=== PATIENT | male | born 1940 | race Caucasian/White ===

== ENCOUNTER 2017-10-21 11:13 | Emergency (ER) | payer MEDICARE, OTHER, SELFPAY ==
[2017-10-21 11:15] VITALS: BP 146/74; PULSE 77; RESP 17; TEMP 36.8; O2SAT 98; BMI 22.4
--- NOTE | 2017-10-21 11:37 | ED.VISSUMM ---
- ER Visit Summary Date of Service: 10/21/17 Chief Complaint: Back pain, right shoulder pain History of Present Illness: The patient is a 77 M presents with right shoulder pain ?3 weeks and back pain ?1 week. Patient is in the process of moving. He has been doing a lot of projects at his old house and packing and lifting. He has pain to his right shoulder and left lower back that radiates down his left leg. He has had no bowel or bladder incontinence. No numbness. He is able to ambulate. Physical Examination: Vitals are stable. Patient is afebrile. Alert no acute distress. HEENT exam is unremarkable. Neck is supple. Lungs are clear and equal bilaterally. Heart is regular rate and rhythm. Abdomen is soft nontender nondistended. Back: Left lumbar paraspinal muscle tenderness, straight leg raise positive at 30?. Extremities anterior shoulder tenderness with painful active full range of motion Skin is warm and dry. No focal neurologic deficit. Normal strength and sensation Remainder of exam is unremarkable. Emergency Department Course and Treatment: Patient is given morphine, Zofran IV. X-ray of the lumbar spine shows degenerative changes. X-ray of the right shoulder and left hip show no acute process. Patient has improvement of his range of motion with pain medication. He is given a short course of [place]. He is advised to follow up with his primary care physician. Advised return to ED if worsening complaints. Disposition: Discharged home Impression: Right shoulder strain, lumbar strain This note was generated with [employer] dictation software. It may contain incorrect words, spelling, and punctuation that were not noted in review of the chart prior to signing ED Disposition - Plan for ED Patient: Chief Complaint: Back Referrals: Terrance Villafuerte III, MD [Primary Care Provider] -
[2017-10-21] MEDS: Ondansetron 4 MG/2 ML Vial IV (12:02)
[2017-10-21] MEDS: Morphine 4 MG/ML Syringe IV (12:02)
--- NOTE | 2017-10-21 13:09 | ED.DEP ---
ED Disposition - Plan for ED Patient: Chief Complaint: Back Instructions: ED Sprain Strain Lumbar Prescriptions: Hydrocodone Bitart/Apap 5-325 [[place] 5MG-325MG] 1 tablet PO Q6H PRN PRN 3 Days #10 tablet PRN Reason: Pain Referrals: Terrance Villafuerte III, MD [Primary Care Provider] -
[2017-10-21 13:21] VITALS: BP 124/71; PULSE 69; RESP 15; O2SAT 96
== END 2017-10-21 13:23 | disposition home or self-care (01) ==
LOC: ED 12:39
PROVIDERS: Emergency Provider Emergency Medicine; Family Provider Family Medicine; PCP Family Medicine
DX: S46.911A Strain of unspecified muscle, fascia and tendon at shoulder and upper arm level, right arm, initial encounter (principal); S39.012A Strain of muscle, fascia and tendon of lower back, initial encounter; X50.9XXA Other and unspecified overexertion or strenuous movements or postures, initial encounter; Y93.E6 Activity, residential relocation; Y92.9 Unspecified place or not applicable; Y99.9 Unspecified external cause status; M25.552 Pain in left hip; G89.29 Other chronic pain; I25.10 Atherosclerotic heart disease of native coronary artery without angina pectoris; K21.9 Gastro-esophageal reflux disease without esophagitis; Z79.02 Long term (current) use of antithrombotics/antiplatelets; Z79.82 Long term (current) use of aspirin; Z79.899 Other long term (current) drug therapy
CPT/HCPCS: 72100; 73030; 73502; 99283; A4216; J2405

== ENCOUNTER 2017-11-16 12:00 | Outpatient (RCR) | payer MEDICARE, OTHER, SELFPAY ==
--- NOTE | 2017-10-30 11:32 | HP.PTEVAL_ITS ---
Patient's Visit Information SHAWNA DELEON is a 77 year old M referred to Physical Therapy by Terrance Villafuerte with a diagnosis of LUMBAR STRAIN. Date of Evaluation: 10/30/17 Physical Therapist: Carolin Arboleda Visit Plan Frequency: 2-3x /Week Duration: 4-6 Weeks Plan: POSTURE CORRECTION/STRENGTHENING, INSTRUCTION IN APPROPRIATE BODY MECHANICS AND ACTIVITY MODIFICATIONS. DLS STARTING WITH A NEUTRAL SPINE PROGRESSING ROM TOLERATED. LUMBAR AND RIGHT SHOULDER US. QUINCY UE AND LE ROM , STRETCHING AND STRENGTHENING. HEP INSTRUCTION. - Subjective Subjective: Work/Leisure: RETIRED. 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 Disability: NO. Present symptoms: QUINCY LOW BACK PAIN. QUINCY LE WEAKNESS. QUINCY BACK AND HIP TIGHTNESS. PATIENT DENIES QUINCY LE NUMBNESS OR TINGLING. HE REPORTS HE DOES NOT GET PAIN BELOW HIS KNEES OR INTO HIS FEET. RIGHT SHOULDER PAIN. Present since: LOW BACK PAIN STARTED ABOUT 3 WEEKS AGO. LAST WEEK IT WAS SO BAD HE COULDN'T LIFT HIS LEFT LEG UP. Pain Scale: WORST: 8/10, LEAST 0 /10. Currently: 0/10. Commenced as a result of: MOVED TO A NEW HOUSE - FIXING IT UP. Symptoms at onset: LOW BACK. Worse: WHEN TRIES TO GET UP FROM BED LOW BACK PAIN AND STIFFNESS. RIGHT SHOULDER PAIN AT NIGHT AND WITH REACHING. CAN'T BOWL OR GOLF. Better: HOT SHOWER IN THE MORNING. Disturbed sleep: YES. Previous history/Previous treatment: UNREMARKABLE. Coughing/ sneezing/straining: NEGATIVE. Gait: SLOW STEPS UNTIL MY BACK GETS LOOSE. PATIENTS REPORTS HE WALKS LIKE AN OLD MAN IN THE MORNING. LEGS ARE WEAK AFTER HE GETS FROM SITTING EVEN IN THE AFTERNOON AND ESPECIALLY AFTER SITTING IN THE RECLINER. Difficulty initiating urinatin: NO. Accidents: NO. Unexplained weight loss: NO. Imagin10/21/17 DEGENERATIVE CHANGES OF THE SPINE SEEN ON X-RAY. NORMAL X-RAY OF PELVIS AND HIPS. NORMAL X-RAY OF RIGHT SHOULDER. PMH: HTN, HEART DZ, GERD, HIGH CHOLESTEROL. Recent major surgery: HEART STENT APPROX 2013. OTHER: PATIENT REPORTS HE THOUGHT HE WAS HERE FOR HIS RIGHT SHOULDER. HE REPORTS HE IS GETTING UP TO 12/10 PAIN IN THE SHOULDER AND HE CAN'T MOVE IT AT NIGHT. HE REPORTS HE IS GETTING STABBING PAINS IN HIS SHOULDER. HASN'T BEEN ABLE TO GOLF OR BOWL FOR ABOUT 3 WEEKS NOW. 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 THEY STARTED MOVING IN JULY BUT THE LAST MONTH OR TWO THEY HAVE BEEN WORKING HARD. PATIENT REPORTS HIS CHEIF COMPLAINT NOW IS HIS RIGHT SHOULDER BUT HIS PAIN ACTUALLY STARTED IN THE LEFT SHOULDER. HIS LEFT SHOULDER STILL ACHES SOMETIMES TOO. PATIENT REPORTS HIS SHOULDER IS DRIVING HIM CRAZY. - Objective Sitting/Standing Posture: POOR. FORWARD HEAD, INCREASED KYPHOSIS, ROUNDED SHOULDERS AND VERY SLOUCH IN SITTING. Lordosis: REDUCED. Lateral shift: NO. Relevant shift: N/A. Active Correction of posture: NE. Other Observations: INDEP GAIT INTO PT WITHOUT ANY ASSISTIVE DEVICES. INCREASED TRUNK FLEXION, DECREASED CADANCE AND DECREASED QUINCY STRIDE LENGTH. Motor deficit: QUINCY LE'S GROSSLY 5/5 WITH MMT'ING EXCEPT HIPS GRADED 4/5. LEFT SHOULDER 4/5. RIGHT SHOULDER 2+/5 INTO FLEX, ABD AND ER. 3-/5 IR. RIGHT CURING OVEN TENDER STRENGTH 70 LBS, LEFT 75 LBS. PATIENT IS RIGHT HAND DOMINANT. Sensory deficit: QUINCY UE AND LE LIGHT TOUCH SENSATION IS INTACT AND SYMMETRICAL. ROM deficit: TIGHT QUINCY HS'S AND GASTROC-SOLEUS COMPLEX'S. TIGHT HIP FLEXORS. SHOULDERS: APPROX 25% DECREASED LEFT SHOULDER AROM. RIGHT SHOULDER ACTIVE FORWARD FLEX 90 DEGREES, ABD 115 DEG. Reflexes: 2/3 QUINCY UE'S AND LE'S. Dural Signs: NEGATIVE QUINCY UE AND LE DURAL SIGNS. Lumbar mvmt loss: flex - NIL. ext - MOD. R SG - MOD. L SG - MOD. Core strength: FAIR. Palpation: NO ACUTE TENDERNESS IN LUMBAR SPINE OR HIPS BUT THERE IS MILD L45S1 TENDERNESS. CERVICAL MVMT LOSS: MAJOR MVMT LOSS INTO RETRACTION AND EXT. MIN TO MOD QUINCY SB AND ROT LOSS. FOR PROTRACTION AND FLEX. PATIENT DENIES PAIN WITH CERVICAL ROM TESTING. - Goals Goal 1:: DECREASE C/O LOW BACK AND LE SX'S. Goal Time Frame: 4-6 Weeks Goal 2:: DECREASE C/O RIGHT SHOULDER PAIN Goal Time Frame: 4-6 Weeks Goal 3:: IMPROVE REACHING, PERSONAL CARE, LIFTING, WALKING, SLEEP, SOCIAL LIFE, AND HOMEMAKING/MOVING FUNCTION Goal Time Frame: 4-6 Weeks Goal 4:: INSTRUCT IN PROPHYLAXIS Goal Time Frame: 4-6 Weeks - Rehabilitation Potential Rehabilitation Potential: Fair - Anticipated Interventions Patient/Client Instruction: Educate patient on: Condition, Plan of Care, Risk Factors, Benefits of Fitness Program For the Purpose of:: To improve self management Therapeutic Exercise to Include: Strength training, Body mechanics, Postural training, Flexibilty training, Passive ROM, Active ROM, Dynamic Lumbar Stabilization, Scapular Strength/Stabilization For the Purpose of:: To decrease pain, To increase ROM, To improve muscle performance and motor function, To improve ability to perform ADL's, To increase tolerance to activity/condition/position, To improve ability of physical actions for home/community/work/leisure, To improve gait and locomotor functions Cryotherapy (ice pack, ice massage): Yes Thermo therapy (hot pack): Yes Ultrasound (thermal/non thermal): Yes - RIGHT SHOULDER AND LUMBAR REGIONS. For the Purpose of:: To decrease pain, To decrease swelling/inflammation, To increase ROM, To improve nutrient delivery to tissue Thank you for the opportunity to evaluate your patient. For Medicare and Medicare HMO plans, please review the plan of care and approve it. It will need to be FAXED BACK to us at [phone] for Medicare purposes. Please let me know if there are questions or concerns regarding this plan of care. Physician Signature: Date:
--- NOTE | 2018-03-25 13:20 | HP.PT.NRP ---
HP - Discharge Summary (1) - Patient Information SHAWNA DELEON was seen in my office for initial evaluation on 10/30/17. The following Plan of Care was established for this patient: Initial Frequency: 2-3x /Week Initial Duration: 4-6 Weeks - Anticipated Interventions Patient/Client Instruction: Educate patient on: Condition, Plan of Care, Risk Factors, Benefits of Fitness Program For the Purpose of:: To improve self management Therapeutic Exercise to Include: Strength training, Body mechanics, Postural training, Flexibilty training, Passive ROM, Active ROM, Dynamic Lumbar Stabilization, Scapular Strength/Stabilization For the Purpose of:: To decrease pain, To increase ROM, To improve muscle performance and motor function, To improve ability to perform ADL's, To increase tolerance to activity/condition/position, To improve ability of physical actions for home/community/work/leisure, To improve gait and locomotor functions Cryotherapy (ice pack, ice massage): Yes Thermo therapy (hot pack): Yes Ultrasound (thermal/non thermal): Yes - RIGHT SHOULDER AND LUMBAR REGIONS. For the Purpose of:: To decrease pain, To decrease swelling/inflammation, To increase ROM, To improve nutrient delivery to tissue This patient was last seen in our office 11/16/17. Pertinent comments regarding their Physical therapy will appear below: This patient has not returned to Physical Therapy and is appropriate to return to MD for further follow-up as needed. At this point I will be discontinuing this patient from physical therapy. I would be happy to see this patient again in the future if found appropriate by the physician. Thank you! Carolin Ceron, PT, Cert MDT
== END 2017-11-16 19:00 | disposition home or self-care (01) ==
LOC: PT 12:00
PROVIDERS: Family Provider Family Medicine; PCP Family Medicine; Visit Provider Family Medicine
DX: S39.012D Strain of muscle, fascia and tendon of lower back, subsequent encounter (principal)
CPT/HCPCS: 97035; 97110; 97163; 97530

== ENCOUNTER → 2017-11-18 13:13 | Outpatient (CLI) | payer MEDICARE, OTHER, SELFPAY ==
[2017-11-18 15:23] LABS: Erythrocyte Sedimentation Rate 25 mm/hr (0-20)
[2017-11-18 15:44] LABS: AST(SGOT) 14 U/L (15-37); Alanine Aminotransfer ALT/SGPT 17 U/L (16-61); Albumin, Serum 3.4 g/dL (3.2-5.0); Alkaline Phosphatase 76 U/L (45-117); Bilirubin, Direct 0.08 mg/dL (0.00-0.30); CPK Total, Creatine Kinase 54 U/L (39-308); Cholesterol 163 mg/dL (200); Globulin 4.1 g/dL (2.2-4.2); High Density Lipoprotein 56 mg/dL; Protein, Total 7.5 g/dL (6.4-8.2); Triglycerides 114 mg/dL; Very Low Density Lipoprotein 23 mg/dL (5-40)
== END ==
PROVIDERS: Family Provider Family Medicine; PCP Family Medicine; Visit Provider Internal Medicine Cardiovascular Disease
DX: M79.1 Myalgia (principal); M25.519 Pain in unspecified shoulder; I25.10 Atherosclerotic heart disease of native coronary artery without angina pectoris; I10 Essential (primary) hypertension; E78.5 Hyperlipidemia, unspecified; Z95.5 Presence of coronary angioplasty implant and graft
CPT/HCPCS: 80061; 80076; 82550; 85652; 86140

== ENCOUNTER → 2017-12-16 13:24 | Outpatient (CLI) | payer MEDICARE, OTHER, SELFPAY ==
--- NOTE | 2017-12-16 13:26 | STEWCON_ITS ---
Reason For Study: CHEST PAIN Stress Results Protocol: Patrick Protocol Maximum Predicted HR: 142 bpm Target HR: 121 bpm% Max imum Predicted HR: 109 % DurationHeart Rate Stage (mm:ss) (bpm) BP BASELINE 90 148/78 STAGE 1 3:00 13 4 170/82 STAGE 2 2:00 15 5 / RECOVERY 92 150/88 Stress Duration: 5:00 mm:ss Maximum Stress HR: 155 bpm Baseline Echocardiogram Findings The estimated ejection fraction is 65 %. Stress Echo Wall motion Data Resting WMIntermediate WMStress WM Resting Wall Motion Wall Motion Stress No regional wall motion No regional wall motion abnormalities noted. abnormalities noted. EKG Data The baseline ECG displays normal sinus rhythm. The patient exercised according to the regular Patrick protocol for a total duration of 4:59. The maximum heart rate attained was 155 beats per minute. The patient exercised into stage 2 of the Patrick protocol. This was 109% of maximum predicted heart rate. During stress, there were no ST or T wave changes noted to suggest ischemia. No clinical angina was noted. Interpretation Summary The estimated ejection fraction is 65 %. Normal, adequate, treadmill echocardiogram. Negative for ischemia by EKG and echocardiographic criteria. Rare PACs noted. Appropriate blood pressure response to exercise. Average exercise capacity for age. Final LVEF is 75%. Test terminated due to target heart rate and dyspnea. Ordering Physician: Clayton Feng Referring Physician: Clayton Feng Performed By: Augusta Garcia RDCS
== END ==
PROVIDERS: Family Provider Family Medicine; PCP Family Medicine; Referring Provider Internal Medicine Cardiovascular Disease; Visit Provider Internal Medicine Cardiovascular Disease
DX: I25.10 Atherosclerotic heart disease of native coronary artery without angina pectoris (principal); R07.9 Chest pain, unspecified; Z95.5 Presence of coronary angioplasty implant and graft
CPT/HCPCS: 93017; 93350

== ENCOUNTER 2018-04-28 01:11 | Inpatient (IN) | payer MEDICARE, OTHER, SELFPAY ==
[2018-04-28] VITALS (20 sets, daily range): BP systolic 107–175; BP diastolic 61–114; PULSE 51–159; RESP 16–22; TEMP 36.4–36.9; O2SAT 94–98; BMI 22.8; BMI 22.9; BMI 23.0
--- NOTE | 2018-04-28 01:20 | RAD_ITS ---
STUDY: X-RAY CHEST REASON FOR EXAM: Male, 78 years old. Chest pain. TECHNIQUE: Single AP portable view of the chest. COMPARISON: 06/02/2015. FINDINGS: There is chronic interstitial prominence in the lung bases. There are no demonstrated acute pulmonary infiltrates. There is no demonstrated pleural abnormality. Normal size heart. Normal mediastinum and dilan. Normal visualized pulmonary arteries. Normal visualized aortic arch and descending thoracic aorta. Normal visualized thoracic spine. Normal visualized ribs, clavicles, and shoulders. There is no demonstrated abnormality of the visualized soft tissue structures of the upper abdomen. RAD/Chest 1 View (Portable) IMPRESSION: Chronic interstitial changes in the lower lung briggs. No evidence for acute cardiopulmonary pathology. Electronically Signed: Marshall Dhillon MD at 2:03 EST , Service support ,
--- NOTE | 2018-04-28 01:20 | EKG12_ITS ---
Test Reason : REPEAT Blood Pressure : / mmHG Vent. Rate : 076 BPM Atrial Rate : 075 BPM P-R Int : 000 ms QRS Dur : 080 ms QT Int : 390 ms P-R-T Axes : 000 019 062 degrees QTc Int : 438 ms Atrial fibrillation Abnormal ECG Confirmed by TY DELCID, KIM ([id number]), food editor RODRÍGUEZ ARMSTRONG ([id number]) on 04/29/2018 1:27:12 PM Referred By: Kevin Lopez Confirmed By:KIM CRAWFORD MD
--- NOTE | 2018-04-28 01:23 | ED.DCSUM_ITS ---
- ER Visit Summary Date of Service: 04/28/18 Chief Complaint: Chest pain History of Present Illness: The patient is a 78 M presenting with chest pain. He states this started 45 minutes prior to arrival. He was given aspirin and nitro at home. The pain improved after nitro. He complains of palpitations and shortness of breath. He has a history of coronary disease, hypertension, hyperlipidemia, GERD. He has history of previous stents. He is on Plavix. He is not a smoker. Physical Examination: Vitals are stable. Heart rate 145. Patient is afebrile. Alert no acute distress. HEENT exam is unremarkable. Neck is supple. Lungs are clear and equal bilaterally. Heart is irregularly irregular Abdomen is soft nontender nondistended. Extremities are unremarkable. Skin is warm and dry. No focal neurologic deficit. Remainder of exam is unremarkable. Emergency Department Course and Treatment: EKG is A. fib with RVR rate of 156. Patient was given Cardizem IV. He had aspirin 325 mg just prior to arrival. CBC, chemistries unremarkable other than glucose 162, BUN 35, creatinine 1.55. Troponin is negative. Repeat EKG after Cardizem shows A. fib with a rate of 76. Patient is chest pain-free on reevaluation. Will discuss with the hospitalist for observation. Disposition: Observation Impression: Chest pain, new onset A. fib This note was generated with [employer] dictation software. It may contain incorrect words, spelling, and punctuation that were not noted in review of the chart prior to signing ED Disposition - Plan for ED Patient: Referrals: Terrance Villafuerte III, MD [Primary Care Provider] -
[2018-04-28 01:31] LABS: Absolute Lymphocyte Count 2.74 X10^3/ul (0.83-4.51); Absolute Neutrophil Count 5.6 X10^3/uL (2.0-7.7); Basophil# 0.02 X10^3/uL; Basophil% 0.2 % (0-1); Eosinophil# 0.22 X10^3/uL; Eosinophils% 2.3 % (0-5); Hematocrit 44.7 % (40-54); Hemoglobin 14.3 g/dl (13.0-16.5); Lymphocyte # 2.74 X10^3/ul (4.0); Lymphocyte % 28.8 % (19-41); Mean Corpuscular Volume 96.8 fL (80-94); Mean Platelet Vol. 11.4 fl (6.2-12.0); Monocyte# 0.82 X10^3/uL; Monocyte% 8.6 % (0-10); Neutrophil # 5.64 X10^3/uL (2.7-7.7); Neutrophil % 59.4 % (47-70); Platelet Count 207 K/mm3 (150-450); RBC Distribution Width CV 13.3 % (11.6-14.6); RBC Distribution Width SD 46.3 fl (35.1-43.9); Red Blood Count 4.62 M/mm3 (4.6-6.2); White Blood Count 9.5 K/mm3 (4.4-11.0)
[2018-04-28] MEDS: dilTIAZem 25 MG/5 ML Vial 20 MG IV BOLUS (01:33)
--- NOTE | 2018-04-28 01:41 | EKG12_ITS ---
Test Reason : CP Blood Pressure : / mmHG Vent. Rate : 156 BPM Atrial Rate : 159 BPM P-R Int : 000 ms QRS Dur : 072 ms QT Int : 292 ms P-R-T Axes : 000 020 105 degrees QTc Int : 470 ms Atrial fibrillation with rapid ventricular response Nonspecific ST abnormality Abnormal ECG Confirmed by TY DELCID, KIM ([id number]), editor map RODRÍGUEZ ARMSTRONG ([id number]) on 04/29/2018 1:27:33 PM Referred By: Kevin Lopez Confirmed By:KIM CRAWFORD MD
[2018-04-28 01:44] LABS: POSITIVE COUNT NO; POSITIVE DIFFERENTIAL NO; POSITIVE MORPHOLOGY NO
[2018-04-28 01:47] LABS: Anion Gap 9 (5-15); BUN 35 mg/dL (7-18); BUN/Creat Ratio 22.6 RATIO (10-20); Calcium,Total 8.9 mg/dL (8.5-10.1); Chloride 108 mmol/L (98-107); Creatinine, Serum 1.55 mg/dL (0.70-1.30); EST Glomerular Filtration Rate 46 mL/min (>60); Est Glom Filt Rate - Afr Amer 56 mL/min (>60); Estimated Creatinine Clearance 40.66 ml/min; Glucose 162 mg/dL (74-106); Potassium 3.7 mmol/L (3.5-5.1); Sodium Level 143 mmol/L (136-145)
--- NOTE | 2018-04-28 03:13 | PCM.HP.STD ---
Problem List (1) Atrial fibrillation with RVR Status: Acute History of Present Illness Date of Admission: 04/28/18 Chief Complaint: chest tightness The patient is a 78 year old M with a significant history of CAD status post stent; CKD stage III; hypertension; polymyalgia rheumatica; and periodontal disease who presented to the emergency department because of chest tightness that started about 25 minutes prior to presentation. His chest at this time when patient was watching TV. He checked his peripheral pulse and realized that it was in the 100s. He then alerted his who checked his pulse and blood pressure with a machine. His pulse was in the 150s. And his blood pressure was 220/110. Associated with symptoms is headache. His gave him some aspirin and nitroglycerin. His is a nurse and he instructed patient to do some vagal maneuvers. The emergency department patient was found to be in A. fib with RVR with heart rates in the 150s. His heart rate was controlled with 50 mg of Cardizem bolus. Past Medical History Past Medical History (Chronic Problems): Chronic Problems (Last Reviewed 04/28/18 @ 03:25 by Kevin Lopez MD) Polymyalgia rheumatica (Chronic) Diagnosed Nov 2017 History of coronary artery stent placement (Chronic ~12/08/13) [id number] RCA and Mid RCA 12/08/2013 @ [facility] Atherosclerosis of coronary artery of [place] heart without angina pectoris (Chronic) [id number] RCA and Mid RCA 12/08/2013 @ [facility] Hypertension (Chronic) Hyperlipidemia (Chronic) Medical History: Medical History (Last Reviewed 04/28/18 @ 03:25 by Kevin Lopez MD) Polymyalgia rheumatica (Chronic) M35.3 Diagnosed Nov 2017 Atherosclerosis of coronary artery of [place] heart without angina pectoris (Chronic) I25.10 [id number] RCA and Mid RCA 12/08/2013 @ [facility] Hypertension (Chronic) I10 Hyperlipidemia (Chronic) E78.5 GERD (gastroesophageal reflux disease) K21.9 Allergies Penicillins Allergy (Verified 04/28/18 01:22) Hives Home Medications: Ambulatory Orders Medication Instructions Recorded Aspirin [Aspirin, Baby] 81 mg PO DAILY 12/08/13 Doxycycline Hyclate 20 mg PO BID 06/02/15 Lisinopril [Zestril] 5 mg PO DAILY 06/02/15 pantoprazole 20 mg tablet,delayed 20 mg PO DAILY 03/14/17 release simvastatin 40 mg tablet 40 mg PO QHS #90 tab 07/02/17 metoprolol tartrate 25 mg tablet 12.5 mg PO BID #90 tab 07/13/17 prednisone 5 mg tablet 5 mg PO DAILY 12/07/17 Clopidogrel Bisulfate [Plavix] 75 mg PO QODAY 04/28/18 Nitroglycerin [Nitrostat] 0.4 mg SL TID PRN PRN 04/28/18 Surgical History: Surgical History (Last Reviewed 12/07/17 @ 14:04 by Agueda Huizar) History of coronary artery stent placement (Chronic) Onset Date: ~12/08/13 Z95.5 [id number] RCA and Mid RCA 12/08/2013 @ [facility] History of left heart catheterization Onset Date: ~12/08/13 Z98.890 Surgical History: no surgical history Psychiatric History: No pertinent psych hx Lives: Spouse/ Significant Other Smoking Status: Former smoker - *Family History Maternal Family History: Family History (Last Updated 04/28/18 @ 03:25 by Kevin Lopez MD) Father CVA (cerebral vascular accident) Mother Kidney disease History Items: - - Kidney failure Paternal Family History: Family History (Last Updated 04/28/18 @ 03:25 by Kevin Lopez MD) Father CVA (cerebral vascular accident) Mother Kidney disease History Items: Stroke Sibling Family History: Family History (Last Updated 04/28/18 @ 03:25 by Kevin Lopez MD) Father CVA (cerebral vascular accident) Mother Kidney disease History Items: No pertinent history Review of Systems Constitutional: Denies: Chills, Fever, Weight Change HEENT: Denies: Head Aches, Sinus Congestion, Sinus Drainage Cardiovascular: Reports: Chest Tightness. Denies: Chest Pain, Palpitations Respiratory: Denies: Cough, Shortness of breath at rest, Sputum production Gastrointestinal: Denies: Abdominal Pain, Nausea, Vomiting Genitourinary: Denies: Dysuria Musculoskeletal: Denies: Joint Pain, Joint Tenderness Skin: Denies: Rash, Wounds Neurological: Denies: Numbness, Tingling, Focal weakness Psychiatric: Denies: Anxiety, Depression, Homicidal Ideations, Suicidal Ideations Hematologic/ Lymphatic: Denies: Easy Bruising, Easy Bleeding VTE Information - Inpt Only VTE Present on Admission: No VTE Mechan Device Prophylaxis: None VTE Pharm Prophylaxis ordered?: No Reason prophylaxis not ordered:: Treatment Not Indicated - Lovenox for A. fib Patient Problems: Active and Suspected Problems (Last Reviewed 04/28/18 @ 03:25 by Kevin Lopez MD) Atrial fibrillation with RVR (Acute) - Physical Exam General: Alert, Oriented x3, Cooperative HEENT: Atraumatic, PERRLA, EOMI, Normocephalic, - Oral: - - Poor dentition Neck: Supple, No JVD, Negative Carotid Bruits Lungs: Clear to auscultation, Normal air movement Cardiovascular: No murmurs, Irregular Rate Abdomen: Bowel Sounds Present, Soft, Non Tender Extremities: No edema, Capillary Refill Less than 3 Seconds Skin: No rashes, No breakdown Musculoskeletal: No Tenderness to Palpation of Joints or Extremities Neurological: Cranial nerves II-XII grossly intact, Neuro grossly intact Psych/Mental Status: Normal Affect, Appropriate Vital Signs Temp Pulse Resp BP Pulse Ox 98.3 F 66 18 107/64 97 04/28/18 01:12 04/28/18 02:29 04/28/18 02:29 04/28/18 02:29 04/28/18 02:29 Oxygen Delivery Method Room Air Weight: 74.389 kg Body Mass Index (BMI) 22.8 Laboratory Tests Past 24 Hrs 04/28/18 04/28/18 01:15 01:15 WBC 9.5 RBC 4.62 Hgb 14.3 Hct 44.7 MCV 96.8 H MCH 31.0 MCHC 32.0 RDW 13.3 RDW Differential 46.3 H Plt Count 207 MPV 11.4 Immature Gran % (Auto) 0.700 Neut % (Auto) 59.4 Lymph % (Auto) 28.8 [place] % (Auto) 8.6 Eos % (Auto) 2.3 Baso % (Auto) 0.2 Absolute Neuts (auto) 5.6 Absolute Lymphs (auto) 2.74 Total Counted Not Reportable Sodium 143 Potassium 3.7 Chloride 108 H Carbon Dioxide 26.0 Anion Gap 9 BUN 35 H Creatinine 1.55 H Estim Creat Clear Calc 40.66 Est GFR (MDRD) Af Amer 56 L Est GFR (MDRD) Non-Af 46 L BUN/Creatinine Ratio 22.6 H Glucose 162 H Calcium 8.9 Troponin I < 0.015 Assessment/Plan All Active Problems (Last Reviewed 04/28/18 @ 03:25 by Kevin Lopez MD) Atrial fibrillation with RVR (Acute) The patient is a 78 year old M with a significant history of CAD status post stent and on dual antiplatelet therapy; hypertension; polymyalgia rheumatica; and periodontal disease who presented to the emergency department because of chest tightness and rapid pulse at home and found to be in A. fib with RVR. A. fib with RVR Admitted to PCU on telemetry Serial cardiac enzymes Obtain echo Patient has a high [id number] score (age 78; hypertension; CAD) = 5 points Lovenox 1 mg per kilogram subcutaneous x 1 At the time of his evaluation his heart rate was in the 60s. Check magnesium Chest x-ray independently reviewed did not show any acute cardiopulmonary process. Patient sees Dr. Feng, swing tender and is on dual antiplatelet therapy. Consider discussing case with swing tender. Hypertension On admission his blood pressure was not within goal. With Cardizem his blood pressure appropriately decreased. Continue home lisinopril and metoprolol. Trend blood pressures and heart rate and adjust blood pressure medication as necessary. Polymyalgia Rheumatica Low-dose prednisone continued Periodontal disease: Patient takes Doxycycline at home. Patient and did not want Doxycycline to be continued while inpatient. CAD status post stent Aspirin and clopidogrel continued Lisinopril and metoprolol continued. Trend cardiac enzymes. Simvastatin continued CKD stage III Creatinine is within baseline Stable GERD Protonix continued DVT prophylaxis Not indicated in the setting of starting patient on Lovenox for A. fib Code Visit OBSV E&M: 95314 Initial observation care L3
--- NOTE | 2018-04-28 03:49 | ECHOCS_ITS ---
Reason For Study: Afib/Flutter Procedure This was a 2D Doppler, Color Flow transthoracic echocardiogram. The study was technically difficult. Contrast injection was performed. Exam performed portable in patient room. Left Ventricle Normal LV size. Left ventricular systolic function is normal. The estimated ejection fraction is 65 %. Diastolic function is indeterminate. No regional wall motion abnormalities noted. Right Ventricle Normal RV size. Normal systolic function. Atria The left atrium is mildly enlarged. Normal right atrium. No doppler evidence for ASD. Mitral Valve There is mild mitral annular calcification. Extension of the mitral annular calcification on to the posterior mitral valve leaflet. Trivial mitral valve insufficiency. Tricuspid Valve Normal tricuspid valve. Trivial tricuspid valve insufficiency. Right ventricular systolic pressure estimated to be 27 mmHg. Aortic Valve Trisinus/trileaflet aortic valve. Normal aortic valve. Pulmonic Valve The pulmonic valve is not well visualized. Great Vessels Normal sized aortic root. Pericardium/Pleural No pericardial effusion. Medication Diluted definity 3ml given slow IV push to enhance endocardial definition. MMode/2D Measurements & Calculations LVIDd: 4.7 cm IVSd: 1.2 cm Ao root diam: 3.8 cm LVIDs: 3.5 cm LVPWd: 0.89 cm FS: 23.8 % LAV(MOD-bp): 55.3 ml LA A4 area: 22.5 cm2 RA A4 area: 14.4 cm2 LAV(MOD-bp) Indexed: 28.2 ml/m2 LAV(MOD-sp2): 39.0 ml LAV(MOD-sp4): 68.2 ml Time Measurements MV dec time: 0.22 sec Doppler Measurements & Calculations MV E max gigi: 91.8 cm/sec MV V2 max: 113.0 cm/sec MV P1/2t max gigi: 94.2 cm/sec MV A max gigi: 113.4 cm/sec MV max P.1 mmHg MV P1/2t: 86.6 msec MV E/A: 0.81 MV V2 mean: 53.3 cm/sec MV dec slope: 318.6 cm/sec2 MV mean P.5 mmHg MV V2 VTI: 34.1 cm MVA(P1/2t): 2.5 cm2 Ao V2 max: 117.4 cm/sec AI max gigi: 409.0 cm/sec LV V1 max: 99.8 cm/sec Ao max P.6 mmHg AI max P.9 mmHg LV V1 max P.0 mmHg AI dec slope: 158.4 cm/sec2 AI P1/2t: 755.9 msec PA V2 max: 93.6 cm/sec TR max gigi: 244.0 cm/sec TR max P.8 mmHg Interpretation Summary The study was technically difficult. Contrast injection was performed. Left ventricular systolic function is normal. The estimated ejection fraction is 65 %. The left atrium is mildly enlarged. There is mild mitral annular calcification. Extension of the mitral annular calcification on to the posterior mitral valve leaflet. Trivial mitral valve insufficiency. Trivial tricuspid valve insufficiency. Right ventricular systolic pressure estimated to be 27 mmHg. Diastolic function is indeterminate. Ordering Physician: Kevin Lopez Referring Physician: Kevin Lopez Performed By: Arpan Nazario RCS
[2018-04-28] MEDS: Enoxaparin 80 MG/0.8 ML Syringe SC (05:02)
[2018-04-28 05:29] LABS: Magnesium 2.4 mg/dL (1.6-2.6); Thyroid Stim Hormone (TSH) 1.42 uIU/mL (0.358-3.74)
[2018-04-28] MEDS: predniSONE 5 MG Tablet PO (08:22)
[2018-04-28] MEDS: Pantoprazole Sodium 20 MG Tablet PO (09:34)
[2018-04-28] MEDS: Metoprolol Tartrate 25 MG Tablet 12.5 MG PO (09:34)
[2018-04-28] MEDS: Lisinopril 5 MG Tablet PO (09:35)
--- NOTE | 2018-04-28 13:22 | PCM.PROGNOTE ---
<Natalia Aguillon - Last Filed: 04/28/18 13:27> Patient Problems: Active and Suspected Problems (Last Reviewed 04/28/18 @ 03:25 by Kevin Lopez MD) Atrial fibrillation with RVR (Acute) Subjective: Patient seen and examined. Feels improved. Denies shortness of breath, palpitations, chest pain. - Physical Exam General: Alert, Oriented x3, Cooperative, No apparent distress HEENT: Atraumatic, PERRLA, EOMI, Normocephalic Neck: Supple, No JVD, Negative Carotid Bruits Lungs: Clear to auscultation, Normal air movement Cardiovascular: Regular rate, Regular Rhythm, Normal S1, Normal S2, No murmurs Abdomen: Bowel Sounds Present, Soft, Non Tender, Non-Distended Extremities: No clubbing, No cyanosis, No edema, Capillary Refill Less than 3 Seconds Skin: No rashes, No breakdown Musculoskeletal: No Tenderness to Palpation of Joints or Extremities Neurological: Cranial nerves II-XII grossly intact, Neuro grossly intact Psych/Mental Status: Normal Affect, Appropriate Vital Signs Temp Pulse Resp BP Pulse Ox 97.6 F L 64 18 124/61 H 96 04/28/18 09:32 04/28/18 10:56 04/28/18 09:32 04/28/18 09:32 04/28/18 09:32 Oxygen Delivery Method Room Air Weight: 169 lb 5.04 oz Body Mass Index (BMI) 22.9 Intake and Output for Last 24 Hours 04/26/18 04/27/18 04/28/18 23:59 23:59 23:59 Intake Total 815 / 815 Balance 815 / 815 Laboratory Tests Past 24 Hrs 04/28/18 04/28/18 04/28/18 01:15 01:15 04:40 WBC 9.5 RBC 4.62 Hgb 14.3 Hct 44.7 MCV 96.8 H MCH 31.0 MCHC 32.0 RDW 13.3 RDW Differential 46.3 H Plt Count 207 MPV 11.4 Immature Gran % (Auto) 0.700 Neut % (Auto) 59.4 Lymph % (Auto) 28.8 [place] % (Auto) 8.6 Eos % (Auto) 2.3 Baso % (Auto) 0.2 Absolute Neuts (auto) 5.6 Absolute Lymphs (auto) 2.74 Total Counted Not Reportable Sodium 143 Potassium 3.7 Chloride 108 H Carbon Dioxide 26.0 Anion Gap 9 BUN 35 H Creatinine 1.55 H Estim Creat Clear Calc 40.66 Est GFR (MDRD) Af Amer 56 L Est GFR (MDRD) Non-Af 46 L BUN/Creatinine Ratio 22.6 H Glucose 162 H Calcium 8.9 Magnesium 2.4 Troponin I < 0.015 TSH 1.42 04/28/18 04/28/18 04:40 07:05 WBC RBC Hgb Hct MCV MCH MCHC RDW RDW Differential Plt Count MPV Immature Gran % (Auto) Neut % (Auto) Lymph % (Auto) [place] % (Auto) Eos % (Auto) Baso % (Auto) Absolute Neuts (auto) Absolute Lymphs (auto) Total Counted Sodium Potassium Chloride Carbon Dioxide Anion Gap BUN Creatinine Estim Creat Clear Calc Est GFR (MDRD) Af Amer Est GFR (MDRD) Non-Af BUN/Creatinine Ratio Glucose Calcium Magnesium Troponin I < 0.015 < 0.015 TSH Medical Necessity - Tobacco Use Smoking Status: Former smoker Assessment/Plan All Active Problems (Last Reviewed 04/28/18 @ 03:25 by Kevin Lopez MD) Atrial fibrillation with RVR (Acute) 1. New onset atrial fibrillation with RVR-now sinus arrhythmia. TSH, mag within normal limits. Troponin negative. Echocardiogram pending. Patient follows with Dr. Feng. Consult cardiology. Increase metoprolol to 25 mg p.o. twice daily. Therapeutic Lovenox. 2. CAD status post stents-prior history of stents in [address] [facility]. Currently follows with Dr. Feng. Patient had a normal stress echo in December 2017. Continue aspirin, Plavix, statin, beta-elvin. 3. Hypertension-stable, continue home lisinopril regimen. Metoprolol regimen increased as noted above. 4. Hyperlipidemia-continue statin. 5. Polymyalgia rheumatica-continue prednisone regimen. 6. Peritoneal disease-on doxycycline regimen. 7. Chronic kidney disease stage III-at baseline. 8. GERD-continue PPI. DVT prophylaxis-Lovenox This patient was seen by GARRY Duarte under the supervision of Dr. Lee. <Jemal Lee - Last Filed: 04/28/18 13:38> - Physical Exam Vital Signs Temp Pulse Resp BP Pulse Ox 97.6 F L 64 18 124/61 H 96 04/28/18 09:32 04/28/18 10:56 04/28/18 09:32 04/28/18 09:32 04/28/18 09:32 Oxygen Delivery Method Room Air Weight: 169 lb 5.04 oz Body Mass Index (BMI) 22.9 Intake and Output for Last 24 Hours 04/26/18 04/27/18 04/28/18 23:59 23:59 23:59 Intake Total 815 / 815 Balance 815 / 815 Laboratory Tests Past 24 Hrs 04/28/18 04/28/18 04/28/18 01:15 01:15 04:40 WBC 9.5 RBC 4.62 Hgb 14.3 Hct 44.7 MCV 96.8 H MCH 31.0 MCHC 32.0 RDW 13.3 RDW Differential 46.3 H Plt Count 207 MPV 11.4 Immature Gran % (Auto) 0.700 Neut % (Auto) 59.4 Lymph % (Auto) 28.8 [place] % (Auto) 8.6 Eos % (Auto) 2.3 Baso % (Auto) 0.2 Absolute Neuts (auto) 5.6 Absolute Lymphs (auto) 2.74 Total Counted Not Reportable Sodium 143 Potassium 3.7 Chloride 108 H Carbon Dioxide 26.0 Anion Gap 9 BUN 35 H Creatinine 1.55 H Estim Creat Clear Calc 40.66 Est GFR (MDRD) Af Amer 56 L Est GFR (MDRD) Non-Af 46 L BUN/Creatinine Ratio 22.6 H Glucose 162 H Calcium 8.9 Magnesium 2.4 Troponin I < 0.015 TSH 1.42 04/28/18 04/28/18 04:40 07:05 WBC RBC Hgb Hct MCV MCH MCHC RDW RDW Differential Plt Count MPV Immature Gran % (Auto) Neut % (Auto) Lymph % (Auto) [place] % (Auto) Eos % (Auto) Baso % (Auto) Absolute Neuts (auto) Absolute Lymphs (auto) Total Counted Sodium Potassium Chloride Carbon Dioxide Anion Gap BUN Creatinine Estim Creat Clear Calc Est GFR (MDRD) Af Amer Est GFR (MDRD) Non-Af BUN/Creatinine Ratio Glucose Calcium Magnesium Troponin I < 0.015 < 0.015 TSH Assessment/Plan Hospitalist note: I am seeing this patient in conjunction with Natalia Aguillon. I independently seen and examined the patient. Progress note above, laboratory data and imaging studies reviewed and I agree with above treatment plan. Patient presented to the emergency room because of chest pain/tightness, found to have new onset A. fib with RVR. He did have a history of CAD status post stents. Today, he is feeling better, no more symptoms. Denies chest pain or shortness of breath. Denied palpitation, dizziness or lightheadedness. He converted back to sinus rhythm, vital signs are stable, heart rate has been 70s. - Physical Exam General: Alert, Oriented x3, Cooperative, No apparent distress. HEENT: Atraumatic, PERRLA, EOMI. Neck: Supple, No JVD, Negative Carotid Bruits, Trachea Midline, Thyroid Normal. Lungs: Clear to auscultation, Normal air movement, No rhonchi, No wheeze, No rales. Cardiovascular: Regular rate, Regular Rhythm, Normal S1, Normal S2, PMI Normal. Abdomen: Bowel Sounds Present, Soft, Non Tender, Non-Distended, No Hepato-splenomegaly. Extremities: No clubbing, No cyanosis, No edema Skin: No rashes, No breakdown Neurological: Neuro grossly intact Vital Signs are stable. Assessment and plan: #1 new onset A. fib with RVR: Converted back to sinus rhythm. He is on metoprolol for rate control. 2D echocardiogram ordered. Plan to start him on Lovenox dose twice daily, cardiology consult. #2 other chronic medical problems: Stable, continue current medications as above. This note was generated with [email or web address] dictation software. It may contain incorrect words, spelling, and punctuation that were not noted in checking the note before signing.
--- NOTE | 2018-04-28 13:37 | PCM.CONS.C ---
Reason for Consult Date of Consultation: 04/28/18 Reason for Consultation: Chest tightness History of Present Illness: The patient is a 78 year old M with a history of coronary artery disease status post angioplasty and drug-eluting stent to the right coronary artery. That was in 2013. He had apparently been doing well until a few months ago when he started complaining of some chest discomfort it was felt that this was somewhat atypical he underwent a stress echocardiographic evaluation where he exercised almost 5 minutes without any obvious evidence of ischemia. Yesterday he experienced a recrudescence of this chest discomfort with minimal activity he also felt that his heart rate was irregular and it was confirmed by his who was a nurse. He presented to the emergency room and was noted to be in atrial fibrillation with a rapid ventricular response rate. The rate was approximately 156 bpm. This was the first time he had experienced this. He was admitted to the telemetry care unit. He described this as a heaviness and burning sensation. He has had a few episodes of the above previously. Cardiology was called for further evaluation and management. [] Past Medical History Allergies/Adverse Reactions: Allergies Penicillins Allergy (Verified 04/28/18 01:22) Hives Home Medications: Ambulatory Orders Medication Instructions Recorded Aspirin [Aspirin, Baby] 81 mg PO DAILY 12/08/13 Doxycycline Hyclate 20 mg PO BID 06/02/15 Lisinopril [Zestril] 5 mg PO DAILY 06/02/15 pantoprazole 20 mg tablet,delayed 20 mg PO DAILY 03/14/17 release simvastatin 40 mg tablet 40 mg PO QHS #90 tab 07/02/17 metoprolol tartrate 25 mg tablet 12.5 mg PO BID #90 tab 07/13/17 prednisone 5 mg tablet 5 mg PO DAILY 12/07/17 Clopidogrel Bisulfate [Plavix] 75 mg PO QODAY 04/28/18 Nitroglycerin [Nitrostat] 0.4 mg SL TID PRN PRN 04/28/18 Past Medical History (Chronic Problems): Chronic Problems (Last Reviewed 04/28/18 @ 03:25 by Kevin Lopez MD) Polymyalgia rheumatica (Chronic) Diagnosed Nov 2017 History of coronary artery stent placement (Chronic ~12/08/13) [id number] RCA and Mid RCA 12/08/2013 @ [facility] Atherosclerosis of coronary artery of [place] heart without angina pectoris (Chronic) [id number] RCA and Mid RCA 12/08/2013 @ [facility] Hypertension (Chronic) Hyperlipidemia (Chronic) Surgical History: no surgical history Psychiatric History: No pertinent psych hx - *Family History Maternal Family History: Family History (Last Updated 04/28/18 @ 03:25 by Kevin Lopez MD) Father CVA (cerebral vascular accident) Mother Kidney disease History Items: - - Kidney failure Paternal Family History: Family History (Last Updated 04/28/18 @ 03:25 by Kevin Lopez MD) Father CVA (cerebral vascular accident) Mother Kidney disease History Items: Stroke Sibling Family History: Family History (Last Updated 04/28/18 @ 03:25 by Kevin Lopez MD) Father CVA (cerebral vascular accident) Mother Kidney disease History Items: No pertinent history Lives: Spouse/ Significant Other Smoking Status: Former smoker Alcohol: None Drugs: None Review of Systems - Review of Systems General: Denies: Fever, Night Sweats, Fatigue HEENT: Denies: Vision Change Cardiovascular: Reports: Chest Discomfort, Chest Discomfort at Rest, Palpitations. Denies: Shortness of Breath, Orthopnea, PND, Peripheral Edema, Lightheadedness, Dizziness, Near Syncope, Syncope Respiratory: Denies: Cough, Sputum Production, Hemoptysis Gastrointestinal: Denies: Hematemesis, Hematochezia, Melena Genitourinary: Denies: Dysuria, Hematuria Muscoloskeletal: Denies: Myalgias Skin: Denies: Rash Neurological: Denies: Dizziness Psychiatric: Reports: Anxiety Endocrine: Denies: Unexplained Weight Loss Hematologic/ Lymphatic: Denies: Anemia Subjectve: Pleasant gentleman in no apparent distress Objective: Vital Signs Temp Pulse Resp BP Pulse Ox 97.6 F L 64 18 124/61 H 96 04/28/18 09:32 04/28/18 10:56 04/28/18 09:32 04/28/18 09:32 04/28/18 09:32 Oxygen Delivery Method Room Air Weight: 169 lb 5.04 oz Body Mass Index (BMI) 22.9 Intake and Output for Last 24 Hours 04/26/18 04/27/18 04/28/18 23:59 23:59 23:59 Intake Total 815 / 815 Balance 815 / 815 General: Awake, Alert, Oriented x 3 HEENT: PERRL, EOMI, Sclera Non Icteric Neck: Supple, Good ROM, No Lymph Node Enlargement Lungs: Clear to auscultation Cardiovascular: Regular Rhythm, Premature Ectopic Beats, Normal S1, Normal S2, No Murmurs, No Rubs, No Gallops Vascular: No Carotid Bruits, Normal Femoral Pulses, Normal Radial Pulses, Normal Dorsalis Pedal Pulse, Normal Posterior Tibial Pulses Abdomen: Bowel Sounds Present, Soft, Non Tender, No HSM, No Organomegaly Extremities: No Cyanosis, No Clubbing, No edema Musculoskeletal: No Erythema Lymphatic: No Lymph Node Enlargement Neurological: No Focal Motor or Sensory Deficit 04/28/18 01:15: WBC 9.5, RBC 4.62, Hgb 14.3, Hct 44.7, MCV 96.8 H, MCH 31.0, MCHC 32.0, RDW 13.3, RDW Differential 46.3 H, Plt Count 207, MPV 11.4, Immature Gran % (Auto) 0.700, Neut % (Auto) 59.4, Lymph % (Auto) 28.8, [place] % (Auto) 8.6, Eos % (Auto) 2.3, Baso % (Auto) 0.2, Absolute Neuts (auto) 5.6, Total Counted Not Reportable 04/28/18 01:15: Sodium 143, Potassium 3.7, Chloride 108 H, Carbon Dioxide 26.0, Anion Gap 9, BUN 35 H, Creatinine 1.55 H, Est GFR (MDRD) Af Amer 56 L, Est GFR (MDRD) Non-Af 46 L, BUN/Creatinine Ratio 22.6 H, Glucose 162 H, Calcium 8.9, Troponin I < 0.015 04/28/18 04:40: Magnesium 2.4 04/28/18 04:40: Troponin I < 0.015 04/28/18 07:05: Troponin I < 0.015 Rhythm: Current telemetry monitoring demonstrates sinus rhythm with premature atrial complexes EKG: Initial EKG on presentation to the emergency room demonstrated atrial fibrillation with a rate of 156 bpm. Follow-up EKG demonstrates atrial fibrillation with a rate of 76 bpm. No acute changes noted ECHO: Preserved left ventricular systolic function estimated EF 65% Assessment/Plan 1. Chest pain The patient presents with chest discomfort which has some features which are concerning for angina. He was probably in atrial fibrillation at that time. With his previous history of coronary disease and stenting of his right coronary artery I would recommend that we pursue an invasive approach with a cardiac catheterization. He recently underwent stress testing which had not demonstrated any evidence of ischemia. Depending on the findings further recommendations will be made. The risk benefits and alternatives have been explained to him and his they understand and agreed to proceed. 2. Atrial fibrillation The patient presents with new onset recent onset atrial fibrillation. He has spontaneously converted to sinus rhythm. I do not think that he is a candidate for anticoagulation at this particular time. We will review his coronary anatomy and make a decision after that. Agree with increasing the dose of his beta-elvin. 3. Hyperlipidemia Will continue with aggressive risk factor modification. Thank you for allowing me to participate in the care of your patient. Please don't hesitate to call if any issues arise
--- NOTE | 2018-04-28 13:41 | CON.PCM_ITS ---
Reason for Consult Date of Consultation: 04/28/18 Reason for Consultation: Chest tightness History of Present Illness: The patient is a 78 year old M with a history of coronary artery disease status post angioplasty and drug-eluting stent to the right coronary artery. That was in 2013. He had apparently been doing well until a few months ago when he started complaining of some chest discomfort it was felt that this was somewhat atypical he underwent a stress echocardiographic evaluation where he exercised almost 5 minutes without any obvious evidence of ischemia. Yesterday he experienced a recrudescence of this chest discomfort with minimal activity he also felt that his heart rate was irregular and it was confirmed by his who was a nurse. He presented to the emergency room and was noted to be in atrial fibrillation with a rapid ventricular response rate. The rate was approximately 156 bpm. This was the first time he had experienced this. He was admitted to the telemetry care unit. He described this as a heaviness and burning sensation. He has had a few episodes of the above previously. Cardiology was called for further evaluation and management. [] Past Medical History Allergies/Adverse Reactions: Allergies Penicillins Allergy (Verified 04/28/18 01:22) Hives Home Medications: Ambulatory Orders Medication Instructions Recorded Aspirin [Aspirin, Baby] 81 mg PO DAILY 12/08/13 Doxycycline Hyclate 20 mg PO BID 06/02/15 Lisinopril [Zestril] 5 mg PO DAILY 06/02/15 pantoprazole 20 mg tablet,delayed 20 mg PO DAILY 03/14/17 release simvastatin 40 mg tablet 40 mg PO QHS #90 tab 07/02/17 metoprolol tartrate 25 mg tablet 12.5 mg PO BID #90 tab 07/13/17 prednisone 5 mg tablet 5 mg PO DAILY 12/07/17 Clopidogrel Bisulfate [Plavix] 75 mg PO QODAY 04/28/18 Nitroglycerin [Nitrostat] 0.4 mg SL TID PRN PRN 04/28/18 Past Medical History (Chronic Problems): Chronic Problems (Last Reviewed 04/28/18 @ 03:25 by Kevin Lopez MD) Polymyalgia rheumatica (Chronic) Diagnosed Nov 2017 History of coronary artery stent placement (Chronic ~12/08/13) [id number] RCA and Mid RCA 12/08/2013 @ [facility] Atherosclerosis of coronary artery of [place] heart without angina pectoris (Chronic) [id number] RCA and Mid RCA 12/08/2013 @ [facility] Hypertension (Chronic) Hyperlipidemia (Chronic) Surgical History: no surgical history Psychiatric History: No pertinent psych hx - *Family History Maternal Family History: Family History (Last Updated 04/28/18 @ 03:25 by Kevin Lopez MD) Father CVA (cerebral vascular accident) Mother Kidney disease History Items: - - Kidney failure Paternal Family History: Family History (Last Updated 04/28/18 @ 03:25 by Kevin Lopez MD) Father CVA (cerebral vascular accident) Mother Kidney disease History Items: Stroke Sibling Family History: Family History (Last Updated 04/28/18 @ 03:25 by Kevin Lopez MD) Father CVA (cerebral vascular accident) Mother Kidney disease History Items: No pertinent history Lives: Spouse/ Significant Other Smoking Status: Former smoker Alcohol: None Drugs: None Review of Systems - Review of Systems General: Denies: Fever, Night Sweats, Fatigue HEENT: Denies: Vision Change Cardiovascular: Reports: Chest Discomfort, Chest Discomfort at Rest, Palpitations. Denies: Shortness of Breath, Orthopnea, PND, Peripheral Edema, Lightheadedness, Dizziness, Near Syncope, Syncope Respiratory: Denies: Cough, Sputum Production, Hemoptysis Gastrointestinal: Denies: Hematemesis, Hematochezia, Melena Genitourinary: Denies: Dysuria, Hematuria Muscoloskeletal: Denies: Myalgias Skin: Denies: Rash Neurological: Denies: Dizziness Psychiatric: Reports: Anxiety Endocrine: Denies: Unexplained Weight Loss Hematologic/ Lymphatic: Denies: Anemia Subjectve: Pleasant gentleman in no apparent distress Objective: Vital Signs Temp Pulse Resp BP Pulse Ox 97.6 F L 64 18 124/61 H 96 04/28/18 09:32 04/28/18 10:56 04/28/18 09:32 04/28/18 09:32 04/28/18 09:32 Oxygen Delivery Method Room Air Weight: 169 lb 5.04 oz Body Mass Index (BMI) 22.9 Intake and Output for Last 24 Hours 04/26/18 04/27/18 04/28/18 23:59 23:59 23:59 Intake Total 815 / 815 Balance 815 / 815 General: Awake, Alert, Oriented x 3 HEENT: PERRL, EOMI, Sclera Non Icteric Neck: Supple, Good ROM, No Lymph Node Enlargement Lungs: Clear to auscultation Cardiovascular: Regular Rhythm, Premature Ectopic Beats, Normal S1, Normal S2, No Murmurs, No Rubs, No Gallops Vascular: No Carotid Bruits, Normal Femoral Pulses, Normal Radial Pulses, Normal Dorsalis Pedal Pulse, Normal Posterior Tibial Pulses Abdomen: Bowel Sounds Present, Soft, Non Tender, No HSM, No Organomegaly Extremities: No Cyanosis, No Clubbing, No edema Musculoskeletal: No Erythema Lymphatic: No Lymph Node Enlargement Neurological: No Focal Motor or Sensory Deficit 04/28/18 01:15: WBC 9.5, RBC 4.62, Hgb 14.3, Hct 44.7, MCV 96.8 H, MCH 31.0, MCHC 32.0, RDW 13.3, RDW Differential 46.3 H, Plt Count 207, MPV 11.4, Immature Gran % (Auto) 0.700, Neut % (Auto) 59.4, Lymph % (Auto) 28.8, [place] % (Auto) 8.6, Eos % (Auto) 2.3, Baso % (Auto) 0.2, Absolute Neuts (auto) 5.6, Total Counted Not Reportable 04/28/18 01:15: Sodium 143, Potassium 3.7, Chloride 108 H, Carbon Dioxide 26.0, Anion Gap 9, BUN 35 H, Creatinine 1.55 H, Est GFR (MDRD) Af Amer 56 L, Est GFR (MDRD) Non-Af 46 L, BUN/Creatinine Ratio 22.6 H, Glucose 162 H, Calcium 8.9, Troponin I < 0.015 04/28/18 04:40: Magnesium 2.4 04/28/18 04:40: Troponin I < 0.015 04/28/18 07:05: Troponin I < 0.015 Rhythm: Current telemetry monitoring demonstrates sinus rhythm with premature atrial complexes EKG: Initial EKG on presentation to the emergency room demonstrated atrial fibrillation with a rate of 156 bpm. Follow-up EKG demonstrates atrial fibrillation with a rate of 76 bpm. No acute changes noted ECHO: Preserved left ventricular systolic function estimated EF 65% Assessment/Plan 1. Chest pain * The patient presents with chest discomfort which has some features which are concerning for angina. He was probably in atrial fibrillation at that time. With his previous history of coronary disease and stenting of his right coronary artery I would recommend that we pursue an invasive approach with a cardiac catheterization. He recently underwent stress testing which had not demonstrated any evidence of ischemia. Depending on the findings further recommendations will be made. The risk benefits and alternatives have been explained to him and his they understand and agreed to proceed. * 2. Atrial fibrillation * The patient presents with new onset recent onset atrial fibrillation. He has spontaneously converted to sinus rhythm. I do not think that he is a candidate for anticoagulation at this particular time. We will review his coronary anatomy and make a decision after that. * Agree with increasing the dose of his beta-elvin. * 3. Hyperlipidemia * Will continue with aggressive risk factor modification. * * Thank you for allowing me to participate in the care of your patient. Please don't hesitate to call if any issues arise * *
--- NOTE | 2018-04-28 15:30 | CHAPLAIN ---
Type of Pastoral Visit _x__ Initial Visit ___ Follow-up Visit ___ On-call Visit ___ General Patient Visit ___ Spiritual Assessment ___ Family Conference ___ Bereavement ___ Rapid Response ___ Code Blue ___ Other (describe below) Pastoral Care Referral From _x__ Patient ___ Family ___ Nurse ___ Physician ___ Regional Sales Representative ___ Creative/Art Director ___ Other (describe below) Sacrament/Intervention _x__ Active listening ___ Anointing ___ Moravian ___ Bereavement ___ Communion _x__ Suki exploration ___ _x__ Life review _x__ Prayer ___ Reconciliation ___ Sacrament of Sick _x__ Supportive presence ___ Wedding ___ Other (describe below) Pastoral Comments some anxiety expressed about heart cath but mostly about facing his own mortality
[2018-04-28] MEDS: Atorvastatin Calcium 20 MG Tablet PO (21:43)
[2018-04-28] MEDS: Metoprolol Tartrate 25 MG Tablet PO (21:43)
[2018-04-29] VITALS (22 sets, daily range): BP systolic 123–159; BP diastolic 51–105; PULSE 45–101; RESP 14–18; TEMP 36.6–36.9; O2SAT 93–100
[2018-04-29] MEDS: Aspirin 81 MG TAB.CHEW PO (05:39)
[2018-04-29] MEDS: Metoprolol Tartrate 25 MG Tablet PO (05:40)
[2018-04-29] MEDS: Clopidogrel Bisulfate 75 MG Tablet PO (05:40)
[2018-04-29] MEDS: Lisinopril 5 MG Tablet PO (05:40)
[2018-04-29 05:42] LABS: Absolute Lymphocyte Count 2.03 X10^3/ul (0.83-4.51); Absolute Neutrophil Count 4.7 X10^3/uL (2.0-7.7); Basophil# 0.02 X10^3/uL; Basophil% 0.3 % (0-1); Eosinophil# 0.26 X10^3/uL; Eosinophils% 3.4 % (0-5); Hematocrit 38.1 % (40-54); Hemoglobin 12.3 g/dl (13.0-16.5); Lymphocyte # 2.03 X10^3/ul (4.0); Lymphocyte % 26.2 % (19-41); Mean Corp Hgb Conc 32.3 g/gl (32-36); Mean Corpuscular Hgb 31.1 pg (27.0-32.0); Mean Corpuscular Volume 96.2 fL (80-94); Mean Platelet Vol. 11.4 fl (6.2-12.0); Monocyte# 0.75 X10^3/uL; Monocyte% 9.7 % (0-10); Neutrophil # 4.67 X10^3/uL (2.7-7.7); Platelet Count 158 K/mm3 (150-450); RBC Distribution Width CV 12.9 % (11.6-14.6); RBC Distribution Width SD 43.7 fl (35.1-43.9); Red Blood Count 3.96 M/mm3 (4.6-6.2); White Blood Count 7.8 K/mm3 (4.4-11.0)
[2018-04-29 05:50] LABS: POSITIVE COUNT NO; POSITIVE DIFFERENTIAL NO; POSITIVE MORPHOLOGY NO; Partial Thromboplast Time 28.7 Seconds (24.1-36.2)
--- NOTE | 2018-04-29 05:55 | EKG12_ITS ---
Test Reason : AM EKG Blood Pressure : / mmHG Vent. Rate : 069 BPM Atrial Rate : 069 BPM P-R Int : 152 ms QRS Dur : 084 ms QT Int : 412 ms P-R-T Axes : 044 013 046 degrees QTc Int : 441 ms Sinus rhythm with marked sinus arrhythmia Otherwise normal ECG When compared with ECG of 28-APR-2018 01:42, MANUAL COMPARISON REQUIRED, DATA IS UNCONFIRMED Confirmed by DASHA DELCID, RIZWAN ([id number]), editor farm journal KEVEN ALVARADO ([id number]) on 05/03/2018 5:25:33 PM Referred By: Kevin Lopez Confirmed By:RIZWAN LOU MD
[2018-04-29 06:08] LABS: Anion Gap 8 (5-15); BUN 29 mg/dL (7-18); BUN/Creat Ratio 23.6 RATIO (10-20); Calcium,Total 8.2 mg/dL (8.5-10.1); Chloride 113 mmol/L (98-107); Creatinine, Serum 1.23 mg/dL (0.70-1.30); EST Glomerular Filtration Rate 60 mL/min (>60); Est Glom Filt Rate - Afr Amer 73 mL/min (>60); Glucose 93 mg/dL (74-106); Potassium 4.2 mmol/L (3.5-5.1); Sodium Level 145 mmol/L (136-145)
--- NOTE | 2018-04-29 06:41 | NURSING ---
report given to crime laboratory analyst RN
--- NOTE | 2018-04-29 07:43 | PN.CARD_ITS ---
Subjectve: Patient seen and evaluated. Appears to be doing well. Objective: Vital Signs Temp Pulse Resp BP Pulse Ox 98.3 F 78 18 151/67 H 95 04/29/18 05:33 04/29/18 05:40 04/29/18 05:33 04/29/18 05:33 04/29/18 05:33 Oxygen Delivery Method Room Air Weight: 169 lb 5.04 oz Body Mass Index (BMI) 22.9 Intake and Output for Last 24 Hours 04/27/18 04/28/18 04/29/18 23:59 23:59 23:59 Intake Total 1410 / 1410 Balance 1410 / 1410 General: Awake, Alert, Oriented x 3 HEENT: PERRL, EOMI, Sclera Non Icteric Neck: Supple, Good ROM, No Lymph Node Enlargement Lungs: Clear to auscultation Cardiovascular: Regular Rhythm, Normal S1, Normal S2, No Murmurs, No Rubs, No Gallops Vascular: No Carotid Bruits, Normal Femoral Pulses, Normal Radial Pulses, Normal Dorsalis Pedal Pulse, Normal Posterior Tibial Pulses Abdomen: Bowel Sounds Present, Soft, Non Tender, No HSM, No Organomegaly Extremities: No Cyanosis, No Clubbing, No edema Neurological: No Focal Motor or Sensory Deficit Psych/Mental Status: Appropriate 04/28/18 07:05: Troponin I < 0.015 04/29/18 05:00: WBC 7.8, RBC 3.96 L, Hgb 12.3 L, Hct 38.1 L, MCV 96.2 H, MCH 31.1, MCHC 32.3, RDW 12.9, RDW Differential 43.7, Plt Count 158, MPV 11.4, Immature Gran % (Auto) 0.400, Neut % (Auto) 60.0, Lymph % (Auto) 26.2, [place] % (Auto) 9.7, Eos % (Auto) 3.4, Baso % (Auto) 0.3, Absolute Neuts (auto) 4.7, Total Counted Not Reportable 04/29/18 05:00: PT 13.0, INR 1.0, APTT 28.7 04/29/18 05:00: Sodium 145, Potassium 4.2, Chloride 113 H, Carbon Dioxide 24.0, Anion Gap 8, BUN 29 H, Creatinine 1.23, Est GFR (MDRD) Af Amer 73, Est GFR (MDRD) Non-Af 60, BUN/Creatinine Ratio 23.6 H, Glucose 93, Calcium 8.2 L Rhythm: EKG: ECHO: Stress Test: Cardiac Cath: PCI: CT Surgery: Holter monitor: EPS: PPM: CXR: Chest CT Scan: Medical Necessity - Tobacco Use Smoking Status: Former smoker Assessment/Plan 1. Chest pain * The patient presents with chest discomfort which has some features which are concerning for angina. He was probably in atrial fibrillation at that time. With his previous history of coronary disease and stenting of his right coronary artery I would recommend that we pursue an invasive approach with a cardiac catheterization. * Monitoring his cardiac catheterization this morning demonstrated the following: Normal left main coronary artery. Left anterior descending artery with ostial 50-60% stenosis. Left circumflex artery nondominant with ostial 60% stenosis. Dominant right coronary artery previously stented with patent stent. Borderline left ventricular systolic function with mild anterior hypokinesis. Based on the above angiographic findings the patient will be continued with aggressive medical therapy. I suspect that his blood pressure was responsible for his atrial fibrillation and his chest pain symptoms. Would add lisinopril 10 mg a day to his current regimen. Continue beta-elvin Follow-up with Dr. Feng as an outpatient. 2. Atrial fibrillation * The patient presents with new onset recent onset atrial fibrillation. He has spontaneously converted to sinus rhythm. I do not think that he is a candidate for anticoagulation at this particular time. We will review his coronary anatomy and make a decision after that. * Agree with increasing the dose of his beta-elvin. * 3. Hyperlipidemia * Will continue with aggressive risk factor modification. * * Thank you for allowing me to participate in the care of your patient. Please don't hesitate to call if any issues arise * *
--- NOTE | 2018-04-29 07:49 | CL.D_ITS ---
Patient Name: SHAWNA DELEON Study Date: 04/29/2018 Performing: Jeffrey Doherty MD Ht: 72.04 inches 183 cm : 1940 Wt: 169.76 lbs 77 kg Age: 78 Gender: male BSA: 1.99 PROCEDURE(S) PERFORMED [id number]/LV CLINICAL PROFILE AND INDICATIONS Indications: Cardiac Arrythmia Heart Failure: None Stress/Imaging Stress/Image Study Performed: No CAD Presentations: Symptom unlikely to be ischemic. CONCLUSIONS Mild in-stent right coronary artery stenosis, mild ostial left anterior descending artery and ostial left circumflex artery stenosis. Hypertension noted. RECOMMENDATIONS Medical therapy DESCRIPTION OF PROCEDURE The patient arrived to the procedure lab. The risks and benefits of the procedure as well as a full d escription of our services here and current unavailability of surgical backup were fully explained to the patient and/or their significant other prior to the catheterization. The Timeout was completed, verifying the correct patient and procedure. The patient's procedural site was prepped and draped in the usual fashion. Local anesthetic was given subcutaneously to right radial region with Lidocaine 2% . Using a modified Seldinger technique, arterial access was obtained via the right radial artery, a 6 Fr sheath was inserted. Left Coronary Artery selective angiography was performed in multiple views u sing a 5 Fr. 4.0 Selfridge catheter. Right Coronary Artery selective angiography was then performed in mu ltiple views using a 5 Fr. 4.0 Selfridge catheter. Left Ventriculography was performed in BLAKE projection using a 5 Fr. Pigtail catheter. LV to AO pullback pressures were then recorded.The arterial sheath was pulled and a TR Band was applied for hemostasis CORONARY ANGIOGRAPHY DOMINANCE: Right Dominant LEFT HEART ASSESSMENT Left Ventricular Ejection Fraction: by LV Gram 45 % Anterior Hypokinesis - Mild Depressed Left Ventricular systolic function LEFT MAIN: Mild calcification, Angiographically normal LEFT ANTERIOR DECENDING ARTERY: OSTIAL LAD: 50 % Stenosis CIRCUMFLEX ARTERY: OSTIAL CIRC: 50 % Stenosis RIGHT CORONARY ARTERY: Mild luminal irregularities MID RCA: Mild luminal irregularities, Previously placed stent is patent COMPLICATIONS No Complications PROCEDURE MEDICATIONS Versed 1 mg IV Fentanyl 50 mcg IV Versed 1 mg IV Fentanyl 25 mcg IV Oxygen: 2 L/min via nasal cannula Heparin diluted in 23cc Heparinized saline. Patient given 10cc IA of this solution. 04/29/2018 07:19: 18 Verapamil 2.5mg, Ntg 100mcgs, 2000 units of Heparin diluted in 23cc Heparinized saline. Patient give n 10cc IA of this solution. 04/29/2018 07:19:18 SUMMARY OF HEMODYNAMIC DATA Time AIR REST ECG 06:58:42 AO 128/59 (89) SA 07:21:50 LV 163/4, 21 07:32:25 LV 173/5, 23 07:32:31 LV 157/5, 16 07:33:53 LV 164/4, 21 07:33:59 LVp 172/4, 16 07:34:02 AOp 164/69 (109) 07:34:07 Signed By Jeffrey Doherty MD On 04/29/2018 07:47:26 Jeffrey Doherty MD
[2018-04-29] MEDS: predniSONE 5 MG Tablet PO (09:41)
[2018-04-29] MEDS: Pantoprazole Sodium 20 MG Tablet PO (09:41)
[2018-04-29] MEDS: Lisinopril 10 MG Tablet PO (09:43)
[2018-04-29] MEDS: 0.9% Normal Saline 1,000 ML 75 ML IV (09:45)
--- NOTE | 2018-04-29 10:16 | EKG12_ITS ---
Test Reason : PALPS Blood Pressure : / mmHG Vent. Rate : 062 BPM Atrial Rate : 062 BPM P-R Int : 170 ms QRS Dur : 090 ms QT Int : 428 ms P-R-T Axes : 067 019 047 degrees QTc Int : 434 ms Sinus rhythm with Premature atrial complexes in a pattern of bigeminy Otherwise normal ECG When compared with ECG of 29-APR-2018 05:37, MANUAL COMPARISON REQUIRED, DATA IS UNCONFIRMED Confirmed by DASHA DELCID, RIZWAN ([id number]), editor publications KEVEN ALVARADO ([id number]) on 05/03/2018 5:25:11 PM Referred By: Kevin Lopez Confirmed By:RIZWAN LOU MD
[2018-04-29 10:49] LABS: Color, Urine Yellow (Yellow); Glucose, Dipstick Normal (Normal); Ketone-Dipstick Negative (Negative); Leukocyte Esterase-Dipstick Negative /ul (Negative); Nitrite-Dipstick Negative (Negative); Occult Blood-Urine Negative /ul (Negative); Protein-Dipstick 15 mg/dl (Negative); Specific Gravity, Urine 1.015 (1.002-1.030); Urine Bilirubin Dipstick Negative (Negative); Urine Clarity Clear (Clear); Urine Urobilinogen Normal (Normal)
--- NOTE | 2018-04-29 11:30 | PN_ITS ---
<Ronaldo Simental - Last Filed: 04/29/18 11:25> Patient Problems: Active and Suspected Problems (Last Reviewed 04/28/18 @ 03:25 by Kevin Lopez MD) Atrial fibrillation with RVR (Acute) Subjective: Pt resting comfortably in bed NAD. Tolerated cath well this AM. No CP today. No palp/LH. Pt has not been out of bed yet this AM. - Physical Exam General: Alert, Oriented x3, Cooperative HEENT: Atraumatic, PERRLA, EOMI, Normocephalic Neck: Supple, No JVD, Negative Carotid Bruits Lungs: Clear to auscultation, Normal air movement Cardiovascular: Regular rate, No murmurs Abdomen: Bowel Sounds Present, Soft, Non Tender Extremities: No edema, Capillary Refill Less than 3 Seconds Skin: No rashes, No breakdown Musculoskeletal: No Tenderness to Palpation of Joints or Extremities Neurological: Cranial nerves II-XII grossly intact Psych/Mental Status: Normal Affect, Appropriate, Alert and oriented to time, place, person, mood and affect Vital Signs Temp Pulse Resp BP Pulse Ox 98.3 F 92 15 137/61 H 99 04/29/18 05:33 04/29/18 11:22 04/29/18 11:22 04/29/18 11:22 04/29/18 11:22 Oxygen Flow Rate (L/min) 2 Oxygen Delivery Method Room Air Weight: 169 lb 5.04 oz Body Mass Index (BMI) 22.9 Intake and Output for Last 24 Hours 04/27/18 04/28/18 04/29/18 23:59 23:59 23:59 Intake Total 1410 / 1410 Balance 1410 / 1410 Laboratory Tests Past 24 Hrs 04/28/18 04/29/18 04/29/18 20:55 05:00 05:00 WBC 7.8 RBC 3.96 L Hgb 12.3 L Hct 38.1 L MCV 96.2 H MCH 31.1 MCHC 32.3 RDW 12.9 RDW Differential 43.7 Plt Count 158 MPV 11.4 Immature Gran % (Auto) 0.400 Neut % (Auto) 60.0 Lymph % (Auto) 26.2 [place] % (Auto) 9.7 Eos % (Auto) 3.4 Baso % (Auto) 0.3 Absolute Neuts (auto) 4.7 Absolute Lymphs (auto) 2.03 Total Counted Not Reportable PT 13.0 INR 1.0 APTT 28.7 Sodium Potassium Chloride Carbon Dioxide Anion Gap BUN Creatinine Estim Creat Clear Calc Est GFR (MDRD) Af Amer Est GFR (MDRD) Non-Af BUN/Creatinine Ratio Glucose Calcium Urine Color Yellow Urine Clarity Clear Urine pH 6.0 Ur Specific [place] 1.015 Urine Protein 15 H Urine Glucose (UA) Normal Urine Ketones Negative Urine Occult Blood Negative Urine Nitrite Negative Urine Bilirubin Negative Urine Urobilinogen Normal Ur Leukocyte Esterase Negative 04/29/18 05:00 WBC RBC Hgb Hct MCV MCH MCHC RDW RDW Differential Plt Count MPV Immature Gran % (Auto) Neut % (Auto) Lymph % (Auto) [place] % (Auto) Eos % (Auto) Baso % (Auto) Absolute Neuts (auto) Absolute Lymphs (auto) Total Counted PT INR APTT Sodium 145 Potassium 4.2 Chloride 113 H Carbon Dioxide 24.0 Anion Gap 8 BUN 29 H Creatinine 1.23 Estim Creat Clear Calc 52.90 Est GFR (MDRD) Af Amer 73 Est GFR (MDRD) Non-Af 60 BUN/Creatinine Ratio 23.6 H Glucose 93 Calcium 8.2 L Urine Color Urine Clarity Urine pH Ur Specific [place] Urine Protein Urine Glucose (UA) Urine Ketones Urine Occult Blood Urine Nitrite Urine Bilirubin Urine Urobilinogen Ur Leukocyte Esterase Medical Necessity - Tobacco Use Smoking Status: Former smoker Assessment/Plan All Active Problems (Last Reviewed 04/28/18 @ 03:25 by Kevin Lopez MD) Atrial fibrillation with RVR (Acute) 1. Afib RVR - new onset. Spontaneously converted. Metoprolol inc. at admission. Agustin 20-30s this AM. decrease back down. No OAC per Cardiology 2. CAD - cath this AM. 50-60% stenosis - medical therapy. Echo done. Prior stents 2013. Follows Feng as O/p. Asa/plavix/bb/last. 3. HTN - possibly contributing to #1. Poorly controlled. Inc. Lisinopril. 4. HLD - statin 5. PMR - low dose prednisone. 6. Peritoneal dz - doxy 7. CKD III - stable 8. GERD - ppi. DVT ppx - lovenox DC planning: monitor pulse / BP overnight. This patient was seen by Ronaldo Hola PA-C under the supervision of Doctor Rosa. <Jemal Lee E - Last Filed: 04/29/18 12:32> - Physical Exam Vital Signs Temp Pulse Resp BP Pulse Ox 98 F 60 15 146/62 H 99 04/29/18 12:00 04/29/18 12:00 04/29/18 12:00 04/29/18 12:00 04/29/18 12:00 Oxygen Flow Rate (L/min) 2 Oxygen Delivery Method Room Air Weight: 169 lb 5.04 oz Body Mass Index (BMI) 22.9 Intake and Output for Last 24 Hours 04/27/18 04/28/18 04/29/18 23:59 23:59 23:59 Intake Total 1410 / 1410 1120 / 1120 Output Total 600 / 600 Balance 1410 / 1410 520 / 520 Laboratory Tests Past 24 Hrs 04/28/18 04/29/18 04/29/18 20:55 05:00 05:00 WBC 7.8 RBC 3.96 L Hgb 12.3 L Hct 38.1 L MCV 96.2 H MCH 31.1 MCHC 32.3 RDW 12.9 RDW Differential 43.7 Plt Count 158 MPV 11.4 Immature Gran % (Auto) 0.400 Neut % (Auto) 60.0 Lymph % (Auto) 26.2 [place] % (Auto) 9.7 Eos % (Auto) 3.4 Baso % (Auto) 0.3 Absolute Neuts (auto) 4.7 Absolute Lymphs (auto) 2.03 Total Counted Not Reportable PT 13.0 INR 1.0 APTT 28.7 Sodium Potassium Chloride Carbon Dioxide Anion Gap BUN Creatinine Estim Creat Clear Calc Est GFR (MDRD) Af Amer Est GFR (MDRD) Non-Af BUN/Creatinine Ratio Glucose Calcium Urine Color Yellow Urine Clarity Clear Urine pH 6.0 Ur Specific [place] 1.015 Urine Protein 15 H Urine Glucose (UA) Normal Urine Ketones Negative Urine Occult Blood Negative Urine Nitrite Negative Urine Bilirubin Negative Urine Urobilinogen Normal Ur Leukocyte Esterase Negative 04/29/18 05:00 WBC RBC Hgb Hct MCV MCH MCHC RDW RDW Differential Plt Count MPV Immature Gran % (Auto) Neut % (Auto) Lymph % (Auto) [place] % (Auto) Eos % (Auto) Baso % (Auto) Absolute Neuts (auto) Absolute Lymphs (auto) Total Counted PT INR APTT Sodium 145 Potassium 4.2 Chloride 113 H Carbon Dioxide 24.0 Anion Gap 8 BUN 29 H Creatinine 1.23 Estim Creat Clear Calc 52.90 Est GFR (MDRD) Af Amer 73 Est GFR (MDRD) Non-Af 60 BUN/Creatinine Ratio 23.6 H Glucose 93 Calcium 8.2 L Urine Color Urine Clarity Urine pH Ur Specific [place] Urine Protein Urine Glucose (UA) Urine Ketones Urine Occult Blood Urine Nitrite Urine Bilirubin Urine Urobilinogen Ur Leukocyte Esterase Assessment/Plan Hospitalist note: I am seeing this patient in conjunction with Ronaldo Simental. I independently seen and examined the patient. Progress note above and laboratory data reviewed and I agree with the above treatment plan. Patient seen and examined today. He remained in sinus rhythm. Reportedly, heart rate went down to 20s-30s earlier this morning. Blood pressure slightly elevated.. He is asymptomatic, denies any more chest pain or shortness of breath. Denied dizziness or lightheadedness, denies palpitation. Patient underwent cardiac catheterization today findings noted, no acute findings, plan for medical treatment. - Physical Exam General: Alert, Oriented x3, Cooperative, No apparent distress. HEENT: Atraumatic, PERRLA, EOMI. Neck: Supple, No JVD, Negative Carotid Bruits, Trachea Midline, Thyroid Normal. Lungs: Clear to auscultation, Normal air movement, No rhonchi, No wheeze, No rales. Cardiovascular: Regular rate, Regular Rhythm, Normal S1, Normal S2, PMI Normal. Abdomen: Bowel Sounds Present, Soft, Non Tender, Non-Distended, No Hepato- splenomegaly. Extremities: No clubbing, No cyanosis, No edema Skin: No rashes, No breakdown Neurological: Neuro grossly intact. Assessment and plan: #1 new onset A. fib with RVR: Remained in sinus rhythm and reportedly, patient was bradycardic in the 20s earlier this morning. At this time, heart rate has been 70s, blood pressure slightly elevated. 2D echocardiogram revealed normal LV size and function, ejection fraction 65%, RVSP of 27. Serum potassium, ma gnesium and TSH was normal. Troponin was negative. Yesterday, dose of metoprolol increased to 25 twice daily. Cardiac catheterization findings reviewed as above, decision made for medical treatment. Cardiology on the case, recommended that there is no indication for anticoagulation at this time. Plan to monitor overnight, possible DC home tomorrow. #2 hypertension: Uncontrolled, lisinopril increased to 10 mg p.o. daily. Will monitor. #3 other chronic medical problems: Stable, continue current medications as above. This note was generated with [employer] software. It may contain incorrect words, spelling, and punctuation that were not noted in checking the note before signing. Code Visit Inpatient E&M: 19500 Subs Hosp L2
[2018-04-29] MEDS: Metoprolol Tartrate 25 MG Tablet 12.5 MG PO (22:16)
[2018-04-29] MEDS: Atorvastatin Calcium 20 MG Tablet PO (22:17)
[2018-04-30] VITALS (7 sets, daily range): BP systolic 150–163; BP diastolic 65–80; PULSE 55–85; RESP 14–16; TEMP 36.6–36.9; O2SAT 95–96
[2018-04-30] MEDS: Enoxaparin 40 MG/0.4 ML Syringe SC (05:46)
[2018-04-30] MEDS: predniSONE 5 MG Tablet PO (08:25)
[2018-04-30] MEDS: Aspirin 81 MG TAB.CHEW PO (08:25)
[2018-04-30] MEDS: Lisinopril 20 MG Tablet PO (10:03)
[2018-04-30] MEDS: amLODIPine 5 MG Tablet PO (10:03)
[2018-04-30] MEDS: Clopidogrel Bisulfate 75 MG Tablet PO (10:03)
[2018-04-30] MEDS: Pantoprazole Sodium 20 MG Tablet PO (10:03)
[2018-04-30] MEDS: Metoprolol Tartrate 25 MG Tablet 12.5 MG PO (10:04)
--- NOTE | 2018-04-30 10:45 | DCINST_ITS ---
- Discharge Diagnoses Current Active Problems: Current Active and Chronic Problems (Last Reviewed 04/28/18 @ 03:25 by Kevin Lopez MD) Atrial fibrillation with RVR (Acute) You will use the following diet at home:: Cardiac Your food should be the consistency of: Regular Your liquids should be the consistency of: Regular/Thin Discharge Activity: Return to Normal Activity Allergies/Adverse Reactions: Allergies Penicillins Allergy (Verified 04/28/18 01:22) Hives Medications to take at Discharge Aspirin [Aspirin, Baby] 81 mg PO DAILY 12/08/13 pantoprazole 20 mg tablet,delayed release 20 mg PO DAILY 03/14/17 simvastatin 40 mg tablet 40 mg PO QHS #90 tab 07/02/17 metoprolol tartrate 25 mg tablet 12.5 mg PO BID #90 tab 07/13/17 prednisone 5 mg tablet 5 mg PO DAILY 12/07/17 Nitroglycerin [Nitrostat] 0.4 mg SL TID PRN PRN 04/28/18 Amlodipine [Norvasc] 5 mg PO DAILY #30 tablet 04/30/18 Clopidogrel Bisulfate [Plavix] 75 mg PO DAILY #30 tablet 04/30/18 Lisinopril [Zestril] 10 mg PO DAILY #30 tablet 04/30/18 The following prescriptions were given: Amlodipine [Norvasc] 5 mg PO DAILY #30 tablet Clopidogrel Bisulfate [Plavix] 75 mg PO DAILY #30 tablet Lisinopril [Zestril] 10 mg PO DAILY #30 tablet Primary Care Physician: Terrance Villafuerte III, MD [Primary Care Provider] - Please follow up with your Primary Care Physician in: 1-2 weeks Test Results: Test results from this visit will be discussed in further detail at your follow- up appointment, if applicable. Please Follow Up With: Jeffrey Doherty MD When: As directed Proposed Discharge Date: 04/30/18
--- NOTE | 2018-04-30 11:02 | CASEMGMT ---
RAJINDER MCLEAN assessment: Face to Face with patient for initial transition planning/care coordination assessment. RAJINDER MCLEAN introduced self and role at [facility], pt voices understanding and consents to assessment at this time. Pt is lying in bed in no distress at this time. Pt is A/Ox4 at this time and answers all questions appropriately at this time. Care providers, pharmacy, and demographics verified at this time. PCP: Christo CORONA Specialists: jer Feng Pharmacy: [facility] Insurance: [facility] A/B, [employer] Prescription Benefit: [facility] Living Will/HPOA: Pt states does not have LW/HPOA and declines info at this time. LNOK: Vi Angeli, Living Arrangements: Pt states lives with in 1 story home and states no concerns at home at this time. Pt states he is independent with ADL's at this time. Transportation: Pt states drives self and states no transportation concerns at this time. DME/HHC: Pt states no current DME or need for any at this time. Pt states no hx of HHC or SNF in the past. Pt states no concerns with going home at time of discharge. Pt is retired. Pt states does not smoke but does drink ETOH occasionally. Pt states no further concerns/needs at this time. Pt states is ready for discharge at this time. Call to Karely CALVILLO to notify at this time. Advised pt to ask for CM if any further questions/concerns/needs arise, voices understanding. Plan: [place] RAJINDER MCLEAN
--- NOTE | 2018-04-30 15:24 | PCM.DC.SUM ---
<Ronaldo Simental - Last Filed: 04/30/18 15:24> Discharge Date and Diagnosis Date of Admission: 04/28/18 Date of Discharge: 04/30/18 - Primary Discharge Diagnosis Afib RVR, new onset CAD HTN HLD PMR CKDIII GERD - Secondary Discharge Diagnosis Chronic Problems (Last Reviewed 04/28/18 @ 03:25 by Kevin Lopez MD) Polymyalgia rheumatica (Chronic) Diagnosed Nov 2017 History of coronary artery stent placement (Chronic ~12/08/13) [id number] RCA and Mid RCA 12/08/2013 @ [facility] Atherosclerosis of coronary artery of nondalton heart without angina pectoris (Chronic) [id number] RCA and Mid RCA 12/08/2013 @ [facility] Hypertension (Chronic) Hyperlipidemia (Chronic) Hospital Course and Treatment Imaging Results: RAD/Chest 1 View (Portable) IMPRESSION: Chronic interstitial changes in the lower lung briggs. No evidence for acute cardiopulmonary pathology. Interpretation Summary The study was technically difficult. Contrast injection was performed. Left ventricular systolic function is normal. The estimated ejection fraction is 65 %. The left atrium is mildly enlarged. There is mild mitral annular calcification. Extension of the mitral annular calcification on to the posterior mitral valve leaflet. Trivial mitral valve insufficiency. Trivial tricuspid valve insufficiency. Right ventricular systolic pressure estimated to be 27 mmHg. Diastolic function is indeterminate. Heart Cath: CONCLUSIONS Mild in-stent right coronary artery stenosis, mild ostial left anterior descending artery and ostial left circumflex artery stenosis. Hypertension noted. RECOMMENDATIONS Medical therapy Consults: Bessy - cardiology Operations: None Procedures: 2-D Echocardiogram, Cardiac catheterization Summary of Care Provided: Hospital Course: The patient is a 78 year old M with past medical history of CAD with prior stent, hypertension, hyperlipidemia, GERD, polymyalgia rheumatica, who presented to the emergency room with complaints of chest tightness occurring about 25 minutes prior to presenting while he was at rest. He checked his blood pressure and his pulse was noted to be in the 150s. He came to the emergency room and was found to be in A. fib with RVR. He did not have a history of A. fib. He was given Cardizem bolus which did decrease his rate. He spontaneously converted to sinus rhythm. Cardiology was consulted. He underwent an echocardiogram which showed preserved EF 65% no regional wall abnormalities. He was taken for heart catheterization and he was found to have coronary disease including LAD with ostial 50-60% stenosis left circumflex artery with ostial 60% stenosis. Full report on patient chart. Is recommended that he have improved blood pressure and medical therapy for underlying disease, no stents indicated at this time. His metoprolol was increased however he had some bradycaria with the higher dose so it was decreased to his prior dose. Lisinopril was increased and Norvasc was started for better BP control. He was advised to take plavix daily instead of every other day. Dr. Doherty did not feel that he was a candidate for anticoagulation at this time. He was discharged home in stable condition and will need to follow up with his PCP in 1-2 weeks and as directed with his concession supervisor Dr. Feng. This patient was seen by Ronaldo Simental PA-C under the supervision of Doctor Lee. [] - Physical Exam General: Alert, Oriented x3, Cooperative HEENT: Atraumatic, PERRLA, EOMI, Normocephalic Neck: Supple, No JVD, Negative Carotid Bruits Lungs: Clear to auscultation, Normal air movement Cardiovascular: Regular rate, No murmurs Abdomen: Bowel Sounds Present, Soft, Non Tender Extremities: No edema, Capillary Refill Less than 3 Seconds Skin: No rashes, No breakdown Musculoskeletal: No Tenderness to Palpation of Joints or Extremities Neurological: Cranial nerves II-XII grossly intact Psych/Mental Status: Normal Affect, Appropriate Vital Signs Temp Pulse Resp BP Pulse Ox 97.8 F 55 L 14 163/74 H 96 04/30/18 11:19 04/30/18 11:19 04/30/18 11:19 04/30/18 11:19 04/30/18 11:19 Oxygen Flow Rate (L/min) 2 Oxygen Delivery Method Room Air Weight: 169 lb 5.04 oz Body Mass Index (BMI) 22.9 Intake and Output for Last 24 Hours 04/28/18 04/29/18 04/30/18 23:59 23:59 23:59 Intake Total 1410 / 1410 1979 / 1979 120 / 120 Output Total 600 / 600 Balance 1410 / 1410 1380 / 1380 120 / 120 Discharge Diet: Low fat/ Low Cholesterol, 2000 mg Sodium Diet Discharge Activity: Return to Normal Activity Home Medications: Medications to take at Discharge Aspirin [Aspirin, Baby] 81 mg PO DAILY 12/08/13 pantoprazole 20 mg tablet,delayed release 20 mg PO DAILY 03/14/17 simvastatin 40 mg tablet 40 mg PO QHS #90 tab 07/02/17 metoprolol tartrate 25 mg tablet 12.5 mg PO BID #90 tab 07/13/17 prednisone 5 mg tablet 5 mg PO DAILY 12/07/17 Nitroglycerin [Nitrostat] 0.4 mg SL TID PRN PRN 04/28/18 Amlodipine [Norvasc] 5 mg PO DAILY #30 tablet 04/30/18 Clopidogrel Bisulfate [Plavix] 75 mg PO DAILY #30 tablet 04/30/18 Lisinopril [Zestril] 10 mg PO DAILY #30 tablet 04/30/18 Following Prescrptions Were Given to Patient: Amlodipine [Norvasc] 5 mg PO DAILY #30 tablet Clopidogrel Bisulfate [Plavix] 75 mg PO DAILY #30 tablet Lisinopril [Zestril] 10 mg PO DAILY #30 tablet Primary Care Physician: Terrance Villafuerte III, MD [Primary Care Provider] - Please follow up with your Primary Care Physician in: 1-2 weeks Please Follow Up With: Jeffrey Doherty MD When: As directed Please Follow Up With: Terrance Villafuerte III, MD Disposition: Home Minutes spent on discharge:: 35 Patient Condition:: Stable Medical Necessity - Tobacco Use Smoking Status: Former smoker Meaningful Use Info Meaningful Use Diagnoses (Choose all that apply): None applicable <Jemal Lee E - Last Filed: 05/01/18 13:02> Discharge Date and Diagnosis - Secondary Discharge Diagnosis Chronic Problems (Last Reviewed 04/28/18 @ 03:25 by Keivn Lopez MD) Polymyalgia rheumatica (Chronic) Diagnosed Nov 2017 History of coronary artery stent placement (Chronic ~12/08/13) [id number] RCA and Mid RCA 12/08/2013 @ [facility] Atherosclerosis of coronary artery of nondalton heart without angina pectoris (Chronic) [id number] RCA and Mid RCA 12/08/2013 @ [facility] Hypertension (Chronic) Hyperlipidemia (Chronic) Hospital Course and Treatment Summary of Care Provided: Hospitalist note: Discharge summary above reviewed and I agree with above discharge plan. Patient was admitted for chest tightness and mild shortness of breath, found to have new onset A. fib with RVR. He never had a history of atrial fibrillation in the past. He had a history of CAD status post stents. In the emergency department, he was given IV Cardizem bolus and his heart rate slowed down. Later, patient converted back to sinus rhythm and his symptoms improved. His troponin was negative x3. Serum electrolyte including serum sodium and potassium, as well as magnesium were normal. TSH was normal. 2D echocardiogram revealed ejection fraction 65%, RVSP of 27. Cardiology consulted and recommended that patient does not need anticoagulant at this time. He underwent cardiac catheterization that revealed in-stent RCA stenosis, mild ostial LAD and ostial left circumflex stenosis, decision was made for medical treatment and no interventions performed. Patient started on increased dose of metoprolol 25 mg p.o. twice daily and he was only on 12.5 mg p.o. twice daily. His heart rate came down to 20s and he was bradycardic while asleep. Metoprolol decreased back to 12.5 mill grams p.o. twice daily. His blood pressure was elevated, started on Norvasc and dose of lisinopril increased to 10 mg p.o. daily. Patient discharged home in a stable medical condition, discharged on metoprolol 12.5 mg p.o. twice daily, Norvasc 5 mill grams p.o. daily, lisinopril 10 mg p.o. daily, continued on his other home medications without any changes, recommended follow-up with PCP in 1-2 weeks and follow-up with cardiology according to Dr. Doherty. - Physical Exam General: Alert, Oriented x3, Cooperative, No apparent distress. HEENT: Atraumatic, PERRLA, EOMI. Neck: Supple, No JVD, Negative Carotid Bruits, Trachea Midline, Thyroid Normal. Lungs: Clear to auscultation, Normal air movement, No rhonchi, No wheeze, No rales. Cardiovascular: Regular rate, Regular Rhythm, Normal S1, Normal S2, PMI Normal. Abdomen: Bowel Sounds Present, Soft, Non Tender, Non-Distended, No Hepato-splenomegaly. Extremities: No clubbing, No cyanosis, No edema Skin: No rashes, No breakdown Neurological: Neuro grossly intact Vital Signs are stable. This note was generated with [employer] software. It may contain incorrect words, spelling, and punctuation that were not noted in checking the note before signing. - Physical Exam Vital Signs Temp Pulse Resp BP Pulse Ox 97.8 F 55 L 14 163/74 H 96 04/30/18 11:19 04/30/18 11:19 04/30/18 11:19 04/30/18 11:19 04/30/18 11:19 Oxygen Flow Rate (L/min) 2 Oxygen Delivery Method Room Air Weight: 169 lb 5.04 oz Body Mass Index (BMI) 22.9 Intake and Output for Last 24 Hours 04/29/18 04/30/18 05/01/18 23:59 23:59 23:59 Intake Total 1979 / 1979 120 / 120 Output Total 600 / 600 Balance 1380 / 1380 120 / 120 Disposition: Home Minutes spent on discharge:: 32 Patient Condition:: Stable Meaningful Use Info Meaningful Use Diagnoses (Choose all that apply): None applicable Code Visit Inpatient E&M: 25343 Disch Hosp
--- NOTE | 2018-04-30 15:34 | DS.PCM_ITS ---
<Ronaldo Simental - Last Filed: 04/30/18 15:24> Discharge Date and Diagnosis Date of Admission: 04/28/18 Date of Discharge: 04/30/18 - Primary Discharge Diagnosis Afib RVR, new onset CAD HTN HLD PMR CKDIII GERD - Secondary Discharge Diagnosis Chronic Problems (Last Reviewed 04/28/18 @ 03:25 by Kevin Lopez MD) Polymyalgia rheumatica (Chronic) Diagnosed Nov 2017 History of coronary artery stent placement (Chronic ~12/08/13) [id number] RCA and Mid RCA 12/08/2013 @ [facility] Atherosclerosis of coronary artery of [place] heart without angina pectoris (Chronic) [id number] RCA and Mid RCA 12/08/2013 @ [facility] Hypertension (Chronic) Hyperlipidemia (Chronic) Hospital Course and Treatment Imaging Results: RAD/Chest 1 View (Portable) IMPRESSION: Chronic interstitial changes in the lower lung briggs. No evidence for acute cardiopulmonary pathology. Interpretation Summary The study was technically difficult. Contrast injection was performed. Left ventricular systolic function is normal. The estimated ejection fraction is 65 %. The left atrium is mildly enlarged. There is mild mitral annular calcification. Extension of the mitral annular calcification on to the posterior mitral valve leaflet. Trivial mitral valve insufficiency. Trivial tricuspid valve insufficiency. Right ventricular systolic pressure estimated to be 27 mmHg. Diastolic function is indeterminate. Heart Cath: CONCLUSIONS Mild in-stent right coronary artery stenosis, mild ostial left anterior descending artery and ostial left circumflex artery stenosis. Hypertension noted. RECOMMENDATIONS Medical therapy Consults: Bessy - cardiology Operations: None Procedures: 2-D Echocardiogram, Cardiac catheterization Summary of Care Provided: Hospital Course: The patient is a 78 year old M with past medical history of CAD with prior stent, hypertension, hyperlipidemia, GERD, polymyalgia rheumatica, who presented to the emergency room with complaints of chest tightness occurring about 25 minutes prior to presenting while he was at rest. He checked his blood pressure and his pulse was noted to be in the 150s. He came to the emergency room and was found to be in A. fib with RVR. He did not have a history of A. fib. He was given Cardizem bolus which did decrease his rate. He spontaneously converted to sinus rhythm. Cardiology was consulted. He underwent an echocardiogram which showed preserved EF 65% no regional wall abnormalities. He was taken for heart catheterization and he was found to have coronary disease including LAD with ostial 50-60% stenosis left circumflex artery with ostial 60% stenosis. Full report on patient chart. Is recommended that he have improved blood pressure and medical therapy for underlying disease, no stents indicated at this time. His metoprolol was increased however he had some bradycaria with the higher dose so it was decreased to his prior dose. Lisinopril was increased and Norvasc was started for better BP control. He was advised to take plavix daily instead of every other day. Dr. Doherty did not feel that he was a candidate for anticoagulation at this time. He was discharged home in stable condition and will need to follow up with his PCP in 1-2 weeks and as directed with his patent clerk Dr. Feng. This patient was seen by Ronaldo Simental PA-C under the supervision of Doctor Lee. [] - Physical Exam General: Alert, Oriented x3, Cooperative HEENT: Atraumatic, PERRLA, EOMI, Normocephalic Neck: Supple, No JVD, Negative Carotid Bruits Lungs: Clear to auscultation, Normal air movement Cardiovascular: Regular rate, No murmurs Abdomen: Bowel Sounds Present, Soft, Non Tender Extremities: No edema, Capillary Refill Less than 3 Seconds Skin: No rashes, No breakdown Musculoskeletal: No Tenderness to Palpation of Joints or Extremities Neurological: Cranial nerves II-XII grossly intact Psych/Mental Status: Normal Affect, Appropriate Vital Signs Temp Pulse Resp BP Pulse Ox 97.8 F 55 L 14 163/74 H 96 04/30/18 11:19 04/30/18 11:19 04/30/18 11:19 04/30/18 11:19 04/30/18 11:19 Oxygen Flow Rate (L/min) 2 Oxygen Delivery Method Room Air Weight: 169 lb 5.04 oz Body Mass Index (BMI) 22.9 Intake and Output for Last 24 Hours 04/28/18 04/29/18 04/30/18 23:59 23:59 23:59 Intake Total 1410 / 1410 1979 / 1979 120 / 120 Output Total 600 / 600 Balance 1410 / 1410 1380 / 1380 120 / 120 Discharge Diet: Low fat/ Low Cholesterol, 2000 mg Sodium Diet Discharge Activity: Return to Normal Activity Home Medications: Medications to take at Discharge Aspirin [Aspirin, Baby] 81 mg PO DAILY 12/08/13 pantoprazole 20 mg tablet,delayed release 20 mg PO DAILY 03/14/17 simvastatin 40 mg tablet 40 mg PO QHS #90 tab 07/02/17 metoprolol tartrate 25 mg tablet 12.5 mg PO BID #90 tab 07/13/17 prednisone 5 mg tablet 5 mg PO DAILY 12/07/17 Nitroglycerin [Nitrostat] 0.4 mg SL TID PRN PRN 04/28/18 Amlodipine [Norvasc] 5 mg PO DAILY #30 tablet 04/30/18 Clopidogrel Bisulfate [Plavix] 75 mg PO DAILY #30 tablet 04/30/18 Lisinopril [Zestril] 10 mg PO DAILY #30 tablet 04/30/18 Following Prescrptions Were Given to Patient: Amlodipine [Norvasc] 5 mg PO DAILY #30 tablet Clopidogrel Bisulfate [Plavix] 75 mg PO DAILY #30 tablet Lisinopril [Zestril] 10 mg PO DAILY #30 tablet Primary Care Physician: Terrance Villafuerte III, MD [Primary Care Provider] - Please follow up with your Primary Care Physician in: 1-2 weeks Please Follow Up With: Jeffrey Doherty MD When: As directed Please Follow Up With: Terrance Villafuerte III, MD Disposition: Home Minutes spent on discharge:: 35 Patient Condition:: Stable Medical Necessity - Tobacco Use Smoking Status: Former smoker Meaningful Use Info Meaningful Use Diagnoses (Choose all that apply): None applicable <Jemal Lee E - Last Filed: 05/01/18 13:02> Discharge Date and Diagnosis - Secondary Discharge Diagnosis Chronic Problems (Last Reviewed 04/28/18 @ 03:25 by Kevin Lopez MD) Polymyalgia rheumatica (Chronic) Diagnosed Nov 2017 History of coronary artery stent placement (Chronic ~12/08/13) [id number] RCA and Mid RCA 12/08/2013 @ [facility] Atherosclerosis of coronary artery of [place] heart without angina pectoris (Chronic) [id number] RCA and Mid RCA 12/08/2013 @ [facility] Hypertension (Chronic) Hyperlipidemia (Chronic) Hospital Course and Treatment Summary of Care Provided: Hospitalist note: Discharge summary above reviewed and I agree with above discharge plan. Patient was admitted for chest tightness and mild shortness of breath, found to have new onset A. fib with RVR. He never had a history of atrial fibrillation in the past. He had a history of CAD status post stents. In the emergency department, he was given IV Cardizem bolus and his heart rate slowed down. Later, patient converted back to sinus rhythm and his symptoms improved. His troponin was negative x3. Serum electrolyte including serum sodium and potassium, as well as magnesium were normal. TSH was normal. 2D echocardiogram revealed ejection fraction 65%, RVSP of 27. Cardiology consulted and recommended that patient does not need anticoagulant at this time. He underwent cardiac catheterization that revealed in-stent RCA stenosis, mild ostial LAD and ostial left circumflex stenosis, decision was made for medical treatment and no interventions performed. Patient started on increased dose of metoprolol 25 mg p.o. twice daily and he was only on 12.5 mg p.o. twice daily. His heart rate came down to 20s and he was bradycardic while asleep. Metoprolol decreased back to 12.5 mill grams p.o. twice daily. His blood pressure was elevated, started on Norvasc and dose of lisinopril increased to 10 mg p.o. daily. Patient discharged home in a stable medical condition, discharged on metoprolol 12.5 mg p.o. twice daily, Norvasc 5 mill grams p.o. daily, lisinopril 10 mg p.o. daily, continued on his other home medications without any changes, recommended follow-up with PCP in 1- 2 weeks and follow-up with cardiology according to Dr. Doherty. - Physical Exam General: Alert, Oriented x3, Cooperative, No apparent distress. HEENT: Atraumatic, PERRLA, EOMI. Neck: Supple, No JVD, Negative Carotid Bruits, Trachea Midline, Thyroid Normal. Lungs: Clear to auscultation, Normal air movement, No rhonchi, No wheeze, No rales. Cardiovascular: Regular rate, Regular Rhythm, Normal S1, Normal S2, PMI Normal. Abdomen: Bowel Sounds Present, Soft, Non Tender, Non-Distended, No Hepato- splenomegaly. Extremities: No clubbing, No cyanosis, No edema Skin: No rashes, No breakdown Neurological: Neuro grossly intact Vital Signs are stable. This note was generated with [employer] software. It may contain incorrect words, spelling, and punctuation that were not noted in checking the note before signing. - Physical Exam Vital Signs Temp Pulse Resp BP Pulse Ox 97.8 F 55 L 14 163/74 H 96 04/30/18 11:19 04/30/18 11:19 04/30/18 11:19 04/30/18 11:19 04/30/18 11:19 Oxygen Flow Rate (L/min) 2 Oxygen Delivery Method Room Air Weight: 169 lb 5.04 oz Body Mass Index (BMI) 22.9 Intake and Output for Last 24 Hours 04/29/18 04/30/18 05/01/18 23:59 23:59 23:59 Intake Total 1979 / 1979 120 / 120 Output Total 600 / 600 Balance 1380 / 1380 120 / 120 Disposition: Home Minutes spent on discharge:: 32 Patient Condition:: Stable Meaningful Use Info Meaningful Use Diagnoses (Choose all that apply): None applicable Code Visit Inpatient E&M: 79217 Disch Hosp
== END 2018-04-30 11:55 | disposition home or self-care (01) | DRG 287 ==
LOC: ED 03:16 → PCU 03:30
PROVIDERS: Admitting Provider Hospitalist; Emergency Provider Emergency Medicine; Family Provider Family Medicine; PCP Family Medicine; Referring Provider Hospitalist; Visit Provider Hospitalist
DX: I48.91 Unspecified atrial fibrillation (principal); E78.5 Hyperlipidemia, unspecified; I25.10 Atherosclerotic heart disease of native coronary artery without angina pectoris; I12.9 Hypertensive chronic kidney disease with stage 1 through stage 4 chronic kidney disease, or unspecified chronic kidney disease; N18.3 Chronic kidney disease, stage 3 (moderate); M35.3 Polymyalgia rheumatica; K05.6 Periodontal disease, unspecified; K21.9 Gastro-esophageal reflux disease without esophagitis; Z87.891 Personal history of nicotine dependence; Z79.02 Long term (current) use of antithrombotics/antiplatelets; Z79.899 Other long term (current) drug therapy; Z95.5 Presence of coronary angioplasty implant and graft
CPT/HCPCS: 36415; 71045; 80048; 81002; 83735; 84443; 84484; 85025; 85610; 85730; 93005; 93306; 93458; 97802; 99152; 99153; 99285; J7030; Q9957; A4216; C1769; C1894; C8929; Q9967

== ENCOUNTER → 2018-07-05 12:03 | Outpatient (CLI) | payer MEDICARE, OTHER, SELFPAY ==
[2018-05-26 12:56] VITALS: BMI 23.1
[2018-07-05 13:25] LABS: AST(SGOT) 21 U/L (15-37); Alanine Aminotransfer ALT/SGPT 27 U/L (16-61); Albumin, Serum 3.8 g/dL (3.2-5.0); Alkaline Phosphatase 69 U/L (45-117); Bilirubin, Direct 0.11 mg/dL (0.00-0.30); Cholesterol 223 mg/dL (200); Globulin 3.6 g/dL (2.2-4.2); High Density Lipoprotein 58 mg/dL; Protein, Total 7.4 g/dL (6.4-8.2); Triglycerides 221 mg/dL; Very Low Density Lipoprotein 44 mg/dL (5-40)
== END ==
PROVIDERS: Family Provider Family Medicine; PCP Family Medicine; Referring Provider Nurse Practitioner Family; Visit Provider Nurse Practitioner Family
DX: I25.10 Atherosclerotic heart disease of native coronary artery without angina pectoris (principal); E78.5 Hyperlipidemia, unspecified
CPT/HCPCS: 36415; 80061; 80076

== ENCOUNTER → 2018-10-04 11:06 | Outpatient (CLI) | payer MEDICARE, OTHER, SELFPAY ==
[2018-05-26 12:56] VITALS: BMI 23.1
[2018-10-04 12:02] LABS: AST(SGOT) 19 U/L (15-37); Alanine Aminotransfer ALT/SGPT 20 U/L (16-61); Albumin, Serum 3.8 g/dL (3.2-5.0); Alkaline Phosphatase 72 U/L (45-117); Bilirubin, Direct 0.15 mg/dL (0.00-0.30); Cholesterol 203 mg/dL (200); Globulin 3.4 g/dL (2.2-4.2); High Density Lipoprotein 61 mg/dL; Protein, Total 7.2 g/dL (6.4-8.2); Triglycerides 177 mg/dL; Very Low Density Lipoprotein 35 mg/dL (5-40)
== END ==
PROVIDERS: Family Provider Family Medicine; PCP Family Medicine; Referring Provider Nurse Practitioner Family; Visit Provider Nurse Practitioner Family
DX: E78.5 Hyperlipidemia, unspecified (principal)
CPT/HCPCS: 36415; 80061; 80076

== ENCOUNTER 2021-06-11 11:24 | Outpatient (CLI) | payer MEDICARE, OTHER, SELFPAY ==
[2021-06-11 12:09] LABS: Absolute Neutrophil Count 5.4 X10^3/uL (2.0-7.7); Basophil# 0.05 X10^3/uL; Basophil% 0.5 % (0-1); Eosinophils% 5.2 % (0-5); Hematocrit 37.6 % (40-54); Hemoglobin 12.6 g/dL (13.0-16.5); Mean Corp Hgb Conc 33.5 g/dL (32-36); Mean Corpuscular Hgb 31.2 pg (27.0-32.0); Mean Corpuscular Volume 93.1 fL (80-94); Mean Platelet Vol. 11.1 fl (6.2-12.0); Monocyte# 0.88 X10^3/uL; Monocyte% 9.1 % (0-10); NRBC Flagged by Analyzer 0 % (0-5); Neutrophil % 56.2 % (47-70); Platelet Count 232 K/mm3 (150-450); RBC Distribution Width CV 13.4 % (11.6-14.6); RBC Distribution Width SD 45.6 fl (35.1-43.9); Red Blood Count 4.04 M/mm3 (4.6-6.2); White Blood Count 9.6 K/mm3 (4.4-11.0)
[2021-06-11 13:15] LABS: AST(SGOT) 16 U/L (15-37); Alanine Aminotransfer ALT/SGPT 19 U/L (16-61); Albumin, Serum 3.5 g/dL (3.2-5.0); Alkaline Phosphatase 85 U/L (45-117); Anion Gap 5 (5-15); BUN 25 mg/dL (7-18); BUN/Creat Ratio 17.5 RATIO (10-20); Bilirubin, Direct 0.11 mg/dL (0.00-0.30); Calcium,Total 8.8 mg/dL (8.5-10.1); Chloride 113 mmol/L (98-107); Cholesterol 182 mg/dL (200); Creatinine, Serum 1.43 mg/dL (0.70-1.30); EST Glomerular Filtration Rate 50 mL/min (>60); Est Glom Filt Rate - Afr Amer 61 mL/min (>60); Globulin 3.2 g/dL (2.2-4.2); Glucose 96 mg/dL (74-106); High Density Lipoprotein 56 mg/dL; Potassium 4.3 mmol/L (3.5-5.1); Protein, Total 6.7 g/dL (6.4-8.2); Sodium Level 142 mmol/L (136-145); Triglycerides 117 mg/dL; Very Low Density Lipoprotein 23 mg/dL (5-40)
== END 2021-06-11 23:59 | disposition home or self-care (01) ==
LOC: LAB 11:26
PROVIDERS: PCP Family Medicine; Visit Provider Internal Medicine Cardiovascular Disease
DX: E78.00 Pure hypercholesterolemia, unspecified (principal); E78.5 Hyperlipidemia, unspecified; I10 Essential (primary) hypertension; Z95.5 Presence of coronary angioplasty implant and graft
CPT/HCPCS: 36415; 80048; 80061; 80076; 85025

== ENCOUNTER → 2021-12-25 | Outpatient (CLI) | payer MEDICARE, OTHER, SELFPAY ==
[2021-12-25 14:07] LABS: AST(SGOT) 14 U/L (15-37); Alanine Aminotransfer ALT/SGPT 19 U/L (16-61); Albumin, Serum 3.4 g/dL (3.2-5.0); Alkaline Phosphatase 83 U/L (45-117); Bilirubin, Direct 0.11 mg/dL (0.00-0.30); Cholesterol 183 mg/dL (200); Globulin 3.3 g/dL (2.2-4.2); High Density Lipoprotein 60 mg/dL; Protein, Total 6.7 g/dL (6.4-8.2); Triglycerides 204 mg/dL; Very Low Density Lipoprotein 41 mg/dL (5-40)
== END | disposition home or self-care (01) ==
LOC: LAB 13:10
PROVIDERS: PCP Family Medicine; Visit Provider Nurse Practitioner Family
DX: E78.00 Pure hypercholesterolemia, unspecified (principal)
CPT/HCPCS: 36415; 80061; 80076

== ENCOUNTER → 2022-06-19 | Outpatient (CLI) | payer MEDICARE, OTHER, SELFPAY ==
[2022-06-19 10:37] LABS: Absolute Lymphocyte Count 3.07 X10^3/uL (0.83-4.51); Absolute Neutrophil Count 5.4 X10^3/uL (2.0-7.7); Basophil# 0.07 X10^3/uL; Basophil% 0.7 % (0-1); Eosinophil# 0.48 X10^3/uL; Eosinophils% 4.8 % (0-5); Hematocrit 39.7 % (40-54); Hemoglobin 12.7 g/dL (13.0-16.5); Lymphocyte # 3.07 X10^3/ul (0.83-4.51); Lymphocyte % 30.5 % (19-41); Mean Corpuscular Hgb 30.5 pg (27.0-32.0); Mean Corpuscular Volume 95.2 fL (80-94); Mean Platelet Vol. 10.7 fl (6.2-12.0); Monocyte# 0.92 X10^3/uL; Monocyte% 9.2 % (0-10); NRBC Flagged by Analyzer 0 % (0-5); Neutrophil # 5.43 X10^3/uL (2.7-7.7); Platelet Count 241 K/mm3 (150-450); RBC Distribution Width CV 13.4 % (11.6-14.6); RBC Distribution Width SD 46.9 fl (35.1-43.9); Red Blood Count 4.17 M/mm3 (4.6-6.2); White Blood Count 10.1 K/mm3 (4.4-11.0)
[2022-06-19 11:07] LABS: AST(SGOT) 18 U/L (15-37); Alanine Aminotransfer ALT/SGPT 19 U/L (16-61); Albumin, Serum 3.7 g/dL (3.2-5.0); Alkaline Phosphatase 76 U/L (45-117); Anion Gap 4 (5-15); BUN 35 mg/dL (7-18); BUN/Creat Ratio 20.3 RATIO (10-20); Bilirubin, Direct 0.15 mg/dL (0.00-0.30); Calcium,Total 9.1 mg/dL (8.5-10.1); Chloride 112 mmol/L (98-107); Cholesterol 187 mg/dL (200); Creatinine, Serum 1.72 mg/dL (0.70-1.30); EST Glomerular Filtration Rate 41 mL/min (>60); Est Glom Filt Rate - Afr Amer 49 mL/min (>60); Globulin 3.2 g/dL (2.2-4.2); Glucose 112 mg/dL (74-106); High Density Lipoprotein 65 mg/dL; Potassium 4.5 mmol/L (3.5-5.1); Protein, Total 6.9 g/dL (6.4-8.2); Sodium Level 141 mmol/L (136-145); Triglycerides 142 mg/dL; Very Low Density Lipoprotein 28 mg/dL (5-40)
== END | disposition home or self-care (01) ==
LOC: LAB 10:18
PROVIDERS: PCP Family Medicine; Referring Provider Nurse Practitioner Family; Visit Provider Nurse Practitioner Family
DX: R23.3 Spontaneous ecchymoses (principal); E78.00 Pure hypercholesterolemia, unspecified; I10 Essential (primary) hypertension; Z95.5 Presence of coronary angioplasty implant and graft
CPT/HCPCS: 36415; 80048; 80061; 80076; 85025

== ENCOUNTER → 2022-07-21 | Outpatient (CLI) | payer MEDICARE, OTHER, SELFPAY ==
[2022-07-21 11:53] LABS: Anion Gap 6 (5-15); BUN 28 mg/dL (7-18); BUN/Creat Ratio 17.6 RATIO (10-20); Calcium,Total 9.1 mg/dL (8.5-10.1); Chloride 111 mmol/L (98-107); Creatinine, Serum 1.59 mg/dL (0.70-1.30); EST Glomerular Filtration Rate 44 mL/min (>60); Est Glom Filt Rate - Afr Amer 54 mL/min (>60); Glucose 103 mg/dL (74-106); Potassium 4.6 mmol/L (3.5-5.1); Sodium Level 145 mmol/L (136-145)
== END | disposition home or self-care (01) ==
LOC: LAB 10:47
PROVIDERS: PCP Family Medicine; Referring Provider Nurse Practitioner Family; Visit Provider Nurse Practitioner Family
DX: R79.89 Other specified abnormal findings of blood chemistry (principal)
CPT/HCPCS: 36415; 80048

== ENCOUNTER 2022-09-20 14:32 | Inpatient (IN) | payer MEDICARE, OTHER, SELFPAY ==
[2022-09-20] VITALS (9 sets, daily range): BP systolic 76–112; BP diastolic 46–91; PULSE 64–94; RESP 18–22; TEMP 36.5–37.3; O2SAT 93–98; BMI 24.4; BMI 22.0
--- NOTE | 2022-09-20 14:45 | CT_ITS ---
STUDY: CT CERVICAL SPINE WITHOUT CONTRAST REASON FOR EXAM: Male, 82 years old. neck pain RADIATION DOSAGE (If Supplied By Facility): CTDIvol = ( 24.14 ) mGy, DLP = ( 1028.12 ) mGycm TECHNIQUE: High resolution transaxial imaging was performed without contrast material. Sagittal and coronal images were reconstructed. Individualized dose optimization techniques were used for this CT. COMPARISON: None FINDINGS: Normal craniovertebral junction. Normal anterior atlantoaxial articulation. Normal odontoid process. Normal cervical lordosis. Normal vertebral bodies and posterior osseous elements. C2-3: Normal endplates. Normal disc height and morphology. Normal central canal and intervertebral neuroforamina. C3-4: Normal endplates. Normal disc height and morphology. Normal central canal and intervertebral neuroforamina. C4-5: Normal endplates. Normal disc height and morphology. Normal central canal and intervertebral neuroforamina. C5-6: Normal endplates. Decreased disc height and morphology. Normal central canal and intervertebral neuroforamina. C6-7: Normal endplates. Decreased disc height and morphology. Normal central canal and narrowed intervertebral neuroforamina. C7-T1: Normal endplates. Normal disc height and morphology. Normal central canal and intervertebral neuroforamina. Normal visualized soft tissue structures. Calcified plaque in the carotids bilaterally. CT/Spine Cervical without Contras IMPRESSION: No fracture Electronically Signed: Nico Levine MD at 17:04 EDT Reading Location ID and State: [id number] , Service support ,
--- NOTE | 2022-09-20 14:45 | CT_ITS ---
INDICATION: head injury EXAMINATION: CT BRAIN - CT Head or Brain W/O Contrast Injection TECHNIQUE: Multiple axial images were obtained of the head without intravenous contrast. A radiation dose optimization technique was used for this scan. IV Contrast dosage and agent: None. RADIATION DOSAGE (If Supplied By Facility): CTDIvol = ( 44.99 ) mGy, DLP = ( 812.98 ) mGycm COMPARISON: No relevant prior comparison study available FINDINGS: BRAIN PARENCHYMA: No intra- or extra-axial hemorrhage. There are patchy areas of low-attenuation within the white matter of the cerebral hemispheres, a nonspecific finding most commonly reflecting small vessel ischemia. No evidence of acute infarct. No intracranial mass or mass effect. There is preservation of the cool/white matter interface. Posterior fossa structures are unremarkable. CSF SPACES: Appropriate for age. No hydrocephalus. Basal cisterns are patent. CALVARIUM, SKULL BASE, PARANASAL SINUSES AND MASTOID AIR CELLS: Clear. No discrete lytic or blastic abnormalities. ORBITS: Both globes, extraocular muscles, optic nerves and retrobulbar fat appear unremarkable. ASPECTS Score for Acute Strokes: 10 CT/Brain/Head without Contrast IMPRESSION: Small vessel ischemia. Electronically Signed: Brandy Ceja MD at 16:17 EDT ,
--- NOTE | 2022-09-20 14:45 | CT_ITS ---
INDICATION: rib pain EXAMINATION: CT CHEST WITHOUT CONTRAST - CT Chest W/O Contrast Injection TECHNIQUE: Helically acquired images were obtained of the chest. A radiation dose optimization technique was used for this scan. IV Contrast dosage and agent: None. COMPARISON: April 28, 2018 chest x-ray FINDINGS: LUNGS, PLEURA AND LARGE AIRWAYS: Bibasilar pleural-parenchymal interstitial infiltrates. No pleural effusion or thickening. No pneumothorax. THYROID: No thyroid lesions. HEART AND PERICARDIUM: Calcific coronary artery disease. Trace pericardial effusion. Calcific aortic and mitral valve disease. CORONARY ARTERIES: Coronary artery calcification present. VESSELS: Thoracic aorta is not dilated. MEDIASTINUM AND ANA LILIA: No mediastinal or hilar adenopathy. Esophagus is unremarkable. Small hiatal hernia. UPPER ABDOMEN: No acute pathology. BONES: Moderate kyphosis. CT/Chest without Contrast IMPRESSION: Bibasal pleural-parenchymal interstitial infiltrates. Electronically Signed: Nico Levine MD at 16:56 EDT ,
--- NOTE | 2022-09-20 14:47 | ED.VIS.FALL ---
HPI <ALEX Mohr - Last Filed: 09/20/22 17:59> HPI - Fall History of Present Illness Chief Complaint: Fall Narrative Narrative: 82-year-old male stood up from his recliner and felt dizzy and fell. He thinks he fell on his left side. He was down for about 30 minutes to his came home and found him laying on the ground on his left side. Patient denies head injury or LOC. He has a history of remote paroxysmal A-fib but is not on blood thinners. He was brought in by EMS and is hypotensive. He states he is on Norvasc and took it this morning. He denies chest pain or shortness of breath. His main complaint is left rib cage and right hip pain. [facility] <ALEX Mohr - Last Filed: 09/20/22 17:59> [facility] Medical History Atherosclerosis of coronary artery of [place] heart without angina pectoris Atrial fibrillation with RVR (04/2018) Essential (primary) hypertension GERD (gastroesophageal reflux disease) Hyperlipidemia Polymyalgia rheumatica Home Medications aspirin 81 mg chewable tablet 81 mg PO DAILY heart health 12/08/13 [History Last Taken 04/28/18 01:00] pantoprazole 20 mg tablet,delayed release 20 mg PO DAILY GERD 03/14/17 [History Last Taken 04/27/18 09:00] nitroglycerin 0.4 mg sublingual tablet 0.4 mg sublingual TID PRN PRN Angina 04/28/18 [History Last Taken 04/28/18 01:00] doxycycline hyclate 20 mg tablet 20 mg PO BID 12/17/18 [History Last Taken Unknown] prednisone 5 mg tablet 5 mg PO DAILY steroid 03/16/20 [History Last Taken Unknown] amlodipine 10 mg tablet 10 mg PO DAILY #90 tabs 06/04/22 [Rx Last Taken Unknown] atorvastatin 40 mg tablet 40 mg PO QHS #90 tabs 06/04/22 [Rx Last Taken Unknown] metoprolol succinate 25 mg tablet,extended release 24 hr 25 mg PO DAILY #90 tabs 06/04/22 [Rx Last Taken Unknown] Allergy/AdvReac Type Severity Reaction Status Date / Time Penicillins Allergy Hives Verified 06/24/22 11:08 Family History Father CVA (cerebral vascular accident) Mother Kidney disease Surgical History History of coronary artery stent placement (12/08/13) History of left heart catheterization (04/29/18) Hx of cataract removal with insertion of prosthetic lens (~02/2022) Social History Smoking Status: Former smoker ROS <ALEX Mohr - Last Filed: 09/20/22 17:59> ROS ED ROS Narrative Constitutional: Negative for fever, chills, malaise. CVS: Negative for palpitations, chest pain, syncope. Respiratory: Negative for shortness of breath, cough, orthopnea. GI: Negative for abdominal pain, nausea, vomiting, melena, hematochezia. Neuro: Negative for headache, motor/sensory dysfunction. Musc: Positive for right hip pain, trauma. EXAM <ALEX Mohr - Last Filed: 09/20/22 17:59> Physical Exam Narrative Exam Narrative: CONST: Patient lying in bed in no acute distress EYES: Normal inspection. ENT: Head normocephalic atraumatic. NECK: Normal inspection. No midline spinal tenderness, no step off or crepitus. RESP: No respiratory distress, CTAB. Diffuse tenderness left rib cage, no deformity or crepitus. CVS: Regular rate and rhythm, no murmur, no gallop. ABD: Soft and nontender, no guarding or rebound, nondistended. Back: Normal inspection, no midline spinal tenderness or step-offs. SKIN: Color normal, no rash, warm, dry, intact. EXTREMITIES: Full ROM of upper extremities without tenderness, old ecchymosis scattered across both hands, acute abrasion right lateral hand. 2+ radial pulses. Right hip deformity and tenderness, pelvis stable. Distal sensation intact, 2+ DP pulses. NEURO: Oriented x4. PSYCH: Normal affect. Const Vital Signs: 09/20/22 14:32 09/20/22 14:35 09/20/22 14:37 Temperature 97.7 F L Temperature Source Temporal Pulse Rate 81 Respiratory Rate 18 Respiratory Effort Normal Respiratory Depth Normal Respiratory Pattern Normal Blood Pressure 80/48 L Blood Pressure Mean 58 Pulse Ox 97 Oxygen Delivery Method Room Air 09/20/22 16:03 09/20/22 16:56 09/20/22 17:12 Temperature Temperature Source Pulse Rate 78 70 64 Respiratory Rate 18 18 Respiratory Effort Respiratory Depth Respiratory Pattern Blood Pressure 104/49 L 107/91 H 76/46 L Blood Pressure Mean 67 96 56 Pulse Ox 96 98 97 Oxygen Delivery Method Room Air Room Air Room Air 09/20/22 17:20 09/20/22 17:51 Temperature 97.8 F Temperature Source Temporal Pulse Rate 81 Respiratory Rate 22 H Respiratory Effort Respiratory Depth Respiratory Pattern Blood Pressure 90/73 96/48 L Blood Pressure Mean 78 64 Pulse Ox 97 Oxygen Delivery Method Room Air <Dr. Raheel Romo MD - Last Filed: 09/20/22 19:11> Physical Exam Const Vital Signs: 09/20/22 14:32 09/20/22 14:35 09/20/22 14:37 Temperature 97.7 F L Temperature Source Temporal Pulse Rate 81 Respiratory Rate 18 Respiratory Effort Normal Respiratory Depth Normal Respiratory Pattern Normal Blood Pressure 80/48 L Blood Pressure Mean 58 Pulse Ox 97 Oxygen Delivery Method Room Air 09/20/22 16:03 09/20/22 16:56 09/20/22 17:12 Temperature Temperature Source Pulse Rate 78 70 64 Respiratory Rate 18 18 Respiratory Effort Respiratory Depth Respiratory Pattern Blood Pressure 104/49 L 107/91 H 76/46 L Blood Pressure Mean 67 96 56 Pulse Ox 96 98 97 Oxygen Delivery Method Room Air Room Air Room Air 09/20/22 17:20 09/20/22 17:51 Temperature 97.8 F Temperature Source Temporal Pulse Rate 81 Respiratory Rate 22 H Respiratory Effort Respiratory Depth Respiratory Pattern Blood Pressure 90/73 96/48 L Blood Pressure Mean 78 64 Pulse Ox 97 Oxygen Delivery Method Room Air MDM <ALEX Mohr - Last Filed: 09/20/22 17:59> [facility] Narrative Medical decision making narrative: History gathered from: Patient and Patient felt dizzy after standing up and fell. Denies head injury or loss of consciousness. He is awake and alert with GCS of 15. He is hypotensive 80/48 with otherwise normal vital signs. No signs of head injury. No spinal tenderness. There is diffuse left rib cage tenderness with no deformity. Heart is irregularly irregular rate controlled A-fib. Lungs clear. Abdomen soft and nontender. Pelvis stable. There is right hip deformity and tenderness with limited range of motion. Distal pulses intact. CT brain, C-spine, and chest are negative for acute traumatic findings. X-ray shows right intertrochanteric fracture. His pain was treated with fentanyl due to hypotension. After IV fluids his systolic pressure improved to 90s to 100s. He states he does not drink much fluid. He does have a small bump in his creatinine at 1.87. Case was discussed with the hospitalist for admission. We will also inform Dr. Castano of the hip fracture. Consults: hospitalist, orthopedics Differential concerning his dizziness includes A-fib, orthostatic hypotension, dehydration, KEYLA, among others 17: 05 patient's dropped his blood pressure a little bit here. Initially did respond and his blood pressure was about 110 or so. He was awake alert appropriate when I saw him. He denies any recent bleeding. He does state that he does not drink much fluid. He has a mild elevation of his creatinine. Studies are showing no cause of blood loss or because of low blood pressure. His CT looks more like chronic fibrotic changes. He is not having symptoms of pneumonia with cough or hypoxia or fevers. He will be given more fluids here. He will be rechecked. Lab Data Attestation: I reviewed the patient's lab results. Labs: Laboratory Results - last 24 hr 09/20/22 14:50 WBC 9.8 RBC 3.89 L Hgb 12.1 L Hct 37.3 L MCV 95.9 H MCH 31.1 MCHC 32.4 RDW Std Deviation 46.5 H RDW Coeff of Anselmo 13.2 Plt Count 226 MPV 10.7 Immature Gran % (Auto) 1.100 H Neut % (Auto) 82.8 H Lymph % (Auto) 10.2 L [place] % (Auto) 4.1 Eos % (Auto) 1.4 Baso % (Auto) 0.4 Absolute Neuts (auto) 8.1 H Absolute Lymphs (auto) 1.00 Nucleated RBC % 0 Sodium 141 Potassium 4.5 Chloride 109 H Carbon Dioxide 23.0 Anion Gap 9 BUN 27 H Creatinine 1.87 H Estim Creat Clear Calc 32.85 Est GFR (MDRD) Af Amer 45 L Est GFR (MDRD) Non-Af 37 L BUN/Creatinine Ratio 14.4 Glucose 131 H Calcium 9.0 Radiography Diagnostic Testing: Clinical Impression(s) from Imaging Studies Brain CT 09/20/22 14:45 IMPRESSION: Small vessel ischemia. Electronically Signed: Brandy Ceja MD at 16:17 EDT , Cervical Spine CT 09/20/22 14:45 IMPRESSION: No fracture Electronically Signed: Nico Levine MD at 17:04 EDT , Chest CT 09/20/22 14:45 IMPRESSION: Bibasal pleural-parenchymal interstitial infiltrates. Electronically Signed: Nico Levine MD at 16:56 EDT , Hip/Pelvis X-Ray 09/20/22 15:45 IMPRESSION: Right intertrochanteric fracture. Electronically Signed: Brandy Ceja MD at 16:12 EDT , ED interpretation of right hip shows acute intertrochanteric fracture. <Dr. Raheel Romo MD - Last Filed: 09/20/22 19:11> [facility] MDM Narrative Medical decision making narrative: History gathered from: Patient and Patient felt dizzy after standing up and fell. Denies head injury or loss of consciousness. Abdominal exam he presents with left rib cage pain and right hip deformity. He has a he has no signs of head injury and no spinal tenderness. There is diffuse left rib cage tenderness with normal heart and lung sounds. Abdomen soft and nontender. Pelvis stable. There is right hip deformity and tenderness with distal pulses intact. 17: 05 patient's dropped his blood pressure a little bit here. Initially did respond and his blood pressure was about 110 or so. He was awake alert appropriate when I saw him. He denies any recent bleeding. He does state that he does not drink much fluid. He has a mild elevation of his creatinine. Studies are showing no cause of blood loss or because of low blood pressure. His CT looks more like chronic fibrotic changes. He is not having symptoms of pneumonia with cough or hypoxia or fevers. He will be given more fluids here. He will be rechecked. Lab Data Labs: Laboratory Results - last 24 hr 09/20/22 14:50 WBC 9.8 RBC 3.89 L Hgb 12.1 L Hct 37.3 L MCV 95.9 H MCH 31.1 MCHC 32.4 RDW Std Deviation 46.5 H RDW Coeff of Anselmo 13.2 Plt Count 226 MPV 10.7 Immature Gran % (Auto) 1.100 H Neut % (Auto) 82.8 H Lymph % (Auto) 10.2 L [place] % (Auto) 4.1 Eos % (Auto) 1.4 Baso % (Auto) 0.4 Absolute Neuts (auto) 8.1 H Absolute Lymphs (auto) 1.00 Nucleated RBC % 0 Sodium 141 Potassium 4.5 Chloride 109 H Carbon Dioxide 23.0 Anion Gap 9 BUN 27 H Creatinine 1.87 H Estim Creat Clear Calc 32.85 Est GFR (MDRD) Af Amer 45 L Est GFR (MDRD) Non-Af 37 L BUN/Creatinine Ratio 14.4 Glucose 131 H Calcium 9.0 Radiography Diagnostic Testing: Clinical Impression(s) from Imaging Studies Brain CT 09/20/22 14:45 IMPRESSION: Small vessel ischemia. Electronically Signed: Brandy Ceja MD at 16:17 EDT , Cervical Spine CT 09/20/22 14:45 IMPRESSION: No fracture Electronically Signed: Nico Levine MD at 17:04 EDT , Chest CT 09/20/22 14:45 IMPRESSION: Bibasal pleural-parenchymal interstitial infiltrates. Electronically Signed: Nico Levine MD at 16:56 EDT , Hip/Pelvis X-Ray 09/20/22 15:45 IMPRESSION: Right intertrochanteric fracture. Electronically Signed: Brandy Ceja MD at 16:12 EDT , EKG Initial EKG: Comments: I independent interpretation of the patient's EKG done for a fall/syncope shows atrial fibrillation which he states he has had. Rate is controlled at 72. No ventricular ectopy. No acute ST elevation or depression. QRS duration and QTc are normal. Treatment and Re-Evaluation Narrative: I have personally performed a face to face assessment of the patient and have reviewed the BRIANNE Note. I performed a substantive portion of the visit including all aspects of the following. My gaytan findings include: History: Patient presents with fall and right hip pain. He states he was watching the news. He stood up from the couch and immediately got lightheaded and dizzy when he stood up. He ended up falling to the ground. No irregular heartbeats or chest pain. He does not think he hit his head. He states he was awake when he hit the ground and he stayed awake but he had to wait for his because he could not get up. He has primarily left hip pain. He has a little soreness in the left chest but denies being short of breath. He has a history of atrial fibrillation but has been off any blood thinners other than aspirin since approximately June 2020. No recent black or bloody stools. Other than his right hip pain he feels okay right now and he is acting normally per family Exam: Patient awake alert no acute distress but intermittently gets sharp right hip pain/spasm. No head trauma. Is a little soreness in the left side of his chest but I am not seeing ecchymosis or abrasions at this time. He does have some ecchymosis on his hands and elbows but he states these are older. He is on prednisone for PMR and has easy bruising. He does have shortened and rotated right lower extremity and pain in that right hip. Medical Decision Making: Patient will have CTs of head neck and chest. We will x-ray the hip. Blood work will be done. His initial blood pressure was low. He states he does not drink water and he just took his Norvasc earlier this morning. He is given fluids and his blood pressure is up and he is doing well now. Discharge Plan Dx/Rx/DC Orders Clinical Impression: Acute hypotension, Atrial fibrillation, Contusion of rib on left side, Closed fracture of right hip Disposition Disposition: Acute Care Hospital [facility] Discharge Date/Time: 09/20/22 18:59
[2022-09-20 15:03] LABS: Absolute Neutrophil Count 8.1 X10^3/uL (2.0-7.7); Basophil# 0.04 X10^3/uL; Basophil% 0.4 % (0-1); Eosinophil# 0.14 X10^3/uL; Eosinophils% 1.4 % (0-5); Hematocrit 37.3 % (40-54); Hemoglobin 12.1 g/dL (13.0-16.5); Lymphocyte % 10.2 % (19-41); Mean Corp Hgb Conc 32.4 g/dL (32-36); Mean Corpuscular Hgb 31.1 pg (27.0-32.0); Mean Corpuscular Volume 95.9 fL (80-94); Mean Platelet Vol. 10.7 fl (6.2-12.0); Monocyte% 4.1 % (0-10); NRBC Flagged by Analyzer 0 % (0-5); Neutrophil # 8.08 X10^3/uL (2.7-7.7); Neutrophil % 82.8 % (47-70); Platelet Count 226 K/mm3 (150-450); RBC Distribution Width CV 13.2 % (11.6-14.6); RBC Distribution Width SD 46.5 fl (35.1-43.9); Red Blood Count 3.89 M/mm3 (4.6-6.2); White Blood Count 9.8 K/mm3 (4.4-11.0)
[2022-09-20] MEDS: 0.9% Normal Saline 1,000 ML 999 ML IV ×2 (15:03→17:51)
[2022-09-20] MEDS: fentaNYL 100 MCG/2 ML Ampul 50 MCG IV (15:03)
[2022-09-20 15:17] LABS: Anion Gap 9 (5-15); BUN 27 mg/dL (7-18); BUN/Creat Ratio 14.4 RATIO (10-20); Chloride 109 mmol/L (98-107); Creatinine, Serum 1.87 mg/dL (0.70-1.30); EST Glomerular Filtration Rate 37 mL/min (>60); Est Glom Filt Rate - Afr Amer 45 mL/min (>60); Estimated Creatinine Clearance 32.85 ml/min; Glucose 131 mg/dL (74-106); Potassium 4.5 mmol/L (3.5-5.1); Sodium Level 141 mmol/L (136-145)
--- NOTE | 2022-09-20 15:45 | RAD_ITS ---
INDICATION: pain EXAMINATION/TECHNIQUE: X-RAY - XR Hip Unilateral with Pelvis when performed; 2-3 Views COMPARISON: No relevant prior comparison study available October 21, 2017 FINDINGS: PELVIC BONES: No destructive or sclerotic lesions. Overlying bowel shadows may however obscure bony fine detail. Sacroiliac joints are unremarkable. No widening of the pubic symphysis. HIPS: There is a right intertrochanteric fracture with superior migration of the distal right femur. SOFT TISSUES: No soft tissue swelling or gas. RAD/HIP, UNI W/ Pelvis 2-3 Views IMPRESSION: Right intertrochanteric fracture. Electronically Signed: Brandy Ceja MD at 16:12 EDT ,
[2022-09-20] MEDS: fentaNYL 100 MCG/2 ML Ampul 25 MCG IV (17:08)
--- NOTE | 2022-09-20 17:13 | ED.RN ---
Notified Dr. Romo of hypotension prior to giving 2nd dose of fentanyl. Dr. Romo ok'd to still give 2nd dose of fentanyl and to give a 2nd liter of normal saline.
--- NOTE | 2022-09-20 17:48 | PCM.HP.STD ---
HPI - General General Date of Admission: 09/20/22 Date of Service: 09/20/22 Chief Complaint: Fall and right hip fracture HPI Narrative SHAWNA DELEON, is a 82 M was brought to ED after he felt dizzy and fell down. Patient stated he stood up felt dizzy and fell down on left side. He stated he blacked out for few seconds but remember the events. Complain of pain over right groin and hip region. Also complaining of left anterior lateral rib cage. To ED physician, he denied head injury or LOC but he said he fell and hit his head. There is no bruise on the head or neck region and CT head and C-spine did not show acute abnormality or fracture. Hip pelvis x-ray shows right hip intertrochanteric fracture. Patient is in severe pain. Patient stated he had one-time remotely transient A-fib in 2019 and converted to sinus rhythm and is on baby aspirin but not on anticoagulant. He follows Dr. Doherty and Estrada looney for history of paroxysmal A-fib hypertension, cardiac stent RCA in 2013. Last cardiac cath in [facility] shows patent stent with ostial LAD 50%, ostial circumflex 50%. He is most recent echo in 2019 shows EF 65%. His blood pressure was low 80/48, heart rate 81 with no hypoxia or tachypnea. The most recent blood pressure is 96/48. Patient getting IV fluid normal saline bolus. [facility] Medical History Atherosclerosis of coronary artery of [place] heart without angina pectoris Atrial fibrillation with RVR (04/2018) Essential (primary) hypertension GERD (gastroesophageal reflux disease) Hyperlipidemia Polymyalgia rheumatica Home Medications aspirin 81 mg chewable tablet 81 mg PO DAILY heart health 12/08/13 [History Last Taken 04/28/18 01:00] pantoprazole 20 mg tablet,delayed release 20 mg PO DAILY GERD 03/14/17 [History Last Taken 04/27/18 09:00] nitroglycerin 0.4 mg sublingual tablet 0.4 mg sublingual TID PRN PRN Angina 04/28/18 [History Last Taken 04/28/18 01:00] doxycycline hyclate 20 mg tablet 20 mg PO BID 12/17/18 [History Last Taken Unknown] prednisone 5 mg tablet 5 mg PO DAILY steroid 03/16/20 [History Last Taken Unknown] amlodipine 10 mg tablet 10 mg PO DAILY #90 tabs 06/04/22 [Rx Last Taken Unknown] atorvastatin 40 mg tablet 40 mg PO QHS #90 tabs 06/04/22 [Rx Last Taken Unknown] metoprolol succinate 25 mg tablet,extended release 24 hr 25 mg PO DAILY #90 tabs 06/04/22 [Rx Last Taken Unknown] Allergy/AdvReac Type Severity Reaction Status Date / Time Penicillins Allergy Hives Verified 06/24/22 11:08 Family History Father CVA (cerebral vascular accident) Mother Kidney disease Surgical History History of coronary artery stent placement (12/08/13) History of left heart catheterization (04/29/18) Hx of cataract removal with insertion of prosthetic lens (~02/2022) Social History Smoking Status: Former smoker ROS ROS Narrative Constitutional: Reports fatigue and weakness. No fever. Fall as mentioned in HPI. No recent acute infection. HEENT: Reports systems reviewed and no addt'l complaints, except as documented Respiratory/Chest: No acute shortness of breath or respiratory distress or wheezing. CVS: Denies angina quality of chest pain. Left-sided anterolateral chest wall pain. No acute shortness of breath. Unclear whether syncope or not but he states he blacked out but remembers everything. Gastrointestinal: Denies coffee ground emesis, hematemesis or vomiting Genitourinary: Denies burning urination or new urinary tract symptoms Musculoskeletal: Right hip pain. Fall as mentioned HPI Neurologic: Denies seizure-like symptoms. No acute or strokelike symptoms. skin: No ulcer. No rash Endocrinology: Reports systems reviewed and no addt'l complaints, except as documented Hematologic/Lymphatic: Reports systems reviewed and no addt'l complaints, except as documented Rest 14 ROS are negative except as mentioned in HPI Vital Signs Vital Signs Vital Signs: 09/20/22 14:32 09/20/22 14:35 09/20/22 14:37 Temperature 97.7 F L Temperature Source Temporal Pulse Rate 81 Respiratory Rate 18 Respiratory Effort Normal Respiratory Depth Normal Respiratory Pattern Normal Blood Pressure 80/48 L Blood Pressure Mean 58 Pulse Ox 97 Oxygen Delivery Method Room Air 09/20/22 16:03 09/20/22 16:56 09/20/22 17:12 Temperature Temperature Source Pulse Rate 78 70 64 Respiratory Rate 18 18 Respiratory Effort Respiratory Depth Respiratory Pattern Blood Pressure 104/49 L 107/91 H 76/46 L Blood Pressure Mean 67 96 56 Pulse Ox 96 98 97 Oxygen Delivery Method Room Air Room Air Room Air 09/20/22 17:20 Temperature Temperature Source Pulse Rate Respiratory Rate Respiratory Effort Respiratory Depth Respiratory Pattern Blood Pressure 90/73 Blood Pressure Mean 78 Pulse Ox Oxygen Delivery Method Weight Weight: 180 lb 5.41 oz Body Mass Index (BMI) 24.4 Physical Exam Narrative General: Alert, Oriented x3, Cooperative. Patient in moderate to severe distress due to pain mainly in right hip with a spasm and left chest wall. HEENT: Atraumatic, PERRLA, EOMI, Normocephalic Oral: Oral mucosa dry. No Gingival or Mucosal Lesions/ Ulcerations Neck: Supple, No JVD, Negative Carotid Bruits Lungs: Air entry diminished in bilateral lung bases. No crepitation/rhonchi Cardiovascular: Irregular rate and rhythm, A-fib heart rate controlled. Normal S1, Normal S2, No murmurs Abdomen: Bowel Sounds Present, Soft, Non Tender, Non-Distended : Did not voided urine after fall. No renal angle tenderness. No suprapubic tenderness. Extremities: No edema, Capillary Refill Less than 3 Seconds Skin: No rashes, No breakdown Musculoskeletal: Tenderness and swelling over right hip region and greater trochanter. ROM not attempted. Tenderness also on left lower anterolateral chest wall. Neurological: Cranial nerves II-XII grossly intact, DTR 2+/4 and Symmetrical, Neuro grossly intact Psych/Mental Status: Flat affect in pain. Results Lab / Micro Data 09/20/22 14:50 09/20/22 14:50 Labs: Laboratory Results - last 24 hr 09/20/22 14:50: WBC 9.8, RBC 3.89 L, Hgb 12.1 L, Hct 37.3 L, MCV 95.9 H, MCH 31.1, MCHC 32.4, RDW Std Deviation 46.5 H, RDW Coeff of Anselmo 13.2, Plt Count 226, MPV 10.7, Immature Gran % (Auto) 1.100 H, Neut % (Auto) 82.8 H, Lymph % (Auto) 10.2 L, [place] % (Auto) 4.1, Eos % (Auto) 1.4, Baso % (Auto) 0.4, Absolute Neuts (auto) 8.1 H, Absolute Lymphs (auto) 1.00, Nucleated RBC % 0, Sodium 141, Potassium 4.5, Chloride 109 H, Carbon Dioxide 23.0, Anion Gap 9, BUN 27 H, Creatinine 1.87 H, Estim Creat Clear Calc 32.85, Est GFR (MDRD) Af Amer 45 L, Est GFR (MDRD) Non-Af 37 L, BUN/Creatinine Ratio 14.4, Glucose 131 H, Calcium 9.[address] 09/20/22 14:45 IMPRESSION: Small vessel ischemia. Electronically Signed: Brandy Ceja MD at 16:17 EDT , Cervical Spine CT 09/20/22 14:45 IMPRESSION: No fracture Electronically Signed: Nico Levine MD at 17:04 EDT , Chest CT 09/20/22 14:45 IMPRESSION: Bibasal pleural-parenchymal interstitial infiltrates. Electronically Signed: Nico Levine MD at 16:56 EDT Reading Location ID and State: [facility] / [place] , Service support , Hip/Pelvis X-Ray 09/20/22 15:45 IMPRESSION: Right intertrochanteric fracture. Electronically Signed: Brandy Ceja MD at 16:12 EDT , Assessment & Plan Assessment/Plan (1) Closed fracture of right hip: QUALIFIERS: Encounter type: initial encounter Qualified Code(s): S72.001A - Fracture of unspecified part of neck of right femur, initial encounter for closed fracture (2) Contusion of rib on left side: QUALIFIERS: Encounter type: initial encounter Qualified Code(s): S20.212A - Contusion of left front wall of thorax, initial encounter (3) Atrial fibrillation: QUALIFIERS: Atrial fibrillation type: paroxysmal Qualified Code(s): I48.0 - Paroxysmal atrial fibrillation (4) Acute hypotension: PLAN: Plan This is a 82-year-old gentleman being admitted for right hip pain, left chest wall pain after fall resulting into right hip intertrochanteric fracture 1. Mechanical fall with right intertrochanteric fracture with superior migration of distal right femur and left chest wall pain: X-ray of hip shows right intertrochanteric fracture with superior migration of the distal right femur. Pain control. Muscle relaxant. Orthopedic Dr. Castano is consulted. PT OT evaluation. Discussed with the orthopedic surgeon Dr. Handley. He has moderate perioperative risk for right intertrochanteric hip fracture. Patient has acceptable risk with a valve average of cardiac complication and VTE otherwise acceptable risk for pneumonia surgical site infection UTI. I anticipate that his blood pressure will improve and can be taken for surgery tomorrow AM. 2. Acute hypotension, exact reason unclear primary resulting into fall: Patient was dizzy and lightheaded on standing up, blacked out and then fall. Patient denies history of diarrhea or acute volume loss. Probably antihypertensive medication but he is on for many years amlodipine 10 mg daily and metoprolol succinate 25 mg daily. Hold antihypertensive medications. Volume resuscitation with Ringer lactate 1 L stat and then continue 100 ml per hour. Monitor orthostatics vitals supine and sitting tomorrow a.m. 3. Atherosclerotic heart disease status post cardiac stent in 2013 paroxysmal A-fib: Patient had one-time A-fib. Twelve-lead EKG shows A-fib 72 bpm. Not on anticoag. Baby aspirin continued. QTc [address] Doherty and Estrada looney for history of paroxysmal A-fib hypertension, cardiac stent RCA in 2013. Last cardiac cath in in April 2018 patent stent with ostial LAD 50%, ostial circumflex 50%. He is most recent echo in 2019 shows EF 65%. 4. PMR on prednisone 5 mg daily continued. 5. VTE prophylaxis: Hold pharmacological prophylaxis patient probably will be going for surgery tomorrow AM. Living will/advanced directive/end of life care: Patient does have living will or advanced directive. After discussion of benefits/risks procedures involved with full code, DNR CC arrest and DNR CC, the patient opted for full code. Patient does want artificial life support including intubation, tube feed, ventilator and/chest compression, central venous catheter, vasopressor and DC shock if needed Total time spent in [id number] encounter in discussion of advanced directive 17 minutes. Laboratory Results 09/20/22 14:50: WBC 9.8, RBC 3.89 L, Hgb 12.1 L, Hct 37.3 L, MCV 95.9 H, MCH 31.1, MCHC 32.4, RDW Std Deviation 46.5 H, RDW Coeff of Anselmo 13.2, Plt Count 226, MPV 10.7, Immature Gran % (Auto) 1.100 H, Neut % (Auto) 82.8 H, Lymph % (Auto) 10.2 L, [place] % (Auto) 4.1, Eos % (Auto) 1.4, Baso % (Auto) 0.4, Absolute Neuts (auto) 8.1 H, Absolute Lymphs (auto) 1.00, Nucleated RBC % 0, Sodium 141, Potassium 4.5, Chloride 109 H, Carbon Dioxide 23.0, Anion Gap 9, BUN 27 H, Creatinine 1.87 H, Estim Creat Clear Calc 32.85, Est GFR (MDRD) Af Amer 45 L, Est GFR (MDRD) Non-Af 37 L, BUN/Creatinine Ratio 14.4, Glucose 131 H, Calcium 9.0 Clinical Impression(s) from Imaging Studies Brain CT 09/20/22 14:45 IMPRESSION: Small vessel ischemia. Electronically Signed: Brandy Ceja MD at 16:17 EDT , Cervical Spine CT 09/20/22 14:45 IMPRESSION: No fracture Electronically Signed: Nico Levine MD at 17:04 EDT , Chest CT 09/20/22 14:45 IMPRESSION: Bibasal pleural-parenchymal interstitial infiltrates. Electronically Signed: Nico Levine MD at 16:56 EDT , Hip/Pelvis X-Ray 09/20/22 15:45 IMPRESSION: Right intertrochanteric fracture. Electronically Signed: Brandy Ceja MD at 16:12 EDT , Charges/Coding Visit Charges Inpatient E&M: 02465 Init Hosp L3 Procedures Hospitalists Procedures: 88049 Advncd Care Plan 30 Min
--- NOTE | 2022-09-20 18:51 | ED.RN ---
DR. BEARD MADE AWARE OF PATIENTS REQUEST FOR PAIN MEDICATION. DR. BEARD STATES HE NEEDS TO BE PLACED IN TRACTION AND HE WILL NOT BE GIVING MORE PAIN MEDICATION. PT AWARE.
[2022-09-20] MEDS: Morphine 4 MG/ML Syringe IV ×2 (19:11→21:40)
[2022-09-20] MEDS: Lactated Ringers 1,000 ML 999 ML IV (20:06)
[2022-09-20] MEDS: 0.9% Saline Lock 10 ML Syringe IV (21:40)
--- NOTE | 2022-09-20 22:00 | RAD_ITS ---
STUDY: X-RAY - RIGHT FEMUR REASON FOR STUDY: Male, 82 years old. Trauma -- Film after 7 pounds of Gaspar''s traction TECHNIQUE: 2 view(s) of the femur. COMPARISON: None. FINDINGS: Intertrochanteric fracture. Remainder of femur normal. Normal visualized soft tissue structure. RAD/Femur Min 2 Views IMPRESSION: Right hip fracture otherwise intact femur Electronically Signed: Nico Levine MD at 22:58 EDT ,
[2022-09-20] MEDS: Lactated Ringers 1,000 ML 100 ML IV (22:11)
[2022-09-21] VITALS (18 sets, daily range): BP systolic 104–129; BP diastolic 48–70; PULSE 73–87; RESP 12–18; TEMP 36.3–37.7; O2SAT 85–189; BMI 22.0
[2022-09-21] MEDS: Morphine 4 MG/ML Syringe IV ×2 (00:37→04:07)
[2022-09-21] MEDS: 0.9% Saline Lock 10 ML Syringe IV (04:08)
[2022-09-21 07:54] LABS: Anion Gap 5 (5-15); BUN 29 mg/dL (7-18); BUN/Creat Ratio 17.7 RATIO (10-20); Calcium,Total 8.4 mg/dL (8.5-10.1); Chloride 114 mmol/L (98-107); Creatinine, Serum 1.64 mg/dL (0.70-1.30); EST Glomerular Filtration Rate 43 mL/min (>60); Est Glom Filt Rate - Afr Amer 52 mL/min (>60); Estimated Creatinine Clearance 34.61 ml/min; Glucose 101 mg/dL (74-106); Potassium 5.1 mmol/L (3.5-5.1); Sodium Level 140 mmol/L (136-145)
[2022-09-21] MEDS: oxyCODONE 5 MG Tablet PO (08:04)
[2022-09-21] MEDS: Metoprolol(XL)Succ 25 MG Tablet PO (08:07)
--- NOTE | 2022-09-21 08:13 | CON.PCM_ITS ---
Assessment & Plan Assessment/Plan (1) Intertrochanteric fracture of right femur: QUALIFIERS: Encounter type: initial encounter Fracture type: closed Fracture alignment: displaced Qualified Code(s): S72.141A - Displaced intertrochanteric fracture of right femur, initial encounter for closed fracture PLAN: Plan Patient has a low intra-articular right hip fracture, discussed with patient and his surgical intervention which would include cephalomedullary fixation. Discussed risk benefits alternatives surgery including risk of bleeding infection nerve artery tissue damage need for further surgery continued pain postoperative course. Antibiotics on-call the OR patient is medically cleared. HPI Consult Data Date of Consult: 09/21/22 HPI Narrative HPI Narrative: SHAWNA DELEON, is a 82 pleasant male seen with his was getting up from his recliner yesterday had lightheadedness and fell against a fireplace injuring his right hip. Denies any previous problems with the hip or leg on the side. [facility] Medical History (Updated 09/21/22 @ 08:[address] Kevin Castano, ) Atherosclerosis of coronary artery of [place] heart without angina pectoris Atrial fibrillation with RVR (04/2018) Essential (primary) hypertension GERD (gastroesophageal reflux disease) Hyperlipidemia Kidney disease Polymyalgia rheumatica Home Medications aspirin 81 mg chewable tablet 81 mg PO DAILY heart health 12/08/13 [History Last Taken 04/28/18 01:00] pantoprazole 20 mg tablet,delayed release 20 mg PO DAILY GERD 03/14/17 [History Last Taken 09/20/22] nitroglycerin 0.4 mg sublingual tablet 0.4 mg sublingual TID PRN PRN Angina 04/28/18 [History Last Taken 04/28/18 01:00] doxycycline hyclate 20 mg tablet 20 mg PO BID teeth 12/17/18 [History Last Taken 09/20/22] prednisone 5 mg tablet 5 mg PO DAILY steroid 03/16/20 [History Last Taken 09/20/22] amlodipine 10 mg tablet 10 mg PO DAILY #90 tabs 06/04/22 [Rx Last Taken 09/06 07/29] atorvastatin 40 mg tablet 40 mg PO QHS #90 tabs 06/04/22 [Rx Last Taken 09/19/22] metoprolol succinate 25 mg tablet,extended release 24 hr 25 mg PO DAILY #90 tabs 06/04/22 [Rx Last Taken Unknown] prednisolone acetate 1 % eye drops,suspension drp ophthalmic (eye) Q8H eyes 09/20/22 [History Last Taken 09/20/22] Allergy/AdvReac Type Severity Reaction Status Date / Time Penicillins Allergy Hives Verified 06/24/22 11:08 Family History Father CVA (cerebral vascular accident) Mother Kidney disease Surgical History History of coronary artery stent placement (12/08/13) History of left heart catheterization (04/29/18) Hx of cataract removal with insertion of prosthetic lens (~02/2022) Social History Smoking Status: Former smoker Physical Exam Extremity Extremity Narrative: In Gaspar's traction tender to palpation about hip compartments soft neurovascular intact no open wounds Lab / Micro Data 09/20/22 14:50 09/21/22 07:01 Labs: Laboratory Results - last 24 hr 09/20/22 14:50: WBC 9.8, RBC 3.89 L, Hgb 12.1 L, Hct 37.3 L, MCV 95.9 H, MCH 31.1, MCHC 32.4, RDW Std Deviation 46.5 H, RDW Coeff of Anselmo 13.2, Plt Count 226, MPV 10.7, Immature Gran % (Auto) 1.100 H, Neut % (Auto) 82.8 H, Lymph % (Auto) 10.2 L, [place] % (Auto) 4.1, Eos % (Auto) 1.4, Baso % (Auto) 0.4, Absolute Neuts (auto) 8.1 H, Absolute Lymphs (auto) 1.00, Nucleated RBC % 0, Sodium 141, Potassium 4.5, Chloride 109 H, Carbon Dioxide 23.0, Anion Gap 9, BUN 27 H, Creatinine 1.87 H, Estim Creat Clear Calc 32.85, Est GFR (MDRD) Af Amer 45 L, Est GFR (MDRD) Non-Af 37 L, BUN/Creatinine Ratio 14.4, Glucose 131 H, Calcium 9.0 09/20/22 18:25: Blood Type A POSITIVE, Antibody Screen NEGATIVE 09/21/22 07:01: WBC Cancelled, Corrected WBC Cancelled, RBC Cancelled, Hgb Cancelled, Hct Cancelled, MCV Cancelled, MCH Cancelled, MCHC Cancelled, RDW Std Deviation Cancelled, RDW Coeff of Anselmo Cancelled, Plt Count Cancelled, MPV Cancelled, Immature Gran % (Auto) Cancelled, Neut % (Auto) Cancelled, Lymph % (Auto) Cancelled, [place] % (Auto) Cancelled, Eos % (Auto) Cancelled, Baso % (Auto) Cancelled, Absolute Neuts (auto) Cancelled, Absolute Lymphs (auto) Cancelled, Total Counted Cancelled, Neutrophils % (Manual) Cancelled, Band Neutrophils % C ancelled, Lymphocytes % (Manual) Cancelled, Monocytes % (Manual) Cancelled, Eosinophils % (Manual) Cancelled, Basophils % (Manual) Cancelled, Metamyelocytes % Cancelled, Myelocytes % Cancelled, Promyelocytes % Cancelled, Blast Cells % Cancelled, Plasma Cell % (Manual) Cancelled, Other Cells % Cancelled, Nucleated RBC % Cancelled, Nucleated RBCs/100 WBC Cancelled, Differential Comment Cancelled, Diff Path Review Cancelled, Hypersegmented Neuts Cancelled, Atypical Lymphocytes Cancelled, Reactive Lymphocytes Cancelled, Smudge Cells Cancelled, Toxic Granulation Cancelled, Toxic Vacuolation Cancelled, Dohle Bodies Cancelled, Sherry Rods Cancelled, Platelet Estimate Cancelled, Plt Morphology Comment Cancelled, RBC Morphology Cancelled 09/21/22 07:01: RBC Morphology Cancelled, Polychromasia Cancelled, Hypochromasia Cancelled, Poikilocytosis Cancelled, Basophilic Stippling Cancelled, Anisocytosis Cancelled, Microcytosis Cancelled, Macrocytosis Cancelled, Spherocytes Cancelled, Sickle Cells Cancelled, Target Cells Cancelled, Tear Drop Cells Cancelled, Ovalocytes Cancelled, Stomatocytes Cancelled, Finn-Casselberry Bodies Cancelled, [place] Cells Cancelled, Bite Cells Cancelled, Crenated Cell Cancelled, Acanthocytes (Spur) Cancelled, Rouleaux Cancelled, Schistocytes Cancelled, Sodium 140, Potassium 5.1, Chloride 114 H, Carbon Dioxide 21.0, Anion Gap 5, BUN 29 H, Creatinine 1.64 H, Estim Creat Clear Calc 34.61, Est GFR (MDRD) Af Amer 52 L, Est GFR (MDRD) Non-Af 43 L, BUN/Creatinine Ratio 17.7, Glucose 101, Calcium 8.4 L Radiology Impression Brain CT 09/20/22 14:45 IMPRESSION: Small vessel ischemia. Electronically Signed: Brandy Ceja MD at 16:17 EDT , Cervical Spine CT 09/20/22 14:45 IMPRESSION: No fracture Electronically Signed: Nico Levine MD at 17:04 EDT , Chest CT 09/20/22 14:45 IMPRESSION: Bibasal pleural-parenchymal interstitial infiltrates. Electronically Signed: Nico Levine MD at 16:56 EDT , Hip/Pelvis X-Ray 09/20/22 15:45 IMPRESSION: Right intertrochanteric fracture. Electronically Signed: Brandy Ceja MD at 16:12 EDT , Femur X-Ray 09/20/22 22:00 IMPRESSION: Right hip fracture otherwise intact femur Electronically Signed: Nico Levine MD at 22:58 EDT ,
[2022-09-21] MEDS: Pantoprazole Sodium 40 MG Tablet PO (08:15)
[2022-09-21] MEDS: Lactated Ringers 1,000 ML 75 ML IV ×2 (09:08→12:44)
[2022-09-21 09:30] LABS: Absolute Neutrophil Count 6.6 X10^3/uL (2.0-7.7); Basophil# 0.03 X10^3/uL; Basophil% 0.3 % (0-1); Eosinophils% 1.1 % (0-5); Hematocrit 28.9 % (40-54); Hemoglobin 9.7 g/dL (13.0-16.5); Lymphocyte % 16.1 % (19-41); Mean Corp Hgb Conc 33.6 g/dL (32-36); Mean Corpuscular Hgb 32.4 pg (27.0-32.0); Mean Corpuscular Volume 96.7 fL (80-94); Monocyte# 1.09 X10^3/uL; Monocyte% 11.7 % (0-10); NRBC Flagged by Analyzer 0 % (0-5); Neutrophil # 6.55 X10^3/uL (2.7-7.7); Neutrophil % 70.5 % (47-70); Platelet Count 167 K/mm3 (150-450); RBC Distribution Width CV 13.3 % (11.6-14.6); RBC Distribution Width SD 47.7 fl (35.1-43.9); Red Blood Count 2.99 M/mm3 (4.6-6.2); White Blood Count 9.3 K/mm3 (4.4-11.0)
[2022-09-21 09:49] LABS: Thyroid Stim Hormone (TSH) 2.53 uIU/mL (0.358-3.74)
[2022-09-21] MEDS: Hydrocortisone Sod Succinate 100 MG/2 ML Vial 50 MG IV (10:03)
--- NOTE | 2022-09-21 10:50 | RAD_ITS ---
EXAM: XR RIGHT HIP WITH PELVIS WHEN PERFORMED, 1 VIEW CLINICAL INDICATION: FX TECHNIQUE: Frontal view of the right hip with pelvis when performed. COMPARISON: No relevant prior studies available. FINDINGS: BONES/JOINTS: Single AP view of the right hip obtained in the OR demonstrates satisfactory surgical fixation of the femoral neck fracture. SOFT TISSUES: Unremarkable. RAD/Hip 1 view with Pelvis IMPRESSION: Satisfactory postop changes. Electronically Signed: Dejan Fernandez MD at 18:19 EDT ,
[2022-09-21] MEDS: Clindamycin 900 MG/50 ML BAG 75 MG IV (10:53)
[2022-09-21] MEDS: Lidocaine 1% /Epi 1:100 (20ml) 20 ML Vial (12:08)
--- NOTE | 2022-09-21 12:18 | PCM.OP.BLANK ---
Operative Report Date of Procedure: 09/21/22 Preoperative diagnosis: Right hip intertrochanteric femur fracture with subtrochanteric extension Postoperative diagnosis: Same Procedure: Cephalo-medullary fixation right hip Implants: Synthes long nail 12 x 400, 100 mm helical blade, 50 mm screw Anesthesia: General EBL: 50 Complications: None Condition: Stable to PACU Indication for procedure: 82-year-old male who had a ground-level fall after getting up from a chair and became dizzy injuring his right hip. fracture demonstrated intertrochanteric femur fracture with subtrochanteric extension, risk benefits and alternatives were reviewed including risk of bleeding infection nerve, artery, bone, tissue damage, blood clot, RSD need for further surgery and continued pain. Procedure: Patient met in the preoperative holding area once again the operative extremity was identified by both patient and physician and was marked. Patient was met by anesthesia and IV was started she was brought back to the to the operating room anesthesia was started. She was then positioned on the fracture table all bony prominences were well-padded. She was then positioned with adduction internal rotation and traction and fluoroscopy was brought in to ensure that an adequate reduction could be performed. Patient was then prepped and draped in usual sterile fashion and timeout was called to ensure the proper patient procedure and extremity were being contemplated. Fluoroscopy was used to oziel the tip of the greater trochanter and a 3 fingerbreadth incision was made 2 finger breaths proximal to the tip of the greater trochanter. Was carried carried down through the skin and subcutaneous tissue as well as the gluteal fascia. A guide pin was then inserted through the tip of the greater trochanter directed towards the level of lesser trochanter this was checked in both AP and lateral projections. An opening reamer was performed. A guide pin was bent and placed down the femoral canal to the level of the superior patella then measured this and placed the corresponding length nail after flexible reamers were used to achieve cortical chatter and achieving 1.5 mm greater than the nail was chosen . following this was the insertion of the nail the appropriate height jig was used and a triple trocar sleeve was advanced to the skin and a stab incision was made at the trocar was inserted to the level of the bone and a guidepin was placed into the femoral neck and head checked on both AP and lateral projections. This was then measured and appropriately sized helical blade was inserted the nail was locked proximally to allow dynamic compression, the fracture was compressed and a locking screw was placed distally using perfect alturas technique. This was then drilled and measured under fluoroscopy and the appropriate size screw was inserted. Final AP and lateral projections were saved to the PACS system of the entire construct. the wounds were thoroughly irrigated the fascia was closed with #1 [id number] Vicryls followed by 2-0 Vicryl in the subcutaneous tissues followed by yoanna in the skin. 0.5% Marcaine with epinephrine was injected into the subcutaneous tissues dressing was applied form of Xeroform 4 x 4 ABD and Ioban tape. Patient tolerated procedure well there is no intraoperative complications she was brought back to the PACU in stable condition.
--- NOTE | 2022-09-21 12:36 | RAD_ITS ---
INDICATION: R shoulder pain s/p fall EXAMINATION/TECHNIQUE: X-RAY - RIGHT XR Shoulder Min 2 Views COMPARISON: 10/21/2017. FINDINGS: SOFT TISSUES: Unremarkable. BONES/JOINTS: No fracture or dislocation. Mild degenerative changes. No erosive changes. RAD/Shoulder min 2 Views IMPRESSION: No fracture or dislocation. Electronically Signed: Elliott Dominique DO at 0:30 EDT ,
--- NOTE | 2022-09-21 12:52 | PN.HOSP_ITS ---
Reason for Visit Reason for Visit: Diagnoses Paroxysmal atrial fibrillation (09/20/22) Hypotension, unspecified (09/20/22) Contusion of left front wall of thorax, initial encounter (09/20/22) Fracture of unspecified part of neck of right femur, initial encounter for closed fracture (09/20/22) Displaced intertrochanteric fracture of right femur, initial encounter for closed fracture (09/20/22) Subjective Subjective Follow-up for right intertrochanteric fracture after fall. Left sided rib pain. Objective Data Objective Data Vital Signs: Vital Signs Temp Pulse Resp BP Pulse Ox O2 Del Method O2 Flow Rate 98.1 F 79 18 117/54 L 97 Nasal Cannula 2 09/21/22 12:28 09/21/22 12:30 09/21/22 12:30 09/21/22 12:30 09/21/22 12:30 09/21/22 12:30 09/21/22 12:30 Oxygen Flow Rate (L/min) 2 Oxygen Delivery Method Nasal Cannula Weight: 158 lb 1.143 oz Body Mass Index (BMI) 22.0 Intake & Output: Intake and Output for Last 24 Hours 09/19/22 09/20/22 09/21/22 23:59 23:59 23:59 Intake Total 2299.7 / 2299.7 2049 / 2049 Output Total 350 / 350 Balance 2299.7 / 2299.7 1700 / 1700 Lab / Micro Data 09/21/22 09:00 09/21/22 07:01 Labs: Laboratory Results - last 24 hr 09/20/22 14:50: WBC 9.8, RBC 3.89 L, Hgb 12.1 L, Hct 37.3 L, MCV 95.9 H, MCH 31.1, MCHC 32.4, RDW Std Deviation 46.5 H, RDW Coeff of Anselmo 13.2, Plt Count 226, MPV 10.7, Immature Gran % (Auto) 1.100 H, Neut % (Auto) 82.8 H, Lymph % (Auto) 10.2 L, Gem % (Auto) 4.1, Eos % (Auto) 1.4, Baso % (Auto) 0.4, Absolute Neuts (auto) 8.1 H, Absolute Lymphs (auto) 1.00, Nucleated RBC % 0, Sodium 141, Potassium 4.5, Chloride 109 H, Carbon Dioxide 23.0, Anion Gap 9, BUN 27 H, Creatinine 1.87 H, Estim Creat Clear Calc 32.85, Est GFR (MDRD) Af Amer 45 L, Est GFR (MDRD) Non-Af 37 L, BUN/Creatinine Ratio 14.4, Glucose 131 H, Calcium 9.0 09/20/22 18:25: Blood Type A POSITIVE, Antibody Screen NEGATIVE 09/21/2022: Sodium 140, Potassium 5.1, Chloride 114 H, Carbon Dioxide 21.0, Anion Gap 5, BUN 29 H, Creatinine 1.64 H, Estim Creat Clear Calc 34.61, Est GFR (MDRD) Af Amer 52 L, Est GFR (MDRD) Non-Af 43 L, BUN/Creatinine Ratio 17.7, Glucose 101, Calcium 8.4 L 09/21/22 09:00: WBC 9.3, RBC 2.99 L, Hgb 9.7 L, Hct 28.9 L, MCV 96.7 H, MCH 32.4 H, MCHC 33.6, RDW Std Deviation 47.7 H, RDW Coeff of Anselmo 13.3, Plt Count 167, MPV 11.0, Immature Gran % (Auto) 0.300, Neut % (Auto) 70.5 H, Lymph % (Auto) 16.1 L, Gem % (Auto) 11.7 H, Eos % (Auto) 1.1, Baso % (Auto) 0.3, Absolute Neuts (auto) 6.6, Absolute Lymphs (auto) 1.50, Nucleated RBC % 0, TSH 2.53 Radiography Diagnostic Testing: Radiology Impression Brain CT 09/20/22 14:45 IMPRESSION: Small vessel ischemia. Electronically Signed: Brandy Ceja MD at 16:17 EDT , Cervical Spine CT 09/20/22 14:45 IMPRESSION: No fracture Electronically Signed: Nico Levine MD at 17:04 EDT , Chest CT 09/20/22 14:45 IMPRESSION: Bibasal pleural-parenchymal interstitial infiltrates. Electronically Signed: Nico Levine MD at 16:56 EDT , Hip/Pelvis X-Ray 09/20/22 15:45 IMPRESSION: Right intertrochanteric fracture. Electronically Signed: Brandy Ceja MD at 16:12 EDT , Femur X-Ray 09/20/22 22:00 IMPRESSION: Right hip fracture otherwise intact femur Electronically Signed: Nico Levine MD at 22:58 EDT , Physical Exam Narrative Seen and examined. Patient left rib pain is better. Did not pass out. Mild left anterolateral rib pain otherwise no anginal quality chest pain. General: Alert, Oriented x3, Cooperative. HEENT: Atraumatic, PERRLA, EOMI, Normocephalic Oral: Oral mucosa moist. No Gingival or Mucosal Lesions/ Ulcerations Neck: Supple, No JVD, Negative Carotid Bruits Lungs: Air entry diminished in bilateral lung bases. No crepitation/rhonchi Cardiovascular: Sinus rhythm on night monitor. heart rate controlled. Normal S1, Normal S2, No murmurs Abdomen: Bowel Sounds Present, Soft, Non Tender, Non-Distended : Did not voided urine after fall. No renal angle tenderness. No suprapubic tenderness. Extremities: No edema, Capillary Refill Less than 3 Seconds Skin: No rashes, No breakdown Musculoskeletal: Tenderness and swelling over right hip region and greater trochanter. ROM not attempted. Mild tenderness also on left lower anterolateral chest wall. Neurological: Cranial nerves II-XII grossly intact, DTR 2+/4 and Symmetrical, Neuro grossly intact Psych/Mental Status: Flat affect in pain. Assessment & Plan Assessment/Plan (1) Closed fracture of right hip: QUALIFIERS: Encounter type: initial encounter Qualified Code(s): S72.001A - Fracture of unspecified part of neck of right femur, initial encounter for closed fracture (2) Contusion of rib on left side: QUALIFIERS: Encounter type: initial encounter Qualified Code(s): S20.212A - Contusion of left front wall of thorax, initial encounter (3) Atrial fibrillation: QUALIFIERS: Atrial fibrillation type: paroxysmal Qualified Code(s): I48.0 - Paroxysmal atrial fibrillation (4) Acute hypotension: PLAN: Plan This is a 82-year-old gentleman being admitted for right hip pain, left chest wall pain after fall resulting into right hip intertrochanteric fracture 1. Mechanical fall with right intertrochanteric fracture with superior migration of distal right femur and left chest wall pain: X-ray of hip shows right intertrochanteric fracture with superior migration of the distal right femur. Pain control. Muscle relaxant. Orthopedic Dr. Castano is consulted. PT OT evaluation. Discussed with the orthopedic surgeon Dr. Handley. He has moderate perioperative risk for right intertrochanteric hip fracture. Patient has acceptable risk with a valve average of cardiac complication and VTE otherwise acceptable risk for pneumonia surgical site infection UTI. 09/21: Discussed with orthopedic surgeon. Patient going for surgery. Acceptable moderate perioperative risk. 2. Acute hypotension, exact reason unclear primary resulting into fall: Patient was dizzy and lightheaded on standing up, blacked out and then fall. Patient denies history of diarrhea or acute volume loss. Probably antihypertensive medication but he is on for many years amlodipine 10 mg daily and metoprolol succinate 25 mg daily. Hold antihypertensive medications. Volume resuscitation with Ringer lactate 1 L stat and then continue 100 ml per hour. Monitor orthostatics vitals supine and sitting tomorrow a.m. 09/21 overnight his blood pressure improved but at 4 AM it was 104/55. Orthostatic was done sitting and laying down did not show significant change but mostly in the high 114-to low 120s. Prednisone is on hold. TSH and cortisol drawn before giving hydrocortisone. Supplemental low hydrocortisone 50 mg IV given. 3. Atherosclerotic heart disease status post cardiac stent in 2013 paroxysmal A-fib: Patient had one-time A-fib. Twelve-lead EKG shows A-fib 72 bpm. Not on anticoag. Baby aspirin continued. QTc [address] Doherty and Estrada looney for history of paroxysmal A-fib hypertension, cardiac stent RCA in 2013. Last cardiac cath in in April 2018 patent stent with ostial LAD 50%, ostial circumflex 50%. He is most recent echo in 2019 shows EF 65%. 09/21: Overnight patient converted to sinus rhythm. Continue baby aspirin. 4. PMR on prednisone 5 mg daily on hold. Can continue from tomorrow AM. 5. VTE prophylaxis: Hold pharmacological prophylaxis patient probably will be going for surgery tomorrow AM. Living will/advanced directive/end of life care: Patient does have living will or advanced directive. After discussion of benefits/risks procedures involved with full code, DNR CC arrest and DNR CC, the patient opted for full code. Patient does want artificial life support including intubation, tube feed, ventilator and/chest compression, central venous catheter, vasopressor and DC shock if needed Total time of the visit including total time spent in counseling or coordination of care, (more than 50% of the total time, spent in obtaining medical information from nurses and other ancillary care providers,explaining to the patient about labs, imaging, diagnosis and management of active complex medical conditions), discussion with orthopedic surgeon and geospatial technologist, review of labs and imaging, clinical update given to patient's near the bedside is 50 minutes. Clinical Impression(s) from Imaging Studies Brain CT 09/20/22 14:45 IMPRESSION: Small vessel ischemia. Electronically Signed: Brandy Ceja MD at 16:17 EDT , Cervical Spine CT 09/20/22 14:45 IMPRESSION: No fracture Electronically Signed: Nico Levine MD at 17:04 EDT , Chest CT 09/20/22 14:45 IMPRESSION: Bibasal pleural-parenchymal interstitial infiltrates. Electronically Signed: Nico Levine MD at 16:56 EDT , Hip/Pelvis X-Ray 09/20/22 15:45 IMPRESSION: Right intertrochanteric fracture. Electronically Signed: Brandy Ceja MD at 16:12 EDT , Charges/Coding Visit Charges Inpatient E&M: 36858 Subs Hosp L3
[2022-09-21] MEDS: Lactated Ringers 1,000 ML 125 ML IV ×2 (13:57→19:47)
[2022-09-21] MEDS: Calcium Carbonate 500 MG Tablet PO (17:38)
[2022-09-21] MEDS: Clindamycin 600 MG/50 ML BAG 100 MG IV (18:10)
[2022-09-21] MEDS: Atorvastatin Calcium 40 MG Tablet PO (19:47)
[2022-09-21] MEDS: prednisoLONE eye drops (5 mL) 1 DROP OPTH.BTL 1 DRP LEFT EYE (19:50)
[2022-09-22] VITALS (9 sets, daily range): BP systolic 119–127; BP diastolic 57–65; PULSE 80–99; RESP 16–18; TEMP 36.4–37.1; O2SAT 88–100; BMI 22.5
[2022-09-22] MEDS: Clindamycin 600 MG/50 ML BAG 100 MG IV ×2 (02:47→10:50)
[2022-09-22] MEDS: Lactated Ringers 1,000 ML 125 ML IV (02:47)
--- NOTE | 2022-09-22 05:55 | ECHOD_ITS ---
Reason For Study: HYPOTENSION Procedure This was a 2D Doppler, Color Flow transthoracic echocardiogram. Exam performed portable in patient room. Left Ventricle Normal size and thickness. The left ventricular ejection fraction is 70 %. Normal diastology for age. Right Ventricle Normal right ventricle. Atria The left atrium is mildly enlarged. Normal right atrium. Mitral Valve Mild mitral annular calcification. Trivial mitral valve insufficiency. Tricuspid Valve Trivial tricuspid valve insufficiency. Normal pulmonary artery pressure. Aortic Valve Aortic sclerosis, no stenosis. Pulmonic Valve The pulmonic valve is not well visualized. Great Vessels Normal sized aortic root. Pericardium/Pleural No pericardial effusion. MMode/2D Measurements & Calculations LVIDd: 4.6 cm IVSd: 0.76 cm LVOT diam: 2.0 cm LVIDs: 3.1 cm LVPWd: 0.76 cm LVOT area: 3.0 cm2 RVDd: 3.6 cm FS: 33.5 % Ao root diam: 3.3 cm LAV(MOD-bp): 39.2 ml LVAd ap4: 23.2 cm2 LAV(MOD-bp) Indexed: 20.6 ml/m2 LVLd ap4: 7.6 cm LAV(MOD-sp2): 43.1 ml EDV(MOD-sp4): 58.1 ml LAV(MOD-sp4): 37.5 ml EDV(sp4-el): 60.3 ml LVAs ap4: 12.6 cm2 LVLs ap4: 6.3 cm ESV(MOD-sp4): 21.2 ml ESV(sp4-el): 21.4 ml EF(MOD-sp4): 63.5 % EF(sp4-el): 64.4 % SV(MOD-sp4): 36.9 ml SV(sp4-el): 38.9 ml LA A4 area: 17.1 cm2 LA dimension(2D): 3.4 cm RA A4 area: 14.9 cm2 Time Measurements MV dec time: 0.32 sec Doppler Measurements & Calculations MV E max sina: 87.1 cm/sec Lat Peak E' Sina: 9.0 cm/sec Med Peak E' Sina: 8.3 cm/sec MV A max sina: 125.5 cm/sec E/E' lat: 9.6 E/E' med: 10.5 MV E/A: 0.69 Ao V2 max: 187.3 cm/sec LV V1 max: 125.3 cm/sec PA V2 max: 112.9 cm/sec Ao max P.0 mmHg LV V1 max P.3 mmHg TAL(V,D): 2.0 cm2 TR max sina: 248.6 cm/sec TR max P.7 mmHg ECHO/Echo Complete Interpretation Summary The left ventricular ejection fraction is 70 %. The left atrium is mildly enlarged. Mild mitral annular calcification. Hepatic cyst noted as an incidental finding. Consider ultrasound liver for furt her evaluation. Ordering Physician: Harlan Newsome Referring Physician: NISA DIAZ Performed By: Nuha Smith RDCS
[2022-09-22] MEDS: prednisoLONE eye drops (5 mL) 1 DROP OPTH.BTL 1 DRP LEFT EYE ×3 (06:16→21:27)
[2022-09-22 06:26] LABS: Absolute Lymphocyte Count 0.55 X10^3/uL (0.83-4.51); Absolute Neutrophil Count 10.7 X10^3/uL (2.0-7.7); Hematocrit 24.6 % (40-54); Hemoglobin 8.4 g/dL (13.0-16.5); Lymphocyte # 0.55 X10^3/ul (0.83-4.51); Lymphocyte % 4.5 % (19-41); Mean Corp Hgb Conc 34.1 g/dL (32-36); Mean Corpuscular Hgb 32.6 pg (27.0-32.0); Mean Corpuscular Volume 95.3 fL (80-94); Mean Platelet Vol. 11.1 fl (6.2-12.0); Monocyte# 0.93 X10^3/uL; Monocyte% 7.6 % (0-10); NRBC Flagged by Analyzer 0 % (0-5); Neutrophil # 10.65 X10^3/uL (2.7-7.7); Neutrophil % 87.3 % (47-70); POSITIVE DIFFERENTIAL YES; Platelet Count 141 K/mm3 (150-450); RBC Distribution Width CV 13.1 % (11.6-14.6); RBC Distribution Width SD 45.2 fl (35.1-43.9); Red Blood Count 2.58 M/mm3 (4.6-6.2); White Blood Count 12.2 K/mm3 (4.4-11.0)
[2022-09-22] MEDS: oxyCODONE 5 MG Tablet PO ×2 (06:42→18:06)
[2022-09-22 06:54] LABS: Differential Indicated SCAN CRITERIA MET
[2022-09-22 07:10] LABS: Anion Gap 5 (5-15); BUN 29 mg/dL (7-18); BUN/Creat Ratio 19.6 RATIO (10-20); Calcium,Total 8.1 mg/dL (8.5-10.1); Chloride 110 mmol/L (98-107); Creatinine, Serum 1.48 mg/dL (0.70-1.30); EST Glomerular Filtration Rate 48 mL/min (>60); Est Glom Filt Rate - Afr Amer 58 mL/min (>60); Estimated Creatinine Clearance 39.16 ml/min; Glucose 160 mg/dL (74-106); Potassium 4.7 mmol/L (3.5-5.1); Sodium Level 138 mmol/L (136-145)
[2022-09-22 07:15] LABS: Differential Comment SCANNED
--- NOTE | 2022-09-22 08:09 | PCM.PN.HOSP ---
Reason for Visit Reason for Visit: Diagnoses Paroxysmal atrial fibrillation (09/21/22) Hypotension, unspecified (09/21/22) Contusion of left front wall of thorax, initial encounter (09/21/22) Fracture of unspecified part of neck of right femur, initial encounter for closed fracture (09/21/22) Displaced intertrochanteric fracture of right femur, initial encounter for closed fracture (09/21/22) Subjective Subjective Feeling somewhat better today, had been up to chair and feels like pain is improving Objective Data Objective Data Vital Signs: Vital Signs Temp Pulse Resp BP Pulse Ox O2 Del Method O2 Flow Rate 98.2 F 92 16 122/63 H 100 Nasal Cannula 2 09/22/22 05:30 09/22/22 05:30 09/22/22 05:30 09/22/22 05:30 09/22/22 05:30 09/22/22 05:30 09/22/22 05:30 Oxygen Flow Rate (L/min) 2 Oxygen Delivery Method Nasal Cannula Weight: 73.2 kg Body Mass Index (BMI) 22.5 Intake & Output: Intake and Output for Last 24 Hours 09/20/22 09/21/22 09/22/22 23:59 23:59 23:59 Intake Total 2299.7 / 2299.7 2976.67 / 2976.67 1033.33 / 1033.33 Output Total 600 / 1000 400 / 400 Balance 2299.7 / 2299.7 2376.67 / 1976.67 633.33 / 633.33 Lab / Micro Data 09/22/22 05:17 09/22/22 05:17 Labs: Laboratory Results - last 24 hr 09/21/22 09:00: WBC 9.3, RBC 2.99 L, Hgb 9.7 L, Hct 28.9 L, MCV 96.7 H, MCH 32.4 H, MCHC 33.6, RDW Std Deviation 47.7 H, RDW Coeff of Anselmo 13.3, Plt Count 167, MPV 11.0, Immature Gran % (Auto) 0.300, Neut % (Auto) 70.5 H, Lymph % (Auto) 16.1 L, [place] % (Auto) 11.7 H, Eos % (Auto) 1.1, Baso % (Auto) 0.3, Absolute Neuts (auto) 6.6, Absolute Lymphs (auto) 1.50, Nucleated RBC % 0, TSH 2.53, Cortisol 26.40 H 09/22/22 05:17: WBC 12.2 H, RBC 2.58 L, Hgb 8.4 L, Hct 24.6 L, MCV 95.3 H, MCH 32.6 H, MCHC 34.1, RDW Std Deviation 45.2 H, RDW Coeff of Anselmo 13.1, Plt Count 141 L, MPV 11.1, Immature Gran % (Auto) 0.600, Neut % (Auto) 87.3 H, Lymph % (Auto) 4.5 L, [place] % (Auto) 7.6, Eos % (Auto) 0.0, Baso % (Auto) 0.0, Absolute Neuts (auto) 10.7 H, Absolute Lymphs (auto) 0.55 L, Nucleated RBC % 0, Differential Comment SCANNED, Sodium 138, Potassium 4.7, Chloride 110 H, Carbon Dioxide 23.0, Anion Gap 5, BUN 29 H, Creatinine 1.48 H, Estim Creat Clear Calc 39.16, Est GFR (MDRD) Af Amer 58 L, Est GFR (MDRD) Non-Af 48 L, BUN/Creatinine Ratio 19.6, Glucose 160 H, Calcium 8.1 L Radiography Diagnostic Testing: Radiology Impression Hip/Pelvis X-Ray 09/21/22 10:50 IMPRESSION: Satisfactory postop changes. Electronically Signed: Dejan Fernandez MD at 18:19 EDT , Shoulder X-Ray 09/21/22 12:36 IMPRESSION: No fracture or dislocation. Electronically Signed: Elliott Dominique DO at 0:30 EDT , Physical Exam Narrative General: Alert, oriented, no apparent distress HEENT: Atraumatic, normocephalic Eyes: Anicteric, normal conjunctiva, extraocular movements grossly intact Neck: Supple Respiratory: Clear to auscultation bilaterally, normal respiratory effort Cardiovascular: Regular rate GI: Soft, nontender, nondistended Extremities: No edema Musculoskeletal: Moving all extremities Neuro: No overt focal neurological deficits Skin: Bruising on hands and arms Psych: Cooperative Assessment & Plan Assessment/Plan (1) Closed fracture of right hip: QUALIFIERS: Encounter type: initial encounter Qualified Code(s): S72.001A - Fracture of unspecified part of neck of right femur, initial encounter for closed fracture (2) Contusion of rib on left side: QUALIFIERS: Encounter type: initial encounter Qualified Code(s): S20.212A - Contusion of left front wall of thorax, initial encounter (3) Atrial fibrillation: QUALIFIERS: Atrial fibrillation type: paroxysmal Qualified Code(s): I48.0 - Paroxysmal atrial fibrillation (4) Acute hypotension: PLAN: Plan #Displaced intertrochanteric fracture of right femur after mechanical fall -X-ray of hip on admission with right intertrochanteric fracture with superior migration of distal right femur -Dr. Castano consulted and patient went OR 09/21 for cephalomedullary fixation of right hip -Pain control -On clindamycin every 8x3 bags -PT/OT to eval, home versus SNF pending evaluation #Paroxysmal atrial fibrillation -Seen on EKG on admission -Had one-time episode in 2013 after a stent and has recurrence this admission -CHADS2-VASc score of 3 a, has been started on Eliquis 2.5 mg twice daily -Continue metoprolol -Repeat echo pending -09/22: We will need to follow with cardiology upon discharge #Acute hypotension- resolved -Unclear etiology -Home antihypertensives held and fluids given -Patient with negative orthostats -TSH within normal limits, cortisol drawn and was 26.4 but patient started on hydrocortisone in the meantime as he is chronically on prednisone for PMR so he was given stress dose steroids -Significantly improved with stress dose steroids and fluids -09/22: Suspect component of volume depletion, given he is only on 5 mg chronically this is unlikely to be entire cause, was given stress dose steroids yesterday, resume 5 mg of prednisone and can redose if any further problems with blood pressure but presently stable #CKD stage IIIb -Had slight bump in creatinine on admission but trended back down with fluids, continue #Acute on chronic macrocytic anemia -Patient's hemoglobin 12.1 on admission and 9.7 the following day preoperatively, suspect a large component of this is dilutional given proportional decrease in platelets, white blood cell count is slightly up but suspect this is reactive secondary to surgery -No acute blood loss noted otherwise, will check iron studies, B12, folate in the morning #PMR -On 5 mg prednisone daily, this was held and patient given IV hydrocortisone -09/22: Resume 5 mg of prednisone daily, can repeat stress dose steroids if any further instability #History of coronary artery disease -With history of stent to RCA in 2013 -Follows with Dr. Doherty on outpatient basis -Last cardiac cath in in April 2018 patent stent with ostial LAD 50%, ostial circumflex 50%. He is most recent echo in 2019 shows EF 65% #Mild thrombocytopenia -Platelets 141 -Did have drop in hemoglobin however do not think patient is hemolyzing, will trend and can get further studies if this does not improve, patient not on heparin #CKDIIIb -Appears to be at baseline, avoid nephrotoxic agents #DVT ppx: Danika Bush MD Time spent in the patient's overall evaluation,decision-making process, review of diagnostic data, adjustment of management, discussion with other providers, nursing nursing and ancillary staff involved in patient's care documentation, 51 minutes Charges/Coding Visit Charges Inpatient E&M: 06132 [facility] Hosp L3
[2022-09-22] MEDS: Aspirin 81 MG TAB.CHEW PO (10:48)
[2022-09-22] MEDS: Calcium Carbonate 500 MG Tablet PO ×3 (10:48→18:07)
[2022-09-22] MEDS: predniSONE 5 MG Tablet PO (10:49)
[2022-09-22] MEDS: Metoprolol(XL)Succ 25 MG Tablet PO (10:49)
[2022-09-22] MEDS: Pantoprazole Sodium 40 MG Tablet PO (10:49)
--- NOTE | 2022-09-22 11:15 | CASEMGMT ---
RN CARIDAD Face to Face with patient for initial transition planning/care coordination assessment. RN CM introduced self and role at [facility]. Patient lying in bed, alert and oriented, at bedside. Patient willing to participate in assessment and is able to answer all questions appropriately. Care providers, pharmacy, and demographics verified. Patient wishes to discharge home, will monitor progress with therapy, possible SNF vs HHC. Patient states he has no further needs or concerns at this time. CM to follow for discharge planning needs that may arise. 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 Patient was independent at home. Transportation: self, DME/HHC: Patient has shower chair, cane, walker, gait belt. Patient may benefit from BSC at discharge. No previous HHC or SNF. Will monitor progress with therapy. Disposition Plan: TBD, anticipate HHC vs SNF pending progress with therapy. Uzma BOWLES, RN, CM
[2022-09-22] MEDS: APIXABAN 2.5 MG TABLET (WCH) PO ×2 (12:32→21:27)
--- NOTE | 2022-09-22 12:46 | PN.ORTHO_ITS ---
Subjective Subjective Seen and examined doing well pain controlled did not do a any ambulation yet. Required to assist to chair, no other complaints or concerns Objective Data Objective Data Vital Signs: Vital Signs Temp Pulse Resp BP Pulse Ox O2 Del Method O2 Flow Rate 97.6 F L 99 16 126/61 H 95 Nasal Cannula 2 09/22/22 10:44 09/22/22 10:49 09/22/22 10:44 09/22/22 10:49 09/22/22 10:54 09/22/22 10:54 09/22/22 10:54 Oxygen Flow Rate (L/min) 2 Oxygen Delivery Method Nasal Cannula Weight: 161 lb 6.054 oz Body Mass Index (BMI) 22.5 Intake & Output: Intake and Output for Last 24 Hours 09/20/22 09/21/22 09/22/22 23:59 23:59 23:59 Intake Total 2299.7 / 2299.7 2976.67 / 2976.67 1083.33 / 1083.33 Output Total 600 / 1000 400 / 400 Balance 2299.7 / 2299.7 2376.67 / 1976.67 683.33 / 683.33 Lab / Micro Data 09/22/22 05:17 09/22/22 05:17 Labs: Laboratory Results - last 24 hr 09/21/22 09:00: Cortisol 26.40 H 09/22/22 05:17: WBC 12.2 H, RBC 2.58 L, Hgb 8.4 L, Hct 24.6 L, MCV 95.3 H, MCH 32.6 H, MCHC 34.1, RDW Std Deviation 45.2 H, RDW Coeff of Anselmo 13.1, Plt Count 141 L, MPV 11.1, Immature Gran % (Auto) 0.600, Neut % (Auto) 87.3 H, Lymph % (Auto) 4.5 L, [place] % (Auto) 7.6, Eos % (Auto) 0.0, Baso % (Auto) 0.0, Absolute Neuts (auto) 10.7 H, Absolute Lymphs (auto) 0.55 L, Nucleated RBC % 0, Differential Comment SCANNED, Sodium 138, Potassium 4.7, Chloride 110 H, Carbon Dioxide 23.0, Anion Gap 5, BUN 29 H, Creatinine 1.48 H, Estim Creat Clear Calc 39.16, Est GFR (MDRD) Af Amer 58 L, Est GFR (MDRD) Non-Af 48 L, BUN/Creatinine Ratio 19.6, Glucose 160 H, Calcium 8.1 L Radiography Diagnostic Testing: Radiology Impression Hip/Pelvis X-Ray 09/21/22 10:50 IMPRESSION: Satisfactory postop changes. Electronically Signed: Dejan Fernandez MD at 18:19 EDT , Shoulder X-Ray 09/21/22 12:36 IMPRESSION: No fracture or dislocation. Electronically Signed: Elliott Dominique DO at 0:30 EDT , Echocardiogram 09/22/22 05:55 Interpretation Summary The left ventricular ejection fraction is 70 %. The left atrium is mildly enlarged. Mild mitral annular calcification. Hepatic cyst noted as an incidental finding. Consider ultrasound liver for further evaluation. Ordering Physician: Harlan Newsome Referring Physician: NISA DIAZ Performed By: Nuha Smith RDCS Physical Exam Const alert, oriented x3 and no apparent distress Extremity Extremity Narrative: Right hip dressing clean dry and intact Compartment soft neurovascular intact right lower extremity Assessment & Plan Assessment/Plan (1) Intertrochanteric fracture of right femur: QUALIFIERS: Encounter type: initial encounter Fracture type: closed Fracture alignment: displaced Qualified Code(s): S72.141A - Displaced intertrochanteric fracture of right femur, initial encounter for closed fracture PLAN: Plan Postop day #1 right trochanteric femoral nail long PT OT weightbearing as tolerated DVT prophylaxis SCDs NIEVES olivera Eliquis 2.5 mg twice daily for 3 weeks from orthopedic standpoint although may need longer duration of anticoagulation and will defer that to cardiology consulting team for atrial fibrillation Patient would likely benefit from rehab or TCU prior to returning home. Dressing should be removed and changed 72 hours postoperatively and cleaned with antibacterial soap and warm water daily at that point with new dressing applied daily may shower 72 hours postop but no tub bath or complete submersion for 3 weeks. Follow-up in the office 2 weeks
--- NOTE | 2022-09-22 13:28 | US_ITS ---
EXAM: Ultrasound abdomen, RUQ. HISTORY: Possible hepatic cyst COMPARISON: None. LIMITATIONS: None. LIVER: Normal. PORTAL VEINS: Normal. GALLBLADDER Size: Normal. Stones/sludge: Sludge is identified. No shadowing stones. Wall thickness: Normal measuring 2 to 3 mm. Pericholecystic fluid: None. Sonographic Cardona sign: Negative. EXTRAHEPATIC BILE DUCTS: The partially visualized common duct is normal in caliber for age measuring 6 mm. PANCREAS: Not well visualized. RIGHT KIDNEY: Cortical echogenicity is increased. No shadowing stones. No definite hydronephrosis. Several cysts. Larger cysts measure 2 cm. OTHER: None. CONCLUSION: No hepatic cyst identified. Several cysts in the right kidney. Larger cysts measure 2 cm. Increased cortical echogenicity of the right kidney suggestive of medical renal disease. Gallbladder sludge. No shadowing gallstones. Electronically Signed: Pratik Yarbrough MD at 7:10 EDT , US/Liver IMPRESSION: undefined
[2022-09-22] MEDS: Atorvastatin Calcium 40 MG Tablet PO (21:27)
[2022-09-23] VITALS (15 sets, daily range): BP systolic 109–147; BP diastolic 47–72; PULSE 81–101; RESP 14–18; TEMP 35.9–37.6; O2SAT 84–100; BMI 23.2
[2022-09-23] MEDS: prednisoLONE eye drops (5 mL) 1 DROP OPTH.BTL 1 DRP LEFT EYE ×3 (05:05→21:36)
[2022-09-23 05:40] LABS: Absolute Lymphocyte Count 1.21 X10^3/uL (0.83-4.51); Absolute Neutrophil Count 7.3 X10^3/uL (2.0-7.7); Basophil# 0.01 X10^3/uL; Basophil% 0.1 % (0-1); Eosinophil# 0.06 X10^3/uL; Eosinophils% 0.6 % (0-5); Hematocrit 20.7 % (40-54); Hemoglobin 6.6 g/dL (13.0-16.5); Lymphocyte # 1.21 X10^3/ul (0.83-4.51); Lymphocyte % 12.8 % (19-41); Mean Corp Hgb Conc 31.9 g/dL (32-36); Mean Corpuscular Hgb 31.1 pg (27.0-32.0); Mean Corpuscular Volume 97.6 fL (80-94); Mean Platelet Vol. 11.6 fl (6.2-12.0); Monocyte# 0.83 X10^3/uL; Monocyte% 8.8 % (0-10); NRBC Flagged by Analyzer 0 % (0-5); Neutrophil # 7.31 X10^3/uL (2.7-7.7); Neutrophil % 77.1 % (47-70); Platelet Count 120 K/mm3 (150-450); RBC Distribution Width CV 13.3 % (11.6-14.6); RBC Distribution Width SD 47.9 fl (35.1-43.9); Red Blood Count 2.12 M/mm3 (4.6-6.2); White Blood Count 9.5 K/mm3 (4.4-11.0)
[2022-09-23 06:30] LABS: Anion Gap 3 (5-15); BUN 42 mg/dL (7-18); Calcium,Total 7.9 mg/dL (8.5-10.1); Chloride 112 mmol/L (98-107); Creatinine, Serum 1.83 mg/dL (0.70-1.30); EST Glomerular Filtration Rate 38 mL/min (>60); Est Glom Filt Rate - Afr Amer 46 mL/min (>60); Estimated Creatinine Clearance 32.58 ml/min; Ferritin 136 ng/mL (26-388); Glucose 164 mg/dL (74-106); Iron 23 ug/dL (65-175); Iron Binding Capacity,Total 200 ug/dL (250-450); PERCENT IRON SATURATION 11.5 % (15.0-55.0); Potassium 4.5 mmol/L (3.5-5.1); Sodium Level 140 mmol/L (136-145)
--- NOTE | 2022-09-23 07:43 | PCM.PN.HOSP ---
Reason for Visit Reason for Visit: Diagnoses Paroxysmal atrial fibrillation (09/21/22) Hypotension, unspecified (09/21/22) Contusion of left front wall of thorax, initial encounter (09/21/22) Fracture of unspecified part of neck of right femur, initial encounter for closed fracture (09/21/22) Displaced intertrochanteric fracture of right femur, initial encounter for closed fracture (09/21/22) Subjective Subjective Feeling somewhat down due to his medical problems but reports that he is feeling about the same from a pain perspective and does well if he is premedicated getting up in the chair, has a little bit of bruising above but no significant or extensive bruising anywhere, denies any bowel movement and no bright red or black stools and no abdominal pain and no bleeding elsewhere Objective Data Objective Data Vital Signs: Vital Signs Temp Pulse Resp BP Pulse Ox O2 Del Method O2 Flow Rate 98.7 F 99 18 118/57 L 96 Nasal Cannula 2 09/23/22 05:28 09/23/22 05:28 09/23/22 05:28 09/23/22 05:28 09/23/22 05:28 09/23/22 05:28 09/23/22 05:28 Oxygen Flow Rate (L/min) 2 Oxygen Delivery Method Nasal Cannula Weight: 75.6 kg Body Mass Index (BMI) 23.2 Intake & Output: Intake and Output for Last 24 Hours 09/21/22 09/22/22 09/23/22 23:59 23:59 23:59 Intake Total 2976.67 / 2976.67 1707.33 / 1707.33 Output Total 600 / 1000 1300 / 1300 250 / 250 Balance 2376.67 / 1976.67 407.33 / 407.33 -250 / -250 Lab / Micro Data 09/23/22 04:39 09/23/22 04:39 Labs: Laboratory Results - last 24 hr 09/21/22 09:00: Cortisol 26.40 H 09/23/22 04:39: WBC 9.5, RBC 2.12 L, Hgb 6.6 L, Hct 20.7 L, MCV 97.6 H, MCH 31.1, MCHC 31.9 L D, RDW Std Deviation 47.9 H, RDW Coeff of Anselmo 13.3, Plt Count 120 L, MPV 11.6, Immature Gran % (Auto) 0.600, Neut % (Auto) 77.1 H, Lymph % (Auto) 12.8 L, [place] % (Auto) 8.8, Eos % (Auto) 0.6, Baso % (Auto) 0.1, Absolute Neuts (auto) 7.3, Absolute Lymphs (auto) 1.21, Nucleated RBC % 0, Sodium 140, Potassium 4.5, Chloride 112 H, Carbon Dioxide 25.0, Anion Gap 3 L, BUN 42 H, Creatinine 1.83 H, Estim Creat Clear Calc 32.58, Est GFR (MDRD) Af Amer 46 L, Est GFR (MDRD) Non-Af 38 L, BUN/Creatinine Ratio 23.0 H, Glucose 164 H, Calcium 7.9 L, Iron 23 L, TIBC 200 L, Iron Saturation 11.5 L, Ferritin 136, Folate 6.60 Radiography Diagnostic Testing: Radiology Impression Echocardiogram 09/22/22 05:55 Interpretation Summary The left ventricular ejection fraction is 70 %. The left atrium is mildly enlarged. Mild mitral annular calcification. Hepatic cyst noted as an incidental finding. Consider ultrasound liver for further evaluation. Ordering Physician: Harlan Newsome Referring Physician: NISA DIAZ Performed By: Nuha Smith RDCS Liver Ultrasound 09/22/22 13:28 IMPRESSION: undefined Physical Exam Narrative General: Alert, oriented, no apparent distress HEENT: Atraumatic, normocephalic Eyes: Anicteric, normal conjunctiva, extraocular movements grossly intact Neck: Supple Respiratory: Clear to auscultation bilaterally, normal respiratory effort Cardiovascular: Regular rate GI: Soft, nontender, nondistended Extremities: No edema Musculoskeletal: Moving all extremities Neuro: No overt focal neurological deficits Skin: Bruising on hands and arms, has some bruising at superior part of an incision by hip but minimal and no bruising underneath or otherwise Psych: Cooperative Assessment & Plan Assessment/Plan (1) Closed fracture of right hip: QUALIFIERS: Encounter type: initial encounter Qualified Code(s): S72.001A - Fracture of unspecified part of neck of right femur, initial encounter for closed fracture (2) Contusion of rib on left side: QUALIFIERS: Encounter type: initial encounter Qualified Code(s): S20.212A - Contusion of left front wall of thorax, initial encounter (3) Atrial fibrillation: QUALIFIERS: Atrial fibrillation type: paroxysmal Qualified Code(s): I48.0 - Paroxysmal atrial fibrillation (4) Acute hypotension: PLAN: Plan #Acute on chronic macrocytic anemia -Patient's hemoglobin 12.1 on admission and 9.7 the following day preoperatively, suspect a large component of this is dilutional given proportional decrease in platelets, white blood cell count is slightly up but suspect this is reactive secondary to surgery -No acute blood loss noted otherwise, will check iron studies, B12, folate in the morning -09/23: Hemoglobin this a.m. 6.6, patient is 2 days postop and while this is likely contributing it is unclear if this would be enough to cause this drop and while this is partially delusional also do not feel this fully explains this, also platelets are 120 today, with increasing BUN will check FOBT patient has not noted any black stools or gross blood, does have bruising but again do not feel this could account for drop. Patient received 2 units packed red blood cells, hemolysis labs and DIC labs ordered and ddimer was increased but likely reactive and pt was on full dose AC but otherwise fibrinogen and coags wnl as was bili so do not think pt has DIC or hemolysis. B12 low so added b12.. Holding Eliquis and using SCDs. Also noted to have low iron and iron sat with suboptimal ferritin, started on oral iron, can consider IV iron #Displaced intertrochanteric fracture of right femur after mechanical fall -X-ray of hip on admission with right intertrochanteric fracture with superior migration of distal right femur -Dr. Castano consulted and patient went OR 09/21 for cephalomedullary fixation of right hip -Pain control -On clindamycin every 8x3 bags -PT/OT to eval, home versus SNF pending evaluation -09/23: Physical therapy recommended SNF/TCU/rehab. Continue to work with physical therapy, pt may go home d/t no med rehab beds, discussed with #Paroxysmal atrial fibrillation -Seen on EKG on admission -Had one-time episode in 2013 after a stent and has recurrence this admission -CHADS2-VASc score of 3 a, has been started on Eliquis 2.5 mg twice daily -Continue metoprolol -Repeat echo pending -09/22: We will need to follow with cardiology upon discharge -09/23: Holding Eliquis given drop in hemoglobin, will need this resumed when possible #Acute hypotension- resolved -Unclear etiology -Home antihypertensives held and fluids given -Patient with negative orthostats -TSH within normal limits, cortisol drawn and was 26.4 but patient started on hydrocortisone in the meantime as he is chronically on prednisone for PMR so he was given stress dose steroids -Significantly improved with stress dose steroids and fluids -09/22: Suspect component of volume depletion, given he is only on 5 mg chronically this is unlikely to be entire cause, was given stress dose steroids yesterday, resume 5 mg of prednisone and can redose if any further problems with blood pressure but presently stable -09/23: Back to 5 mg of prednisone, blood pressure stable even with drop in hemoglobin #CKD stage IIIb -Had slight bump in creatinine on admission but trended back down with fluids, continue -09/23: On presentation his creatinine was 1.87 and down trended over 2 days to 1.48 and is 1.83 today, BUN is elevated so we will give IVF #PMR -On 5 mg prednisone daily, this was held and patient given IV hydrocortisone -09/22: Resume 5 mg of prednisone daily, can repeat stress dose steroids if any further instability #History of coronary artery disease -With history of stent to RCA in 2013 -Follows with Dr. Doherty on outpatient basis -Last cardiac cath in in April 2018 patent stent with ostial LAD 50%, ostial circumflex 50%. He is most recent echo in 2019 shows EF 65% #Mild thrombocytopenia -Platelets 141 -Did have drop in hemoglobin however do not think patient is hemolyzing, will trend and can get further studies if this does not improve, patient not on heparin #CKDIIIb -Appears to be at baseline, avoid nephrotoxic agents #DVT ppx: Danika kolb, SCDs Ghazala Bush MD Time spent in the patient's overall evaluation,decision-making process, review of diagnostic data, adjustment of management, discussion with other providers, nursing nursing and ancillary staff involved in patient's care documentation, 51 minutes Charges/Coding Visit Charges Inpatient E&M: 24365 Subs Hosp L3
[2022-09-23 08:13] LABS: AST(SGOT) 30 U/L (15-37); Alanine Aminotransfer ALT/SGPT 16 U/L (16-61); Albumin, Serum 2.2 g/dL (3.2-5.0); Alkaline Phosphatase 49 U/L (45-117); Bilirubin, Direct 0.11 mg/dL (0.00-0.30); Globulin 2.6 g/dL (2.2-4.2); LDH 186 U/L (87-241); Protein, Total 4.8 g/dL (6.4-8.2)
[2022-09-23 08:22] LABS: International Normalized Ratio 1.1; Partial Thromboplast Time 28.3 Seconds (24.1-36.2); Prothrombin Time (Protime)PT. 14.3 SECONDS (11.7-14.9)
[2022-09-23 08:23] LABS: Fibrinogen 402 mg/dl (203-444)
[2022-09-23] MEDS: Acetaminophen 325 MG Tablet 650 MG PO ×2 (08:27→16:40)
[2022-09-23] MEDS: oxyCODONE 5 MG Tablet PO ×2 (08:27→16:40)
[2022-09-23 08:40] LABS: Vitamin B12 119 pg/mL (211-911)
[2022-09-23] MEDS: Lactated Ringers 1,000 ML 100 ML IV (08:42)
[2022-09-23] MEDS: predniSONE 5 MG Tablet PO (08:43)
[2022-09-23] MEDS: Pantoprazole Sodium 40 MG Tablet PO (08:43)
[2022-09-23] MEDS: Aspirin 81 MG TAB.CHEW PO (08:43)
[2022-09-23] MEDS: Calcium Carbonate 500 MG Tablet PO ×3 (08:43→16:41)
[2022-09-23] MEDS: Metoprolol(XL)Succ 25 MG Tablet PO (08:44)
[2022-09-23] MEDS: Iron Polysaccharide Complex 150 MG CAPSULE PO (08:45)
[2022-09-23 09:38] LABS: D-Dimer Quantitative (DVT/PE) 2.04 FEU/ug/m (0.27-0.49)
--- NOTE | 2022-09-23 11:20 | CASEMGMT ---
Patient and his have been expressing concerns with how they are going to manage at home. However, the only 2 facilities either would be okay with is [facility] TCU or [facility] Acute Rehab Unit. SW spoke with [facility] and TCU will not have a bed until Thursday. Patient will likely be ready before Thursday. Jasmin JARERTT
--- NOTE | 2022-09-23 11:31 | CASEMGMT ---
RN CM updated by FATOUMATA that patient is interested in HHC. RN CM in to discuss needs at discharge. Possible HHC vs TCU pending bed availability and course of treatment. A list of HHC providers including quality and resource use data and consistent with the patient?s preferred geographical region, medical needs, and insurance network were provided from the [employer] Guide. Patient to review list with and provided choices if HHC is preferred at discharge. CM will continue to follow this patient and plan for a safe discharge.
[2022-09-23] MEDS: Cyanocobalamin 500 MCG Tablet 1000 MCG PO (13:23)
--- NOTE | 2022-09-23 13:25 | CASEMGMT ---
FATOUMATA received a message from [facility] in TCU and there has been a change in bed availability. TCU will have a bed available for patient as early as today. FATOUMATA spoke with patient and his . FATOUMATA let them know this information and they were absolutely ecstatic that it worked out for patient to go to TCU. Plan: [facility] T[facility] Jasmin JARRETT
[2022-09-23 14:25] LABS: Hematocrit 26.8 % (40-54); Hemoglobin 8.5 g/dL (13.0-16.5); Mean Corp Hgb Conc 31.7 g/dL (32-36); Mean Corpuscular Volume 94.7 fL (80-94); Mean Platelet Vol. 10.8 fl (6.2-12.0); Platelet Count 140 K/mm3 (150-450); RBC Distribution Width CV 14.6 % (11.6-14.6); RBC Distribution Width SD 50.7 fl (35.1-43.9); Red Blood Count 2.83 M/mm3 (4.6-6.2); White Blood Count 10.5 K/mm3 (4.4-11.0)
--- NOTE | 2022-09-23 14:45 | PCM.PN.ORT ---
Subjective Subjective Seen and examined doing okay pain controlled denies nausea vomiting shortness of breath or chest pain Objective Data Objective Data Vital Signs: Vital Signs Temp Pulse Resp BP Pulse Ox O2 Del Method O2 Flow Rate 96.7 F L 96 14 127/63 H 95 Room Air 2 09/23/22 13:13 09/23/22 13:13 09/23/22 13:13 09/23/22 13:13 09/23/22 13:13 09/23/22 13:13 09/23/22 11:13 Oxygen Flow Rate (L/min) 2 Oxygen Delivery Method Room Air Weight: 166 lb 10.711 oz Body Mass Index (BMI) 23.2 Intake & Output: Intake and Output for Last 24 Hours 09/21/22 09/22/22 09/23/22 23:59 23:59 23:59 Intake Total 2976.67 / 2976.67 1707.33 / 1707.33 541.67 / 541.67 Output Total 600 / 1000 1300 / 1300 500 / 500 Balance 2376.67 / 1976.67 407.33 / 407.33 41.67 / 41.67 Lab / Micro Data 09/23/22 14:15 09/23/22 04:39 Labs: Laboratory Results - last 24 hr 09/20/22 18:25: Crossmatch See Detail 09/23/22 04:39: WBC 9.5, RBC 2.12 L, Hgb 6.6 L, Hct 20.7 L, MCV 97.6 H, MCH 31.1, MCHC 31.9 L D, RDW Std Deviation 47.9 H, RDW Coeff of Anselmo 13.3, Plt Count 120 L, MPV 11.6, Immature Gran % (Auto) 0.600, Neut % (Auto) 77.1 H, Lymph % (Auto) 12.8 L, [place] % (Auto) 8.8, Eos % (Auto) 0.6, Baso % (Auto) 0.1, Absolute Neuts (auto) 7.3, Absolute Lymphs (auto) 1.21, Nucleated RBC % 0, Sodium 140, Potassium 4.5, Chloride 112 H, Carbon Dioxide 25.0, Anion Gap 3 L, BUN 42 H, Creatinine 1.83 H, Estim Creat Clear Calc 32.58, Est GFR (MDRD) Af Amer 46 L, Est GFR (MDRD) Non-Af 38 L, BUN/Creatinine Ratio 23.0 H, Glucose 164 H, Calcium 7.9 L, Iron 23 L, TIBC 200 L, Iron Saturation 11.5 L, Ferritin 136, Total Bilirubin 0.30, Direct Bilirubin 0.11, AST 30, ALT 16, Alkaline Phosphatase 49, Lactate Dehydrogenase 186, Total Protein 4.8 L, Albumin 2.2 L, Globulin 2.6, Vitamin B12 119 L, Folate 6.60 09/23/22 07:50: PT 14.3, INR 1.1, APTT 28.3, Fibrinogen 402, D-Dimer Quant (PE/DVT) 2.04 H* 09/23/22 14:15: WBC 10.5, RBC 2.83 L, Hgb 8.5 L, Hct 26.8 L, MCV 94.7 H, MCH 30.0, MCHC 31.7 L, RDW Std Deviation 50.7 H, RDW Coeff of Anselmo 14.6, Plt Count 140 L, MPV 10.8 Radiography Diagnostic Testing: Radiology Impression Liver Ultrasound 09/22/22 13:28 IMPRESSION: undefined Physical Exam Const alert, oriented x3 and no apparent distress Extremity Extremity Narrative: Right hip dressing clean dry and intact Compartment soft neurovascular intact right lower extremity Assessment & Plan Assessment/Plan (1) Intertrochanteric fracture of right femur: QUALIFIERS: Encounter type: initial encounter Fracture type: closed Fracture alignment: displaced Qualified Code(s): S72.141A - Displaced intertrochanteric fracture of right femur, initial encounter for closed fracture PLAN: Plan Postop day #2 right trochanteric femoral nail long Status post packed red blood cell transfusion. PT OT weightbearing as tolerated DVT prophylaxis SCDs NIEVES tawandamaria Eliquis 2.5 mg twice daily for 3 weeks from orthopedic standpoint although may need longer duration of anticoagulation and will defer that to cardiology consulting team for atrial fibrillation Patient would likely benefit from rehab or TCU prior to returning home. Dressing should be removed and changed 72 hours postoperatively and cleaned with antibacterial soap and warm water daily at that point with new dressing applied daily may shower 72 hours postop but no tub bath or complete submersion for 3 weeks. Follow-up in the office 2 weeks
[2022-09-23 18:24] LABS: Hemoglobin 8.5 g/dL (13.0-16.5); Mean Corpuscular Hgb 31.4 pg (27.0-32.0); Mean Corpuscular Volume 92.3 fL (80-94); Mean Platelet Vol. 11.6 fl (6.2-12.0); Platelet Count 133 K/mm3 (150-450); RBC Distribution Width SD 50.4 fl (35.1-43.9); Red Blood Count 2.71 M/mm3 (4.6-6.2); White Blood Count 10.5 K/mm3 (4.4-11.0)
[2022-09-23 18:44] LABS: POSITIVE COUNT NO; POSITIVE DIFFERENTIAL NO; POSITIVE MORPHOLOGY NO; Scan Indicated on CBC? Y/N NO
[2022-09-23] MEDS: Atorvastatin Calcium 40 MG Tablet PO (21:37)
[2022-09-23] MEDS: Ensure Plus High Protein 120 ML LIQUID PO (21:38)
[2022-09-24] VITALS: BP 123/60; PULSE 85; RESP 16; TEMP 37.6; O2SAT 91
[2022-09-24 03:30] VITALS: BP 133/69; PULSE 96; RESP 16; TEMP 37.2; O2SAT 98
[2022-09-24 03:31] VITALS: BP 133/69; PULSE 91; RESP 16; TEMP 37.2; O2SAT 98
[2022-09-24 05:07] LABS: Haptoglobin 66 mg/dL (38-329)
[2022-09-24 05:17] LABS: Absolute Lymphocyte Count 1.68 X10^3/uL (0.83-4.51); Absolute Neutrophil Count 6.5 X10^3/uL (2.0-7.7); Basophil# 0.02 X10^3/uL; Basophil% 0.2 % (0-1); Eosinophil# 0.31 X10^3/uL; Eosinophils% 3.3 % (0-5); Hematocrit 26.1 % (40-54); Hemoglobin 8.8 g/dL (13.0-16.5); Lymphocyte # 1.68 X10^3/ul (0.83-4.51); Lymphocyte % 17.9 % (19-41); Mean Corp Hgb Conc 33.7 g/dL (32-36); Mean Corpuscular Hgb 31.2 pg (27.0-32.0); Mean Corpuscular Volume 92.6 fL (80-94); Mean Platelet Vol. 11.1 fl (6.2-12.0); Monocyte# 0.83 X10^3/uL; Monocyte% 8.8 % (0-10); NRBC Flagged by Analyzer 0 % (0-5); Neutrophil % 69.2 % (47-70); Platelet Count 142 K/mm3 (150-450); RBC Distribution Width CV 14.8 % (11.6-14.6); Red Blood Count 2.82 M/mm3 (4.6-6.2); White Blood Count 9.4 K/mm3 (4.4-11.0)
[2022-09-24] MEDS: prednisoLONE eye drops (5 mL) 1 DROP OPTH.BTL 1 DRP LEFT EYE (05:20)
[2022-09-24 05:55] LABS: ALB/GLOB Ratio 0.9 RATIO (0.9-2.4); AST(SGOT) 28 U/L (15-37); Alanine Aminotransfer ALT/SGPT 21 U/L (16-61); Albumin, Serum 2.6 g/dL (3.2-5.0); Alkaline Phosphatase 56 U/L (45-117); Anion Gap 3 (5-15); BUN 38 mg/dL (7-18); BUN/Creat Ratio 26.2 RATIO (10-20); Calcium,Total 8.3 mg/dL (8.5-10.1); Chloride 113 mmol/L (98-107); Creatinine, Serum 1.45 mg/dL (0.70-1.30); EST Glomerular Filtration Rate 49 mL/min (>60); Est Glom Filt Rate - Afr Amer 60 mL/min (>60); Estimated Creatinine Clearance 41.11 ml/min; Globulin 2.8 g/dL (2.2-4.2); Glucose 97 mg/dL (74-106); Potassium 4.3 mmol/L (3.5-5.1); Protein, Total 5.4 g/dL (6.4-8.2); Sodium Level 142 mmol/L (136-145)
[2022-09-24 06:00] VITALS: BMI 23.4
[2022-09-24 07:00] VITALS: O2SAT 92
[2022-09-24 09:02] VITALS: BP 142/91; PULSE 90; RESP 16; TEMP 36.4; O2SAT 96
[2022-09-24] MEDS: oxyCODONE 5 MG Tablet PO (09:04)
[2022-09-24] MEDS: Acetaminophen 325 MG Tablet 650 MG PO (09:04)
[2022-09-24] MEDS: Iron Polysaccharide Complex 150 MG CAPSULE PO (09:06)
[2022-09-24] MEDS: Calcium Carbonate 500 MG Tablet PO (09:06)
[2022-09-24] MEDS: predniSONE 5 MG Tablet PO (09:06)
[2022-09-24] MEDS: Aspirin 81 MG TAB.CHEW PO (09:06)
[2022-09-24 09:07] VITALS: BP 142/91; PULSE 90
[2022-09-24] MEDS: Metoprolol(XL)Succ 25 MG Tablet PO (09:07)
[2022-09-24] MEDS: Cyanocobalamin 500 MCG Tablet 1000 MCG PO (09:07)
[2022-09-24] MEDS: Pantoprazole Sodium 40 MG Tablet PO (09:08)
[2022-09-24] MEDS: APIXABAN 2.5 MG TABLET (WCH) PO (09:10)
[2022-09-24] MEDS: Ensure Plus High Protein 120 ML LIQUID PO (09:10)
--- NOTE | 2022-09-24 10:08 | PCM.TXEXTCAR ---
Diet Diet Order/Speech Therapy: 09/22/22 21:10 Diet: Cardiac - Heart Healthy Is pt able to select menu?: Yes Routine Orders/Code Status Suppository Type: Dulcolax 10mg Suppository Frequency: Daily PRN Wound(s) right wrist: Wound Type: Abrasion LEFT HIP: Wound Type: Surgical Incision Therapies Weight Bearing: Weight bearing as tolerated Physical Therapy: Eval and Treat Occupational Therapy: Eval and Treat Problem/Diagnosis (1) Intertrochanteric fracture of right femur: Status: Acute Code(s): S72.141A - Displaced intertrochanteric fracture of right femur, initial encounter for closed fracture Plan #Acute on chronic macrocytic anemia- hemodilution and surgery #Displaced intertrochanteric fracture of right femur after mechanical fall #Paroxysmal atrial fibrillation #Acute hypotension- resolved #CKD stage IIIb #PMR #History of coronary artery disease #Mild thrombocytopenia #CKDIIIb Patient is an 82-year-old male with history of A-fib, chronic macrocytic anemia, coronary artery disease, PMR, CKD who presented to [facility] 09/20/2022 after a fall with right hip fracture. He presented because he felt dizzy and fell down and had pain. He was found to have a right intertrochanteric fracture with superior migration of distal right femur. He was seen by orthopedic surgery and went to the OR 09/21 for cephalomedullary fixation of right hip with Dr. Castano. His hospitalization was complicated by recurrence of A-fib, he had a one-time episode in 2013 after stent and then had recurrence on this admission, with a [id number] score of 3 he was started on Eliquis 2.5 mg twice daily. He also had hypotension which resolved with fluids and holding his home antihypertensives. Orthostats were negative. He was given a pulse of hydrocortisone as well as it was unclear if maybe due to the 5 mg of prednisone he is on chronically at this contributed, blood pressure improved with those interventions and he was placed back on the 5 mg of prednisone without difficulty. Additionally his hemoglobin was 12.1 on admission and patient and report he was very dehydrated as after some fluids he was already down to 9.7 with no overt blood loss in the postsurgical continue to downtrend and was 6.6 on 09/23. He had not had bowel movement and no abdominal pain or nausea and no blood from rectum, his hemolysis labs are negative, was slightly low with iron and B12 was low. He was given 1 unit of blood and hemoglobin appropriately nic to 8.5 and maintained to 8.8 the following day I do not suspect any further ongoing blood loss. Will potentially benefit from outpatient follow-up and evaluation for his anemia but does not need hyperacute inpatient evaluation given stability and other causes for decrease in hemoglobin. On day of discharge patient got up to chair and was feeling fairly well, had no other complaints. Discharge instructions as follows: -Please follow-up with Dr. Castano in 2 weeks upon discharge. Please call their office to schedule hospital follow-up appointment upon discharge. -Dressing should be removed and changed 72 hours postoperatively and cleaned with antibacterial soap and warm water daily at that point with new dressing applied daily may shower 72 hours postop but no tub bath or complete submersion for 3 weeks. -You will need to follow-up with cardiology upon discharge, please call the office of Dr. Doherty upon discharge to schedule your hospital follow-up appointment (ph [phone]) -You will be discharged on Eliquis to take twice daily, due to your age and kidney function urine 2.5 mg twice daily -Additionally you are noted to be B12 deficient, it is recommended that you take B12 supplementation on discharge -You are also iron deficient, please take an iron supplementation daily, further underlying cause/work-up can be pursued on outpatient basis if deemed appropriate -Please call your primary care provider's office upon discharge to schedule a hospital follow up within 1 week. -For any concerning signs or symptoms please call 911 or proceed to the nearest emergency department Allergies/Procedures Done in Hospital Allergies Penicillins Allergy (Verified 06/24/22 11:08) Hives Procedures: - (OR 09/21 for cephalomedullary fixation of right hip) Type of Care/Length of Stay Estimated LOS: Convalescent Care Less Than 30 days Type of Care Needed: Skilled Rehab Potential: Good Prognosis: Good Additional Orders/Day of Discharge Day of Discharge: 09/24/22 Discharge Plan Admission Admit Date/Time: 09/21/22 11:43 Primary Reason for Your Visit: Fall and R hip fracture Attending Provider: Ghazala Bush Primary Care Provider: Omar Holt Consulting Providers: Kevin Castano; Harlan Newsome Instructions Patient Instructions: ED Fall Prevention Additional Instructions / Restrictions: DISCHARGE INSTRUCTIONS PLEASE READ *Please take this with you to your next doctors appointment* -Please follow-up with Dr. Castano in 2 weeks upon discharge. Please call their office to schedule hospital follow-up appointment upon discharge. -Dressing should be removed and changed 72 hours postoperatively and cleaned with antibacterial soap and warm water daily at that point with new dressing applied daily may shower 72 hours postop but no tub bath or complete submersion for 3 weeks. -You will need to follow-up with cardiology upon discharge, please call the office of Dr. Doherty upon discharge to schedule your hospital follow-up appointment ) -You will be discharged on Eliquis to take twice daily, due to your age and kidney function urine 2.5 mg twice daily -Additionally you are noted to be B12 deficient, it is recommended that you take B12 supplementation on discharge -You are also iron deficient, please take an iron supplementation daily, further underlying cause/work-up can be pursued on outpatient basis if deemed appropriate -Also benefit from taking MiraLAX twice daily or alternative agent to help begin to move your bowels -Please call your primary care provider's office upon discharge to schedule a hospital follow up within 1 week. -For any concerning signs or symptoms please call 911 or proceed to the nearest emergency department Discharge Orders/Prescriptions Prescriptions: New cyanocobalamin (vitamin B-12) 500 mcg Tablet 1,000 mcg PO BREAKFAST Qty: 0 0RF Eliquis 5 mg Tablet 2.5 mg PO BID 30 Days Qty: 30 0RF polysaccharide iron complex [Ferrex 150] 150 mg iron Capsule 150 mg PO BREAKFAST Qty: 0 0RF oxycodone 5 mg Tablet 5 mg PO Q4H PRN PRN (Reason: Pain Score 6-10) 3 Days Qty: 10 0RF Continued pantoprazole 20 mg tablet,delayed release (DR/EC) 20 mg PO DAILY prednisone 5 mg tablet 5 mg PO DAILY Patient Comments: 5 mg PO as directed for polymyalgia rheumatica; Rx Instructions: 5 mg PO as directed for polymyalgia rheumatica; aspirin 81 MG tablet,chewable 81 mg PO DAILY Patient Comments: BLOOD THINNER nitroglycerin 0.4 MG tablet, sublingual 0.4 mg sublingual TID PRN PRN (Reason: Angina) prednisolone acetate 1 % drops,suspension 1 drp ophthalmic (eye) Q8H Patient Comments: INSTILL 1 DROP INTO LEFT EYE 3 TIMES DAILY amlodipine 10 mg tablet 10 mg PO DAILY Qty: 90 3RF atorvastatin 40 mg tablet 40 mg PO QHS Qty: 90 3RF metoprolol succinate 25 mg tablet extended release 24 hr 25 mg PO DAILY Qty: 90 3RF Discontinued doxycycline hyclate 20 mg tablet 20 mg PO BID Referrals / Follow Up: Omar Holt MD [Primary Care Provider] - Jeffrey Doherty MD [Med Staff - Active Staff] - Within 1 Month Kevin Castano DO [Med Staff - Active Staff] - ( -Please follow-up with Dr. Castano upon discharge. Please call their office to schedule hospital follow-up appointment upon discharge.) Disposition Disposition (needs filled in before D/C Order can be placed): Retirement Facility (1) Intertrochanteric fracture of right femur Qualifiers: Encounter type: initial encounter Fracture type: closed Fracture alignment: displaced Qualified Code(s): S72.141A - Displaced intertrochanteric fracture of right femur, initial encounter for closed fracture
--- NOTE | 2022-09-24 10:32 | PCM.DC.SUM ---
Providers Date of Admission: 09/21/22 Date of Discharge: 09/24/22 Primary Care Physician: Dr. Omar Holt MD Consultations 09/20/22 17:50 Consult: Orthopedics Routine Consulting Provider: Kevin Castano Reason for Consult: Right hip IT fracture EMERGENT Consult: No MD Notified: Yes Date Notified: 09/20/22 Time Notified: 17:53 Method of Notification: ED Physician Initiated Reason For Visit: INTERTROCHANTERIC FRACTURE OF RIGHT FEMUR Diagnosis Discharge Diagnosis (1) Intertrochanteric fracture of right femur: Status: Acute Code(s): S72.141A - Displaced intertrochanteric fracture of right femur, initial encounter for closed fracture Qualifiers: Encounter type: initial encounter Fracture type: closed Fracture alignment: displaced Qualified Code(s): S72.141A - Displaced intertrochanteric fracture of right femur, initial encounter for closed fracture Plan #Acute on chronic macrocytic anemia- hemodilution and surgery #Displaced intertrochanteric fracture of right femur after mechanical fall #Paroxysmal atrial fibrillation #Acute hypotension- resolved #CKD stage IIIb #PMR #History of coronary artery disease #Mild thrombocytopenia #CKDIIIb Medications at Discharge Home Medications aspirin 81 mg chewable tablet 81 mg PO DAILY heart health 12/08/13 pantoprazole 20 mg tablet,delayed release 20 mg PO DAILY GERD 03/14/17 nitroglycerin 0.4 mg sublingual tablet 0.4 mg sublingual TID PRN PRN Angina 04/28/18 prednisone 5 mg tablet 5 mg PO DAILY steroid 03/16/20 amlodipine 10 mg tablet 10 mg PO DAILY #90 tabs 06/04/22 atorvastatin 40 mg tablet 40 mg PO QHS #90 tabs 06/04/22 metoprolol succinate 25 mg tablet,extended release 24 hr 25 mg PO DAILY #90 tabs 06/04/22 prednisolone acetate 1 % eye drops,suspension 1 drp ophthalmic (eye) Q8H eyes 09/20/22 apixaban 5 mg tablet (Eliquis) 2.5 mg (1/2 x 5 mg) PO BID 30 days #30 tabs 09/24/22 cyanocobalamin (vitamin B-12) 500 mcg tablet 1,000 mcg (2 x 500 mcg) PO BREAKFAST #0 tabs 09/24/22 oxycodone 5 mg tablet 5 mg PO Q4H PRN PRN Pain Score 6-10 3 days #10 tabs 09/24/22 polysaccharide iron complex 150 mg iron capsule (Ferrex) 150 mg PO BREAKFAST #0 caps 09/24/22 Hospital Course Procedures - (Dr. Castano consulted and patient went OR 09/21 for cephalomedullary fixation of right hip) Summary of Care Provided Minutes Spent on Discharge: 35 Hospital Course: Patient is an 82-year-old male with history of A-fib, chronic macrocytic anemia, coronary artery disease, PMR, CKD who presented to [facility] 09/20/2022 after a fall with right hip fracture. He presented because he felt dizzy and fell down and had pain. He was found to have a right intertrochanteric fracture with superior migration of distal right femur. He was seen by orthopedic surgery and went to the OR 09/21 for cephalomedullary fixation of right hip with Dr. Castano. His hospitalization was complicated by recurrence of A-fib, he had a one-time episode in 2013 after stent and then had recurrence on this admission, with a [id number] score of 3 he was started on Eliquis 2.5 mg twice daily. He also had hypotension which resolved with fluids and holding his home antihypertensives. Orthostats were negative. He was given a pulse of hydrocortisone as well as it was unclear if maybe due to the 5 mg of prednisone he is on chronically at this contributed, blood pressure improved with those interventions and he was placed back on the 5 mg of prednisone without difficulty. Additionally his hemoglobin was 12.1 on admission and patient and report he was very dehydrated as after some fluids he was already down to 9.7 with no overt blood loss in the postsurgical continue to downtrend and was 6.6 on 09/23. He had not had bowel movement and no abdominal pain or nausea and no blood from rectum, his hemolysis labs are negative, was slightly low with iron and B12 was low. He was given 1 unit of blood and hemoglobin appropriately nic to 8.5 and maintained to 8.8 the following day I do not suspect any further ongoing blood loss. Will potentially benefit from outpatient follow-up and evaluation for his anemia but does not need hyperacute inpatient evaluation given stability and other causes for decrease in hemoglobin. On day of discharge patient got up to chair and was feeling fairly well, had no other complaints. Discharge instructions as follows: -Please follow-up with Dr. Castano in 2 weeks upon discharge. Please call their office to schedule hospital follow-up appointment upon discharge. -Dressing should be removed and changed 72 hours postoperatively and cleaned with antibacterial soap and warm water daily at that point with new dressing applied daily may shower 72 hours postop but no tub bath or complete submersion for 3 weeks. -You will need to follow-up with cardiology upon discharge, please call the office of Dr. Doherty upon discharge to schedule your hospital follow-up appointment (ph [phone]) -You will be discharged on Eliquis to take twice daily, due to your age and kidney function urine 2.5 mg twice daily -Additionally you are noted to be B12 deficient, it is recommended that you take B12 supplementation on discharge -You are also iron deficient, please take an iron supplementation daily, further underlying cause/work-up can be pursued on outpatient basis if deemed appropriate -Please call your primary care provider's office upon discharge to schedule a hospital follow up within 1 week. -For any concerning signs or symptoms please call 911 or proceed to the nearest emergency department Physical Exam Narrative General: Alert, oriented, no apparent distress HEENT: Atraumatic, normocephalic Eyes: Anicteric, normal conjunctiva, extraocular movements grossly intact Neck: Supple Respiratory: Clear to auscultation bilaterally, normal respiratory effort Cardiovascular: Regular rate GI: Soft, nontender, nondistended Extremities: No edema Musculoskeletal: Moving all extremities Neuro: No overt focal neurological deficits Skin: Bruising on hands and arms, has some bruising at superior part of an incision by hip but minimal and no bruising underneath or otherwise Psych: Cooperative Weight / BMI Weight Weight: 76.2 kg Body Mass Index (BMI) 23.4 ABG / Lab / Microbiology Data 09/24/22 04:28 09/24/22 04:28 Laboratory: Laboratory Results - last 24 hr 09/20/22 18:25: Crossmatch See Detail 09/23/22 04:39: Haptoglobin 66 09/23/22 14:15: WBC 10.5, RBC 2.83 L, Hgb 8.5 L, Hct 26.8 L, MCV 94.7 H, MCH 30.0, MCHC 31.7 L, RDW Std Deviation 50.7 H, RDW Coeff of Anselmo 14.6, Plt Count 140 L, MPV 10.8 09/23/22 17:40: WBC 10.5, RBC 2.71 L, Hgb 8.5 L, Hct 25.0 L, MCV 92.3, MCH 31.4, MCHC 34.0 D, RDW Std Deviation 50.4 H, RDW Coeff of Anselmo 15.0 H, Plt Count 133 L, MPV 11.6 09/24/22 04:28: WBC 9.4, RBC 2.82 L, Hgb 8.8 L, Hct 26.1 L, MCV 92.6, MCH 31.2, MCHC 33.7, RDW Std Deviation 50.0 H, RDW Coeff of Anselmo 14.8 H, Plt Count 142 L, MPV 11.1, Immature Gran % (Auto) 0.600, Neut % (Auto) 69.2, Lymph % (Auto) 17.9 L, [place] % (Auto) 8.8, Eos % (Auto) 3.3, Baso % (Auto) 0.2, Absolute Neuts (auto) 6.5, Absolute Lymphs (auto) 1.68, Nucleated RBC % 0, Sodium 142, Potassium 4.3, Chloride 113 H, Carbon Dioxide 26.0, Anion Gap 3 L, BUN 38 H, Creatinine 1.45 H, Estim Creat Clear Calc 41.11, Est GFR (MDRD) Af Amer 60, Est GFR (MDRD) Non-Af 49 L, BUN/Creatinine Ratio 26.2 H, Glucose 97, Calcium 8.3 L, Total Bilirubin 0.70, AST 28, ALT 21, Alkaline Phosphatase 56, Total Protein 5.4 L, Albumin 2.6 L, Globulin 2.8, Albumin/Globulin Ratio 0.9 Meaningful Use Info Meaningful Use Diagnoses (Choose all that apply): None applicable Discharge Plan Admission Admit Date/Time: 09/21/22 11:43 Primary Reason for Your Visit: Fall and R hip fracture Attending Provider: Ghazala Bush Primary Care Provider: mOar Holt Consulting Providers: Kevin Castano; Harlan Newsome Instructions Patient Instructions: ED Fall Prevention Additional Instructions / Restrictions: DISCHARGE INSTRUCTIONS PLEASE READ *Please take this with you to your next doctors appointment* -Please follow-up with Dr. Castano in 2 weeks upon discharge. Please call their office to schedule hospital follow-up appointment upon discharge. -Dressing should be removed and changed 72 hours postoperatively and cleaned with antibacterial soap and warm water daily at that point with new dressing applied daily may shower 72 hours postop but no tub bath or complete submersion for 3 weeks. -You will need to follow-up with cardiology upon discharge, please call the office of Dr. Doherty upon discharge to schedule your hospital follow-up appointment (ph [phone]) -You will be discharged on Eliquis to take twice daily, due to your age and kidney function urine 2.5 mg twice daily -Additionally you are noted to be B12 deficient, it is recommended that you take B12 supplementation on discharge -You are also iron deficient, please take an iron supplementation daily, further underlying cause/work-up can be pursued on outpatient basis if deemed appropriate -Also benefit from taking MiraLAX twice daily or alternative agent to help begin to move your bowels -Please call your primary care provider's office upon discharge to schedule a hospital follow up within 1 week. -For any concerning signs or symptoms please call 911 or proceed to the nearest emergency department Discharge Orders/Prescriptions Prescriptions: New cyanocobalamin (vitamin B-12) 500 mcg Tablet 1,000 mcg PO BREAKFAST Qty: 0 0RF Eliquis 5 mg Tablet 2.5 mg PO BID 30 Days Qty: 30 0RF polysaccharide iron complex [Ferrex 150] 150 mg iron Capsule 150 mg PO BREAKFAST Qty: 0 0RF oxycodone 5 mg Tablet 5 mg PO Q4H PRN PRN (Reason: Pain Score 6-10) 3 Days Qty: 10 0RF Continued pantoprazole 20 mg tablet,delayed release (DR/EC) 20 mg PO DAILY prednisone 5 mg tablet 5 mg PO DAILY Patient Comments: 5 mg PO as directed for polymyalgia rheumatica; Rx Instructions: 5 mg PO as directed for polymyalgia rheumatica; aspirin 81 MG tablet,chewable 81 mg PO DAILY Patient Comments: BLOOD THINNER nitroglycerin 0.4 MG tablet, sublingual 0.4 mg sublingual TID PRN PRN (Reason: Angina) prednisolone acetate 1 % drops,suspension 1 drp ophthalmic (eye) Q8H Patient Comments: INSTILL 1 DROP INTO LEFT EYE 3 TIMES DAILY amlodipine 10 mg tablet 10 mg PO DAILY Qty: 90 3RF atorvastatin 40 mg tablet 40 mg PO QHS Qty: 90 3RF metoprolol succinate 25 mg tablet extended release 24 hr 25 mg PO DAILY Qty: 90 3RF Discontinued doxycycline hyclate 20 mg tablet 20 mg PO BID Referrals / Follow Up: Omar Holt MD [Primary Care Provider] - Jeffrey Doherty MD [Med Staff - Active Staff] - Within 1 Month Kevin Castano DO [Med Staff - Active Staff] - ( -Please follow-up with Dr. Castano upon discharge. Please call their office to schedule hospital follow-up appointment upon discharge.) Disposition Disposition (needs filled in before D/C Order can be placed): [facility] Charges/Coding Visit Charges Inpatient E&M: 56132 Disch Hosp >30min
--- NOTE | 2022-09-24 10:38 | CASEMGMT ---
Patient is ready for discharge to [facility]. SW notified [place] in TCU. SW copied med list and placed in patient's SNF packet. Plan: d/c to [facility] under skilled level of care. Jasmin JARRETT
--- NOTE | 2022-09-24 10:59 | PHA.DC.MR.R ---
Pharmacy [facility] Reconciliation Pharmacy Service has performed discharge medication reconciliation for this patient. The patient's discharge medication list was reviewed for discrepancies and discrepancies were resolved. Medications at Discharge Home Medications aspirin 81 mg chewable tablet 81 mg PO DAILY heart health 12/08/13 pantoprazole 20 mg tablet,delayed release 20 mg PO DAILY GERD 03/14/17 nitroglycerin 0.4 mg sublingual tablet 0.4 mg sublingual TID PRN PRN Angina 04/28/18 prednisone 5 mg tablet 5 mg PO DAILY steroid 03/16/20 amlodipine 10 mg tablet 10 mg PO DAILY #90 tabs 06/04/22 atorvastatin 40 mg tablet 40 mg PO QHS #90 tabs 06/04/22 metoprolol succinate 25 mg tablet,extended release 24 hr 25 mg PO DAILY #90 tabs 06/04/22 prednisolone acetate 1 % eye drops,suspension 1 drp ophthalmic (eye) Q8H eyes 09/20/22 apixaban 5 mg tablet (Eliquis) 2.5 mg (1/2 x 5 mg) PO BID 30 days #30 tabs 09/24/22 cyanocobalamin (vitamin B-12) 500 mcg tablet 1,000 mcg (2 x 500 mcg) PO BREAKFAST #0 tabs 09/24/22 oxycodone 5 mg tablet 5 mg PO Q4H PRN PRN Pain Score 6-10 3 days #10 tabs 09/24/22 polysaccharide iron complex 150 mg iron capsule (Ferrex) 150 mg PO BREAKFAST #0 caps 09/24/22
[2022-09-24] MEDS: Polyethylene Glycol 3350 17 GM PACKET PO (11:02)
== END 2022-09-24 11:10 | DRG 482 ==
LOC: ED 18:15 → PCU 09-21 07:12
PROVIDERS: Orthopaedic Surgery; Physician Assistant; Admitting Provider Internal Medicine; Emergency Provider Emergency Medicine; PCP Family Medicine; Visit Provider Internal Medicine
PROC: 0QS636Z Reposition Right Upper Femur with Intramedullary Internal Fixation Device, Percutaneous Approach (ICD-10-PCS; principal; 2022-09-21 10:45)
DX: S72.141A Displaced intertrochanteric fracture of right femur, initial encounter for closed fracture (principal); D69.6 Thrombocytopenia, unspecified; E78.5 Hyperlipidemia, unspecified; D53.9 Nutritional anemia, unspecified; E86.9 Volume depletion, unspecified; S20.212A Contusion of left front wall of thorax, initial encounter; I95.9 Hypotension, unspecified; I48.0 Paroxysmal atrial fibrillation; N18.32 Chronic kidney disease, stage 3b; M35.3 Polymyalgia rheumatica; I12.9 Hypertensive chronic kidney disease with stage 1 through stage 4 chronic kidney disease, or unspecified chronic kidney disease; I25.10 Atherosclerotic heart disease of native coronary artery without angina pectoris; W01.198A Fall on same level from slipping, tripping and stumbling with subsequent striking against other object, initial encounter; Z79.82 Long term (current) use of aspirin; Z79.52 Long term (current) use of systemic steroids; Z87.891 Personal history of nicotine dependence; Z95.5 Presence of coronary angioplasty implant and graft
CPT/HCPCS: 36415; 70450; 71250; 72125; 73030; 73501; 73502; 73552; 76000; 76705; 80048; 80053; 80076; 82533; 82607; 82728; 82746; 83010; 83540; 83550; 83615; 84443; 85025; 85027; 85379; 85384; 85610; 85730; 86850; 86900; 86901; 86920; 93005; 93306; 94668; 97162; 97166; 99285; C1713; J7030; J7040; J7120; P9016; A4216; J0612; J2405

== ENCOUNTER 2022-09-24 11:29 | Inpatient (IN) | payer MEDICARE, OTHER, SELFPAY ==
[2022-09-24 11:39] VITALS: BP 104/51; PULSE 83; RESP 16; TEMP 36.2; O2SAT 96; BMI 22.8
[2022-09-24] MEDS: prednisoLONE eye drops (5 mL) 1 DROP OPTH.BTL 1 DRP LEFT EYE ×2 (14:49→22:53)
[2022-09-24 14:56] VITALS: PULSE 83; RESP 16; O2SAT 94
--- NOTE | 2022-09-24 16:12 | CASEMGMT ---
Social Work Met with patient to complete initial assessment. Introduced self and role. Verified contacts. Discussed code status and MOLST form. Pt confirmed full code. MOLST placed in Dr folder. Pt agreed for to bring in copies of advanced directives. Educated to Medicare benefit. Encouraged to contact secondary insurance to ensure copay coverage. Pt's goal is to return home with . is only support. SW will continue to follow for DC planning. Sisi Tijerina [employer]
[2022-09-24] MEDS: APIXABAN 2.5 MG TABLET (WCH) PO (18:07)
[2022-09-24] MEDS: oxyCODONE 5 MG Tablet PO (20:07)
[2022-09-24] MEDS: Atorvastatin Calcium 40 MG Tablet PO (20:12)
[2022-09-24] MEDS: prednisoLONE eye drops (5 mL) 1 DROP OPTH.BTL 1 DRP OPHTHALMIC (20:13)
--- NOTE | 2022-09-24 21:19 | HP.PCM_ITS ---
HPI - General General Date of Admission: 09/24/22 Date of Service: 09/24/22 Chief Complaint: Here for rehabilitation. HPI Narrative 09/20/2022 SHAWNA DELEON, is a 82 Male who presents to [facility] Department with fall. Stood from recliner, dizzy, fell on left side. Down for 30 minutes, found him down on left side. No head injury, no loss of consciousness. Hypotensive per EMS, left ribcage pain, right hip pain. CT brain okay, CT cervical spine okay, CT chest okay. X-ray shows right hip fracture. Fentanyl given for pain, blood pressure low, IV fluids given. 09/20/2022 Admit to Hospital. Prepare for surgery for right hip fracture. LR IV for low blood pressure. 09/21/2022 Dr. Castano performed cephalo-medullary fixation right hip. 09/21/2022 Left sided rib pain. Hold prednisone, check cortisol, TSH, Hydrocortisone 50mg IV given for low blood pressure. 09/22/2022 Echo LVEF 70%. 09/22/2022 Feeling better, up in chair, pain improved. PT/OT for SNF. Eliquis 2.5mg bid started for atrial fibrillation. Stress dose steroids PRN. 09/23/2022 Hemoglobin 6.6, Transfuse 1 unit PRBC. Hold Eliquis secondary to anemia. Start iron for anemia. PT/OT recommended SNF. 09/24/2022 Admit to TCU with debility, here for rehabilitation, strengthening, prior to discharge home with . [facility] Medical History (Updated 09/24/22 @ 21:[address] Marques Grajeda MD) Atherosclerosis of coronary artery of [place] heart without angina pectoris Atrial fibrillation with RVR (04/2018) Essential (primary) hypertension GERD (gastroesophageal reflux disease) Hyperlipidemia Kidney disease Polymyalgia rheumatica Home Medications aspirin 81 mg chewable tablet 81 mg PO DAILY heart health 12/08/13 [History Last Taken 09/24/22 09:00] pantoprazole 20 mg tablet,delayed release 20 mg PO DAILY GERD 03/14/17 [History Last Taken 09/20/22] nitroglycerin 0.4 mg sublingual tablet 0.4 mg sublingual TID PRN PRN Angina 04/28/18 [History Last Taken 04/28/18 01:00] prednisone 5 mg tablet 5 mg PO DAILY steroid 03/16/20 [History Last Taken 09/20/22] amlodipine 10 mg tablet 10 mg PO DAILY BP #90 tabs 06/04/22 [Rx Last Taken 0 09/20/22] atorvastatin 40 mg tablet 40 mg PO QHS Cholesterol #90 tabs 06/04/22 [Rx Last Taken 09/23/22 21:30] metoprolol succinate 25 mg tablet,extended release 24 hr 25 mg PO DAILY BP #90 tabs 06/04/22 [Rx Last Taken 09/24/22 09:00] prednisolone acetate 1 % eye drops,suspension 1 drp ophthalmic (eye) Q8H eyes 09/20/22 [History Last Taken 09/24/22 05:20] apixaban 5 mg tablet (Eliquis) 2.5 mg (1/2 x 5 mg) PO BID Blood Thin 30 days #30 tabs 09/24/22 [Rx Last Taken 09/24/22 09:00] cyanocobalamin (vitamin B-12) 500 mcg tablet 1,000 mcg (2 x 500 mcg) PO BREAKFAST Suppleme #0 tabs 09/24/22 [Rx Last Taken 09/24/22 09:00] oxycodone 5 mg tablet 5 mg PO Q4H PRN PRN Pain Score 6-10 3 days #10 tabs 09/24/22 [Rx Last Taken 09/24/22 09:00] polysaccharide iron complex 150 mg iron capsule (Ferrex) 150 mg PO BREAKFAST Supplement #0 caps 09/24/22 [Rx Last Taken 09/24/22 09:00] Allergy/AdvReac Type Severity Reaction Status Date / Time Penicillins Allergy Hives Verified 06/24/22 11:08 Family History Father CVA (cerebral vascular accident) Mother Kidney disease Surgical History History of coronary artery stent placement (12/08/13) History of left heart catheterization (04/29/18) Hx of cataract removal with insertion of prosthetic lens (~02/2022) Social History (Updated 09/24/22 @ 21:[address] Marques Grajeda MD) household members: spouse Smoking Status: Former smoker alcohol intake: never substance use type: does not use ROS Constitutional Constitutional: Denies chills, fever(s) or weight gain ENT HEENT: Denies headache(s), nasal congestion or nasal discharge Cardiovascular Cardiovascular: Denies chest pain or palpitations Respiratory/Chest Respiratory/Chest: Denies cough, excessive phlegm production or shortness of breath with exertion Gastrointestinal Gastrointestinal: Denies abdominal pain, nausea or vomiting Genitourinary Genitourinary: Denies dysuria Musculoskeletal Musculoskeletal: Denies joint pain or joint swelling Integumentary Integumentary: Denies rash or wounds Neurologic Neurologic: Denies focal weakness, numbness or tingling Psychiatric Psychiatric: Denies anxiety, auditory hallucinations, depression, homicidal ideation or suicidal ideation Vital Signs Vital Signs Vital Signs: 09/24/22 11:39 09/24/22 14:56 Temperature 97.2 F L Temperature Source Temporal Pulse Rate 83 83 Pulse Rhythm Irregular Pulse Strength Normal (2+) Respiratory Rate 16 16 Respiratory Effort Normal Non-Labored Respiratory Depth Normal Respiratory Pattern Normal Blood Pressure 104/51 L Blood Pressure Mean 68 Blood Pressure Source Monitor Blood Pressure Position Semi-Fowlers Blood Pressure Location Left Arm Pulse Ox 96 94 Oxygen Delivery Method Room Air Room Air Weight Weight: 74.117 kg Body Mass Index (BMI) 22.8 Physical Exam Const alert General Appearance: cooperative HEENT normocephalic Eyes PERRL and EOMs intact bilaterally Neck supple, no JVD and no carotid bruits Resp normal respiratory effort, normal air movement and clear to auscultation bilaterally Cardio regular rate and regular rhythm GI normal to inspection, nondistended, normoactive bowel sounds, non-tender and non-distended Extremity normal capillary refill General Extremity: Negative for edema Skin no rashes or lesions noted General Skin Exam: no breakdown Psych affect normal Appearance: appropriate Assessment & Plan Assessment/Plan (1) Debility: (2) Closed fracture of right hip: QUALIFIERS: Encounter type: initial encounter Qualified Code(s): S72.001A - Fracture of unspecified part of neck of right femur, initial encounter for closed fracture (3) Postoperative anemia: (4) Paroxysmal atrial fibrillation: (5) Essential (primary) hypertension: (6) Atherosclerosis of coronary artery of [place] heart without angina pectoris: QUALIFIERS: Coronary Disease-Associated Artery/Lesion type: [place] artery Qualified Code(s): I25.10 - Atherosclerotic heart disease of [place] coronary artery without angina pectoris (7) Hyperlipidemia: QUALIFIERS: Hyperlipidemia type: pure hypercholesterolemia Qualified Code(s): E78.00 - Pure hypercholesterolemia, unspecified; E78.0 - Pure hypercholesterolemia PLAN: Plan 82 year old male with below past medical history hospitalized for right hip fracture, underwent right hip cephalo-medullary nail 09/21/[address] Castano, complicated by atrial fibrillation, hypotension secondary to adrenal insufficiency, postoperative anemia requiring 1 unit PRBC transfusion, admitted to TCU with debility, here for rehabilitation, strengthening, prior to discharge home with . * Debility - PT/OT. * Pain - Tylenol 1000mg q6h prn pain (1-5), Oxycodone 5mg q4h prn pain (6-10). * Bowel - senna/colace 1 tablet bid, Magnesium Citrate 300ml po x 1 prn. * Adult immunization - Administer pneumonia vaccine, covid19 vaccine, flu vaccine as appropriate. * DVT prophylaxis - on Eliquis. * Hypertension - Metoprolol succinate 25mg daily, Amlodipine 10mg daily. * Atrial Fibrillation - Metoprolol succinate 25mg daily, Eliquis 2.5mg bid. * Hyperlipidemia - Atorvastatin 40mg qhs. * Vitamin B12 deficiency - B12 1000mcg daily. * Iron deficiency anemia - Ferrex 150mg daily, Vitamin C 500mg daily. * Coronary artery disease - Metoprolol succinate 25mg daily, Eliquis 2.5mg bid, NTG 0.4mg q5m prn. * Ophth - Prednisolone 1gtt OS q8. * PMR - Prednisone 5mg daily.
[2022-09-24 22:00] VITALS: RESP 16
[2022-09-24] MEDS: Acetaminophen 500 MG Tablet 1000 MG PO (22:39)
[2022-09-24] MEDS: Senna/Docusate Sodium 1 Tablet PO (22:48)
[2022-09-25 05:00] VITALS: BP 125/53; PULSE 77; RESP 16; TEMP 36.4; O2SAT 97
[2022-09-25] MEDS: Pantoprazole Sodium 20 MG Tablet PO (05:28)
[2022-09-25] MEDS: amLODIPine 10 MG Tablet PO (05:28)
[2022-09-25] MEDS: APIXABAN 2.5 MG TABLET (WCH) PO ×2 (05:28→17:41)
[2022-09-25] MEDS: prednisoLONE eye drops (5 mL) 1 DROP OPTH.BTL 1 DRP LEFT EYE ×3 (05:28→21:53)
[2022-09-25] MEDS: Acetaminophen 500 MG Tablet 1000 MG PO ×3 (05:34→21:53)
[2022-09-25 05:41] VITALS: BP 149/67; PULSE 89
[2022-09-25] MEDS: Metoprolol(XL)Succ 25 MG Tablet PO (05:41)
[2022-09-25] MEDS: Senna/Docusate Sodium 1 Tablet PO ×2 (05:49→17:41)
[2022-09-25 05:52] LABS: Anion Gap 4 (5-15); BUN 36 mg/dL (7-18); BUN/Creat Ratio 25.5 RATIO (10-20); Calcium,Total 8.2 mg/dL (8.5-10.1); Chloride 110 mmol/L (98-107); Creatinine, Serum 1.41 mg/dL (0.70-1.30); EST Glomerular Filtration Rate 51 mL/min (>60); Est Glom Filt Rate - Afr Amer 62 mL/min (>60); Estimated Creatinine Clearance 41.61 ml/min; Glucose 108 mg/dL (74-106); Potassium 4.2 mmol/L (3.5-5.1); Sodium Level 143 mmol/L (136-145)
[2022-09-25] MEDS: oxyCODONE 5 MG Tablet PO ×2 (08:40→14:46)
[2022-09-25] MEDS: Ascorbic Acid 500 MG Tablet PO (08:40)
[2022-09-25] MEDS: predniSONE 5 MG Tablet PO (08:40)
[2022-09-25] MEDS: Cyanocobalamin 500 MCG Tablet 1000 MCG PO (08:41)
[2022-09-25] MEDS: Iron Polysaccharide Complex 150 MG CAPSULE PO (08:41)
[2022-09-25] MEDS: Magnesium Citrate 300 ML PO (11:18)
--- NOTE | 2022-09-25 11:19 | PCM.PN.DRR ---
TCU RX Drug Regimen Review Subjective/Objective Subjective/Objective: Subjective: 82 YOM presented to [facility] ED on 09/20 with a fall. Admitted on 09/20 for surgery for right hip fracture. Admitted to TCU on 09/24 for rehabilitation and strengthening prior to discharge home with . Objective: Allergies Penicillins Allergy (Verified 06/24/22 11:08) Hives Current Medications Generic Name Dose Route Start Last Admin Trade Name Freq PRN Reason Stop Dose Admin Acetaminophen 1,000 mg 09/25/22 14:00 Acetaminophen 500 Mg Tablet PO Q8 LATRICE Amlodipine Besylate 10 mg 09/25/22 06:00 09/25/22 05:28 Amlodipine 10 Mg Tablet PO 10 mg DAILY LATRICE Administration Apixaban 2.5 mg 09/24/22 18:00 09/25/22 05:28 Apixaban 2.5 Mg Tablet ([facility]) PO 2.5 mg BID LATRICE Administration Ascorbic Acid 500 mg 09/25/22 08:00 09/25/22 08:40 Ascorbic Acid 500 Mg Tablet PO 500 mg BREAKFAST LATRICE Administration Atorvastatin Calcium 40 mg 09/24/22 22:00 09/24/22 20:12 Atorvastatin Calcium 40 Mg Tablet PO 40 mg QHS LATRICE Administration Cyanocobalamin 1,000 mcg 09/25/22 08:00 09/25/22 08:41 Cyanocobalamin 500 Mcg Tablet PO 1,000 mcg BREAKFAST [facility] Administration Magnesium Citrate 300 ml 09/24/22 21:34 09/25/22 11:18 Magnesium Citrate 300 Ml PO 300 ml X1 PRN Administration Constipation Metoprolol Succinate 25 mg 09/25/22 06:00 09/25/22 05:41 Metoprolol(Xl)Succ 25 Mg Tablet PO 25 mg DAILY LATRICE Administration Nitroglycerin 0.4 mg 09/24/22 12:20 Nitroglycerin (Inpatient Use) 0.4 Mg Tab.Subl SL Q5M PRN CARDIAC/CHEST PAIN Oxycodone HCl 5 mg 09/24/22 12:10 09/25/22 08:40 Oxycodone 5 Mg Tablet PO 5 mg Q4H PRN PRN Administration Pain Score 6-10 Pantoprazole Sodium 20 mg 09/25/22 06:00 09/25/22 05:28 Pantoprazole Sodium 20 Mg Tablet PO 20 mg DAILY LATRICE Administration Polysaccharide Iron Complex 150 mg 09/25/22 08:00 09/25/22 08:41 Iron Polysaccharide Complex 150 Mg Capsule PO 150 mg BREAKFAST LATRICE Administration Prednisolone Acetate 1 drp 09/24/22 14:00 09/25/22 05:28 Prednisolone Eye Drops (5 Ml) 1 Drop Opth.Btl LEFT EYE 1 drp Q8 LATRICE Administration Prednisone 5 mg 09/25/22 08:00 09/25/22 08:40 Prednisone 5 Mg Tablet PO 5 mg DAILYCM LATRICE Administration Senna/Docusate Sodium 1 tablet 09/24/22 21:45 09/25/22 05:49 Senna/Docusate Sodium 1 Tablet PO 1 tablet BID LATRICE Administration Tuberculin PPD 0.1 ml 10/02/22 10:00 Tuberculin,Purif.Prot.Deriv. 50 Tu/Ml Vial ID 10/02/22 10:01 X1 ONE Problem List (Updated 09/24/22 @ 21:[address] Marques Grajeda MD) Postoperative anemia (Acute) Debility (Acute) Closed fracture of right hip (Acute) Paroxysmal atrial fibrillation (Acute) Atherosclerosis of coronary artery of [place] heart without angina pectoris (Chronic) Essential (primary) hypertension (Chronic) Hyperlipidemia (Chronic) Vital Signs Temp Pulse Resp BP Pulse Ox O2 Del Method 97.2 F L 89 16 149/67 H 94 Room Air 09/24/22 11:39 09/25/22 05:41 09/24/22 22:00 09/25/22 05:41 09/24/22 14:56 09/25/22 10:00 Oxygen Delivery Method Room Air Weight: 74.117 kg Body Mass Index (BMI) 22.8 Sodium 143 mmol/L (136-145) 09/25/22 05:21 Potassium 4.2 mmol/L (3.5-5.1) 09/25/22 05:21 Chloride 110 mmol/L (98-107) H 09/25/22 05:21 Carbon Dioxide 29.0 mmol/L (21.0-32.0) 09/25/22 05:21 Anion Gap 4 (5-15) L 09/25/22 05:21 BUN 36 mg/dL (7-18) H 09/25/22 05:21 Creatinine 1.41 mg/dL (0.70-1.30) H 09/25/22 05:21 Est GFR (MDRD) Af Amer 62 mL/min (>60) 09/25/22 05:21 Est GFR (MDRD) Non-Af 51 mL/min (>60) L 09/25/22 05:21 BUN/Creatinine Ratio 25.5 RATIO (10-20) H 09/25/22 05:21 Glucose 108 mg/dL (74-106) H 09/25/22 05:21 ? Assessment/Plan: 1. Pain: Tylenol 1000mg PO Q6H PRN pain (1-5), Oxycodone 5mg PO Q4H PRN pain (6-10). Please continue to monitor pain, oversedation, PRN medication use. Pt has had 0 doses of tylenol and 1 dose of oxycodone (hip pain 09/15) to date. 2. Bowel: senna/colace 1 T PO BID, Magnesium Citrate 300ml PO x 1 PRN constipation. Please continue to monitor for increased/decreased diarrhea/constipation. Pt has not had bowel movement since move to TCU. If no bowel movement in 2 days, please consider using PRN medication.? 3. Hypertension/Atrial Fibrillation/CAD - Metoprolol succinate 25mg PO daily, Eliquis 2.5mg PO BID, Amlodipine 10mg PO daily, nitroglycerin 0.4mg SL Q5M PRN chest pain. Please continue to monitor malaise, dizziness, peripheral edema, headache, increased bleeding/bruising, palpitations, chest pain, BP (149/67 on 09/25), HR (89 on 09/25), H & H (Hgb: 8.8, Hct: 26.1 on 09/24), PRN medication use. Pt has had 0 doses of nitroglycerin to date. 4. Hyperlipidemia: Atorvastatin 40mg PO QHS. Please continue to monitor for muscle pain/weakness, lipid panel (TC: 187, LDL: 94, HDL: 65, T on 06/19) 5. Vitamin B12 deficiency: Vitamin B12 1000mcg PO daily. Please continue to monitor Vitamin B12 level (119 on 09/23) 6. Iron deficiency anemia: Ferrex 150mg daily, Vitamin C 500mg daily. Please continue to monitor for nausea/vomiting, increased constipation, dark/tarry stools, iron study (Iron 23, Ferritin 136, TIBC 200 on 09/23) 7. PMR: Prednisone 5mg PO daily. Please continue to monitor BG (Serum 108 on 09/25), BP (149/67 on 09/25), osteoporosis/BMD, vision changes 8. GERD: Pantoprazole 20mg PO daily. Please continue to monitor for s/s of GERD, educate on non-pharmacological interventions to prevent GERD symptoms.? 9. Ophthalmic: Prednisolone 1gtt OS Q8H. Please continue to monitor for eye irritation, redness, vision changes.? Assessment/Plan for indications treated with psychotropic medications: N/A Medical chart and medication regimen reviewed. The following medication irregularities or issues were identified: 1. Prednisolone eye drops: No indication found upon EMR review. Please evaluate if medication is to be continued and please add indication, thank you. 2. Prednisone: Please consider updated bone marrow density due to long-term steroid use if clinically indicated, thanks. Date Date of Note:: 09/25/22
[2022-09-25 11:45] LABS: Absolute Lymphocyte Count 2.14 X10^3/uL (0.83-4.51); Absolute Neutrophil Count 5.7 X10^3/uL (2.0-7.7); Basophil# 0.02 X10^3/uL; Basophil% 0.2 % (0-1); Eosinophil# 0.46 X10^3/uL; Hematocrit 28.2 % (40-54); Lymphocyte # 2.14 X10^3/ul (0.83-4.51); Lymphocyte % 23.4 % (19-41); Mean Corp Hgb Conc 31.9 g/dL (32-36); Mean Corpuscular Hgb 30.2 pg (27.0-32.0); Mean Corpuscular Volume 94.6 fL (80-94); Mean Platelet Vol. 11.6 fl (6.2-12.0); Monocyte# 0.76 X10^3/uL; Monocyte% 8.3 % (0-10); NRBC Flagged by Analyzer 0 % (0-5); Neutrophil # 5.69 X10^3/uL (2.7-7.7); Neutrophil % 62.2 % (47-70); Platelet Count 180 K/mm3 (150-450); RBC Distribution Width CV 14.5 % (11.6-14.6); RBC Distribution Width SD 49.7 fl (35.1-43.9); Red Blood Count 2.98 M/mm3 (4.6-6.2); White Blood Count 9.2 K/mm3 (4.4-11.0)
[2022-09-25 16:00] VITALS: BP 125/53; PULSE 77; RESP 16; TEMP 36.4
[2022-09-25] MEDS: Tuberculin,Purif.prot.deriv. 50 TU/ML Vial 0.1 ML ID (17:41)
[2022-09-25] MEDS: Atorvastatin Calcium 40 MG Tablet PO (21:54)
[2022-09-26 05:55] LABS: Hematocrit 27.4 % (40-54); Hemoglobin 8.7 g/dL (13.0-16.5)
[2022-09-26 06:46] VITALS: BP 127/53; PULSE 82
[2022-09-26] MEDS: amLODIPine 10 MG Tablet PO (06:46)
[2022-09-26] MEDS: oxyCODONE 5 MG Tablet PO ×3 (06:46→20:25)
[2022-09-26] MEDS: Acetaminophen 500 MG Tablet 1000 MG PO ×3 (06:46→20:26)
[2022-09-26] MEDS: APIXABAN 2.5 MG TABLET (WCH) PO ×2 (06:46→17:12)
[2022-09-26] MEDS: Metoprolol(XL)Succ 25 MG Tablet PO (06:46)
[2022-09-26] MEDS: Pantoprazole Sodium 20 MG Tablet PO (06:47)
[2022-09-26] MEDS: prednisoLONE eye drops (5 mL) 1 DROP OPTH.BTL 1 DRP LEFT EYE ×3 (06:47→20:25)
[2022-09-26] MEDS: Senna/Docusate Sodium 1 Tablet PO ×2 (06:47→17:13)
[2022-09-26] MEDS: Iron Polysaccharide Complex 150 MG CAPSULE PO (08:00)
[2022-09-26] MEDS: predniSONE 5 MG Tablet PO (08:00)
[2022-09-26] MEDS: Cyanocobalamin 500 MCG Tablet 1000 MCG PO (08:01)
[2022-09-26] MEDS: Ascorbic Acid 500 MG Tablet PO (08:01)
--- NOTE | 2022-09-26 08:11 | RAD_ITS ---
STUDY: X-RAY CHEST REASON FOR EXAM: Male, 82 years old. pleuretic pain TECHNIQUE: PA and lateral views of the chest. COMPARISON: 04/28/2018 FINDINGS: Increase in reticulonodular interstitial opacities in lung bases consistent with worsening chronic interstitial lung disease, likely idiopathic pulmonary fibrosis. No superimposed alveolar opacity within the lungs to suggest pneumonia or atelectasis. There is no demonstrated pleural abnormality. Normal size heart. Normal mediastinum and dilan. Normal visualized pulmonary arteries. Normal visualized aortic arch and descending thoracic aorta. Normal visualized thoracic spine. Normal visualized ribs, clavicles, and shoulders. There is no demonstrated abnormality of the visualized soft tissue structures of the upper abdomen. RAD/Chest PA and Lateral IMPRESSION: Worsening chronic interstitial lung disease likely idiopathic pulmonary fibrosis but no definite pneumonia or atelectasis. CT may be useful. Electronically Signed: Cecil Deluca MD at 9:05 EDT ,
--- NOTE | 2022-09-26 10:01 | NS ---
MST score = 1 - low risk of malnutrition. Food dislikes: mushrooms. requesting res get chocolate ONS w/ [facility] - will order. Provided written copy of daily specials/first choice menu w/ instructions on how to order.
--- NOTE | 2022-09-26 10:47 | NURSING ---
borough coordinator Note; Activity Asset: Cristobal Lowe is independent in his choice of daily activities. His family will visit daily and bring him the newspaper along with anything he may need or want. family was informed they can take resident off the floor and go outside. He will read, watch tv, work on word puzzles and welcomes visit from the head piece assembler and therapy dog.
[2022-09-26] MEDS: Ensure Plus High Protein 120 ML LIQUID PO ×2 (13:23→17:12)
[2022-09-26 15:25] VITALS: BP 119/56; PULSE 93; RESP 16; TEMP 37; O2SAT 95
--- NOTE | 2022-09-26 15:55 | EKG12_ITS ---
Test Reason : Blood Pressure : / mmHG Vent. Rate : 089 BPM Atrial Rate : 089 BPM P-R Int : 134 ms QRS Dur : 078 ms QT Int : 368 ms P-R-T Axes : 021 000 025 degrees QTc Int : 447 ms Sinus rhythm with occasional Premature ventricular complexes Otherwise normal ECG When compared with ECG of 20-SEP-2022 15:57, MANUAL COMPARISON REQUIRED, DATA IS UNCONFIRMED Confirmed by DASHA DELCID, RIZWAN ([id number]), editor house organ LEIDY MINOR ([id number]) on 09/30/2022 7:11:06 AM Referred By: MADINA Confirmed By:RIZWAN LOU MD
[2022-09-26] MEDS: MethylPREDNISolone DosePak 4 MG BOX PO (20:24)
[2022-09-26] MEDS: Atorvastatin Calcium 40 MG Tablet PO (20:27)
[2022-09-27] MEDS: oxyCODONE 5 MG Tablet PO ×3 (04:40→22:44)
[2022-09-27 04:41] VITALS: BP 145/63; PULSE 90
[2022-09-27] MEDS: Metoprolol(XL)Succ 25 MG Tablet PO (04:41)
[2022-09-27] MEDS: APIXABAN 2.5 MG TABLET (WCH) PO ×2 (04:41→18:06)
[2022-09-27] MEDS: Senna/Docusate Sodium 1 Tablet PO ×2 (04:41→18:06)
[2022-09-27] MEDS: Pantoprazole Sodium 20 MG Tablet PO (04:41)
[2022-09-27] MEDS: prednisoLONE eye drops (5 mL) 1 DROP OPTH.BTL 1 DRP LEFT EYE ×3 (04:42→20:41)
[2022-09-27] MEDS: amLODIPine 10 MG Tablet PO (04:42)
[2022-09-27] MEDS: Acetaminophen 500 MG Tablet 1000 MG PO ×3 (04:43→20:42)
[2022-09-27 07:12] LABS: Hematocrit 26.1 % (40-54); Hemoglobin 8.4 g/dL (13.0-16.5)
[2022-09-27] MEDS: Ascorbic Acid 500 MG Tablet PO (08:57)
[2022-09-27] MEDS: Cyanocobalamin 500 MCG Tablet 1000 MCG PO (08:57)
[2022-09-27] MEDS: Iron Polysaccharide Complex 150 MG CAPSULE PO (08:57)
[2022-09-27] MEDS: MethylPREDNISolone DosePak 4 MG BOX PO ×4 (08:58→20:40)
[2022-09-27] MEDS: Ensure Plus High Protein 120 ML LIQUID PO ×2 (12:54→18:06)
[2022-09-27 14:16] VITALS: BP 109/66; PULSE 81; RESP 16; TEMP 36.4; O2SAT 96
[2022-09-27 20:24] VITALS: PULSE 84; RESP 16; O2SAT 97
[2022-09-27] MEDS: Atorvastatin Calcium 40 MG Tablet PO (20:42)
[2022-09-28 04:52] VITALS: BP 124/56; PULSE 87
[2022-09-28] MEDS: APIXABAN 2.5 MG TABLET (WCH) PO ×2 (04:52→17:56)
[2022-09-28] MEDS: Metoprolol(XL)Succ 25 MG Tablet PO (04:52)
[2022-09-28] MEDS: Senna/Docusate Sodium 1 Tablet PO ×2 (04:53→17:56)
[2022-09-28] MEDS: Acetaminophen 500 MG Tablet 1000 MG PO ×3 (04:53→21:24)
[2022-09-28] MEDS: Pantoprazole Sodium 20 MG Tablet PO (04:53)
[2022-09-28] MEDS: amLODIPine 10 MG Tablet PO (04:53)
[2022-09-28] MEDS: prednisoLONE eye drops (5 mL) 1 DROP OPTH.BTL 1 DRP LEFT EYE ×3 (04:54→21:23)
[2022-09-28 06:10] LABS: Hematocrit 27.3 % (40-54); Hemoglobin 8.7 g/dL (13.0-16.5)
[2022-09-28] MEDS: MethylPREDNISolone DosePak 4 MG BOX PO ×4 (08:56→21:23)
[2022-09-28] MEDS: Iron Polysaccharide Complex 150 MG CAPSULE PO (08:56)
[2022-09-28] MEDS: Ascorbic Acid 500 MG Tablet PO (08:57)
[2022-09-28] MEDS: Cyanocobalamin 500 MCG Tablet 1000 MCG PO (08:58)
[2022-09-28] MEDS: Ensure Plus High Protein 120 ML LIQUID PO ×3 (09:02→17:56)
[2022-09-28] MEDS: oxyCODONE 5 MG Tablet PO ×2 (09:06→21:26)
[2022-09-28 14:44] VITALS: BP 113/47; PULSE 83; RESP 16; TEMP 37.2; O2SAT 96
--- NOTE | 2022-09-28 15:55 | NURSING ---
Order added for Doxipen 10 mg HS to improve sleeping.
[2022-09-28] MEDS: Doxepin Hydrochloride 10 MG Capsule PO (21:24)
[2022-09-28] MEDS: Atorvastatin Calcium 40 MG Tablet PO (21:24)
[2022-09-29 05:49] LABS: Hematocrit 30.7 % (40-54); Hemoglobin 9.6 g/dL (13.0-16.5)
[2022-09-29] MEDS: prednisoLONE eye drops (5 mL) 1 DROP OPTH.BTL 1 DRP LEFT EYE ×3 (06:07→20:59)
[2022-09-29 06:08] VITALS: BP 128/53; PULSE 89
[2022-09-29] MEDS: Senna/Docusate Sodium 1 Tablet PO ×2 (06:08→17:17)
[2022-09-29] MEDS: Metoprolol(XL)Succ 25 MG Tablet PO (06:08)
[2022-09-29] MEDS: amLODIPine 10 MG Tablet PO (06:08)
[2022-09-29] MEDS: Pantoprazole Sodium 20 MG Tablet PO (06:08)
[2022-09-29] MEDS: APIXABAN 2.5 MG TABLET (WCH) PO ×2 (06:08→17:17)
[2022-09-29] MEDS: Acetaminophen 500 MG Tablet 1000 MG PO ×3 (06:08→20:59)
--- NOTE | 2022-09-29 07:02 | NURSING ---
Dressing changed to right hip. Old dressing saturated with serosanguinous drainage. No odor noted. Will continue to monitor.
[2022-09-29] MEDS: MethylPREDNISolone DosePak 4 MG BOX PO ×3 (08:27→21:00)
[2022-09-29] MEDS: Iron Polysaccharide Complex 150 MG CAPSULE PO (08:27)
[2022-09-29] MEDS: Cyanocobalamin 500 MCG Tablet 1000 MCG PO (08:27)
[2022-09-29] MEDS: Ensure Plus High Protein 120 ML LIQUID PO ×3 (08:27→17:17)
[2022-09-29] MEDS: Ascorbic Acid 500 MG Tablet PO (08:27)
[2022-09-29] MEDS: oxyCODONE 5 MG Tablet PO ×2 (08:27→13:16)
[2022-09-29 14:22] VITALS: BP 125/54; PULSE 81; RESP 16; TEMP 36.4; O2SAT 96
--- NOTE | 2022-09-29 14:43 | NURSING ---
dressings changed to RT hip x3 incisions. all incisions were drng mod amt serosang fluid. no s/s of infection. at side.
[2022-09-29] MEDS: Doxepin Hydrochloride 10 MG Capsule PO (21:03)
[2022-09-29] MEDS: Atorvastatin Calcium 40 MG Tablet PO (21:03)
[2022-09-29 21:16] VITALS: PULSE 76; RESP 16; O2SAT 97
[2022-09-30] MEDS: prednisoLONE eye drops (5 mL) 1 DROP OPTH.BTL 1 DRP LEFT EYE ×3 (05:48→21:13)
[2022-09-30 05:49] VITALS: BP 134/60; PULSE 82
[2022-09-30] MEDS: Metoprolol(XL)Succ 25 MG Tablet PO (05:49)
[2022-09-30] MEDS: APIXABAN 2.5 MG TABLET (WCH) PO ×2 (05:49→17:10)
[2022-09-30] MEDS: Pantoprazole Sodium 20 MG Tablet PO (05:49)
[2022-09-30] MEDS: Acetaminophen 500 MG Tablet 1000 MG PO ×3 (05:49→21:18)
[2022-09-30] MEDS: amLODIPine 10 MG Tablet PO (05:49)
[2022-09-30 05:54] LABS: Hematocrit 28.4 % (40-54); Hemoglobin 8.8 g/dL (13.0-16.5)
[2022-09-30] MEDS: Iron Polysaccharide Complex 150 MG CAPSULE PO (07:57)
[2022-09-30] MEDS: Cyanocobalamin 500 MCG Tablet 1000 MCG PO (07:57)
[2022-09-30] MEDS: Ensure Plus High Protein 120 ML LIQUID PO ×3 (07:58→17:10)
[2022-09-30] MEDS: Ascorbic Acid 500 MG Tablet PO (07:58)
[2022-09-30] MEDS: MethylPREDNISolone DosePak 4 MG BOX PO ×2 (07:58→21:11)
--- NOTE | 2022-09-30 10:45 | CASEMGMT ---
Social Work BIMS () and PHQ-9 (01/02) completed for MDS assessment. Pt expressed feeling down and depressed, low motivation to get out of bed in the mornings, feeling tired, and unable to do the hobbies he once enjoyed. Pt reports to having a good appetite, but after further discussion, pt notes for the past several years, he doesn't always have interest in eating, along with the above listed symptoms. Pt became tearful toward the end of the assessment. SW provided emotional support. SW offered counseling and medication intervention. Pt denied counseling as he does not like talking about his feelings. Pt agreed to medication. SW left written communication for Dr. FATOUMATA will continue to monitor. SILVESTRE WhelanW
[2022-09-30 10:56] VITALS: BMI 22.8
[2022-09-30] MEDS: oxyCODONE 5 MG Tablet PO ×2 (12:28→21:10)
[2022-09-30 14:50] VITALS: BP 93/55; PULSE 75; RESP 20; TEMP 36.6; O2SAT 97
[2022-09-30] MEDS: Senna/Docusate Sodium 1 Tablet PO (17:10)
--- NOTE | 2022-09-30 19:42 | PCA ---
per patient helped patient wash for bed. teeth brushed. Pt did not wish to change clothes at this time. denied needing any other help.
[2022-09-30] MEDS: Doxepin Hydrochloride 10 MG Capsule PO (21:10)
[2022-09-30] MEDS: Atorvastatin Calcium 40 MG Tablet PO (21:10)
[2022-09-30] MEDS: Mirtazapine 15 MG Tablet 7.5 MG PO (21:16)
[2022-10-01 05:41] VITALS: PULSE 80
[2022-10-01] MEDS: Metoprolol(XL)Succ 25 MG Tablet PO (05:41)
[2022-10-01] MEDS: APIXABAN 2.5 MG TABLET (WCH) PO ×2 (05:42→17:07)
[2022-10-01] MEDS: Pantoprazole Sodium 20 MG Tablet PO (05:42)
[2022-10-01] MEDS: Acetaminophen 500 MG Tablet 1000 MG PO ×3 (05:42→20:40)
[2022-10-01] MEDS: amLODIPine 10 MG Tablet PO (05:42)
[2022-10-01] MEDS: prednisoLONE eye drops (5 mL) 1 DROP OPTH.BTL 1 DRP LEFT EYE ×3 (05:42→20:39)
[2022-10-01 05:46] LABS: Hematocrit 32.7 % (40-54)
[2022-10-01 05:49] VITALS: BP 141/57; PULSE 80
--- NOTE | 2022-10-01 07:14 | NURSING ---
Bairon wraps reapplied to ble for edema and effective. Edema 2+ pitting to top of feet and ble. This nurse asked patient to get shorts due to pants are tight over the bairon wraps. Dressing changed to hip to proximal and middle incision with moderate amount of serosanguinous drainage. Bruising and edema noted to right hip but no signs of infection.
[2022-10-01] MEDS: Cyanocobalamin 500 MCG Tablet 1000 MCG PO (08:00)
[2022-10-01] MEDS: MethylPREDNISolone DosePak 4 MG BOX PO (08:00)
[2022-10-01] MEDS: Ascorbic Acid 500 MG Tablet PO (08:00)
[2022-10-01] MEDS: Iron Polysaccharide Complex 150 MG CAPSULE PO (08:00)
[2022-10-01] MEDS: Ensure Plus High Protein 120 ML LIQUID PO ×3 (08:05→17:10)
--- NOTE | 2022-10-01 08:39 | NURSING ---
Plumbing Engineer Note; MDS Complete
--- NOTE | 2022-10-01 10:33 | CASEMGMT ---
Social Work IDT met with patient for care plan meeting. Discussed patient's progress in PT/OT/SN. Educated to Medicare benefit. scheduled a car transfer with therapy tomorrow, and will determine DC after that. Pt/ would like pt to return home with [facility]. No DME needs. can transport. SW to follow for DC needs. Sisi Tijerina, CYTOGENETIC TECHNICIAN WEB CONTENT EXECUTIVE
[2022-10-01 14:16] VITALS: BP 134/60; PULSE 75; RESP 16; TEMP 37.3; O2SAT 96
[2022-10-01] MEDS: oxyCODONE 5 MG Tablet PO (16:14)
[2022-10-01] MEDS: Senna/Docusate Sodium 1 Tablet PO (17:07)
[2022-10-01] MEDS: Mirtazapine 15 MG Tablet 7.5 MG PO (20:39)
[2022-10-01] MEDS: Doxepin Hydrochloride 10 MG Capsule PO (20:39)
[2022-10-01] MEDS: Atorvastatin Calcium 40 MG Tablet PO (20:39)
[2022-10-01 20:46] VITALS: PULSE 98; RESP 16; O2SAT 93
[2022-10-02] MEDS: prednisoLONE eye drops (5 mL) 1 DROP OPTH.BTL 1 DRP LEFT EYE ×3 (05:17→21:42)
[2022-10-02 05:18] VITALS: BP 149/72; PULSE 81
[2022-10-02] MEDS: Acetaminophen 500 MG Tablet 1000 MG PO ×3 (05:18→21:41)
[2022-10-02] MEDS: amLODIPine 10 MG Tablet PO (05:18)
[2022-10-02] MEDS: Metoprolol(XL)Succ 25 MG Tablet PO (05:18)
[2022-10-02] MEDS: APIXABAN 2.5 MG TABLET (WCH) PO ×2 (05:19→17:04)
[2022-10-02] MEDS: Senna/Docusate Sodium 1 Tablet PO ×2 (05:19→17:04)
[2022-10-02] MEDS: Pantoprazole Sodium 20 MG Tablet PO (05:19)
[2022-10-02 05:58] LABS: Absolute Lymphocyte Count 2.27 X10^3/uL (0.83-4.51); Absolute Neutrophil Count 6.6 X10^3/uL (2.0-7.7); Basophil# 0.03 X10^3/uL; Basophil% 0.3 % (0-1); Eosinophil# 0.45 X10^3/uL; Eosinophils% 4.2 % (0-5); Hemoglobin 9.3 g/dL (13.0-16.5); Lymphocyte # 2.27 X10^3/ul (0.83-4.51); Mean Corp Hgb Conc 32.1 g/dL (32-36); Mean Corpuscular Hgb 32.1 pg (27.0-32.0); Mean Platelet Vol. 10.2 fl (6.2-12.0); Monocyte# 0.91 X10^3/uL; Monocyte% 8.4 % (0-10); NRBC Flagged by Analyzer 0.2 % (0-5); Neutrophil # 6.63 X10^3/uL (2.7-7.7); Neutrophil % 61.5 % (47-70); Platelet Count 297 K/mm3 (150-450); RBC Distribution Width CV 15.9 % (11.6-14.6); RBC Distribution Width SD 56.9 fl (35.1-43.9); White Blood Count 10.8 K/mm3 (4.4-11.0)
[2022-10-02 06:28] LABS: Anion Gap 2 (5-15); BUN 49 mg/dL (7-18); BUN/Creat Ratio 31.2 RATIO (10-20); Calcium,Total 8.4 mg/dL (8.5-10.1); Chloride 112 mmol/L (98-107); Creatinine, Serum 1.57 mg/dL (0.70-1.30); EST Glomerular Filtration Rate 45 mL/min (>60); Est Glom Filt Rate - Afr Amer 55 mL/min (>60); Estimated Creatinine Clearance 37.44 ml/min; Glucose 88 mg/dL (74-106); Potassium 4.3 mmol/L (3.5-5.1); Sodium Level 140 mmol/L (136-145)
[2022-10-02] MEDS: Iron Polysaccharide Complex 150 MG CAPSULE PO (08:06)
[2022-10-02] MEDS: Cyanocobalamin 500 MCG Tablet 1000 MCG PO (08:06)
[2022-10-02] MEDS: Ascorbic Acid 500 MG Tablet PO (08:06)
[2022-10-02] MEDS: Ensure Plus High Protein 120 ML LIQUID PO ×3 (08:06→17:04)
[2022-10-02] MEDS: oxyCODONE 5 MG Tablet PO ×3 (08:10→21:41)
--- NOTE | 2022-10-02 11:37 | CASEMGMT ---
Social Work Patient completed car transfer with therapy and patient spouse today. Car transfer went well per therapy and patient. Patient and patient spouse requesting for discharge date to be set for 10/03/2022. Team is agreeable to discharge date. Physical and Occupational therapy and nursing recommending for patient to have continued services through home health care. Patient continues to be agreeable to home health care referral and request for referral to be sent to [facility]. This web content & social media manager inquired about any needed DME, patient reports to have walker, bedside commode and rails everywhere. Patient denies any DME needs. Patient spouse reports plan to set up Medical alert for patient and denies any need for resources for medica alert system. Patient spuose plans to transport patient home. Patient to discharge to home on Eliquis, this web content & social media manager provided patient with voucher for Eliquis as patient spouse reports it gets pricey. Patient spouse reports to be able to manage dressing changes to patient hip incision and is open to teaching. Patient and patient spouse deny any concerns on returning to home. Active listening and support provided throughout conversation. [facility] made for [facility]OT/SN with discharge on 10/03/2022. Carolin to review and get back to this web content & social media manager. Proposed discharge date: 10/03/2022 PLAN: Home with spouse and home health care. Social Work to continue to follow as needed. Gema RIVERS, TAMEKA
--- NOTE | 2022-10-02 12:23 | CASEMGMT ---
[facility] able to accept patient. Patient reports to have already spoken with [facility] and aware of home health being set up. Proposed discharge date: 10/03/2022 PLAN: Home with spouse and home health care. Gema RIVERS, TAMEKA
[2022-10-02 16:00] VITALS: BP 129/59; PULSE 82; RESP 16; TEMP 37.2; O2SAT 95
--- NOTE | 2022-10-02 19:18 | DS.PCM_ITS ---
Providers Date of Admission: 09/24/22 Primary Care Physician: Dr. Omar Holt MD Reason For Visit: INTEROCHANTERIC FRACTURE RIGHT FEMUR Diagnosis Discharge Diagnosis (1) Debility: Status: Acute Code(s): R53.81 - Other malaise (2) Closed fracture of right hip: Status: Deleted Code(s): S72.001A - Fracture of unspecified part of neck of right femur, initial encounter for closed fracture Qualifiers: Encounter type: initial encounter Qualified Code(s): S72.001A - Fracture of unspecified part of neck of right femur, initial encounter for closed fracture (3) Postoperative anemia: Status: Acute Code(s): D64.9 - Anemia, unspecified (4) Paroxysmal atrial fibrillation: Status: Acute Code(s): I48.0 - Paroxysmal atrial fibrillation (5) Essential (primary) hypertension: Status: Chronic Code(s): I10 - Essential (primary) hypertension (6) Atherosclerosis of coronary artery of [place] heart without angina pectoris: Status: Chronic Code(s): I25.10 - Atherosclerotic heart disease of [place] coronary artery without angina pectoris Qualifiers: Coronary Disease-Associated Artery/Lesion type: [place] artery Qualified Code(s): I25.10 - Atherosclerotic heart disease of [place] coronary artery without angina pectoris (7) Hyperlipidemia: Status: Chronic Code(s): E78.5 - Hyperlipidemia, unspecified Qualifiers: Hyperlipidemia type: pure hypercholesterolemia Qualified Code(s): E78.00 - Pure hypercholesterolemia, unspecified; E78.0 - Pure hypercholesterolemia Plan 82 year old male with below past medical history hospitalized for right hip fracture, underwent right hip cephalo-medullary nail 09/21/[address] Castano, complicated by atrial fibrillation, hypotension secondary to adrenal insufficiency, postoperative anemia requiring 1 unit PRBC transfusion, admitted to TCU with debility, here for rehabilitation, strengthening, prior to discharge home with . * Debility - PT/OT. * Pain - Tylenol 1000mg q6h prn pain (1-5), Oxycodone 5mg q4h prn pain (6-10). * Bowel - senna/colace 1 tablet bid, Magnesium Citrate 300ml po x 1 prn. * Adult immunization - Administer pneumonia vaccine, covid19 vaccine, flu vaccine as appropriate. * DVT prophylaxis - on Eliquis. * Hypertension - Metoprolol succinate 25mg daily, Amlodipine 10mg daily. * Atrial Fibrillation - Metoprolol succinate 25mg daily, Eliquis 2.5mg bid. * Hyperlipidemia - Atorvastatin 40mg qhs. * Vitamin B12 deficiency - B12 1000mcg daily. * Iron deficiency anemia - Ferrex 150mg daily, Vitamin C 500mg daily. * Coronary artery disease - Metoprolol succinate 25mg daily, Eliquis 2.5mg bid, NTG 0.4mg q5m prn. * Ophth - Prednisolone 1gtt OS q8. * PMR - Prednisone 5mg daily. Medications at Discharge Home Medications pantoprazole 20 mg tablet,delayed release 20 mg PO DAILY GERD 03/14/17 nitroglycerin 0.4 mg sublingual tablet 0.4 mg sublingual TID PRN PRN Angina 04/28/18 prednisone 5 mg tablet 5 mg PO DAILY steroid 03/16/20 amlodipine 10 mg tablet 10 mg PO DAILY BP #90 tabs 06/04/22 atorvastatin 40 mg tablet 40 mg PO QHS Cholesterol #90 tabs 06/04/22 metoprolol succinate 25 mg tablet,extended release 24 hr 25 mg PO DAILY BP #90 tabs 06/04/22 prednisolone acetate 1 % eye drops,suspension 1 drp ophthalmic (eye) Q8H eyes 09/20/22 cyanocobalamin (vitamin B-12) 500 mcg tablet 1,000 mcg (2 x 500 mcg) PO BREAKFAST Suppleme #0 tabs 09/24/22 acetaminophen 500 mg tablet 1,000 mg (2 x 500 mg) PO Q8 #0 tabs 10/02/22 apixaban 5 mg tablet (Eliquis) 2.5 mg (1/2 x 5 mg) PO BID 30 days #30 tabs 10/02/22 ascorbic acid (vitamin C) 500 mg tablet 500 mg PO BREAKFAST #0 tabs 10/02/22 mirtazapine 15 mg tablet 7.5 mg (1/2 x 15 mg) PO QHS 30 days #15 tabs 10/02/22 oxycodone 5 mg tablet 5 mg PO Q4H PRN PRN Pain Score 6-10 7 days #42 tabs 10/02/22 polysaccharide iron complex 150 mg iron capsule (Ferrex) 150 mg PO BREAKFAST 30 days #30 caps 10/02/22 Hospital Course Operations - (Right hip cephalo-medullary nail fixation. ) Procedures None Summary of Care Provided Minutes Spent on Discharge: 35 Hospital Course: 82 year old male with below past medical history hospitalized for right hip fracture, underwent right hip cephalo-medullary nail 09/21/[address] Castano, complicated by atrial fibrillation, hypotension secondary to adrenal insufficiency, postoperative anemia requiring 1 unit PRBC transfusion, admitted to TCU with debility, here for rehabilitation, strengthening, prior to discharge home with . Discharge home with 10/03/2022, [facility] PT/OT. Physical Exam Const alert General Appearance: cooperative HEENT normocephalic Eyes PERRL and EOMs intact bilaterally Neck supple, no JVD and no carotid bruits Resp normal respiratory effort, normal air movement and clear to auscultation bilaterally Cardio regular rate and regular rhythm GI normal to inspection, nondistended, normoactive bowel sounds, non-tender and non-distended Extremity normal capillary refill General Extremity: Negative for edema Skin no rashes or lesions noted General Skin Exam: no breakdown Psych affect normal Appearance: appropriate Weight / BMI Weight Weight: 74.253 kg Body Mass Index (BMI) 22.8 ABG / Lab / Microbiology Data 10/02/22 05:37 10/02/22 05:37 Laboratory: Laboratory Results - last 24 hr 10/02/22 05:37: WBC 10.8, RBC 2.90 L, Hgb 9.3 L, Hct 29.0 L, MCV 100.0 H, MCH 32.1 H, MCHC 32.1, RDW Std Deviation 56.9 H, RDW Coeff of Anselmo 15.9 H, Plt Count 297, MPV 10.2, Immature Gran % (Auto) 4.600 H, Neut % (Auto) 61.5, Lymph % (Auto) 21.0, [place] % (Auto) 8.4, Eos % (Auto) 4.2, Baso % (Auto) 0.3, Absolute Neuts (auto) 6.6, Absolute Lymphs (auto) 2.27, Nucleated RBC % 0.2, Sodium 140, Potassium 4.3, Chloride 112 H, Carbon Dioxide 26.0, Anion Gap 2 L, BUN 49 H, Creatinine 1.57 H, Estim Creat Clear Calc 37.44, Est GFR (MDRD) Af Amer 55 L, Est GFR (MDRD) Non-Af 45 L, BUN/Creatinine Ratio 31.2 H, Glucose 88, Calcium 8.4 L D/C Instructions Discharge Diet: No restrictions Discharge Activity: Return to Normal Activity, May Shower and Use Walker Weight Bearing Status: Weight bearing as tolerated Call your doctor if you observe: Fever of 101 or Higher, Inability to urinate, Inability to have a bowel movement, Shortness of breath, Dizziness, Fainting spells, Swelling in the ankles, Chest pain and Uncontrolled pain Additional Instructions: Discharge home with 10/03/2022, [facility] PT/OT. Please Follow Up With: Kevin Castano DO When: As scheduled. Meaningful Use Info Meaningful Use Diagnoses (Choose all that apply): None applicable Discharge Plan Admission Admit Date/Time: 09/24/22 11:29 Primary Reason for Your Visit: Debility. Attending Provider: Marques Grajeda Chi Primary Care Provider: Omar Holt Instructions Additional Instructions / Restrictions: Discharge home with 10/03/2022, [facility] PT/OT. Discharge Orders/Prescriptions Prescriptions: New polysaccharide iron complex [Ferrex 150] 150 mg iron Capsule 150 mg PO BREAKFAST 30 Days Qty: 30 0RF Eliquis 5 mg Tablet 2.5 mg PO BID 30 Days Qty: 30 0RF acetaminophen 500 mg Tablet 1,000 mg PO Q8 Qty: 0 0RF oxycodone 5 mg Tablet 5 mg PO Q4H PRN PRN (Reason: Pain Score 6-10) 7 Days Qty: 42 0RF ascorbic acid (vitamin C) 500 mg Tablet 500 mg PO BREAKFAST Qty: 0 0RF mirtazapine 15 mg Tablet 7.5 mg PO QHS 30 Days Qty: 15 0RF Continued pantoprazole 20 mg tablet,delayed release (DR/EC) 20 mg PO DAILY prednisone 5 mg tablet 5 mg PO DAILY Patient Comments: 5 mg PO as directed for polymyalgia rheumatica; Rx Instructions: 5 mg PO as directed for polymyalgia rheumatica; nitroglycerin 0.4 MG tablet, sublingual 0.4 mg sublingual TID PRN PRN (Reason: Angina) prednisolone acetate 1 % drops,suspension 1 drp ophthalmic (eye) Q8H Patient Comments: INSTILL 1 DROP INTO LEFT EYE 3 TIMES DAILY cyanocobalamin (vitamin B-12) 500 mcg Tablet 1,000 mcg PO BREAKFAST Qty: 0 0RF amlodipine 10 mg tablet 10 mg PO DAILY Qty: 90 3RF atorvastatin 40 mg tablet 40 mg PO QHS Qty: 90 3RF metoprolol succinate 25 mg tablet extended release 24 hr 25 mg PO DAILY Qty: 90 3RF Discontinued aspirin 81 MG tablet,chewable 81 mg PO DAILY Patient Comments: BLOOD THINNER Eliquis 5 mg Tablet 2.5 mg PO BID 30 Days Qty: 30 0RF polysaccharide iron complex [Ferrex 150] 150 mg iron Capsule 150 mg PO BREAKFAST Qty: 0 0RF oxycodone 5 mg Tablet 5 mg PO Q4H PRN PRN (Reason: Pain Score 6-10) 3 Days Qty: 10 0RF Referrals / Follow Up: Omar Holt MD [Primary Care Provider] - 10/10/22 9:00 am Disposition Disposition (needs filled in before D/C Order can be placed): Home Health Service
[2022-10-02] MEDS: Atorvastatin Calcium 40 MG Tablet PO (21:42)
[2022-10-02] MEDS: Doxepin Hydrochloride 10 MG Capsule PO (21:42)
[2022-10-02] MEDS: Mirtazapine 15 MG Tablet 7.5 MG PO (21:42)
[2022-10-02 22:00] VITALS: PULSE 81; RESP 16; O2SAT 98
[2022-10-03] MEDS: prednisoLONE eye drops (5 mL) 1 DROP OPTH.BTL 1 DRP LEFT EYE (06:10)
[2022-10-03 06:11] VITALS: BP 132/61; PULSE 75
[2022-10-03] MEDS: APIXABAN 2.5 MG TABLET (WCH) PO (06:11)
[2022-10-03] MEDS: amLODIPine 10 MG Tablet PO (06:11)
[2022-10-03] MEDS: Senna/Docusate Sodium 1 Tablet PO (06:11)
[2022-10-03] MEDS: Acetaminophen 500 MG Tablet 1000 MG PO (06:11)
[2022-10-03] MEDS: Pantoprazole Sodium 20 MG Tablet PO (06:11)
[2022-10-03] MEDS: Metoprolol(XL)Succ 25 MG Tablet PO (06:11)
[2022-10-03 06:30] LABS: Hematocrit 28.4 % (40-54)
[2022-10-03] MEDS: Ascorbic Acid 500 MG Tablet PO (08:37)
[2022-10-03] MEDS: Cyanocobalamin 500 MCG Tablet 1000 MCG PO (08:37)
[2022-10-03] MEDS: Iron Polysaccharide Complex 150 MG CAPSULE PO (08:37)
[2022-10-03] MEDS: predniSONE 5 MG Tablet PO (08:37)
[2022-10-03] MEDS: oxyCODONE 5 MG Tablet PO ×2 (08:38→12:44)
[2022-10-03 13:00] VITALS: O2SAT 99
--- NOTE | 2022-10-07 14:02 | MDS.RN ---
Information for the mds was obtained from review of the clinical record, interview of resident, staff, and direct observation of resident's care.
== END 2022-10-03 13:30 | disposition home health service (06) | DRG 560 ==
PROVIDERS: Admitting Provider Family Medicine Geriatric Medicine; PCP Family Medicine; Visit Provider Family Medicine Geriatric Medicine
DX: S72.001D Fracture of unspecified part of neck of right femur, subsequent encounter for closed fracture with routine healing (principal); E27.40 Unspecified adrenocortical insufficiency; I48.0 Paroxysmal atrial fibrillation; M35.3 Polymyalgia rheumatica; I25.10 Atherosclerotic heart disease of native coronary artery without angina pectoris; E53.8 Deficiency of other specified B group vitamins; E78.00 Pure hypercholesterolemia, unspecified; I10 Essential (primary) hypertension; D50.9 Iron deficiency anemia, unspecified; W19.XXXD Unspecified fall, subsequent encounter; F32.A Depression, unspecified; Z87.891 Personal history of nicotine dependence; Z79.82 Long term (current) use of aspirin; Z79.01 Long term (current) use of anticoagulants; Z79.899 Other long term (current) drug therapy
CPT/HCPCS: 36415; 71046; 80048; 85014; 85018; 85025; 93005; 93971; 97110; 97162; 97166; 97530; 97535; 97802

== ENCOUNTER → 2022-09-26 | Outpatient (CLI) | payer MEDICARE, OTHER, SELFPAY ==
--- NOTE | 2022-09-26 10:15 | VDLE_ITS ---
Reason For Study: ELEVATRD D DIMER RIGHT GSV is normal. CFV is compressible, spontaneous, phasic, competent and demonstrates normal augmentation. FV is compressible, spontaneous, phasic, competent and demonstrates normal augmentation. POP V is compressible, spontaneous, phasic, competent and demonstrates normal augmentation. T/P Trunk is compressible. PTV is compressible. RT PerV is compressible. Procedure This is a venous duplex using B-mode, color flow and spectral Doppler. Exam performed portable in patient room. A preliminary report was called and/or faxed to RN in TCU @ 2:10 PM. VL/Venous Duplex US, Unilateral Interpretation Summary There is no evidence of right lower extremity deep vein thrombosis. Right great saphenous vein appears patent and compressible segmentally. Ordering Physician: Marques Grajeda Chi Referring Physician: Devan Holt Performed By: Cristy Benton, JACICS, RVT
== END | disposition home or self-care (01) ==
LOC: CVS 10:14
PROVIDERS: PCP Family Medicine; Referring Provider Family Medicine Geriatric Medicine; Visit Provider Family Medicine Geriatric Medicine
DX: R79.1 Abnormal coagulation profile (principal)
CPT/HCPCS: 93971

== ENCOUNTER → 2022-09-26 | Outpatient (CLI) | payer MEDICARE, OTHER, SELFPAY ==
--- NOTE | 2022-09-26 15:22 | CT_ITS ---
INDICATION: EVALUATE PULMONARY FIBROSIS EXAMINATION: CT CHEST WITHOUT CONTRAST - CT Chest W/O Contrast Injection TECHNIQUE: Helically acquired images were obtained of the chest. A radiation dose optimization technique was used for this scan. IV Contrast dosage and agent: None. RADIATION DOSAGE (If Supplied By Facility): CTDIvol = ( 12.75 ) mGy, DLP = ( 468.20 ) mGycm COMPARISON: September 20, 2022 FINDINGS: LUNGS, PLEURA AND LARGE AIRWAYS: Persistent bilateral interstitial densities/fibrosis more significantly in the lung bases. Bilateral pulmonary calcified granulomas. No pleural effusion or thickening. No pneumothorax. THYROID: No thyroid lesions. HEART AND PERICARDIUM: Heart size is normal. No pericardial effusion. CORONARY ARTERIES: Coronary artery calcification VESSELS: Thoracic aorta is not dilated. MEDIASTINUM AND ANA LILIA: No mediastinal or hilar adenopathy. Esophagus is unremarkable. No hiatal hernia. UPPER ABDOMEN: Small hiatal hernia. BONES: No suspicious lytic or blastic abnormality. CT/Chest without Contrast IMPRESSION: Persistent chronic interstitial thickening/fibrosis similar to previous study Electronically Signed: Surjit Thomas DO at 22:29 EDT ,
== END | disposition home or self-care (01) ==
LOC: CT 15:22
PROVIDERS: PCP Family Medicine; Referring Provider Family Medicine Geriatric Medicine; Visit Provider Family Medicine Geriatric Medicine
DX: J84.10 Pulmonary fibrosis, unspecified (principal); R79.1 Abnormal coagulation profile
CPT/HCPCS: 71250; 93971

== ENCOUNTER → 2022-09-30 | Outpatient (CLI) | payer MEDICARE, OTHER, SELFPAY ==
--- NOTE | 2022-09-30 09:30 | VDLE_ITS ---
Reason For Study: RLE swelling RIGHT GSV is normal. CFV is compressible, spontaneous, phasic, competent and demonstrates normal augmentation. FV is compressible, spontaneous, phasic, competent and demonstrates normal augmentation. POP V is compressible, spontaneous, phasic, competent and demonstrates normal augmentation. T/P Trunk is compressible. PTV is compressible. RT PerV is compressible. Procedure This is a venous duplex using B-mode, color flow and spectral Doppler. Exam performed portable in patient room. The exam was diagnostic. A preliminary report was called and/or faxed to the pt's RN. VL/Venous Duplex US, Unilateral Interpretation Summary There is no evidence of right lower extremity deep vein thrombosis. Right great saphenous vein appears patent and compressible segmentally. Ordering Physician: Marques Grajeda Chi Performed By: Kishore Valladares RVT
== END | disposition home or self-care (01) ==
LOC: CVS 09:23
PROVIDERS: PCP Family Medicine; Referring Provider Family Medicine Geriatric Medicine; Visit Provider Family Medicine Geriatric Medicine
DX: M79.89 Other specified soft tissue disorders (principal)
CPT/HCPCS: 93971

== ENCOUNTER 2023-02-25 13:00 | Outpatient (RCR) | payer MEDICARE, OTHER, SELFPAY ==
--- NOTE | 2022-11-03 16:01 | HP.PTEVAL ---
Patient's Visit Information Visit Information Visit Information: SHAWNA DELEON is a 82 year old M referred to Physical Therapy by Dr. Kevin Castano DO with a diagnosis of CLOSED R HIP FRACTURE. Date of Evaluation: 11/03/22 Physical Therapist: Carolin Ceron, PT, Cert MDT Visit Plan Frequency: 2-3x /Week Duration: 4-6 Weeks Plan: *CHECK AUTH* GAIT TRAIINING WBAT R LE. QUINCY LE ROM, STRETCHING AND STRENGTHENING. HEP INSTRUCTION. 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 Treatment this episode: 09/21/[address] CASTANO. TCU X 9 DAYS. HOME HEALTH PT FOR ABOUT 3 WKS. WILL HAVE 2ND POST OP VISIT WITH DR. VAZQUEZ THIS THURSDAY. Gait: WALKING AROUND HOME 30 OR MORE FEET TO BACK BATHROOM WITH FWW. NOT TAKING WALKS OUTSIDE. Bowel or Bladder Dysfunction: NO Accidents: NO Unexplained weight loss: HAS LOST ABOUT 10 LBS FOR NO APPARENT REASON - STATES DR. DIAZ AT [facility] IS AWARE. OTHER: R ROTATOR CUFF INJURY THAT WAS SEEN BY OT AND PATIENT REPORTS IT HAS IMPROVED BUT IT HURTS WORSE THAN HIS HIP (). HE REPORTS HE HAS BEEN RELEASED TO A HEP FOR HIS SHOULDER AT THIS TIME. PMH/Recent major surgery: ATRIAL FIB. POLYMYALGIA RHEUMATICA. HTN. GERD. R ROTATOR CUFF INJURY WITH RECENT FALL. Objective Objective: THIS PATIENT WAS BROUGHT BACK TO A PT ROOM BY HIS IN A W/C. DURNG TUG TEST HE WAS OBSERVED WALKING WITH EXCESSIVE TRUNK FLEXION AND HIS WALKER WAS TOO LOW. AFTER INCREASING HIS WALKER TWO NOTCHES HIS POSTURE WAS GREATLY IMPROVED AND PATIENT REPORTED LIKING THIS MUCH BETTER. SEE STS TEST BELOW TOO. HE IS ABLE TO INDEP'LY TRANSFER FROM SIT TO STAND BUT QUINCY UE DEPENDENT TO DO SO. Sensory deficit: QUINCY LE LIGHT TOUCH SENSATION IS GROSSLY INTACT AND SYMMETRICAL EXCEPT DECREASED LIGHT TOUCH SENSATION OF RIGHT LATERAL THIGH COMPARED TO LEFT. ROM deficit: QUINCY LE HS AND GASTROC-SOLEUS COMPLEX TIGHTNESS Motor deficit: L LE: HIP 4/5, KNEE 4/5, ANKLE 5/5. R LE: HIP 3+/5, KNEE 3+/5, ANKLE 4/5. Core strength: POOR TUG TEST BELOW TESTED WITH FWW AND STS TEST WITH QUINCY UE ASSIST. PATIENT IS PLEASANT AND COOPERATIVE TO WORK WITH. HIS IS PRESENT THROGHOUT SESSION TODAY AND HELPFUL WITH MEDICAL HISTORY. Balance/Special Test Scores Lower Extremity Functional Score: 33 TUG Test Time Seconds: 27.99 30 Second Chair Rise Test Seconds: 7 Goals Goal 1:: PATIENT WILL AMBULATE 300 FEET WITH STRAIGHT CANE WITH SUPERVISION X 1 TO IMPROVE ACTIVITY TOLERANCE Goal Time Frame: 4-6 Weeks Goal 2:: PATIENT WILL COMPLETE 10 STANDS IN 30 SECS TO DEMONSTRATE IMPROVED FUNCTIONAL STRENGTH Goal Time Frame: 4-6 Weeks Goal 3:: PATIENT WILL COMPLETE TUG IN < 15 SECS TO DEMONSTRATE IMPROVED GAIT STABILITY Goal Time Frame: 4-6 Weeks Goal 4:: PATIENT WILL BE INDEP WITH A HEP FOR CONTINUED IMPROVEMENT ONCE FORMAL PHYSICAL THERAPY CONCLUDES. Goal Time Frame: 4-6 Weeks Anticipated Interventions Patient/Client Instruction: Educate patient on: Condition, Plan of Care and Risk Factors For the Purpose of:: To improve self management Therapeutic Exercise to Include: Strength training, Endurance training, Balance training, Body mechanics, Postural training, Flexibilty training, Gait and locomotor training and Neuromotor development For the Purpose of:: To increase ROM, To improve muscle performance and motor function, To increase tolerance to activity/condition/position, To improve ability of physical actions for home/community/work/leisure and To improve gait and locomotor functions Text: Thank you for the opportunity to evaluate your patient. For Medicare and Medicare HMO plans, please review the plan of care and approve it. It will need to be FAXED BACK to us at [phone] for Medicare purposes. For Medicare only, by signing this I certify the plan of care. Please let me know if there are questions or concerns regarding this plan of care. Physician Signature: Date:
--- NOTE | 2022-11-28 14:29 | HP.PTEVAL_ITS ---
Patient's Visit Information Visit Information Visit Information: SHAWNA DELEON is a 82 year old M referred to Physical Therapy by Dr. Kevin Castano DO with a diagnosis of CLOSED R HIP FRACTURE. Date of Evaluation: 11/03/22 Physical Therapist: Carolin Ceron, PT, Cert MDT Visit Plan Frequency: 2-3x /Week Duration: 4-6 Weeks Plan: *GAIT BELT AND CONTACT GUARD FOR SAFETY WHEN USING CANE - WALK PATIENT IN AND OUT OF DEPARTMENT WHEN USING CANE* CONTINUE PT 2-3 TIMES A WK X 4-6 WKS X 10 VISITS FOR: BALANCE TRAINING. GAIT TRAIINING WBAT R LE WITH CANE. QUINCY LE ROM, STRETCHING AND STRENGTHENING. HEP INSTRUCTION. 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 Treatment this episode: 09/21/[address] CASTANO. TCU X 9 DAYS. HOME HEALTH PT FOR ABOUT 3 WKS. WILL HAVE 2ND POST OP VISIT WITH DR. VAZQUEZ THIS THURSDAY. Gait: WALKING AROUND HOME 30 OR MORE FEET TO BACK BATHROOM WITH FWW. NOT TAKING WALKS OUTSIDE. Bowel or Bladder Dysfunction: NO Accidents: NO Unexplained weight loss: HAS LOST ABOUT 10 LBS FOR NO APPARENT REASON - STATES DR. DIAZ AT [facility] IS AWARE. OTHER: R ROTATOR CUFF INJURY THAT WAS SEEN BY OT AND PATIENT REPORTS IT HAS IMPROVED BUT IT HURTS WORSE THAN HIS HIP (). HE REPORTS HE HAS BEEN RELEASED TO A HEP FOR HIS SHOULDER AT THIS TIME. PMH/Recent major surgery: ATRIAL FIB. POLYMYALGIA RHEUMATICA. HTN. GERD. R ROTATOR CUFF INJURY WITH RECENT FALL. Pain R Hip: Pain Intensity (Out of 10): 4 Comment: groin region intermittent Objective Objective: THIS PATIENT WAS BROUGHT BACK TO A PT ROOM BY HIS IN A W/C. DURNG TUG TEST HE WAS OBSERVED WALKING WITH EXCESSIVE TRUNK FLEXION AND HIS WALKER WAS TOO LOW. AFTER INCREASING HIS WALKER TWO NOTCHES HIS POSTURE WAS GREATLY IMPROVED AND PATIENT REPORTED LIKING THIS MUCH BETTER. SEE STS TEST BELOW TOO. HE IS ABLE TO INDEP'LY TRANSFER FROM SIT TO STAND BUT QUINCY UE DEPENDENT TO DO SO. Sensory deficit: QUINCY LE LIGHT TOUCH SENSATION IS GROSSLY INTACT AND SYMMETRICAL EXCEPT DECREASED LIGHT TOUCH SENSATION OF RIGHT LATERAL THIGH COMPARED TO LEFT. ROM deficit: QUINCY LE HS AND GASTROC-SOLEUS COMPLEX TIGHTNESS Motor deficit: L LE: HIP 4/5, KNEE 4/5, ANKLE 5/5. R LE: HIP 3+/5, KNEE 3+/5, ANKLE 4/5. Core strength: POOR TUG TEST BELOW TESTED WITH FWW AND STS TEST WITH QUINCY UE ASSIST. PATIENT IS PLEASANT AND COOPERATIVE TO WORK WITH. HIS IS PRESENT THROGHOUT SESSION TODAY AND HELPFUL WITH MEDICAL HISTORY. Balance/Special Test Scores Lower Extremity Functional Score: 37 TUG Test Time Seconds: 12.57 30 Second Chair Rise Test Seconds: 10 Goals Goal 1:: PATIENT WILL AMBULATE 300 FEET WITH STRAIGHT CANE WITH SUPERVISION X 1 TO IMPROVE ACTIVITY TOLERANCE NEW GOAL: PATIENT WILL AMBULATE INDEP'LY X [address] CANE TO IMPROVE ACTIVITY TOLERANCE. Goal Time Frame: 4-6 Weeks Goal 2:: PATIENT WILL COMPLETE 10 STANDS IN 30 SECS TO DEMONSTRATE IMPROVED FUNCTIONAL STRENGTH NEW GOAL: PATIENT WILL COMPLETE 10 STANDS IN 30 SECS WITHOUT UE ASSIST TO DEMONSTRATE IMPROVED FUNCTIONAL LE STRENGTH Goal Time Frame: 4-6 Weeks Goal 3:: PATIENT WILL COMPLETE TUG IN < 15 SECS TO DEMONSTRATE IMPROVED GAIT STABILITY NEW GOAL: PATIENT WILL COMPLETE TUG IN < [address] CANE WITH SUPERVISION TO DEMONSTRATE IMPROVED GAIT STABILITY. Goal Time Frame: 4-6 Weeks Goal 4:: PATIENT WILL BE INDEP WITH A HEP FOR CONTINUED IMPROVEMENT ONCE FORMAL PHYSICAL THERAPY CONCLUDES. Goal Time Frame: 4-6 Weeks Anticipated Interventions Patient/Client Instruction: Educate patient on: Condition, Plan of Care and Risk Factors For the Purpose of:: To improve self management Therapeutic Exercise to Include: Strength training, Endurance training, Balance training, Body mechanics, Postural training, Flexibilty training, Gait and locomotor training and Neuromotor development For the Purpose of:: To increase ROM, To improve muscle performance and motor function, To increase tolerance to activity/condition/position, To improve ability of physical actions for home/community/work/leisure and To improve gait and locomotor functions Text: Thank you for the opportunity to evaluate your patient. For Medicare and Medicare HMO plans, please review the plan of care and approve it. It will need to be FAXED BACK to us at [phone] for Medicare purposes. For Medicare only, by signing this I certify the plan of care. Please let me know if there are questions or concerns regarding this plan of care. Physician Signature: Date:
--- NOTE | 2022-11-28 14:30 | HP.PTREVAL_ITS ---
Re-Evaluation Intro: Dr. Kevin Castano, DO, It has been my pleasure to treat SHAWNA DELEON over the last 10 visits for CLOSED R HIP FRACTURE. Please see the progress note below for an update on the physical therapy plan of care! Subjective Subjective: PATIENT REPORTS THAT WHEN HE STARTED PT HE COULDN'T GET HIS LEG ON THE BED OR EVEN LIFT IT BUT NOW HE CAN LIFT IT GOOD. HE STATES HE CAN SLEEP IN HIS OWN BED NOW AND GET TO THE BATHROOM ON HIS OWN NOW. HE IS SHOWERING BY HIMSELF NOW TOO. NO FALLS SINCE STARTING PT AND STATES HE CAN GET IN AND OUT OF THE CAR GOOD. HE STATES HE CAN SEE A LOT OF IMPROVEMENT BUT HAS A WAYS TO GO YET. TRYING TO TRANSITION TO CANE BUT STILL HAS A FEAR OF FALLING AND STILL MAINLY USING THE WALKER. PATIENT REPORTS HIS PROBLEM NOW IS HIS OLD R KNEE INJURY BECAUSE IT IS ON THE SAME SIDE HIS HIP FX AND HIS R HIP IS STILL SORE. STATES HE STILL FEELS PRESSURE IN HIS R HIP TOO WHEN HE WALKS BUT IT ISN'T REAL PAINFUL. USING TYLONOL NEEDED. PATIENT REPORTS HE MUST HAVE FELL ON HIS R SHLD TOO AND THE OCCUPATIONAL THERAPISTS WORKED ON IT AND THEY X-RAY'D IT BUT DIDN'T FIND ANYTHING. HE STATES HIS SHLD DOESN'T HURT ALL THE TIME BUT HE DOES STILL GET SHARP PAIN AND HE WILL GET IT CHECKED OUT AGAIN IF NEEDED. Objective Objective/Function: PATIENT WAS SEEN TODAY FOR RE-ASSESSMENT OF PROGRESS TOWARD THE SET PT GOALS AND THE NEED FOR FURTHER PHYSICAL THERAPY VS READINESS FOR DISCHARGE. PATIENT IS MAKING GOOD PROGRESS WITH PT AND IS A GOOD CANDIDATE TO CONTINUE PT BASED ON PROGRESS MADE AND ROOM FOR FURHTER IMPROVEMENT. UPON EXAM TODAY: THIS PATIENT AMBULATES INDEP'LY INTO PT WITH FWW X APPROX 300 FEET WITHOUT LOB AND FAIR CADANCE. CG REQUIRED FOR SAFETY WITH CANE. ENCOURAGED PATIENT TO CONTINUE USE OF WALKER FOR SAFETY AT THIS TIME UNLESS WITH THERAPIST IN PT OR PRACTICING WITH AT HOME. PATIENT AGREEABLE. Sensory deficit: QUINCY LE LIGHT TOUCH SENSATION IS GROSSLY INTACT AND SYMMETRICAL THROUGHOUT. ROM deficit: QUINCY LE HS AND GASTROC-SOLEUS COMPLEX TIGHTNESS BUT IMPROVING. Motor deficit: L LE: HIP 4+/5, KNEE 5/5, ANKLE 5/5. R LE: HIP 4-/5, KNEE 4/5, ANKLE 5/5. Core strength: FAIR SEE IMPROVED TUG TEST AND STS TEST RESULTS BELOW. Plan Plan Plan: *GAIT BELT AND CONTACT GUARD FOR SAFETY WHEN USING CANE - WALK PATIENT IN AND OUT OF DEPARTMENT WHEN USING CANE* CONTINUE PT 2-3 TIMES A WK X 4-6 WKS X 10 VISITS FOR: BALANCE TRAINING. GAIT TRAIINING WBAT R LE WITH CANE. QUINCY LE ROM, STRETCHING AND STRENGTHENING. HEP INSTRUCTION. Balance/Gait/Functional tests Balance/Special Test Scores Lower Extremity Functional Score: 37 TUG Test Time Seconds: 12.57 Tug Test: <20 sec.=mostly independent 30 Second Chair Rise Test Seconds: 10 Goals Goals Goal 1:: PATIENT WILL AMBULATE 300 FEET WITH STRAIGHT CANE WITH SUPERVISION X 1 TO IMPROVE ACTIVITY TOLERANCE NEW GOAL: PATIENT WILL AMBULATE INDEP'LY X [address] CANE TO IMPROVE ACTIVITY TOLERANCE. Goal Time Frame: 4-6 Weeks Goal 2:: PATIENT WILL COMPLETE 10 STANDS IN 30 SECS TO DEMONSTRATE IMPROVED FUNCTIONAL STRENGTH NEW GOAL: PATIENT WILL COMPLETE 10 STANDS IN 30 SECS WITHOUT UE ASSIST TO DEMONSTRATE IMPROVED FUNCTIONAL LE STRENGTH Goal Time Frame: 4-6 Weeks Goal 3:: PATIENT WILL COMPLETE TUG IN < 15 SECS TO DEMONSTRATE IMPROVED GAIT STABILITY NEW GOAL: PATIENT WILL COMPLETE TUG IN < [address] CANE WITH SUPERVISION TO DEMONSTRATE IMPROVED GAIT STABILITY. Goal Time Frame: 4-6 Weeks Goal 4:: PATIENT WILL BE INDEP WITH A HEP FOR CONTINUED IMPROVEMENT ONCE FORMAL PHYSICAL THERAPY CONCLUDES. Goal Time Frame: 4-6 Weeks Anticipated Interventions Anticipated Interventions Patient/Client Instruction: Educate patient on: Condition, Plan of Care and Risk Factors For the Purpose of:: To improve self management Therapeutic Exercise to Include: Strength training, Endurance training, Balance training, Body mechanics, Postural training, Flexibilty training, Gait and locomotor training and Neuromotor development For the Purpose of:: To increase ROM, To improve muscle performance and motor function, To increase tolerance to activity/condition/position, To improve ability of physical actions for home/community/work/leisure and To improve gait and locomotor functions Re-Evaluation Ending Re-evaluation ending: Please do not hesitate to contact me at [phone] by phone or Fax: if you have questions or concerns regarding this new plan of care! Sincerely, Carolin Ceron, PT, Cert MDT
--- NOTE | 2022-12-26 16:00 | HP.PTREVAL ---
Re-Evaluation Intro: Dr. Kevin Castano, DO, It has been my pleasure to treat SHAWNA DELEON over the last 19 visits for CLOSED R HIP FRACTURE. Please see the progress note below for an update on the physical therapy plan of care! Subjective Subjective: PATIENT REPORTS HE IS CONTINUING TO IMPROVE. DRESSING AND BATHING SELF. USING CANE MORE AND FEELING MORE CONFIDENT WITH CANE. WENT TO WITH CANE THURSDAY. NO MORE FALLS. PATIENT ALSO REPORTS HE IS SLEEPING BETTER. EATING MORE AT THE TABLE NOW INSTEAD OF IN FRONT OF THE TV. PATIENTS REPORTS HE IS GETTING AROUND BETTER IN GENERAL AND DOING STEPS MORE. NO AD, DRIVING AND DOING OWN LAUNDRY (CARRYING BASKETS UP AND DOWN STEPS) PRIOR TO FALL. WOULD LIKE TO CONTINUE PT. STILL CONSIDERING HAVING SHOULDER LOOKED AT. Objective Objective/Function: PATIENT WAS SEEN TODAY FOR RE-ASSESSMENT OF PROGRESS TOWARD THE SET PT GOALS AND THE NEED FOR FURTHER PHYSICAL THERAPY VS READINESS FOR DISCHARGE. UPON EXAM TODAY LE STRENGTH, GAIT/BALANCE AND FUNCTION ARE IMPROVING SLOWLY - SEE LEFS SCORE, TUG AND STS RESULTS BELOW. PATIENT DEMO'D AMBULATION X 400 FEET WITH STRAIGHT CANE WITH CONTACT GUARD TODAY WITH LOB X 1 AT APPROX 350 FEET BUT PATIENT ABLE TO REGAIN BALANCE INDEP'LY. LOB APPEARED TO BE DUE TO FATIGUE. PATIENT IS A GOOD CANDIDATE TO CONTINUE PT BASED ON PROGRESS MADE AND ROOM FOR FURTHER IMPROVEMENT. PATIENT IS AGREEABLE. Plan Plan Plan: *GAIT BELT AND CONTACT GUARD FOR SAFETY WHEN USING CANE - WALK PATIENT IN AND OUT OF DEPARTMENT WHEN USING CANE* CONTINUE PT 2-3 TIMES A WK X 4-6 WKS X 10 VISITS FOR: BALANCE TRAINING. GAIT TRAIINING WBAT R LE WITH CANE. QUINCY LE ROM, STRETCHING AND STRENGTHENING. HEP INSTRUCTION. Balance/Gait/Functional tests Balance/Special Test Scores Lower Extremity Functional Score: 41 TUG Test Time Seconds: 10.2 Tug Test: <10 sec.=free mobile 30 Second Chair Rise Test Seconds: 11 Goals Goals Goal 1:: PATIENT WILL AMBULATE 300 FEET WITH STRAIGHT CANE WITH SUPERVISION X 1 TO IMPROVE ACTIVITY TOLERANCE NEW GOAL: PATIENT WILL AMBULATE INDEP'LY X [address] CANE TO IMPROVE ACTIVITY TOLERANCE. NEW GOAL: PATIENT WILL BE ABLE TO INDEP'LY SAFELY AMBULATE [address] CANE TO IMPROVE ACTIVITY TOLERANCE Goal Time Frame: 4-6 Weeks Goal 2:: PATIENT WILL COMPLETE 10 STANDS IN 30 SECS TO DEMONSTRATE IMPROVED FUNCTIONAL STRENGTH NEW GOAL: PATIENT WILL COMPLETE 10 STANDS IN 30 SECS WITHOUT UE ASSIST WITH ELEVATED SEAT WITH ONE BLUE FOAM TO DEMONSTRATE IMPROVED FUNCTIONAL LE STRENGTH Goal Time Frame: 4-6 Weeks Goal 3:: PATIENT WILL COMPLETE TUG IN < 15 SECS TO DEMONSTRATE IMPROVED GAIT STABILITY NEW GOAL: PATIENT WILL COMPLETE TUG IN < [address] CANE INDEP'LY AND SAFELY TO DEMONSTRATE IMPROVED GAIT STABILITY. Goal Time Frame: 4-6 Weeks Goal 4:: PATIENT WILL BE INDEP WITH A HEP FOR CONTINUED IMPROVEMENT ONCE FORMAL PHYSICAL THERAPY CONCLUDES. Goal Time Frame: 4-6 Weeks Anticipated Interventions Anticipated Interventions Patient/Client Instruction: Educate patient on: Condition, Plan of Care and Risk Factors For the Purpose of:: To improve self management Therapeutic Exercise to Include: Strength training, Endurance training, Balance training, Body mechanics, Postural training, Flexibilty training, Gait and locomotor training and Neuromotor development For the Purpose of:: To increase ROM, To improve muscle performance and motor function, To increase tolerance to activity/condition/position, To improve ability of physical actions for home/community/work/leisure and To improve gait and locomotor functions Re-Evaluation Ending Re-evaluation ending: Please do not hesitate to contact me at [phone] by phone or if you have questions or concerns regarding this new plan of care! Sincerely, Carolin Ceron, PT, Cert MDT
--- NOTE | 2023-01-27 12:35 | HP.PTREVAL ---
Re-Evaluation Intro: Dr. Kevin Castano, DO, It has been my pleasure to treat SHAWNA DELEON over the last 29 visits for CLOSED R HIP FRACTURE. Please see the progress note below for an update on the physical therapy plan of care! Subjective Subjective: I'M HAPPY THAT I'M OFF THE WALKER. PATIENT REPORTS HE IS DOING A LOT BETTER BUT HE WOULD STILL LIKE SOME MORE HELP WITH HIS BALANCE AND STRENGTH. HASN'T FELT HIS RIGHT LEG IS STRONG ENOUGH TO GET FROM THE GAS TO THE BRAKE FAST ENOUGH TO DRIVE SAFELY SO HASN'T YET. HAS BEEN FIXING OWN BREAKFAST. HELPING WASH AND PUT AWAY DISHES. STARTING TO WALK OUTSIDE ON UNEVEN GROUND WITH CANE BUT DID LOSE BALANCE HOWEVER REGAINED INDEP'LY. WALKED TO MAILBOX WITH CANE. Objective Objective/Function: PATIENT WAS SEEN TODAY FOR RE-ASSESSMENT OF PROGRESS TOWARD THE SET PT GOALS AND THE NEED FOR FURTHER PHYSICAL THERAPY VS READINESS FOR DISCHARGE. UPON EXAM TODAY LE STRENGTH, GAIT/BALANCE AND FUNCTION ARE IMPROVING SLOWLY - SEE LEFS SCORE, TUG AND STS RESULTS BELOW. PATIENT DEMO'D AMBULATION X >800 FEET WITH STRAIGHT CANE WITH SUPERVISION TODAY WITHOUT LOB TODAY. PATIENT IS A GOOD CANDIDATE TO CONTINUE PT BASED ON PROGRESS MADE AND ROOM FOR FURTHER IMPROVEMENT. PATIENT IS AGREEABLE. Plan Plan Plan: EMPHASIZE HEP FOR DISCHARGE. *GAIT BELT DURING BALANCE ACTIVITES. CONTINUE PT 2 TIMES A WK X 3-4 WKS FOR BALANCE TRAINING. GAIT TRAIINING WITH AND WITHOUT CANE. QUINCY LE ROM, STRETCHING AND STRENGTHENING. HEP INSTRUCTION. Balance/Gait/Functional tests Balance/Special Test Scores Lower Extremity Functional Score: 47 TUG Test Time Seconds: 8.33 Tug Test: <10 sec.=free mobile 30 Second Chair Rise Test Seconds: 4 6 Minute Walk Test: 772 feet with standard cane CGA (approximately 257 meters) Goals Goals Goal 1:: PATIENT WILL AMBULATE 300 FEET WITH STRAIGHT CANE WITH SUPERVISION X 1 TO IMPROVE ACTIVITY TOLERANCE NEW GOAL: PATIENT WILL AMBULATE INDEP'LY X [address] CANE TO IMPROVE ACTIVITY TOLERANCE. NEW GOAL: PATIENT WILL BE ABLE TO INDEP'LY SAFELY AMBULATE [address] CANE TO IMPROVE ACTIVITY TOLERANCE Goal Time Frame: 4-6 Weeks Goal Progress: GOALS MET Goal 2:: PATIENT WILL COMPLETE 10 STANDS IN 30 SECS TO DEMONSTRATE IMPROVED FUNCTIONAL STRENGTH NEW GOAL: PATIENT WILL COMPLETE 10 STANDS IN 30 SECS WITHOUT UE ASSIST WITH ELEVATED SEAT WITH ONE BLUE FOAM TO DEMONSTRATE IMPROVED FUNCTIONAL LE STRENGTH Goal Time Frame: 4-6 Weeks Goal Progress: GOALS MET Goal 3:: PATIENT WILL COMPLETE TUG IN < 15 SECS TO DEMONSTRATE IMPROVED GAIT STABILITY NEW GOAL: PATIENT WILL COMPLETE TUG IN < [address] CANE INDEP'LY AND SAFELY TO DEMONSTRATE IMPROVED GAIT STABILITY. Goal Time Frame: 4-6 Weeks Goal Progress: GOALS MET Goal 4:: PATIENT WILL BE INDEP WITH A HEP FOR CONTINUED IMPROVEMENT ONCE FORMAL PHYSICAL THERAPY CONCLUDES. Goal Time Frame: 3-4 WKS Goal 5:: PATIENT WILL COMPLETE 6 STANDS IN 30 SECS WITHOUT UE ASSIST TO DEMONSTRATE IMPROVED FUNCTIONAL STRENGTH Goal Time Frame: 3-4 WKS Goal 6:: INDEP SAFE GAIT ON LEVEL SURFACES AND UP AND DOWN STEPS WITH 1 HR/CANE X 1,000 FEET. Goal Time Frame: 3-4 WKS. Anticipated Interventions Anticipated Interventions Patient/Client Instruction: Educate patient on: Condition, Plan of Care and Risk Factors For the Purpose of:: To improve self management Therapeutic Exercise to Include: Strength training, Endurance training, Balance training, Body mechanics, Postural training, Flexibilty training, Gait and locomotor training and Neuromotor development For the Purpose of:: To increase ROM, To improve muscle performance and motor function, To increase tolerance to activity/condition/position, To improve ability of physical actions for home/community/work/leisure and To improve gait and locomotor functions Re-Evaluation Ending Re-evaluation ending: Please do not hesitate to contact me at [phone] by phone or if you have questions or concerns regarding this new plan of care! Sincerely, Carolin Ceron, PT, Cert MDT
--- NOTE | 2023-02-25 13:42 | HP.PTDCSUM ---
Discharge Summary D/C summary: It has been my pleasure to treat SHAWNA DELEON referred by Dr. Kevin Castano DO, with the diagnosis of CLOSED R HIP FRACTURE for a total of 37 visit(s). Discharge Date: 02/25/23 Please see the following information for a summary of their discharge status. Subjective Subjective: PATIENT REPORTS HE JOINED AND HIS IS GOING TO COME WITH HIM TO HELP HIM CONTINUE TO EX ON THE MACHINES. HE ALSO PLANS TO CONTINUE HIS HOME EX'S. HE REPORTS HIS BACK STILL GETS ACHY AND HIS LEGS STILL GET SORE AND TIRED BUT HE IS A LOT BETTER THAN HE WAS. STATES HE IS FEELING MORE STREADY. NO FALLS. WALKS AWAY AND FORGETS HIS CANE AT HOME SOMETIMES NOW. HASN'T GONE TO THE BASEMENT YET BUT DOING STEPS IN/OUT OF HOUSE. USING STATIONARY BIKE ABOUT 15 TO 20 MINUTES EVERYDAY TOO - IT FEELS GOOD TO RIDE THE BICYCLE. PATIENTS REPORTS HE IS DOING HEP WITHOUT MUCH PROPMPTING. PATIENT AND PATIENTS FEEL SAFE WITH PATIENT DOING GYM EX'S WITH HELP OF . Pain R Hip: Pain Intensity (Out of 10): 0 Overall Improvement % Improvement: 90 Objective Objective/Function: PATIENT WAS SEEN TODAY FOR RE-ASSESSMENT OF PROGRESS TOWARD THE SET PT GOALS AND THE NEED FOR FURTHER PHYSICAL THERAPY VS READINESS FOR DISCHARGE. UPON EXAM TODAY: PATIENT DEMO'S ABILITY TO GO UP STEPS RECIP INDEP'LY SAFELY WITH 1 HR AND CANE. ABLE TO COME DOWN STEPS SAFELY, INDEP'LY WITH CANE AND 1 HR WITH STEP TO PATTERN BUT NOT RECIP. INDEP GAIT WITH ST. CANE X >1,000 FEET WITHOUT LOB. UNABLE TO FULLY CORRECT OR MAINTAIN ERECT POSTURE WITH GAIT. 30 STS TEST WITHOUT UE ASSIST X 6 PRESENT THROUGHOUT SESSION TODAY. PATIENT IS INDEP WITH HEP AND ABLE TO DO A GYM EX PROGRAM SAFELY WITH THE HELP OF HIS . Goals Goal 1:: PATIENT WILL AMBULATE 300 FEET WITH STRAIGHT CANE WITH SUPERVISION X 1 TO IMPROVE ACTIVITY TOLERANCE NEW GOAL: PATIENT WILL AMBULATE INDEP'LY X [address] CANE TO IMPROVE ACTIVITY TOLERANCE. NEW GOAL: PATIENT WILL BE ABLE TO INDEP'LY SAFELY AMBULATE [address] CANE TO IMPROVE ACTIVITY TOLERANCE Goal Progress: GOALS MET Goal 2:: PATIENT WILL COMPLETE 10 STANDS IN 30 SECS TO DEMONSTRATE IMPROVED FUNCTIONAL STRENGTH NEW GOAL: PATIENT WILL COMPLETE 10 STANDS IN 30 SECS WITHOUT UE ASSIST WITH ELEVATED SEAT WITH ONE BLUE FOAM TO DEMONSTRATE IMPROVED FUNCTIONAL LE STRENGTH Goal Progress: GOALS MET Goal 3:: PATIENT WILL COMPLETE TUG IN < 15 SECS TO DEMONSTRATE IMPROVED GAIT STABILITY NEW GOAL: PATIENT WILL COMPLETE TUG IN < [address] CANE INDEP'LY AND SAFELY TO DEMONSTRATE IMPROVED GAIT STABILITY. Goal Progress: GOALS MET Goal 4:: PATIENT WILL BE INDEP WITH A HEP FOR CONTINUED IMPROVEMENT ONCE FORMAL PHYSICAL THERAPY CONCLUDES. Goal Progress: Goal Met Goal 5:: PATIENT WILL COMPLETE 6 STANDS IN 30 SECS WITHOUT UE ASSIST TO DEMONSTRATE IMPROVED FUNCTIONAL STRENGTH Goal Progress: Goal Met Goal 6:: INDEP SAFE GAIT ON LEVEL SURFACES AND UP AND DOWN STEPS WITH 1 HR/CANE X 1,000 FEET. Goal Progress: Goal Met Plan Plan: D/C. PATIENT AND AGREEABLE. D/C Information d/c sentence: If there are questions or concerns regarding this patient's physical therapy, please feel free to call me at [phone]. Thank you for the referral of this patient. Sincerely, Carolin Ceron, PT, Cert MDT Balance/Gait/Functional tests Balance/Special Test Scores Lower Extremity Functional Score: 45 TUG Test Time Seconds: 8.33 Tug Test: <10 sec.=free mobile 30 Second Chair Rise Test Seconds: 4 6 Minute Walk Test: 772 feet with standard cane CGA (approximately 257 meters) Improvement % Improvement: 90
== END 2023-02-25 19:00 | disposition home or self-care (01) ==
LOC: PT 13:00
PROVIDERS: PCP Family Medicine; Referring Provider Orthopaedic Surgery; Visit Provider Orthopaedic Surgery
DX: S72.001D Fracture of unspecified part of neck of right femur, subsequent encounter for closed fracture with routine healing (principal)
CPT/HCPCS: 97110; 97162; 97164

== ENCOUNTER 2023-06-01 13:01 | Emergency (ER) | payer MEDICARE, OTHER, SELFPAY ==
[2023-06-01 13:02] VITALS: BP 117/60; PULSE 85; RESP 18; TEMP 36.8; O2SAT 97
--- NOTE | 2023-06-01 14:13 | EDS_ITS ---
HPI History of Present Illness Chief Complaint: Abd Pain Informant: patient Onset/Context/Timing Onset: Today Narrative Narrative: Patient presents with left lower quad abdominal pain that started this morning. Pain woke him from sleep. He had some chills and mild nausea. He did have a normal bowel movement followed by some diarrhea. He denies known history of diverticulitis. He states he has not had a colonoscopy in quite some time, his last 2 checks have been through Cologuard stool sample only. [facility] Medical History Atherosclerosis of coronary artery of [place] heart without angina pectoris Atrial fibrillation with RVR (04/2018) Contusion of rib on left side Essential (primary) hypertension GERD (gastroesophageal reflux disease) Hyperlipidemia Intertrochanteric fracture of right femur Kidney disease Polymyalgia rheumatica Home Medications pantoprazole 20 mg tablet,delayed release 20 mg PO DAILY GERD 03/14/17 [History Last Taken 09/20/22] nitroglycerin 0.4 mg sublingual tablet 0.4 mg sublingual TID PRN PRN Angina 04/28/18 [History Last Taken 04/28/18 01:00] prednisone 5 mg tablet 5 mg PO DAILY steroid 03/16/20 [History Last Taken 09/20/22] atorvastatin 40 mg tablet 40 mg PO QHS Cholesterol #90 tabs 06/04/22 [Rx Last Taken 09/23/22 21:30] metoprolol succinate 25 mg tablet,extended release 24 hr 25 mg PO DAILY BP #90 tabs 06/04/22 [Rx Last Taken 09/24/22 09:00] prednisolone acetate 1 % eye drops,suspension 1 drp ophthalmic (eye) Q8H eyes 09/20/22 [History Last Taken 09/24/22 05:20] cyanocobalamin (vitamin B-12) 500 mcg tablet 1,000 mcg (2 x 500 mcg) PO BREAKFAST Suppleme #0 tabs 09/24/22 [Rx Last Taken 09/24/22 09:00] acetaminophen 500 mg tablet 1,000 mg (2 x 500 mg) PO Q8 #0 tabs 10/02/22 [Rx Last Taken Unknown] ascorbic acid (vitamin C) 500 mg tablet 500 mg PO BREAKFAST #0 tabs 10/02/22 [Rx Last Taken Unknown] mirtazapine 15 mg tablet 7.5 mg (1/2 x 15 mg) PO QHS 30 days #15 tabs 10/02/22 [Rx Last Taken Unknown] polysaccharide iron complex 150 mg iron capsule (Ferrex) 150 mg PO BREAKFAST 30 days #30 caps 10/02/22 [Rx Last Taken Unknown] amlodipine 5 mg tablet 5 mg PO DAILY BP #90 tabs 10/23/22 [Rx Last Taken Unknown] apixaban 5 mg tablet 2.5 mg (1/2 x 5 mg) PO BID 30 days #30 tabs 10/23/22 [Rx Last Taken Unknown] hydrocodone-acetaminophen 5-325mg 5mg-325mg 1 tab PO Q6H PRN PRN Pain 3 days #12 TABLETS 06/01/23 [Rx Last Taken Unknown] ibuprofen 400 mg tablet 400 mg PO Q12H PRN pain #14 tabs 06/01/23 [Rx Last Taken Unknown] ondansetron 4 mg disintegrating tablet 4 mg PO Q8H PRN PRN Nausea #10 tabs 06/01/23 [Rx Last Taken Unknown] Allergy/AdvReac Type Severity Reaction Status Date / Time Penicillins Allergy Hives Verified 06/01/23 13:02 Family History Father CVA (cerebral vascular accident) Mother Kidney disease Surgical History History of coronary artery stent placement (12/08/13) History of left heart catheterization (04/29/18) Hx of cataract removal with insertion of prosthetic lens (~02/2022) Social History household members: spouse Smoking Status: Former smoker alcohol intake: never substance use type: does not use ROS ROS ED Constitutional Constitutional ED: Reports chills; Denies fever(s) Eyes Eyes: Denies change in vision or discharge from eye(s) ENT ENT ED: Denies discharge from eye(s), rhinorrhea or sore throat Cardiovascular Cardiovascular: Denies chest pain or palpitations Respiratory/Chest Respiratory/Chest: Denies cough or dyspnea Gastrointestinal Gastrointestinal: Reports abdominal pain, diarrhea and nausea; Denies vomiting Genitourinary Genitourinary ED: Denies dysuria or hematuria Musculoskeletal Musculoskeletal: Denies back pain or extremity pain Integumentary Denies Abrasions or rash Neurologic Neurologic: Denies headache(s) or weakness Allergic/Immunologic Allergic/Immunologic ED: Denies lip swelling or urticaria EXAM Physical Exam Const Vital Signs: 06/01/23 13:02 06/01/23 15:02 06/01/23 17:00 Temperature 98.2 F 97.4 F L Temperature Source Temporal Temporal Pulse Rate 85 89 86 Respiratory Rate 18 16 19 H Blood Pressure 117/60 129/73 H 125/71 H Blood Pressure Mean 79 91 89 Pulse Ox 97 92 94 Oxygen Delivery Method Room Air Room Air Room Air Positive well nourished and well developed General Appearance ED: well developed HEENT Reports moist mucous membranes Eyes EOMs intact bilaterally Chest Wall inspection of chest normal and palpation of chest normal Resp normal respiratory effort and clear to auscultation bilaterally Cardio regular rate and regular rhythm GI GI Narrative: Abdomen soft with moderate tenderness in the left lower quadrant. Active bowel sounds noted throughout. No guarding or rebound at this time. Back/Spine no CVA tenderness Extremity normal to inspection Neuro oriented x3 and no sensory deficits noted Motor Exam: strength 5/5 throughout Psych mental status grossly normal Skin no rashes or lesions noted MDM MDM MDM Narrative Medical decision making narrative: IV line established. Patient given fentanyl and Zofran for pain. Labwork obtained to evaluate for leukocytosis, anemia, and electrolyte derangement. Urinalysis obtained to evaluate for infection/hematuria. CT scan of the abdomen pelvis with IV contrast obtained to evaluate for potential diverticulitis. History & Record Review Discussion w/independent historian: Patient Additional record(s) reviewed:: Prior ED visit Lab Data Attestation: I reviewed the patient's lab results. Labs: Laboratory Results - last 24 hr 06/01/23 06/01/23 13:34 16:45 WBC 12.8 H RBC 4.25 L Hgb 13.2 Hct 40.2 MCV 94.6 H MCH 31.1 MCHC 32.8 RDW Std Deviation 45.2 H RDW Coeff of Anselmo 13.1 Plt Count 228 MPV 11.5 Immature Gran % (Auto) 0.600 Neut % (Auto) 77.6 H Lymph % (Auto) 11.5 L Whitman % (Auto) 7.2 Eos % (Auto) 2.7 Baso % (Auto) 0.4 Absolute Neuts (auto) 9.9 H Absolute Lymphs (auto) 1.47 Nucleated RBC % 0 Sodium 141 Potassium 3.9 Chloride 111 H Carbon Dioxide 26.0 Anion Gap 4 L BUN 28 H Creatinine 1.67 H Est GFR (MDRD) Af Amer 51 L Est GFR (MDRD) Non-Af 42 L BUN/Creatinine Ratio 16.8 Glucose 125 H Calcium 9.3 Urine Color Yellow Urine Clarity Clear Urine pH 6.5 Ur Specific [place] 1.010 Urine Protein 15 H Urine Glucose (UA) Normal Urine Ketones Negative Urine Occult Blood 250 H Urine Nitrite Negative Urine Bilirubin Negative Urine Urobilinogen Normal Ur Leukocyte Esterase Negative Urine RBC 10-25 SEEN Urine WBC 0-5 SEEN Ur Squamous Epith Cells 0 SEEN Urine Bacteria 0 SEEN Urine Mucus 0 SEEN Radiography Diagnostic Testing: Clinical Impression(s) from Imaging Studies Abdomen/Pelvis CT 06/01/23 14:45 IMPRESSION: 2.8 mm calculus in the midportion of the left ureter causing mild degree of left hydronephrosis. Bilateral renal cysts. Small cyst in the right lobe of the liver. Sigmoid diverticulosis. Chronic scarring at the lung bases. Electronically Signed: Franck Tovar MD at 15:10 EDT , Treatment and Re-Evaluation :: White blood cell count slightly elevated at 12.8 with 77% neutrophils. Hemoglobin is normal at 13.2. Chemistry studies reveal a BUN of 28 and creatinine 1.67. This is consistent with his prior values. Glucose is 125. Urinalysis reveals blood but no evidence of infection. CT scan of the abdomen and pelvis reveals a 2.8 mm calculus in the midportion of the left ureter causing mild degree of left hydronephrosis. Sigmoid diverticulosis is noted without evidence of diverticulitis. Patient had initially been given fentanyl and Zofran for pain. He was given a dose of ibuprofen after CT reading is reviewed. Patient be referred to Dr. Jacobsen for follow-up as needed. He is given prescriptions for [place], Zofran, and ibuprofen. He will closely monitor for any signs of bleeding given his Eliquis. Discharge Plan Triage Chief Complaint: Abd Pain ED Provider: Hanna Roper Dx/Rx/DC Orders Clinical Impression: Ureterolithiasis Instructions: ED Kidney Stone with Pain Prescriptions: New hydrocodone-acetaminophen 5-325 mg tablet 1 tab PO Q6H PRN PRN (Reason: Pain) 3 Days Qty: 12 0RF ondansetron 4 mg tablet,disintegrating 4 mg PO Q8H PRN PRN (Reason: Nausea) Qty: 10 0RF ibuprofen 400 mg tablet 400 mg PO Q12H PRN (Reason: pain) Qty: 14 0RF No Action pantoprazole 20 mg tablet,delayed release (DR/EC) 20 mg PO DAILY prednisone 5 mg tablet 5 mg PO DAILY Patient Comments: 5 mg PO as directed for polymyalgia rheumatica; Rx Instructions: 5 mg PO as directed for polymyalgia rheumatica; Eliquis 5 mg tablet 2.5 mg PO BID 30 Days Qty: 30 12RF amlodipine 5 mg tablet 5 mg PO DAILY Qty: 90 3RF nitroglycerin 0.4 MG tablet, sublingual 0.4 mg sublingual TID PRN PRN (Reason: Angina) polysaccharide iron complex [Ferrex 150] 150 mg iron Capsule 150 mg PO BREAKFAST 30 Days Qty: 30 0RF acetaminophen 500 mg Tablet 1,000 mg PO Q8 Qty: 0 0RF ascorbic acid (vitamin C) 500 mg Tablet 500 mg PO BREAKFAST Qty: 0 0RF mirtazapine 15 mg Tablet 7.5 mg PO QHS 30 Days Qty: 15 0RF prednisolone acetate 1 % drops,suspension 1 drp ophthalmic (eye) Q8H Patient Comments: INSTILL 1 DROP INTO LEFT EYE 3 TIMES DAILY cyanocobalamin (vitamin B-12) 500 mcg Tablet 1,000 mcg PO BREAKFAST Qty: 0 0RF atorvastatin 40 mg tablet 40 mg PO QHS Qty: 90 3RF metoprolol succinate 25 mg tablet extended release 24 hr 25 mg PO DAILY Qty: 90 3RF Primary Care Provider: Omar Holt Referrals: Omar Holt MD [Primary Care Provider] - Luan Jacobsen MD [Med Staff - Active Staff] - 3-5 Days if not improving Disposition Disposition: Home, Self Care
[2023-06-01 14:21] LABS: Absolute Lymphocyte Count 1.47 X10^3/uL (0.83-4.51); Absolute Neutrophil Count 9.9 X10^3/uL (2.0-7.7); Basophil# 0.05 X10^3/uL; Basophil% 0.4 % (0-1); Eosinophil# 0.35 X10^3/uL; Eosinophils% 2.7 % (0-5); Hematocrit 40.2 % (40-54); Hemoglobin 13.2 g/dL (13.0-16.5); Lymphocyte # 1.47 X10^3/ul (0.83-4.51); Lymphocyte % 11.5 % (19-41); Mean Corp Hgb Conc 32.8 g/dL (32-36); Mean Corpuscular Hgb 31.1 pg (27.0-32.0); Mean Corpuscular Volume 94.6 fL (80-94); Mean Platelet Vol. 11.5 fl (6.2-12.0); Monocyte# 0.92 X10^3/uL; Monocyte% 7.2 % (0-10); NRBC Flagged by Analyzer 0 % (0-5); Neutrophil # 9.94 X10^3/uL (2.7-7.7); Neutrophil % 77.6 % (47-70); Platelet Count 228 K/mm3 (150-450); RBC Distribution Width CV 13.1 % (11.6-14.6); RBC Distribution Width SD 45.2 fl (35.1-43.9); Red Blood Count 4.25 M/mm3 (4.6-6.2); White Blood Count 12.8 K/mm3 (4.4-11.0)
[2023-06-01] MEDS: fentaNYL 100 MCG/2 ML Ampul 25 MCG IV (14:24)
[2023-06-01] MEDS: Ondansetron 4 MG/2 ML Vial IV (14:25)
[2023-06-01] MEDS: 0.9% Normal Saline (1000mL) 1,000 ML 150 ML IV (14:25)
[2023-06-01 14:35] LABS: Anion Gap 4 (5-15); BUN 28 mg/dL (7-18); BUN/Creat Ratio 16.8 RATIO (10-20); Calcium,Total 9.3 mg/dL (8.5-10.1); Chloride 111 mmol/L (98-107); Creatinine, Serum 1.67 mg/dL (0.70-1.30); EST Glomerular Filtration Rate 42 mL/min (>60); Est Glom Filt Rate - Afr Amer 51 mL/min (>60); Glucose 125 mg/dL (74-106); Potassium 3.9 mmol/L (3.5-5.1); Sodium Level 141 mmol/L (136-145)
--- NOTE | 2023-06-01 14:45 | CT_ITS ---
STUDY: CT ABDOMEN AND PELVIS WITH CONTRAST REASON FOR EXAM: Male, 83 years old. LLQ pain RADIATION DOSAGE (If Supplied By Facility): CTDIvol = ( 12.97 ) mGy, DLP = ( 912.71 ) mGycm TECHNIQUE: Transaxial images were obtained from the dome of the diaphragm to the symphysis pubis without oral contrast. IV 100mL Isovue-300 was administered. Sagittal and coronal images were reconstructed. Individualized dose optimization techniques were used for this CT. COMPARISON: None. FINDINGS: Increased reticular nodular pattern at both lung bases suggestive of Chronic interstitial fibrosis. Tiny subpleural blebs. Coronary artery calcification. There is a 5.4 mm cyst in the lateral midportion of the right lobe of the liver. Normal gallbladder and extrahepatic biliary system. Normal spleen. Normal pancreas. Normal bilateral adrenal glands. There is a 1.7 cm x 1.5 cm cyst in the upper pole of the right kidney. There is also a 2 cm x 1.4 cm benign-appearing cyst in the lateral aspect of the right kidney. There is a 1.1 cm x 1.4 cm dense nodule in the lateral midportion of the right kidney. This may represent a hyperdense cyst. Prior sonogram of the right kidney demonstrated multiple cysts. Multiple cysts are seen in the left kidney. The largest kidney cyst measures 3.3 cm x 2.3 cm. Mild degree of right hydronephrosis. This is due to a 2.8 mm calculus in the midportion of the left ureter. There is a small hiatal hernia. Normal small intestine. There are multiple colonic diverticula consistent with diverticulosis. The appendix is visualized and appears normal. There is diffuse atherosclerotic calcification of the abdominal aorta and its major visceral branches, without a demonstrated aneurysm. Normal inferior vena cava. Normal retroperitoneum. Diffuse bladder wall thickening. There is evidence of trabeculation of the bladder wall. Small caliber urinary bladder. The prostate measures 3.4 cm x 4.1 cm. There is a left-sided inguinal hernia containing adipose tissue. There are diffuse degenerative changes of the visualized lumbar spine. Prior open reduction and internal fixation of a right intertrochanteric fracture. CT/Abdomen/Pelvis W IV Cont ONLY IMPRESSION: 2.8 mm calculus in the midportion of the left ureter causing mild degree of left hydronephrosis. Bilateral renal cysts. Small cyst in the right lobe of the liver. Sigmoid diverticulosis. Chronic scarring at the lung bases. Electronically Signed: Franck Tovar MD at 15:10 EDT ,
[2023-06-01 15:02] VITALS: BP 129/73; PULSE 89; RESP 16; O2SAT 92
[2023-06-01] MEDS: Ibuprofen 200 MG Tablet 400 MG PO (15:58)
[2023-06-01 16:03] VITALS: BMI 23.6
[2023-06-01 16:51] LABS: Bacteria 0 SEEN /hpf (None Seen); Mucous, Urine 0 SEEN /hpf (<or=2+); Squamous Epithelial Cells - UA 0 SEEN /hpf (0-5)
[2023-06-01 17:00] VITALS: BP 125/71; PULSE 86; RESP 19; TEMP 36.3; O2SAT 94
[2023-06-01 17:05] LABS: Color, Urine Yellow (Yellow); Glucose, Dipstick Normal (Normal); Ketone-Dipstick Negative (Negative); Leukocyte Esterase-Dipstick Negative /ul (Negative); Nitrite-Dipstick Negative (Negative); Occult Blood-Urine 250 /ul (Negative); Protein-Dipstick 15 mg/dl (Negative); Urine Bilirubin Dipstick Negative (Negative); Urine Clarity Clear (Clear); Urine Urobilinogen Normal (Normal); Urine pH 6.5 (5.0 - 8.0)
[2023-06-01 17:24] LABS: Red Blood Cells-Urine 10-25 SEEN /hpf (0-5); White Blood Cells 0-5 SEEN /hpf (0-5)
[2023-06-01 18:00] VITALS: BP 116/64; PULSE 73; RESP 20; TEMP 36.3; O2SAT 94
== END 2023-06-01 18:03 | disposition home or self-care (01) ==
PROVIDERS: Emergency Provider Emergency Medicine; PCP Family Medicine; Visit Provider Emergency Medicine
DX: N13.2 Hydronephrosis with renal and ureteral calculous obstruction (principal); I48.91 Unspecified atrial fibrillation; K57.30 Diverticulosis of large intestine without perforation or abscess without bleeding; R68.83 Chills (without fever); I25.10 Atherosclerotic heart disease of native coronary artery without angina pectoris; I10 Essential (primary) hypertension; E78.5 Hyperlipidemia, unspecified; K21.9 Gastro-esophageal reflux disease without esophagitis; M35.3 Polymyalgia rheumatica; Z79.01 Long term (current) use of anticoagulants; Z79.899 Other long term (current) drug therapy; Z87.891 Personal history of nicotine dependence
CPT/HCPCS: 74177; 80048; 81001; 85025; 96361; 96374; 96375; 99285; J7030; Q9967; A4216; J2405

== ENCOUNTER → 2023-08-15 | Outpatient (CLI) | payer MEDICARE, OTHER, SELFPAY ==
[2023-08-15 12:00] LABS: AST(SGOT) 16 U/L (15-37); Alanine Aminotransfer ALT/SGPT 25 U/L (16-61); Albumin, Serum 3.4 g/dL (3.2-5.0); Alkaline Phosphatase 76 U/L (45-117); Bilirubin, Direct 0.13 mg/dL (0.00-0.30); Cholesterol 179 mg/dL (200); High Density Lipoprotein 58 mg/dL; Protein, Total 6.4 g/dL (6.4-8.2); Triglycerides 195 mg/dL; Very Low Density Lipoprotein 39 mg/dL (5-40)
== END | disposition home or self-care (01) ==
LOC: LAB 10:53
PROVIDERS: PCP Family Medicine; Referring Provider Nurse Practitioner Family; Visit Provider Nurse Practitioner Family
DX: E55.9 Vitamin D deficiency, unspecified (principal); E78.00 Pure hypercholesterolemia, unspecified; Z95.5 Presence of coronary angioplasty implant and graft
CPT/HCPCS: 36415; 80061; 80076; 82306

== ENCOUNTER 2023-12-15 13:44 | Inpatient (IN) | payer MEDICARE, OTHER, SELFPAY ==
[2023-12-15] VITALS (16 sets, daily range): BP systolic 82–120; BP diastolic 47–79; PULSE 107–120; RESP 10–20; TEMP 36.6–37.3; O2SAT 94–100; BMI 24.3; BMI 21.9
--- NOTE | 2023-12-15 14:07 | CT_ITS ---
STUDY: CT BRAIN WITHOUT CONTRAST REASON FOR EXAM: Male, 83 years old. Head injury due to a fall. RADIATION DOSAGE (If Supplied By Facility): CTDIvol = ( 47.06 ) mGy, DLP = ( 907.97 ) mGycm TECHNIQUE: Transaxial CT imaging of the brain was performed without administration of intravenous contrast material. Individualized dose optimization techniques were used for this CT. COMPARISON: Comparison is made with prior study dated September 20, 2022. FINDINGS: Normal soft tissue structures. Normal calvarium. There is mild cerebral atrophy with widening of the extra-axial spaces and ventricular dilatation. There are areas of decreased attenuation within the white matter tracts of the supratentorial brain, consistent with microvascular disease changes. Normal basal ganglia and thalami. Normal brainstem. Normal cerebellum. There is no intracranial hemorrhage. There are no findings of an acute ischemic infarction. Atherosclerotic plaque formation of the cavernous portions of the internal carotid arteries bilaterally. Mucosal thickening is seen along the inferior aspect of the maxillary sinuses bilaterally. CT/Brain/Head without Contrast IMPRESSION: Chronic involutional changes of the brain. Electronically Signed: Franck Tovar MD at 14:51 EDT ,
--- NOTE | 2023-12-15 14:07 | CT_ITS ---
STUDY: CT CERVICAL SPINE WITHOUT CONTRAST REASON FOR EXAM: Male, 83 years old. Pain following a fall. RADIATION DOSAGE (If Supplied By Facility): CTDIvol = ( 17.93 ) mGy, DLP = ( 311.75 ) mGycm TECHNIQUE: High resolution transaxial imaging was performed without contrast material. Sagittal and coronal images were reconstructed. Individualized dose optimization techniques were used for this CT. COMPARISON: Comparison is made with prior study dated September 20, 2022. FINDINGS: Normal craniovertebral junction. There are degenerative changes of the anterior atlantoaxial articulation. Normal odontoid process. Normal cervical lordosis. Normal vertebral bodies and posterior osseous elements. C2-3: Normal endplates. Normal disc height and morphology. Normal central canal and intervertebral neuroforamina. C3-4: Normal endplates. Normal disc height and morphology. Normal central canal and intervertebral neuroforamina. C4-5: Mild degree of disc space narrowing. No significant stenosis is seen. C5-6: Marked degree of disc space narrowing. Spondylosis. No significant stenosis seen. C6-7: Marked degree of disc space narrowing. Bilateral neural foraminal stenosis worse on the left side. C7-T1: Normal endplates. Normal disc height and morphology. Normal central canal and intervertebral neuroforamina. Atherosclerotic calcification of the carotid bifurcations bilaterally. CT/Spine Cervical without Contras IMPRESSION: Multilevel degenerative changes, as described above. Electronically Signed: Franck Tovar MD at 14:54 EDT ,
--- NOTE | 2023-12-15 14:07 | RAD_ITS ---
STUDY: X-RAY - PELVIS AND LEFT HIP REASON FOR EXAM: Male, 83 years old. Fall TECHNIQUE: 3 views of the pelvis and hip. COMPARISON: None. FINDINGS: There is a non-specific bowel gas pattern. There are multiple calcified phleboliths. There is narrowing with cortical sclerosis and osteophyte formation of the sacroiliac joint consistent with degenerative osteoarthritic changes. Normal bilateral superior and inferior pubic rami. There are degenerative changes of the pubic symphysis with articular narrowing and sclerosis. Normal bilateral ischial tuberosities. Nondisplaced intertrochanteric fracture of the proximal left femur. Prior ORIF with healed right intertrochanteric fracture. RAD/HIP, UNI W/ Pelvis 2-3 Views IMPRESSION: Nondisplaced left intertrochanteric fracture. Electronically Signed: Franck Tovar MD at 14:56 EDT ,
--- NOTE | 2023-12-15 14:08 | EKG12_ITS ---
Test Reason : FALL Blood Pressure : / mmHG Vent. Rate : 114 BPM Atrial Rate : 114 BPM P-R Int : 144 ms QRS Dur : 068 ms QT Int : 368 ms P-R-T Axes : 031 024 052 degrees QTc Int : 507 ms Sinus tachycardia Nonspecific ST and T wave abnormality Abnormal ECG Confirmed by DASHA DELCID, RIZWAN ([id number]), social media editor LEIDY MINOR ([id number]) on 12/16/2023 9:26:41 AM Referred By: Confirmed By:RIZWAN LOU MD
--- NOTE | 2023-12-15 14:09 | EX.ED.GENINJ ---
HPI History of Present Illness Chief Complaint: Fall Detail of Chief Complaint: Fall with left hip injury Informant: patient Onset/Context/Timing Onset: Today Narrative Narrative: Patient presents to the emergency department after sustaining a fall this morning about 9:30 AM. Patient apparently was going to the bathroom when his knee gave out and he fell injuring his left hip. Patient unable to get up afterwards. Patient's had gone to work and he was well at that time. Patient has not been ill. He denies loss of consciousness. He denies significant neck pain or chest pain. Patient on Eliquis for history of A-fib. He also has history of PMR. Initially found to be somewhat hypotensive by EMS. He was given 4 mg of morphine for left hip pain. Patient vomited x 1. Denies significant headache. [facility] Medical History Atherosclerosis of coronary artery of [place] heart without angina pectoris Atrial fibrillation with RVR (04/2018) Contusion of rib on left side Essential (primary) hypertension GERD (gastroesophageal reflux disease) Hyperlipidemia Intertrochanteric fracture of right femur Kidney disease Polymyalgia rheumatica Home Medications ?Medication ?Instructions ?Recorded ?Last Taken ?Type pantoprazole 20 mg tablet,delayed 20 mg PO QPM GERD 03/14/17 12/14/23 History release nitroglycerin 0.4 mg sublingual 0.4 mg sublingual TID PRN PRN 04/28/18 04/28/18 01:00 History tablet Angina alendronate 70 mg tablet 70 mg PO AVERY 06/22/23 12/13/23 History calcium 600 mg (as 2 cap PO DAILY 06/22/23 12/14/23 History carbonate)-vitamin D3 25 mcg (1,000 unit) capsule doxycycline hyclate 20 mg tablet 20 mg PO BID 06/22/23 12/15/23 History mirtazapine 7.5 mg tablet 7.5 mg PO QHS 06/22/23 12/14/23 History metoprolol succinate 25 mg 25 mg PO DAILY BP #90 tabs 07/03/23 12/15/23 Rx tablet,extended release 24 hr apixaban 5 mg tablet 2.5 mg (1/2 x 5 mg) PO BID 30 days 12/11/23 12/15/23 Rx #30 tabs amlodipine 5 mg tablet 5 mg PO QPM BP 10/08/24 10/07/24 History atorvastatin 40 mg tablet 40 mg PO QPM Cholesterol 12/15/23 12/14/23 History geriatric multivitamin-min tab 12/15/23 Unknown History [id number] 300 mcg-K 60 1 tab PO DAILY 12/15/23 12/15/23 History mcg-lycop 600 mcg-lutein 300 mcg tablet (Men 50 Plus Multivitamin) Allergy/AdvReac Type Severity Reaction Status Date / Time Penicillins Allergy Hives Verified 12/15/23 13:46 Family History Father CVA (cerebral vascular accident) Mother Kidney disease Surgical History History of coronary artery stent placement (12/08/13) History of left heart catheterization (04/29/18) Hx of cataract removal with insertion of prosthetic lens (~02/2022) Social History household members: spouse Smoking Status: Former smoker alcohol intake: never substance use type: does not use ROS ROS ED Review of Systems ROS Unobtainable: other Constitutional Constitutional ED: Reports lethargy; Denies chills, fever(s), sweats or weight loss Eyes Eyes: Denies blurry vision, change in vision or diplopia ENT ENT ED: Denies rhinorrhea or sore throat Cardiovascular Cardiovascular: Denies chest pain, orthopnea or racing heartbeat Respiratory/Chest Respiratory/Chest: Reports dyspnea; Denies dyspnea on exertion, orthopnea or sputum Gastrointestinal Gastrointestinal: Denies abdominal pain, diarrhea, nausea or vomiting Genitourinary Genitourinary ED: Denies dysuria, hematuria or urinary frequency Musculoskeletal Musculoskeletal: Reports other Details: Left hip pain ; Denies arthralgias, back pain, myalgias or neck pain Integumentary Denies abscess, Abrasions or rash Neurologic Neurologic: Denies headache(s) or weakness Psychiatric Psychiatric: Denies anxiety, depression or suicidal thoughts Endocrine Endocrinology: Denies polydipsia, polyphagia or polyuria Hematologic/Lymphatic Hematologic/Lymphatic: Denies easy bleeding, easy bruising or lymphadenopathy Allergic/Immunologic Allergic/Immunologic ED: Denies mouth swelling, tongue swelling or urticaria EXAM Physical Exam Const Vital Signs: 12/15/23 13:47 12/15/23 13:53 12/15/23 15:30 Temperature 97.9 F Temperature Source Temporal Pulse Rate 107 H 113 H Respiratory Rate 16 12 Respiratory Effort Normal Non-Labored Respiratory Depth Normal Blood Pressure 91/51 L 93/47 L Blood Pressure Mean 64 59 Pulse Ox 100 Oxygen Delivery Method Room Air Room Air 12/15/23 15:37 12/15/23 16:15 Temperature 98.2 F Temperature Source Pulse Rate 113 H 110 H Respiratory Rate 16 16 Respiratory Effort Respiratory Depth Blood Pressure 85/49 L 94/53 L Blood Pressure Mean 61 66 Pulse Ox 94 Oxygen Delivery Method Positive well nourished and well developed General Appearance ED: well developed and NAD HEENT Reports TM's clear and moist mucous membranes HEENT Narrative: No external evidence of trauma to his head. normocephalic and atraumatic; Negative for trauma or tenderness Tympanic Membrane ED: Yes TM's clear Eyes PERRL and EOMs intact bilaterally General Eye ED: Negative for pale conjunctiva or scleral icterus Neck no lymphadenopathy, supple and no JVD Neck Narrative: Mild diffuse C-spine tenderness. No bony step-offs or depressions. Good range of motion General: tenderness Chest Wall inspection of chest normal and palpation of chest normal Chest: Negative for tenderness Resp normal respiratory effort and clear to auscultation bilaterally Effort and Inspection: Negative for respiratory distress or pain with movement Auscultation: Negative for rhonchi, wheezes or diminished lung sounds Cardio regular rate, regular rhythm, S1 normal heart sound, S2 normal heart sound and no murmurs Peripheral Pulses: pulses 2+ throughout GI normal to inspection, nondistended, normoactive bowel sounds, soft to palpation, non-tender, non-distended and no masses Back/Spine no CVA tenderness and no thoracic nor lumbar tenderness Extremity Extremity Narrative: Patient with some fullness over the left hip tenderness palpation. Left lower extremity is shortened and slightly externally rotated. Neurovascular intact distally. General Extremety ED: Negative for edema General Extremity: Negative for edema Neuro oriented x3, CN's II-XII intact bilaterally, no sensory deficits noted and gait normal Sensorium / Orientation: awake, alert, oriented to person, oriented to place and oriented to time Motor Exam: strength 5/5 throughout and strength abnormal Psych mental status grossly normal Skin no rashes or lesions noted and no wounds MDM MDM MDM Narrative Medical decision making narrative: Patient presents to the emergency department with fall and injury to the left hip. No other significant evidence of injury noted on exam. IV line established. Initially mildly hypotensive so he was given normal saline by EMS. We are in short supply of fluids therefore was running normal saline at [address] scan of the brain without contrast showed chronic involutional changes. CT of the cervical spine obtained showed degenerative changes but no fractures. Patient had x-rays of the left hip and pelvis that showed a nondisplaced left intertrochanteric hip fracture. Patient was medicated with fentanyl 25 mcg IV. CBC with differential white count 17.7 with hemoglobin 10 and platelet count of 240. Chemistries unremarkable. BUN 25 and creatinine 1.99. Troponin was normal at 7. EKG obtained showed sinus rhythm with rate of [address] changes. Case will be discussed with hospitalist as well as orthopedic surgeon on-call. Patient will be admitted in stable condition. Patient soft blood pressures in the emergency department bed respond to IV fluids. He has no evidence for sepsis or acute blood loss. Suspect may be related to receiving morphine via EMS. We are attempting to conserve IV fluids as there is a national shortage however I did order initially 250 cc fluid bolus to finish the IV bag that EMS hung and then we will order a 500 cc fluid bolus and maintenance at 150 cc an hour. Lab Data Attestation: I reviewed the patient's lab results. Labs: Laboratory Results - last 24 hr 12/15/23 14:15 WBC 17.7 H RBC 3.28 L Hgb 10.2 L Hct 32.5 L MCV 99.1 H MCH 31.1 MCHC 31.4 L RDW Std Deviation 48.3 H RDW Coeff of Anselmo 13.4 Plt Count 240 MPV 10.3 Immature Gran % (Auto) 0.700 Neut % (Auto) 84.3 H Lymph % (Auto) 7.3 L [place] % (Auto) 7.2 Eos % (Auto) 0.2 Baso % (Auto) 0.3 Absolute Neuts (auto) 14.9 H Absolute Lymphs (auto) 1.29 Nucleated RBC % 0 Sodium 144 Potassium 4.9 Chloride 116 H Carbon Dioxide 19.0 L Anion Gap 10 BUN 25 H Creatinine 1.99 H Estim Creat Clear Calc 29.43 Est GFR (MDRD) Af Amer 41 L Est GFR (MDRD) Non-Af 34 L BUN/Creatinine Ratio 12.6 Glucose 127 H Calcium 8.8 Total Creatine Kinase 106 Troponin I High Sens 7 Radiography Diagnostic Testing: Clinical Impression(s) from Imaging Studies Brain CT 12/15/23 14:07 IMPRESSION: Chronic involutional changes of the brain. Electronically Signed: Franck Tovar MD at 14:51 EDT , Cervical Spine CT 12/15/23 14:07 IMPRESSION: Multilevel degenerative changes, as described above. Electronically Signed: Franck Tovar MD at 14:54 EDT , Hip/Pelvis X-Ray 12/15/23 14:07 IMPRESSION: Nondisplaced left intertrochanteric fracture. Electronically Signed: Franck Tovar MD at 14:56 EDT , Chest X-Ray 12/15/23 14:35 IMPRESSION: Findings suggestive of a progressive chronic interstitial fibrosis. Electronically Signed: Franck Tovar MD at 14:58 EDT , 1 view chest x-ray obtained interpreted by myself as chronic interstitial lung changes. No evidence of rib fracture or pneumothorax or acute disease process. Radiology in agreement. Three-view x-rays of the left hip and pelvis obtained interpreted by myself as intertrochanteric hip fracture. Radiology in agreement. Discharge Plan Triage Chief Complaint: Fall ED Provider: Heather Escobar Dx/Rx/DC Orders Clinical Impression: Fall, Fracture of hip, left, closed, History of atrial fibrillation, Hypotension Prescriptions: No Action pantoprazole 20 mg tablet,delayed release (DR/EC) 20 mg PO QPM calcium carbonate-vitamin D3 600 mg-25 mcg (1,000 unit) capsule 2 cap PO DAILY mirtazapine 7.5 mg tablet 7.5 mg PO QHS alendronate 70 mg tablet 70 mg PO AVERY doxycycline hyclate 20 mg tablet 20 mg PO BID nitroglycerin 0.4 MG tablet, sublingual 0.4 mg sublingual TID PRN PRN (Reason: Angina) geriatric multivitamin-min Tablet Men 50 Plus Multivitamin [id number] mcg tablet 1 tab PO DAILY atorvastatin 40 mg tablet 40 mg PO QPM amlodipine 5 mg tablet 5 mg PO QPM metoprolol succinate 25 mg tablet extended release 24 hr 25 mg PO DAILY Qty: 90 3RF apixaban 5 mg tablet 2.5 mg PO BID 30 Days Qty: 30 12RF Primary Care Provider: Omar Holt Referrals: Omar Holt MD [Primary Care Provider] - Print Language: Mongolian
[2023-12-15 14:20] LABS: Absolute Lymphocyte Count 1.29 X10^3/uL (0.83-4.51); Absolute Neutrophil Count 14.9 X10^3/uL (2.0-7.7); Basophil# 0.05 X10^3/uL; Basophil% 0.3 % (0-1); Eosinophil# 0.03 X10^3/uL; Eosinophils% 0.2 % (0-5); Hematocrit 32.5 % (40-54); Hemoglobin 10.2 g/dL (13.0-16.5); Lymphocyte # 1.29 X10^3/ul (0.83-4.51); Lymphocyte % 7.3 % (19-41); Mean Corp Hgb Conc 31.4 g/dL (32-36); Mean Corpuscular Hgb 31.1 pg (27.0-32.0); Mean Corpuscular Volume 99.1 fL (80-94); Mean Platelet Vol. 10.3 fl (6.2-12.0); Monocyte# 1.28 X10^3/uL; Monocyte% 7.2 % (0-10); NRBC Flagged by Analyzer 0 % (0-5); Neutrophil # 14.88 X10^3/uL (2.7-7.7); Neutrophil % 84.3 % (47-70); Platelet Count 240 K/mm3 (150-450); RBC Distribution Width CV 13.4 % (11.6-14.6); RBC Distribution Width SD 48.3 fl (35.1-43.9); Red Blood Count 3.28 M/mm3 (4.6-6.2); White Blood Count 17.7 K/mm3 (4.4-11.0)
[2023-12-15] MEDS: fentaNYL 100 MCG/2 ML Ampul 25 MCG IV (14:21)
--- NOTE | 2023-12-15 14:35 | RAD_ITS ---
STUDY: X-RAY CHEST REASON FOR EXAM: Male, 83 years old. Fall TECHNIQUE: Single AP portable view of the chest. COMPARISON: Comparison is made with prior study dated September 26, 2022. FINDINGS: EKG electrodes are seen. Once again, there is diffuse increase interstitial markings in both lungs with areas of confluence and possible bronchiectasis suggestive of chronic interstitial fibrosis. There is been progression as compared to prior study. Findings suggest a focal left pleural plaque calcification. Hyperinflation. Normal size heart. Normal mediastinum and dilan. Normal visualized pulmonary arteries. Normal visualized aortic arch and descending thoracic aorta. Normal visualized thoracic spine. Normal visualized ribs, clavicles, and shoulders. There is no demonstrated abnormality of the visualized soft tissue structures of the upper abdomen. RAD/Chest 1 View (Portable) IMPRESSION: Findings suggestive of a progressive chronic interstitial fibrosis. Electronically Signed: Franck Tovar MD at 14:58 EDT ,
[2023-12-15 14:40] LABS: Anion Gap 10 (5-15); BUN 25 mg/dL (7-18); BUN/Creat Ratio 12.6 RATIO (10-20); CPK Total, Creatine Kinase 106 U/L (39-308); Calcium,Total 8.8 mg/dL (8.5-10.1); Chloride 116 mmol/L (98-107); Creatinine, Serum 1.99 mg/dL (0.70-1.30); EST Glomerular Filtration Rate 34 mL/min (>60); Est Glom Filt Rate - Afr Amer 41 mL/min (>60); Estimated Creatinine Clearance 29.43 ml/min; Glucose 127 mg/dL (74-106); Potassium 4.9 mmol/L (3.5-5.1); Sodium Level 144 mmol/L (136-145); Troponin-I HS 7 pg/mL (3.0-78.0)
[2023-12-15] MEDS: 0.9% Normal Saline (500mL Bag) 500 ML 999 ML IV (16:20)
--- OUTSIDE RECORDS SUMMARY | 2023-12-15 18:52 | XMS RPT_ITS | CCD ---
Author Organization [facility] Care Team Providers Care King Maker Name Role Phone Nisa Holt MD Primary Care Provider NISA HOLT Attending NISA Burciaga Primary Care UnavailNISA Romeo Primary Care Unavailab le SELF Referring NISA Booth Attending NISA Burciaga Primary Care UnavailNISA Romeo Referring NISA Burciaga Primary Care UnavailNISA Romeo Referring UnavailNisa Romeo MD Primary Care Provider Allergies Allergy Classification Reported Allergen(s) Allergy Type Date of Onset Reaction(s) Facility (20 sources) Penicillins; Translations: [PENICILLINS] Drug Allergy 11-27-2004 Rash [facility] Work Phone: Medications Current Medications Medication Drug Class(es) Dates Sig (Normalized) Sig (Original) alendronic acid 70 mg oral tablet (6 sources) Bisphosphonate Start: 04-23-2023 End: 04-22-2024 take 1 tablet by mouth every week alendronate (FOSAMAX) 70 mg tablet Take 1 tablet by mouth one time a week. Take with a full glass of water, on an empty stomach; do NOT lie down for 30minutes. 12 tablet 3 04/23/2023 04/22/2024 Active amLODIPine 10 mg oral tablet (20 sources) Dihydropyridine Calcium Channel Alicia Start: 10-10-2022 take 0.5 tablet by mouth once daily amLODIPine (NORVASC) 10 mg tablet Indications: Hypertension, essential Take 0.5 tablets by mouth once daily. 10/10/2022 Active Start: 11-30-2020 take 1 tablet by tami th once daily amLODIPine (NORVASC) 10 mg tablet Take 1 tablet by mouth once daily. 0 11/30/2020 Active Comment on above: Take 1 tablet by tami once daily. Take 0.5 tablets by mouth once daily. apixaban 2.5 mg oral tablet (15 sources) Factor Xa Inhibitor take 1 tablet by mouth twice daily apixaban (ELIQUIS) 2.5 mg tab(s) Take 2.5 mg by mouth twice daily. Active Comment on above: Take 2.5 mg by mouth twice daily. atorvastatin 40 mg oral tablet (20 sources) HMG-CoA Reductase Inhibitor take 1 tablet by mouth once daily atorvastatin (LIPITOR) 40 mg tablet Take 40 mg by mouth once daily. Active Comment on above: Take 40 mg by mouth once daily. calcium carbonate 1250 mg / cholecalciferol 600 unt oral tablet (2 sources) Vitamin D take 2 tablets by mouth once daily calcium carbonate-vitamin D3 500 mg-15 mcg (600 unit) tab Take 2 tablets by mouth once daily. Active cholecalciferol 1.25 mg oral capsule (7 sources) Vitamin D Start: 04-17-19 End: 07-16-19 24 take 1 capsule by mouth every week cholecalciferol, Vitamin D3, (VITAMIN D3) 1,250 mcg (50,000 unit) cap capsule Indications: Vitamin D deficiency Take 1 capsule by mouth one time a week. 12 capsule 04/17/2023 Active Comment on above: Take 1 capsule by mo [facility] one time a week. doxycycline hyclate 20 mg oral tablet (20 sources) Tetracycline-class Drug Start: 12-25-19 10 take 1 tablet by mouth once daily Doxycycline Hyclate 20 mg ORAL tablet Take one(1) tablet two(2) times daily. 0 12/24/2009 Active Comment on above: Take one(1) tablet t wo(2) times daily. 24 hr metoprolol succinate 25 mg extended release oral tablet (20 sources) beta-Adrenergic Alicia Start: 05-26-19 20 take 1 tablet by mouth once daily metoprolol succinate ER (TOPROL XL) 25 mg 24 hr tablet Take 1 tablet by mouth once daily. 90 tablet 3 05/26/2019 Active Comment on above: Take 1 tablet by tami once daily. mirtazapine 7.5 mg oral tablet (17 sources) Start: 11-16-19 End: 05-15-19 25 take 1 tablet by mouth once daily at bedtime Mirtazapine (REMERON) 7.5 mg tablet Take 1 tablet by mouth daily at bedtime. 90 tablet 1 11/16/2023 05/14/2024 Active Start: 10-14-2022 End: 10-12-2023 take 1 tablet by mouth once daily at bedtime Mirtazapine (REMERON) 7.5 mg tablet Take 1 tablet by mouth daily at bedtime. 90 tablet 1 04/15/2023 Active Comment on above: Take 1 tablet by tami th daily at bedtime. Take 7.5 mg by mouth daily at bedtime. MULTI-VITAMIN ORAL TAB (20 sources) Start: 11-28-2004 MULTI-VITAMIN ORAL TAB Take by mouth. 0 11/28/2004 Active Start: 11-28-2004 take 1 tablet by tami th once daily MULTI-VITAMIN ORAL TAB Take one(1) tablet daily. 0 11/28/2004 Active Comment on above: Take one(1) tablet d aily. Take by mouth. nitroglycerin 0.4 mg sublingual tablet (20 sources) Nitrate Vasodilator Start: 03-11-2022 End: 09-25-2022 nitroglycerin sublingual (NITROSTAT) 0.4 mg SL tablet Dissolve 1 tablet under the tongue every 5 minutes as needed for chest pain. 25 tablet 09/25/2022 Active Start: 11-30-2020 nitroglycerin sublingual (NITROSTAT) 0.4 mg SL tablet Dissolve 1 tablet under the tongue every 5 minutes as needed for chest pain. 1 Bottle of 25 0 11/30/2020 Active Comment on above: Dissolve 1 tablet un kay the tongue every 5 minutes as needed for chest pain. pantoprazole 20 mg delayed release oral tablet (20 sources) Proton Pump Inhibitor Start: 11-16-19 End: 05-15-19 25 take 1 tablet by mouth once daily pantoprazole DR (PROTONIX) 20 mg tablet Indications: Gastroesophageal reflux disease without esophagitis Take 1 tablet by mouth once daily. 90 tablet 1 11/16/2023 05/14/2024 Active Start: 07-22-2022 End: 10-12-2023 take 1 tablet by mouth once daily pantoprazole DR (PROTONIX) 20 mg tablet Indications: Gastroesophageal reflux disease without esophagitis Take 1 tablet by mouth once daily. 90 tablet 1 04/15/2023 Active Start: 04-04-2021 End: 05-04-2022 take 1 tablet by mouth once daily pantoprazole DR (PROTONIX) 20 mg tablet Indications: Gastroesophageal reflux disease without esophagitis Take 1 tablet by mouth once daily. 90 tablet 0 05/05/2022 Active Comment on above: TAKE 1 TABLET DAILY Take 1 tablet by tami th once daily. predniSONE 5 mg oral tablet (20 sources) Start: 03-11-2022 End: 08-18-2023 take 1 tablet by mouth once daily predniSONE (DELTASONE) 5 mg tablet Indications: Polymyalgia rheumatica (HCC) Take 1 tablet by mouth once daily. 90 tablet 1 08/18/2023 Active Start: 12-02-2021 take 1 tablet by tami th once daily predniSONE (DELTASONE) 5 mg tablet Indications: Polymyalgia rheumatica (HCC) Take 1 tablet by mouth once daily. 90 tablet 1 12/02/2021 Active Comment on above: Take 1 tablet by tami th once daily. Completed/Discontinued Medications Medication Drug Class(es) Dates Sig (Normalized) Sig (Original) acetaminophen 500 mg oral tablet (14 sources) End: 10-20-2023 take 2 tablets by mouth every eight hours as needed acetaminophen (TYLENOL) 500 mg tablet Take 1,000 mg by mouth every 8 hours as needed for pain. 10/20/2023 Discontinued (Course of therapy completed) Comment on above: Take 1,000 mg by tami th every 8 hours as needed for pain. ascorbic acid 500 mg chewable tablet (14 sources) Vitamin C End: 10-20-2023 take 500 mg by mouth once daily Ascorbic Acid 500 mg chew Take 500 mg by mouth once daily. 10/20/2023 Discontinued (Course of therapy completed) Comment on above: Take 500 mg by mouth once daily. aspirin 81 mg chewable tablet (20 sources) Platelet Aggregation Inhibitor, Nonsteroidal Anti-inflammatory Drug Start: 12-08-2013 End: 10-20-2023 take 1 tablet by mouth once daily aspirin 81 mg chewable tablet Take 81 mg by mouth once daily. 12/08/2013 10/20/2023 Discontinued (Course of therapy completed) Comment on above: Take 81 mg by mouth once daily. clopidogrel 75 mg oral tablet (3 sources) P2Y12 Platelet Inhibitor Start: 01-10-2020 End: 02-12-2022 take 1 tablet by mouth once daily clopidogrel (PLAVIX) 75 mg tablet Indications: ASHD (arteriosclerotic heart disease) Take 1 tablet by mouth once daily. 90 tablet 3 01/10/2020 02/12/2022 Discontinued Comment on above: Take 1 tablet by tami once daily. docusate sodium 100 mg oral tablet (14 sources) End: 10-20-2023 take 1 tablet by mouth every twelve hours as needed Docusate Sodium 100 mg tab Take 1 tablet by mouth twice daily as needed for constipation. 10/20/2023 Discontinued (Course of therapy completed) Comment on above: Take 1 tablet by tami th twice daily as needed for constipation. folic acid 1 mg / polysaccharide iron complex 150 mg / vitamin b12 0.025 mg oral capsule (13 sources) Vitamin B12 Start: 10-14-2022 End: 10-20-2023 take 1 capsule by mouth once daily Iron Polysacch [id number] (FERREX 150 FORTE) 150-25-1 mg-mcg-mg cap Take 1 capsule by mouth once daily. 90 capsule 10/14/2022 10/20/2023 Discontinued (Course of therapy completed) Comment on above: Take 1 capsule by mo [facility] once daily. oxyCODONE hydrochloride 5 mg oral capsule (14 sources) Opioid Agonist End: 10-20-2023 take 1 capsule by mouth every four hours as needed oxyCODONE ir (OXYIR) 5 mg capsule Take 5 mg by mouth every 4 hours as needed for pain. 10/20/2023 Discontinued (Course of therapy completed) Comment on above: Take 5 mg by mouth e very 4 hours as needed for pain. prednisoLONE acetate, PF, 1 % drps (14 sources) End: 10-20-2023 take 1 drop(s) into the eye(s) every eight hours prednisoLONE acetate, PF, 1 % drps Use 1 Drop in eyes every 8 hours. Left eye 10/20/2023 Discontinued (Course of therapy completed) take 1 drop(s) into the eye(s) every eight hours prednisoLONE acetate, PF, 1 % drps Use 1 Drop in eyes every 8 hours. Left eye 0 Active Comment on above: Use 1 Drop in eyes e very 8 hours. Left eye vitamin b12 0.5 mg oral tablet (14 sources) Vitamin B12 End: 10-20-2023 take 1 tablet by mouth once daily cyanocobalamin (VITAMIN B-12) 500 mcg tablet Take 1 tablet by mouth once daily. 10/20/2023 Discontinued (Course of therapy completed) Comment on above: Take 1 tablet by tami th once daily. Problems Active Problems Problem Classification Problem Date Documented Date Episodic/Chronic Administrative/social admission (1 source) Advance directive discussed with patient; Translations: [Other specified counseling] Episodic Cardiac dysrhythmias (20 sources) Paroxysmal atrial fibrillation; Translations: [Paroxysmal atrial fibrillation] Onset: 11-30-2020 11-30-2020 Chronic Chronic kidney disease (20 sources) Chronic kidney disease stage 3; Translations: [CKD (chronic kidney disease) stage 3, GFR 30-59 ml/min] Onset: 05-20-2016 05-20-2016 Chronic Chronic kidney disease (1 source) Chronic kidney disease; Translations: [Stage 3 chronic kidney disease, unspecified whether stage 3a or 3b CKD (HCC)] Onset: 05-20-2016 Coronary atherosclerosis and other heart disease (20 sources) Coronary arteriosclerosis; Translations: [Atherosclerotic heart disease of [place] coronary artery without angina pectoris] Onset: 12-23-2013 12-23-2013 Chronic Disorders of lipid metabolism (20 sources) Hyperlipidemia; Translations: [Hyperlipidemia, unspecified] 11-27-2004 Chronic Esophageal disorders (20 sources) Gastroesophageal reflux disease; Translations: [Gastro-esophageal reflux disease without esophagitis] Onset: 11-28-2004 11-28-2004 Chronic Essential hypertension (20 sources) Benign essential hypertension; Translations: [Essential (primary) hypertension] Onset: 12-23-2013 12-23-2013 Chronic Nutritional deficiencies (1 source) Vitamin D deficiency; Translations: [Vitamin D deficiency, unspecified] 04-17-2023 Chronic Osteoporosis (3 sources) Senile osteoporosis; Translations: [Age-related osteoporosis without current pathological fracture] Onset: 04-15-2023 04-15-2023 Chronic Other connective tissue disease (20 sources) Polymyalgia rheumatica; Translations: [Polymyalgia rheumatica] Onset: 11-19-2017 11-19-2017 Chronic Other connective tissue disease (1 source) Polymyalgia rheumatica; Translations: [Polymyalgia rheumatica (HCC)] Onset: 11-19-2017 Chronic Other skin disorders (1 source) Skin lesion; Translations: [Disorder of the skin and subcutaneous tissue, unspecified] Episodic Past or Other Problems Problem Classification Problem Date Documented Da te Episodic/Chronic Coronary atherosclerosis and other heart disease (20 sources) Patient post percutaneous transluminal coronary angioplasty; Translations: [Coronary angioplasty status] Onset: 12-23-2013 12-23-2013 Episodic Fracture of neck of femur (hip) (18 sources) Fracture of bone of hip region; Translations: [Fracture of unspecified part of neck of right femur, initial encounter for closed fracture] Onset: 09-20-2022 10-10-2022 Episodic Other connective tissue disease (20 sources) Disorder of rotator cuff; Translations: [Unspecified disorder of synovium and tendon, right shoulder] Onset: 10-28-2017 10-28-2017 Episodic Other injuries and conditions due to external causes (16 sources) At high risk for fall; Translations: [History of falling] Onset: 10-10-2022 10-10-2022 Episodic Other injuries and conditions due to external causes (1 source) History of falling; Translations: [At high risk for falls] Onset: 10-10-2022 Episodic Other lower respiratory disease (20 sources) Multiple nodules of lung; Translations: [Other nonspecific abnormal finding of lung field] Onset: 09-14-2015 09-14-2015 Episodic Other screening for suspected conditions (not mental disorders or infectious disease) (20 sources) Serum creatinine raised; Translations: [Other specified abnormal findings of blood chemistry] Onset: 01-14-2013 01-14-2013 Episodic Residual codes; unclassified (20 sources) Tobacco user; Translations: [Tobacco use] Onset: 01-06-2013 Resolved: 04-20-2023 01-06-2013 Episodic Results Test Name Value Interpretation Reference Range Facil lana Stern 10-20-2023 CNOV Office Visit (FAMPWS ) SHAWNA SUH ([id number]) 1940 M Date Time Provider Department 10/20/23 1:40 PM NISA HOLTWS During your visit today, we recorded the following information about you: Pulse Respiration Blood pressure Weight 83/minute 16/minute 110/56 72.2 kg Nisa Holt MD 10/24/2023 4:24 PM Signed Chief Complaint Patient presents with: Follow Up: 6 month HPI Shawna Suh is a 83 year old male who presents here today for Above Complaints. Patient has been in good health without recent hospitalizations, ER visits, or falls. No concerns today. ASHD and a fib managed by [facility] cardiology with last OV in June. Asymptomatic on medical management. Patient states that he did stop his ASA at their recommendation due to petechiae. Denies bleeding or bruising on Eliquis. BP controlled today and readings at home are usually 110-120/60-70's. Denies hypotension symptoms on current regimen. PMR controlled on low dose prednisone. GERD: controlled on protonix. Using cane for ambulation and feels steady on his feet without recent falls. Past medical history, appointments, medications, allergies reviewed. Previous Medical History PAST MEDICAL HISTORY 12/23/2013: ASHD (arteriosclerotic heart disease) Comment: [facility] No date: At high risk for falls 05/20/2016: CKD (chronic kidney disease) stage 3, GFR 30-59 ml/min ([facility]) No date: Diverticulosis of colon (without mention of hemorrhage) 12/23/2013: Essential hypertension, benign 12/23/2013: GERD (gastroesophageal reflux disease) 09/20/2022: Hip fracture, right ([facility]) 12/23/2013: History of coronary artery stent placement No date: Internal hemorrhoids without mention of complication 09/14/2015: Multiple lung nodules No date: Other and unspecified hyperlipidemia No date: Paroxysmal atrial fibrillation ([facility]) Comment: Dr. Doherty No date: Periodontal disease Comment: Dr. Castro, on doxycycline 11/19/2017: Polymyalgia rheumatica ([facility]) 12/23/2013: S/P PTCA (percutaneous transluminal coronary angioplasty) No date: Vitamin D deficiency Previous Surgical History PAST SURGICAL HISTORY 08/25/2006: COLONOSCOPY FLX DX W/COLLJ SPEC WHEN PFRMD Comment: done at [facility] 12/07/2013: LEFT HEART CATH Comment: done at [place] - see scanned documents 09/21/2022: PAST SURGICAL HISTORY OF Comment: right hip cephalo-medullary nail Family History FAMILY HISTORY Problem Relation Age of Onset Heart Mother renal failure Stroke Father 80 Heart Sister Arthritis Sister Kidney Disease Sister Diabetes Paternal Grandmother Diabetes Paternal Grandfather Patient Allergies ALLERGIES Allergen Reactions Penicillins Rash Current Medications Current Outpatient Medications on File Prior to Visit Medication Sig calcium carbonate-vitamin D3 500 mg-15 mcg (600 unit) tab Take 2 tablets by mouth once daily. predniSONE (DELTASONE) 5 mg tablet Take 1 tablet by mouth once daily. alendronate (FOSAMAX) 70 mg tablet Take 1 tablet by mouth one time a week. Take with a full glass of water, on an empty stomach; do NOT lie down for 30minutes. apixaban (ELIQUIS) 2.5 mg tab(s) Take 2.5 mg by mouth twice daily. amLODIPine (NORVASC) 10 mg tablet Take 0.5 tablets by mouth once daily. nitroglycerin sublingual (NITROSTAT) 0.4 mg SL tablet Dissolve 1 tablet under the tongue every 5 minutes as needed for chest pain. metoprolol succinate ER (TOPROL XL) 25 mg 24 hr tablet Take 1 tablet by mouth once daily. atorvastatin (LIPITOR) 40 mg tablet Take 40 mg by mouth once daily. Doxycycline Hyclate 20 mg ORAL tablet Take one(1) tablet two(2) times daily. MULTI-VITAMIN ORAL TAB Take by mouth. cholecalciferol, Vitamin D3, (VITAMIN D3) 1,250 mcg (50,000 unit) cap capsule Take 1 capsule by mouth one time a week. Mirtazapine (REMERON) 7.5 mg tablet Take 1 tablet by mouth daily at bedtime. pantoprazole DR (PROTONIX) 20 mg tablet Take 1 tablet by mouth once daily. Iron Polysacch Swuglpy-O44-[id number] (FERREX 150 FORTE) 150-25-1 mg-mcg-mg cap Take 1 capsule by mouth once daily. prednisoLONE acetate, PF, 1 % drps Use 1 Drop in eyes every 8 hours. Left eye cyanocobalamin (VITAMIN B-12) 500 mcg tablet Take 1 tablet by mouth once daily. (Patient not taking: Reported on 10/20/2023) acetaminophen (TYLENOL) 500 mg tablet Take 1,000 mg by mouth every 8 hours as needed for pain. (Patient not taking: Reported on 10/20/2023) Ascorbic Acid 500 mg chew Take 500 mg by mouth once daily. oxyCODONE ir (OXYIR) 5 mg capsule Take 5 mg by mouth every 4 hours as needed for pain. Docusate Sodium 100 mg tab Take 1 tablet by mouth twice daily as needed for constipation. aspirin 81 mg chewable tablet Take 81 mg by mouth once daily. No current facility-administered medications on file prior to visit. Social History Social History Tobacco Use Smoking status: Ne (more content not included)... Normal [facility] 06-02-2023 [facility] Telephone (FAMWS) SHAWNA SUH ([id number]) 1940 M Date Time Provider Department 06/02/23 NISA HOLT [facility] During your visit today, we recorded the following information about you: Branden Sanford LPN 06/02/2023 1:24 PM Signed Message left for patient to return call to schedule 1 week ER follow up appointment with PCP. Patient seen 06/01/23 at [facility] ER records sent to scanning. Allergies As of Date: 06/02/2023 Noted Allergy Reaction PENICILLINS 11/27/2004 2 - Rash Date Reviewed: 04/15/2023 Reviewed by: Leilani Sanford MA - Fully Assessed Reason for Visit: Appointment [186] Prescriptions as of 07/09/2023 - alendronate (FOSAMAX) 70 mg tablet Take 1 tablet by mouth one time a week. Take with a full glass of water, on an empty stomach; do NOT lie down for 30minutes. - cholecalciferol, Vitamin D3, (VITAMIN D3) 1,250 mcg (50,000 unit) cap capsule Take 1 capsule by mouth one time a week. - Mirtazapine (REMERON) 7.5 mg tablet Take 1 tablet by mouth daily at bedtime. - pantoprazole DR (PROTONIX) 20 mg tablet Take 1 tablet by mouth once daily. - predniSONE (DELTASONE) 5 mg tablet Take 1 tablet by mouth once daily. - Iron Polysacch Qzdhjak-A33-[id number] (FERREX 150 FORTE) 150-25-1 mg-mcg-mg cap Take 1 capsule by mouth once daily. - prednisoLONE acetate, PF, 1 % drps Use 1 Drop in eyes every 8 hours. Left eye - cyanocobalamin (VITAMIN B-12) 500 mcg tablet Take 1 tablet by mouth once daily. - acetaminophen (TYLENOL) 500 mg tablet Take 1,000 mg by mouth every 8 hours as needed for pain. - apixaban (ELIQUIS) 2.5 mg tab(s) Take 2.5 mg by mouth twice daily. - Ascorbic Acid 500 mg chew Take 500 mg by mouth once daily. - oxyCODONE ir (OXYIR) 5 mg capsule Take 5 mg by mouth every 4 hours as needed for pain. - Docusate Sodium 100 mg tab Take 1 tablet by mouth twice daily as needed for constipation. - amLODIPine (NORVASC) 10 mg tablet Take 0.5 tablets by mouth once daily. - nitroglycerin sublingual (NITROSTAT) 0.4 mg SL tablet Dissolve 1 tablet under the tongue every 5 minutes as needed for chest pain. - metoprolol succinate ER (TOPROL XL) 25 mg 24 hr tablet Take 1 tablet by mouth once daily. - atorvastatin (LIPITOR) 40 mg tablet Take 40 mg by mouth once daily. - aspirin 81 mg chewable tablet Take 81 mg by mouth once daily. - Doxycycline Hyclate 20 mg ORAL tablet Take one(1) tablet two(2) times daily. - MULTI-VITAMIN ORAL TAB Take by mouth. Problem List As Of Date 06/02/2023 Noted Resolved HYPERLIPIDEMIA NEC/NOS [E78.5] ESOPHAGEAL REFLUX [K21.9] 11/28/2004 Tobacco abuse [Z72.0] 01/06/2013 04/20/2023 Elevated serum creatinine [R79.89] 01/14/2013 ASHD (arteriosclerotic heart disease) [I25.10] 12/23/2013 S/P PTCA (percutaneous transluminal coronary an*12/23/2013 History of coronary artery stent placement [Z95*12/23/2013 Essential hypertension, benign [I10] 12/23/2013 GERD (gastroesophageal reflux disease) [K21.9] 12/23/2013 Multiple lung nodules [R91.8] 09/14/2015 CKD (chronic kidney disease) stage 3, GFR 30-59*05/20/2016 Rotator cuff disorder, right [M67.911] 10/28/2017 Polymyalgia rheumatica (HCC) [M35.3] 11/19/2017 Paroxysmal atrial fibrillation (HCC) [I48.0] At high risk for falls [Z91.81] 10/10/2022 Hip fracture, right (HCC) [S72.001A] 09/20/2022 Encounter Status:Closed by BRANDEN SANFORD on 07/09/23 [facility] CNPNon 04-23-2023 CNPN Telephone (FAMWS) SHAWNA SUH ([id number]) 1940 M Date Time Provider Department 04/23/23 NISA HOLT During your visit today, we recorded the following information about you: Branden Sanford LPN 04/23/2023 9:08 AM Signed ----- Message from Nisa Holt MD sent at 04/22/2023 4:26 PM EST ----- DXA scan shows osteoporosis. Recommend treatment with Fosamax weekly with weight bearing exercise as able and 1,200 mg of calcium daily. Repeat testing in 2 years. Fosamax will help to improve bone density and reduce risk for fractures. Will send rx to pharmacy if patient agreeable. Branden Sanford LPN 04/23/2023 9:11 AM Signed Message left for patient to return call to review results and recommendations. Kita Damico RN 04/23/2023 11:34 AM Signed Spouse returns call and provider message reviewed. Spouse requests Fosamax prescription be sent to [facility]. Pended. RAJINDER Cabezas Christopher B, MD 04/23/2023 11:38 AM Signed Rx sent. Kristen Vale LPN 04/23/2023 2:40 PM Signed TC to pt. Left a detailed message on a secure line with updates. Kristen SOHA Vale Allergies As of Date: 04/23/2023 Noted Allergy Reaction PENICILLINS 11/27/2004 2 - Rash Date Reviewed: 04/15/2023 Reviewed by: Leilani Sanford MA - Fully Assessed Reason for Visit: Results [95] Order(s):alendronate (FOSAMAX) 70 mg tabletTake 1 tablet by mouth one time a week. Take with a full glass of water, on an empty stomach; do NOT lie down for 30minutes.Disp: 12 tabletRfl: 3 Prescriptions as of 07/20/2023 - alendronate (FOSAMAX) 70 mg tablet Take 1 tablet by mouth one time a week. Take with a full glass of water, on an empty stomach; do NOT lie down for 30minutes. - cholecalciferol, Vitamin D3, (VITAMIN D3) 1,250 mcg (50,000 unit) cap capsule Take 1 capsule by mouth one time a week. - Mirtazapine (REMERON) 7.5 mg tablet Take 1 tablet by mouth daily at bedtime. - pantoprazole DR (PROTONIX) 20 mg tablet Take 1 tablet by mouth once daily. - predniSONE (DELTASONE) 5 mg tablet Take 1 tablet by mouth once daily. - Iron Polysacch Avpjehi-A33-HG (FERREX 150 FORTE) 150-25-1 mg-mcg-mg cap Take 1 capsule by mouth once daily. - prednisoLONE acetate, PF, 1 % drps Use 1 Drop in eyes every 8 hours. Left eye - cyanocobalamin (VITAMIN B-12) 500 mcg tablet Take 1 tablet by mouth once daily. - acetaminophen (TYLENOL) 500 mg tablet Take 1,000 mg by mouth every 8 hours as needed for pain. - apixaban (ELIQUIS) 2.5 mg tab(s) Take 2.5 mg by mouth twice daily. - Ascorbic Acid 500 mg chew Take 500 mg by mouth once daily. - oxyCODONE ir (OXYIR) 5 mg capsule Take 5 mg by mouth every 4 hours as needed for pain. - Docusate Sodium 100 mg tab Take 1 tablet by mouth twice daily as needed for constipation. - amLODIPine (NORVASC) 10 mg tablet Take 0.5 tablets by mouth once daily. - nitroglycerin sublingual (NITROSTAT) 0.4 mg SL tablet Dissolve 1 tablet under the tongue every 5 minutes as needed for chest pain. - metoprolol succinate ER (TOPROL XL) 25 mg 24 hr tablet Take 1 tablet by mouth once daily. - atorvastatin (LIPITOR) 40 mg tablet Take 40 mg by mouth once daily. - aspirin 81 mg chewable tablet Take 81 mg by mouth once daily. - Doxycycline Hyclate 20 mg ORAL tablet Take one(1) tablet two(2) times daily. - MULTI-VITAMIN ORAL TAB Take by mouth. Problem List As Of Date 04/23/2023 Noted Resolved HYPERLIPIDEMIA NEC/NOS [E78.5] ESOPHAGEAL REFLUX [K21.9] 11/28/2004 Tobacco abuse [Z72.0] 01/06/2013 04/20/2023 Elevated serum creatinine [R79.89] 01/14/2013 ASHD (arteriosclerotic heart disease) [I25.10] 12/23/2013 S/P PTCA (percutaneous transluminal coronary an*12/23/2013 History of coronary artery stent placement [Z95*12/23/2013 Essential hypertension, benign [I10] 12/23/2013 GERD (gastroesophageal reflux disease) [K21.9] 12/23/2013 Multiple lung nodules [R91.8] 09/14/2015 CKD (chronic kidney disease) stage 3, GFR 30-59*05/20/2016 Rotator cuff disorder, right [M67.911] 10/28/2017 Polymyalgia rheumatica (HCC) [M35.3] 11/19/2017 Paroxysmal atrial fibrillation (HCC) [I48.0] At high risk for falls [Z91.81] 10/10/2022 Hip fracture, right (HCC) [S72.001A] 09/20/2022 Prescriptions ordered this encounter Disp Refills Start End ALENDRONATE 70 MG TABLET 12 t* 3 04/23/2023 04/22/2024 Route: ORAL Sig: Take 1 tablet by mouth one time a week. Take with a full glass of water, on an empty stomach; do NOT lie down for 30minutes. Encounter Status:Closed by BRANDEN SANFORD on 07/20/23 Normal [facility] BD DXA - AXIAL SKELETONon BD DXA - AXIAL SKELETON * * *Final Report* * * DATE OF EXAM: Apr 22 2023 3:06PM FERNANDO 08Gaby - BD DXA - AXIAL SKELETON / PROCEDURE REASON: multiple diagnoses * * * * Physician Interpretation * * * * EXAMINATION: DXA BONE DENSITOMETRY BD DXA - AXIAL SKELETON, BD DXA TRABECLR BONE SCORE (TBS) PATIENT DEMOGRAPHICS: Age: 83 years, Gender: Male SCANNER INFORMATION: DXA Model: Melodeo - Roamz C [id number] Date Scanned: 04/22/2023 3:06 PM CLINICAL HISTORY: DIAGNOSTIC Medicare annual wellness visit, subsequent Closed fracture of right hip with routine healing, subsequent encounter Age-related osteoporosis without current pathological fracture . RISK FACTORS FOR OSTEOPOROSIS AND ASSOCIATED FRACTURES REPORTED BY THIS PATIENT: Please refer to Bone Health Questionnaire in the EMR CURRENT THERAPY: Please refer to Bone Health Questionnaire in the EMR TECHNICAL LIMITATIONS: None RESULTS: Lumbar spine (L1, L2, L3, L4): 0.780 g/cm2, T-score -2.8, Z-score -1.5 Left Femoral Neck: 0.413 g/cm2, T-score -3.8, Z-score -2.1 Left Total Hip: 0.57. g/cm2, T-score -3.0, Z-score -1.8 No comparison data - the patient has not had a previous bone density in the [facility] or the previous bone density was performed on a different DXA machine (new, updated model or different location) within the [facility]. VERTEBRAL FRACTURE ASSESSMENT Not performed. TRABECULAR BONE ASSESSMENT TBS score: 1.096 Bone micro-architecture: Degraded (< or = 1.230) IMPRESSION: THE LOWEST T-SCORE IS -3.8 IN THE LEFT HIP 1) DIAGNOSIS (based on BMD alone): OSTEOPOROSIS Caution: Medical conditions other than osteoporosis may cause low bone density, such as osteomalacia or renal osteodystrophy. Clinical correlation is necessary. 2) FRACTURE RISK (Based on TBS adjusted FRAX): 10-year absolute fracture risk: - major osteoporotic fracture = 56 % - hip fracture = 47 % - A diagnosis of Osteoporosis, a 10 year probability of hip fracture greater than or equal to 3% or a 10 year probability of any major osteoporosis-related fracture greater than or equal to 20% should be considered for treatment. - DXA scanner generated FRAX calculations may slightly differ from online FRAX calculations due to differences in software versions. - All recommendations and calculations are to be considered as guidelines and should not replace sound clinical judgement - Caution: Fracture risk may be increased independent of BMD in patients with corticosteroid use, age greater than 65 years, or a history of prior fragility fracture. RECOMMENDATIONS: Follow-up in 2 years or as clinically indicated. Patients that are taking corticosteroids, are transplant recipients or have hyperparathyroidism should have annual follow-up. Follow-up scans should always be done on the same machine for accurate comparison. FOR MORE INFORMATION ABOUT DIAGNOSIS AND TREATMENT: [facility] for Osteoporosis and Metabolic Bone Disease:? www.ccf.org/arthritis/ osteo National Osteoporosis Foundation:? www.nof.org International Society of Clinical Densitometry www.iscd.org Arborist Climber: SHIRA Transcribe Date/Time: Apr 22 2023 3:11P Dictated by : MAX ENRIQUEZ MD This examination was interpreted and the report reviewed and electronically signed by: MAX ENRIQUEZ MD on Apr 22 2023 3:21PM EST [id number] -3.8 Normal [facility] BD DXA TRABECLR BONE SCORE ( TBS)on 04-22-2023 BD DXA TRABECLR BONE SCORE (TBS) * * *Final Report* * * DATE OF EXAM: Apr 22 2023 3:06PM [facility] 0801 - BD DXA TRABECLR BONE SCORE (TBS) / PROCEDURE REASON: multiple diagnoses * * * * Physician Interpretation * * * * EXAMINATION: DXA BONE DENSITOMETRY BD DXA - AXIAL SKELETON, BD DXA TRABECLR BONE SCORE (TBS) PATIENT DEMOGRAPHICS: Age: 83 years, Gender: Male SCANNER INFORMATION: DXA Model: Melodeo - Roamz C [id number] Date Scanned: 04/22/2023 3:06 PM CLINICAL HISTORY: DIAGNOSTIC Medicare annual wellness visit, subsequent Closed fracture of right hip with routine healing, subsequent encounter Age-related osteoporosis without current pathological fracture . RISK FACTORS FOR OSTEOPOROSIS AND ASSOCIATED FRACTURES REPORTED BY THIS PATIENT: Please refer to Bone Health Questionnaire in the EMR CURRENT THERAPY: Please refer to Bone Health Questionnaire in the EMR TECHNICAL LIMITATIONS: None RESULTS: Lumbar spine (L1, L2, L3, L4): 0.780 g/cm2, T-score -2.8, Z-score -1.5 Left Femoral Neck: 0.413 g/cm2, T-score -3.8, Z-score -2.1 Left Total Hip: 0.57. g/cm2, T-score -3.0, Z-score -1.8 No comparison data - the patient has not had a previous bone density in the [facility] or the previous bone density was performed on a different DXA machine (new, updated model or different location) within the [facility]. VERTEBRAL FRACTURE ASSESSMENT Not performed. TRABECULAR BONE ASSESSMENT TBS score: 1.096 Bone micro-architecture: Degraded (< or = 1.230) IMPRESSION: THE LOWEST T-SCORE IS -3.8 IN THE LEFT HIP 1) DIAGNOSIS (based on BMD alone): OSTEOPOROSIS Caution: Medical conditions other than osteoporosis may cause low bone density, such as osteomalacia or renal osteodystrophy. Clinical correlation is necessary. 2) FRACTURE RISK (Based on TBS adjusted FRAX): 10-year absolute fracture risk: - major osteoporotic fracture = 56 % - hip fracture = 47 % - A diagnosis of Osteoporosis, a 10 year probability of hip fracture greater than or equal to 3% or a 10 year probability of any major osteoporosis-related fracture greater than or equal to 20% should be considered for treatment. - DXA scanner generated FRAX calculations may slightly differ from online FRAX calculations due to differences in software versions. - All recommendations and calculations are to be considered as guidelines and should not replace sound clinical judgement - Caution: Fracture risk may be increased independent of BMD in patients with corticosteroid use, age greater than 65 years, or a history of prior fragility fracture. RECOMMENDATIONS: Follow-up in 2 years or as clinically indicated. Patients that are taking corticosteroids, are transplant recipients or have hyperparathyroidism should have annual follow-up. Follow-up scans should always be done on the same machine for accurate comparison. FOR MORE INFORMATION ABOUT DIAGNOSIS AND TREATMENT: [facility] for Osteoporosis and Metabolic Bone Disease:? www.ccf.org/arthritis/ osteo National Osteoporosis Foundation:? www.nof.org International Society of Clinical Densitometry www.iscd.org Arborist Climber: SHIRA Transcribe Date/Time: Apr 22 2023 3:11P Dictated by : MAX ENRIQUEZ MD This examination was interpreted and the report reviewed and electronically signed by: MAX ENRIQUEZ MD on Apr 22 2023 3:21PM EST [id number] -3.8 Normal [facility] No Panel Informationon 04-22 LOWEST T-SCORE -3.8 [facility] CNPNon 04-17-2023 CNPN Telephone (FAMPWS) SHAWNA SUH ([id number]) 1940 M Date Time Provider Department 04/17/23 [facility] During your visit today, we recorded the following information about you: Nisa Holt MD 04/17/2023 11:54 AM Signed Vitamin D level severely low. Recommend 50,000 units of vitamin D weekly x 12 weeks and recheck in 3 months. Anemia has resolved. WBC and absolute neutrophils are high which are likely due to his daily steroid. Call with symptoms of new infection. Kidney function stable in CKD stage III range. Recommend low sodium diet <2,000 mg per day, avoidance of NSAIDs, and increased water intake. Leidy Juan RN 04/17/2023 1:13 PM Signed Pt and called and notified of providers results and instructions. They voice understanding. Leidy Juan RN Allergies As of Date: 04/17/2023 Noted Allergy Reaction PENICILLINS 11/27/2004 2 - Rash Date Reviewed: 04/15/2023 Reviewed by: Leilani Sanford MA - Fully Assessed Reason for Visit: Results [95] Primary Visit Diagnosis:Vitamin D deficiency [E55.9] Order(s):cholecalcifer ol, Vitamin D3, (VITAMIN D3) 1,250 mcg (50,000 unit) cap capsuleTake 1 capsule by mouth one time a week.Disp: 12 capsuleRfl: 0 VITAMIN D 25 HYDROXY [SQVITD] Order #: [id number] FUTURE Prescriptions as of 04/17/2023 - cholecalciferol, Vitamin D3, (VITAMIN D3) 1,250 mcg (50,000 unit) cap capsule Take 1 capsule by mouth one time a week. - Mirtazapine (REMERON) 7.5 mg tablet Take 1 tablet by mouth daily at bedtime. - pantoprazole DR (PROTONIX) 20 mg tablet Take 1 tablet by mouth once daily. - predniSONE (DELTASONE) 5 mg tablet Take 1 tablet by mouth once daily. - Iron Polysacch Rwbmxsp-C48-LG (FERREX 150 FORTE) 150-25-1 mg-mcg-mg cap Take 1 capsule by mouth once daily. - prednisoLONE acetate, PF, 1 % drps Use 1 Drop in eyes every 8 hours. Left eye - cyanocobalamin (VITAMIN B-12) 500 mcg tablet Take 1 tablet by mouth once daily. - acetaminophen (TYLENOL) 500 mg tablet Take 1,000 mg by mouth every 8 hours as needed for pain. - apixaban (ELIQUIS) 2.5 mg tab(s) Take 2.5 mg by mouth twice daily. - Ascorbic Acid 500 mg chew Take 500 mg by mouth once daily. - oxyCODONE ir (OXYIR) 5 mg capsule Take 5 mg by mouth every 4 hours as needed for pain. - Docusate Sodium 100 mg tab Take 1 tablet by mouth twice daily as needed for constipation. - amLODIPine (NORVASC) 10 mg tablet Take 0.5 tablets by mouth once daily. - nitroglycerin sublingual (NITROSTAT) 0.4 mg SL tablet Dissolve 1 tablet under the tongue every 5 minutes as needed for chest pain. - metoprolol succinate ER (TOPROL XL) 25 mg 24 hr tablet Take 1 tablet by mouth once daily. - atorvastatin (LIPITOR) 40 mg tablet Take 40 mg by mouth once daily. - aspirin 81 mg chewable tablet Take 81 mg by mouth once daily. - Doxycycline Hyclate 20 mg ORAL tablet Take one(1) tablet two(2) times daily. - MULTI-VITAMIN ORAL TAB Take by mouth. Problem List As Of Date 04/17/2023 Noted Resolved HYPERLIPIDEMIA NEC/NOS [E78.5] ESOPHAGEAL REFLUX [K21.9] 11/28/2004 Tobacco abuse [Z72.0] 01/06/2013 Elevated serum creatinine [R79.89] 01/14/2013 ASHD (arteriosclerotic heart disease) [I25.10] 12/23/2013 S/P PTCA (percutaneous transluminal coronary an*12/23/2013 History of coronary artery stent placement [Z95*12/23/2013 Essential hypertension, benign [I10] 12/23/2013 GERD (gastroesophageal reflux disease) [K21.9] 12/23/2013 Multiple lung nodules [R91.8] 09/14/2015 CKD (chronic kidney disease) stage 3, GFR 30-59*05/20/2016 Rotator cuff disorder, right [M67.911] 10/28/2017 Polymyalgia rheumatica (HCC) [M35.3] 11/19/2017 Paroxysmal atrial fibrillation (HCC) [I48.0] At high risk for falls [Z91.81] 10/10/2022 Hip fracture, right (HCC) [S72.001A] 09/20/2022 Prescriptions ordered this encounter Disp Refills Start End CHOLECALCIFEROL (VITAMIN D3) 1,250 M* 12 c* 0 04/17/2023 07/16/2023 Route: ORAL Sig: Take 1 capsule by mouth one time a week. Encounter Status:Closed by LEIDY JUAN on 04/17/23 Normal [facility] Comprehensive metabolic 2000 panelon 04-16-2023 Albumin [Mass/Vol] 4.3 g/dL 3.9 - 4.9 g/dL [facility] ALP [Catalytic activity/Vol] 107 U/L 38 - 113 U/L [facility] ALT [Catalytic activity/Vol] 19 U/L 10 - 54 U/L [facility] Anion gap [Moles/Vol] 13 mmol/L 9 - 18 mmol/L [facility] AST [Catalytic activity/Vol] 23 U/L 14 - 40 U/L [facility] Bilirubin [Mass/Vol] 0.5 mg/dL 0.2 - 1.3 mg/dL [facility] Calcium [Mass/Vol] 9.6 mg/dL 8.5 - 10. 2 mg/dL [facility] Chloride [Moles/Vol] 109 mmol/L High 97 - 105 mmol/L [facility] CO2 [Moles/Vol] 22 mmol/L 22 - 30 mmol/L [facility] Creatinine [Mass/Vol] 1.51 mg/dL High 0.73 - 1.22 mg/dL [facility] Estimated Glomerular Filtration Rate 45 mL/min/1.73m Low >=60 mL/min/1.73m [facility] Glucose [Mass/Vol] 113 mg/dL High 74 - 99 mg/dL [facility] Potassium [Moles/Vol] 4.9 mmol/L 3.7 - 5.1 mmol/L [facility] Protein [Mass/Vol] 6.6 g/dL 6.3 - 8.0 g/dL [facility] Sodium [Moles/Vol] 144 mmol/L 136 - 144 mmol/L [facility] Urea nitrogen [Mass/Vol] 33 mg/dL High 9 - 24 mg/dL [facility] 25-hydroxyvitamin D3 [Mass/Vol] 11.8 ng/mL Low 31.0-80.0 [facility] Comment on above: Order Comment: Speci men Type: BLOOD SPECIMEN Ordering Facility: [facility] Address: [address] [place] [address] Result Comment: Clas sification of 25 [place] Vitamin D status: Deficiency/Insufficiency: < or = 30 ng/ml. Sufficiency/Optimal Levels: 31-80 ng/mL Toxicity: > 100 ng/mL. Test performed by chemiluminescent immunoassay. Performed By: #### 1 989-3 #### [facility] CLIA [id number] [address] [place] [address] [place] CBC W Auto Differential pane l (Bld)on 04-15-2023 Basophils (Bld) [#/Vol] 0.04 10*3/uL <0.11 k/uL [facility] Basophils/100 WBC (Bld) 0.3 % [facility] Differential cell count method Nom (Bld) Auto [facility] Eosinophils (Bld) [#/Vol] 0.24 10*3/uL <0.46 k/uL [facility] Eosinophils/100 WBC (Bld) 1.8 % [facility] Erythrocyte distribution width (RBC) [Ratio] 13.1 % 11.5 - 15.0 % [facility] Hematocrit (Bld) [Volume fraction] 44.4 % 39.0 - 51.0 % [facility] Hemoglobin (Bld) [Mass/Vol] 14.2 g/dL 13.0 - 17.0 g/dL [facility] Immature granulocytes (Bld) [#/Vol] 0.10 10*3/uL High <0.10 k/uL [facility] Immature granulocytes/100 WBC (Bld) 0.7 % [facility] Lymphocytes (Bld) [#/Vol] 1.87 10*3/uL 1.00 - 4.00 k/uL [facility] Lymphocytes/100 WBC (Bld) 14.0 % [facility] MCH (RBC) [Entitic mass] 31.2 pg 26.0 - 34.0 pg [facility] MCHC (RBC) [Mass/Vol] 32.0 g/dL 30.5 - 36.0 g/dL [facility] MCV (RBC) [Entitic vol] 97.6 fL 80.0 - 100.0 fL [facility] Monocytes (Bld) [#/Vol] 0.69 10*3/uL <0.87 k/uL [facility] Monocytes/100 WBC (Bld) 5.2 % [facility] Neutrophils (Bld) [#/Vol] 10.44 10*3/uL High 1.45 - 7.50 k/uL [facility] Neutrophils/100 WBC (Bld) 78.0 % [facility] Nucleated RBC (Bld) [#/Vol] <0.01 k/uL [facility] Nucleated RBC/100 WBC (Bld) [Ratio] 0.0 /100 WBC [facility] Platelet mean volume (Bld) [Entitic vol] 12.0 fL 9.0 - 12.7 fL [facility] Platelets (Bld) [#/Vol] 223 10*3/uL 150 - 400 k/uL [facility] RBC (Bld) [#/Vol] 4.55 10*6/uL 4.20 - 6.0 0 m/uL [facility] WBC (Bld) [#/Vol] 13.38 10*3/uL High 3.70 - 11 .00 k/uL [facility] Basophils (Bld) [#/Vol] 0.04 10*3/uL Normal <0.11 [facility] Comment on above: Order Comment: Speci men Type: BLOOD SPECIMEN Ordering Facility: [facility] Address: [address] [place] [address] Performed By: #### 5 7021-8 #### [facility] CLIA [id number] [address] [place] [address] [place] Basophils/100 WBC (Bld) 0.3 % Normal [facility] Comment on above: Order Comment: Speci men Type: BLOOD SPECIMEN Ordering Facility: [facility] Address: [address] [place] [address] Performed By: #### 5 7021-8 #### [facility] CLIA [id number] [address] [place] [address] [place] Differential cell count method Nom (Bld) Auto Normal [facility] Comment on above: Order Comment: Speci men Type: BLOOD SPECIMEN Ordering Facility: [facility] Address: [address] [place] [address] Performed By: #### 5 7021-8 #### [facility] CLIA [id number] [address] [place] [address] [place] Eosinophils (Bld) [#/Vol] 0.24 10*3/uL Normal <0.46 [facility] Comment on above: Order Comment: Speci men Type: BLOOD SPECIMEN Ordering Facility: [facility] Address: [address] [place] [address] Performed By: #### 5 7021-8 #### [facility] CLIA [id number] [address] [place] [address] [place] Eosinophils/100 WBC (Bld) 1.8 % Normal [facility] Comment on above: Order Comment: Speci men Type: BLOOD SPECIMEN Ordering Facility: [facility] Address: [address] [place] [address] Performed By: #### 5 7021-8 #### [facility] CLIA [id number] [address] [place] [address] [place] Erythrocyte distribution width (RBC) [Ratio] 13.1 % Normal 11.5-15.0 [facility] Comment on above: Order Comment: Speci men Type: BLOOD SPECIMEN Ordering Facility: [facility] Address: [address] [place] [address] Performed By: #### 5 7021-8 #### [facility] CLIA [id number] [address] [place] [address] [place] Hematocrit (Bld) [Volume fraction] 44.4 % Normal 39.0-51.0 [facility] Comment on above: Order Comment: Speci men Type: BLOOD SPECIMEN Ordering Facility: [facility] Address: [address] [place] [address] Performed By: #### 5 7021-8 #### [facility] CLIA [id number] [address] [place] [address] [place] Hemoglobin (Bld) [Mass/Vol] 14.2 g/dL Normal 13.0-17.0 [facility] Comment on above: Order Comment: Speci men Type: BLOOD SPECIMEN Ordering Facility: [facility] Address: [address] [place] [address] Performed By: #### 5 7021-8 #### [facility] CLIA [id number] [address] [place] [address] [place] Immature granulocytes (Bld) [#/Vol] 0.10 10*3/uL High <0.10 [facility] Comment on above: Order Comment: Speci men Type: BLOOD SPECIMEN Ordering Facility: [facility] Address: [address] [place] [address] Performed By: #### 5 7021-8 #### [facility] CLIA [id number] [address] [place] [address] [place] Immature granulocytes/100 WBC (Bld) 0.7 % Normal [facility] Comment on above: Order Comment: Speci men Type: BLOOD SPECIMEN Ordering Facility: [facility] Address: [address] [place] [address] Performed By: #### 5 7021-8 #### [facility] CLIA [id number] [address] [place] [address] [place] Lymphocytes (Bld) [#/Vol] 1.87 10*3/uL Normal 1.00-4.00 [facility] Comment on above: Order Comment: Speci men Type: BLOOD SPECIMEN Ordering Facility: [facility] Address: [address] [place] [address] Performed By: #### 5 7021-8 #### [facility] CLIA [id number] [address] [place] [address] [place] Lymphocytes/100 WBC (Bld) 14.0 % Normal [facility] Comment on above: Order Comment: Speci men Type: BLOOD SPECIMEN Ordering Facility: [facility] Address: [address] [place] [address] Performed By: #### 5 7021-8 #### [facility] CLIA [id number] [address] [place] [address] [place] MCH (RBC) [Entitic mass] 31.2 pg Normal 26.0-34.0 [facility] Comment on above: Order Comment: Speci men Type: BLOOD SPECIMEN Ordering Facility: [facility] Address: [address] [place] [address] Performed By: #### 5 7021-8 #### [facility] CLIA [id number] [address] [place] [address] [place] MCHC (RBC) [Mass/Vol] 32.0 g/dL Normal 30.5-36.0 [facility] Comment on above: Order Comment: Speci men Type: BLOOD SPECIMEN Ordering Facility: [facility] Address: [address] [place] [address] Performed By: #### 5 7021-8 #### [facility] CLIA [id number] [address] [place] [address] [place] MCV (RBC) [Entitic vol] 97.6 fL Normal 80.0-100.0 [facility] Comment on above: Order Comment: Speci men Type: BLOOD SPECIMEN Ordering Facility: [facility] Address: [address] [place] [address] Performed By: #### 5 7021-8 #### [facility] CLIA [id number] [address] [place] [address] [place] Monocytes (Bld) [#/Vol] 0.69 10*3/uL Normal <0.87 [facility] Comment on above: Order Comment: Speci men Type: BLOOD SPECIMEN Ordering Facility: [facility] Address: [address] [place] [address] Performed By: #### 5 7021-8 #### [facility] CLIA [id number] [address] [place] [address] [place] Monocytes/100 WBC (Bld) 5.2 % Normal [facility] Comment on above: Order Comment: Speci men Type: BLOOD SPECIMEN Ordering Facility: [facility] Address: [address] [place] [address] Performed By: #### 5 7021-8 #### [facility] CLIA [id number] [address] [place] [address] [place] Neutrophils (Bld) [#/Vol] 10.44 10*3/uL High 1.45-7.50 [facility] Comment on above: Order Comment: Speci men Type: BLOOD SPECIMEN Ordering Facility: [facility] Address: [address] [place] [address] Performed By: #### 5 7021-8 #### [facility] CLIA [id number] [address] [place] [address] [place] Neutrophils/100 WBC (Bld) 78.0 % Normal [facility] Comment on above: Order Comment: Speci men Type: BLOOD SPECIMEN Ordering Facility: [facility] Address: [address] [place] [address] Performed By: #### 5 7021-8 #### [facility] CLIA [id number] [address] [place] [address] [place] Nucleated RBC (Bld) [#/Vol] 10*3/uL Normal <0.01 [facility] Comment on above: Order Comment: Speci men Type: BLOOD SPECIMEN Ordering Facility: [facility] Address: [address] [place] [address] Performed By: #### 5 7021-8 #### [facility] CLIA [id number] [address] [place] [address] [place] Nucleated RBC/100 WBC (Bld) [Ratio] 0.0 /100 WBC Normal [facility] Comment on above: Order Comment: Speci men Type: BLOOD SPECIMEN Ordering Facility: [facility] Address: [address] [place] [address] Performed By: #### 5 7021-8 #### [facility] CLIA [id number] [address] [place] [address] [place] Platelet mean volume (Bld) [Entitic vol] 12.0 fL Normal 9.0-12.7 [facility] Comment on above: Order Comment: Speci men Type: BLOOD SPECIMEN Ordering Facility: [facility] Address: [address] [place] [address] Performed By: #### 5 7021-8 #### [facility] CLIA [id number] [address] [place] [address] [place] Platelets (Bld) [#/Vol] 223 10*3/uL Normal 150-400 [facility] Comment on above: Order Comment: Speci men Type: BLOOD SPECIMEN Ordering Facility: [facility] Address: [address] [place] [address] Performed By: #### 5 7021-8 #### [facility] CLIA [id number] [address] [place] [address] [place] RBC (Bld) [#/Vol] 4.55 10*6/uL Normal 4.20-6.00 [facility] Comment on above: Order Comment: Speci men Type: BLOOD SPECIMEN Ordering Facility: [facility] Address: [address] [place] [address] Performed By: #### 5 7021-8 #### [facility] CLIA [id number] [address] [place] [address] [place] WBC (Bld) [#/Vol] 13.38 10*3/uL High 3.70-11.00 [facility] Comment on above: Order Comment: Speci men Type: BLOOD SPECIMEN Ordering Facility: [facility] Address: [address] [place] [address] Performed By: #### 5 7021-8 #### [facility] CLIA [id number] [address] [place] [address] [place] CNOVon 04-15-2023 CNOV Office Visit (FAMPWS ) SHAWNA SUH ([id number]) 1940 M Date Time Provider Department 04/15/23 1:20 PM NISA HOLT FAMPWS During your visit today, we recorded the following information about you: Pulse Respiration Blood pressure Weight 71/minute 16/minute 116/64 74.6 kg Height 1.829 m Nisa Holt MD 04/20/2023 10:24 AM Signed Shawna Suh is a 83 year old male here for a Medicare wellness visit. Accompanied today by his . Patient has been in good health without hospitalizations, ER visits or falls since October with Hip fracture. No new concerns today. Medicare Health Risk Assessment General Health Good Exercise: Minutes/Day 150+ min Exercise: Days/Week 3 days Alcohol: Daily Use Never Alcohol: Drinks/Day Patient does not drink Alcohol: 6 or more drinks Never Feel off balance Yes (Doing home PT for recent fall with right hip fracture) Concerns: Teeth/Dentures No Concerns: Sexual function No Troubled by feelings None of the above Frequency: Eating healthy diet More than half the days ADLs requiring help Driving Safety precautions in home/vehicle Yes Smoke, vape, chews tobacco No Difficulty hearing No Difficulty seeing No Current Providers Specialists: I have reviewed specialist-related care of the patient in the medical record. Current care team: Patient Care Team: Nisa Holt MD as PCP - General (Family Medicine) Outside specialists seen: Dr. Doherty-Cardiology, Dr. Castro-dentist, Dr. Fishman-Optho Medical/Family history review Reviewed and updated problem list, medical/surgical/famil y/social history, medications, and allergies. Opioid use review Opioid Medications (last 90 days) Some values may be hidden. Unless noted otherwise, only the newest values recorded on each date are displayed. Opioid Medications oxyCODONE ir (OXYIR) 5 mg capsule Dose: 5 mg EVERY 4 HOURS NEEDED Starting date: (active) Prescribed No opioid use on file in the last 90 days Does patient have risk factors for opioid abuse? No Pain overview Current pain concerns and treatment plan reviewed. Patient not currently experiencing pain. Depression screening Depression Screening PHQ-2 Score 04/15/2023 0 Depression screening tool completed and reviewed. Based on score and interview, patient is not at risk for depression. Screening tool discussed with patient, and I recommended no further intervention at this time. Cognitive screening Mini Cog Score: 5 Cognitive screening reviewed and no further action needed (score 3-5) Functional Observation Was the patient's Timed Up AND Go test unsteady or ? 12 seconds? No Advance Care Planning Surrogate decision maker and/or advance care plan documented Measurements BP 116/64 Pulse 71 Resp 16 Ht 6' 0 (1.83m) Wt 164 lb 6.4 oz (74.6kg) BMI 22.29 kg/(m2). Additional screenings: No results found. Patient refusing vision exam today. Component Latest Ref Rng AND Units 10/10/2022 WBC 3.70 - 11.00 k/uL 10.11 RBC 4.20 - 6.00 m/uL 3.39 (L) Hemoglobin 13.0 - 17.0 g/dL 10.7 (L) Hematocrit 39.0 - 51.0 % 34.8 (L) MCV 80.0 - 100.0 fL 102.7 (H) MCH 26.0 - 34.0 pg 31.6 MCHC 30.5 - 36.0 g/dL 30.7 RDW-CV 11.5 - 15.0 % 16.3 (H) Platelet Count 150 - 400 k/uL 312 MPV 9.0 - 12.7 fL 11.4 Neut% % 68.8 Abs Neut (ANC) 1.45 - 7.50 k/uL 6.96 Lymph% % 17.7 Abs Lymph 1.00 - 4.00 k/uL 1.79 [place]% % 8.6 Abs [place] <0.87 k/uL 0.87 (H) Eosin% % 3.7 Abs Eosin <0.46 k/uL 0.37 Baso% % 0.4 Abs Baso <0.11 k/uL 0.04 Immature Gran % % 0.8 IMMATURE GRANS (ABS) <0.10 k/uL 0.08 NRBC /100 WBC 0.0 Absolute nRBC <0.01 k/uL <0.01 DTYPE Auto Protein, Total 6.3 - 8.0 g/dL 6.1 (L) Albumin 3.9 - 4.9 g/dL 3.8 (L) Calcium 8.5 - 10.2 mg/dL 9.3 Bilirubin, Total 0.2 - 1.3 mg/dL 0.6 Alkaline Phosphatase 38 - 113 U/L 186 (H) AST 14 - 40 U/L 33 ALT 10 - 54 U/L 46 Glucose 74 - 99 mg/dL 95 BUN 9 - 24 mg/dL 32 (H) Creatinine 0.73 - 1.22 mg/dL 1.30 (H) Sodium 136 - 144 mmol/L 139 Potassium 3.7 - 5.1 mmol/L 4.7 Chloride 97 - 105 mmol/L 107 (H) CO2 22 - 30 mmol/L 22 Anion Gap 9 - 18 mmol/L 10 eGFR >=60 mL/min/1.73mA? 55 (L) Cholesterol, Total <200 mg/dL 180 Triglyceride <150 mg/dL 157 (H) HDL Cholesterol >39 mg/dL 63 Non HDL Cholesterol <130 mg/dL 117 Fasting Time hrs 13 VLDL Cholesterol <30 mg/dL 31 (H) TC:HDL Ratio <5.10 2.86 LDL Cholesterol <100 mg/dL 86 LDL:HDL Ratio <2.54 1.37 Iron 41 - 186 ug/dL 105 TIBC 232 - 386 ug/dL 316 Transferrin Saturation 15.0 - 57.0 % 33.2 Ferritin 30.3 - 565.7 ng/mL 275.0 ASSESSMENT/PLAN: 1. Medicare annual wellness visit, subsequent - ICD9: V70.0, ICD10: Z00.00 (primary diagnosis) - Counseled on healthy diet and regular exercise - Counseled on limiting alcohol intake to 2 drinks per day - Depression screening tool completed and reviewed with patient. Based (more content not included)... Normal [facility] Comprehensive metabolic 2000 panelon 04-15-2023 Albumin [Mass/Vol] 4.3 g/dL Normal 3.9-4.9 [facility] Comment on above: Order Comment: Speci men Type: BLOOD SPECIMEN Ordering Facility: [facility] Address: [address] [place] [address] Performed By: #### 2 4323-8 #### [facility] CLIA [id number] [address] [place] [address] [place] ALP [Catalytic activity/Vol] 107 U/L Normal 38-113 [facility] Comment on above: Order Comment: Speci men Type: BLOOD SPECIMEN Ordering Facility: [facility] Address: [address] [place] [address] Performed By: #### 2 4323-8 #### [facility] CLIA [id number] [address] [place] [address] [place] ALT [Catalytic activity/Vol] 19 U/L Normal 10-54 [facility] Comment on above: Order Comment: Speci men Type: BLOOD SPECIMEN Ordering Facility: [facility] Address: [address] [place] [address] Performed By: #### 2 4323-8 #### [facility] CLIA [id number] [address] [place] [address] [place] Anion gap [Moles/Vol] 13 mmol/L Normal 9-18 [facility] Comment on above: Order Comment: Speci men Type: BLOOD SPECIMEN Ordering Facility: [facility] Address: [address] [place] [address] Performed By: #### 2 4323-8 #### [facility] CLIA [id number] [address] [place] [address] [place] AST [Catalytic activity/Vol] 23 U/L Normal 14-40 [facility] Comment on above: Order Comment: Speci men Type: BLOOD SPECIMEN Ordering Facility: [facility] Address: [address] [place] [address] Performed By: #### 2 4323-8 #### [facility] CLIA [id number] [address] [place] [address] [place] Bilirubin [Mass/Vol] 0.5 mg/dL Normal 0.2-1.3 [facility] Comment on above: Order Comment: Speci men Type: BLOOD SPECIMEN Ordering Facility: [facility] Address: [address] [place] [address] Performed By: #### 2 4323-8 #### [facility] CLIA [id number] [address] [place] [address] [place] Calcium [Mass/Vol] 9.6 mg/dL Normal 8.5-10.2 [facility] Comment on above: Order Comment: Speci men Type: BLOOD SPECIMEN Ordering Facility: [facility] Address: [address] [place] [address] Performed By: #### 2 4323-8 #### [facility] CLIA [id number] [address] [place], [place] [address] [place] Chloride [Moles/Vol] 109 mmol/L High 97-105 [facility] Comment on above: Order Comment: Speci men Type: BLOOD SPECIMEN Ordering Facility: [facility] Address: [address] [place] [address] Performed By: #### 2 4323-8 #### [facility] CLIA [id number] [address] [place] [address] [place] CO2 [Moles/Vol] 22 mmol/L Normal 22-30 [facility] Comment on above: Order Comment: Speci men Type: BLOOD SPECIMEN Ordering Facility: [facility] Address: [address] [place] [address] Performed By: #### 2 4323-8 #### [facility] CLIA [id number] [address] [place] [address] [place] Creatinine [Mass/Vol] 1.51 mg/dL High 0.73-1.22 [facility] Comment on above: Order Comment: Speci men Type: BLOOD SPECIMEN Ordering Facility: [facility] Address: [address] [place] [address] Performed By: #### 2 4323-8 #### [facility] CLIA [id number] [address] [place] [address] [place] Creatinine and Glomerular filtration rate.predicted panel (S/P/Bld) 45 mL/min/1.73m??? Low >=60 [facility] Comment on above: Order Comment: Speci men Type: BLOOD SPECIMEN Ordering Facility: [facility] Address: [address] [place] [address] Result Comment: Idalmis mated Glomerular Filtration Rate (eGFR) is calculated using the 2020 CKD-EPI creatinine equation. This equation utilizes serum creatinine, sex, and age as parameters. The creatinine assay has traceable calibration to isotope dilution-mass spectrometry. Refer to KDIGO guidelines for clinical interpretation. In patients with unstable renal function, e.g. those with acute kidney injury, the eGFR may not accurately reflect actual GFR. Performed By: #### 2 4323-8 #### [facility] CLIA [id number] [address] [place] [address] [place] Glucose [Mass/Vol] 113 mg/dL High 74-99 [facility] Comment on above: Order Comment: Speci men Type: BLOOD SPECIMEN Ordering Facility: [facility] Address: [address] [place] [address] Result Comment: The [place] [employer] (ADA) provides guidance for cutoff values for fasting glucose and random glucose. The ADA defines fasting as no caloric intake for at least 8 hours. Fasting plasma glucose results between 100 to 125 mg/dL indicate increased risk for diabetes (prediabetes). Fasting plasma glucose results greater than or equal to 126 mg/dL meet the criteria for diagnosis of diabetes. In the absence of unequivocal hyperglycemia, results should be confirmed by repeat testing. In a patient with classic symptoms of hyperglycemia or hyperglycemic crisis, random plasma glucose results greater than or equal to 200 mg/dL meet the criteria for diagnosis of diabetes. Reference: Standards of Medical Care in Diabetes 2016, [place] [employer] Association. Diabetes Care. 2016.39(Suppl 1). Performed By: #### 2 4323-8 #### [facility] CLIA [id number] [address] [place] [address] [place] Potassium [Moles/Vol] 4.9 mmol/L Normal 3.7-5.1 [facility] Comment on above: Order Comment: Rosio francisco Type: BLOOD SPECIMEN Ordering Facility: [facility] Address: [address] [place] [address] Performed By: #### 2 4323-8 #### [facility] CLIA [id number] [address] [place] [address] [place] Protein [Mass/Vol] 6.6 g/dL Normal 6.3-8.0 [facility] Comment on above: Order Comment: Linhi men Type: BLOOD SPECIMEN Ordering Facility: [facility] Address: [address] [place] [address] Performed By: #### 2 4323-8 #### [facility] CLIA [id number] [address] [place] [address] [place] Sodium [Moles/Vol] 144 mmol/L Normal 136-144 [facility] Comment on above: Order Comment: Speci men Type: BLOOD SPECIMEN Ordering Facility: [facility] Address: [address] [place] [address] Performed By: #### 2 4323-8 #### [facility] CLIA [id number] [address] [place] [address] [place] Urea nitrogen [Mass/Vol] 33 mg/dL High 9-24 [facility] Comment on above: Order Comment: Speci men Type: BLOOD SPECIMEN Ordering Facility: [facility] Address: [address] [place] [address] Performed By: #### 2 4323-8 #### [facility] CLIA [id number] [address] [place] [address] [place] VITAMIN D 25 HYDROXYon 04-15 25-hydroxyvitamin D3 [Mass/Vol] 11.8 ng/mL Low 31.0 - 80.0 ng/mL [facility] Vital Signs Date Time Vital Sign Value Performing Clinician Faci lity 10-20-2023 13:34-0400 Body mass index (BMI) [Ratio] 21.59 kg/m2 Nisa Holt MD Work Phone: [facility] 10-20-2023 13:34-0400 Body weight 72.2 kg Nisa Holt MD Work Phone: [facility] 10-20-2023 13:34-0400 Diastolic blood pressure 56 mm[Hg] Nisa Holt MD Work Phone: [facility] 10-20-2023 13:34-0400 Heart rate 83 /min Nisa Holt MD Work Phone: [facility] 10-20-2023 13:34-0400 Respiratory rate 16 /min Nisa Holt MD Work Phone: [facility] 10-20-2023 13:34-0400 SaO2% (BldA) [Mass fraction] 95 % Nisa Holt MD Work Phone: [facility] 10-20-2023 13:34-0400 Systolic blood pressure 110 mm[Hg] Nisa Holt MD Work Phone: [facility] 04-15-2023 13:110500 Body height 182.9 cm Nisa Holt MD Work Phone: [facility] 04-15-2023 13:110500 Body weight 74.57 kg Nisa Holt MD Work Phone: [facility] 04-15-2023 13:110500 Diastolic blood pressure 64 mm[Hg] Nisa Holt MD Work Phone: [facility] 04-15-2023 13:11-0500 Heart rate 71 /min Nisa Holt MD Work Phone: [facility] 04-15-2023 13:110500 Respiratory rate 16 /min Nisa Holt MD Work Phone: [facility] 04-15-2023 13:110500 Systolic blood pressure 116 mm[Hg] Nisa Holt MD Work Phone: [facility] 02-12-2022 13:280500 Body height 179.5 cm Nisa Holt MD Work Phone: [facility] 02-12-2022 13:280500 Body weight 71.76 kg Nisa Holt MD Work Phone: [facility] 02-12-2022 13:28-0500 Diastolic blood pressure 60 mm[Hg] Nisa Holt MD Work Phone: [facility] 02-12-2022 13:28-0500 Heart rate 73 /min Nisa Holt MD Work Phone: [facility] 02-12-2022 13:28-0500 Respiratory rate 16 /min Nisa Holt MD Work Phone: [facility] 02-12-2022 13:28-0500 SaO2% (BldA) [Mass fraction] 97 % Nisa Holt MD Work Phone: [facility] 02-12-2022 13:28-0500 Systolic blood pressure 112 mm[Hg] Nisa Holt MD Work Phone: [facility] Encounters Encounter Date Encounter Type Care Provider Facility Start: 11-13-2023 End: 11-16-2023 Refill Nisa Holt MD Work Phone: [facility] [place] Comment on above: Refill Request Start: 10-20-2023 End: 10-20-2023 Patient encounter procedure Nisa Holt MD Work Phone: [facility] [place] Comment on above: Essential hypertensi on, benign (Primary Dx); ASHD (arteriosclerotic heart disease); Paroxysmal atrial fibrillation (HCC); Polymyalgia rheumatica (HCC); Stage 3 chronic kidney disease, unspecified whether stage 3a or 3b CKD (HCC); Gastroesophageal reflux disease, unspecified whether esophagitis present; At high risk for falls Start: 10-20-2023 End: 10-20-2023 ambulatory NISA HOLT Facility:[facility] Start: 08-18-2023 Refill Margie Gonzales APRN.CNP Work Phone: [facility] [place] Comment on above: Refill Request Start: 07-11-2023 ambulatory Nisa Holt MD Work Phone: [facility] [place] Comment on above: lab Start: 06-02-2023 Telephone encounter Omar Holt MD Work Phone: [facility] [place] Comment on above: Appointment Start: 04-23-2023 Telephone encounter Omar Holt MD Work Phone: [facility] [place] Comment on above: Results Start: 04-22-2023 End: 04-22-2023 ambulatory NISA HOLT Facility:[facility] Start: 04-22-2023 End: 04-22-2023 Patient encounter procedure Bone Wstr Work Phone: [facility] Start: 04-22-2023 End: 04-22-2023 Subsequent hospital visit by physician Bone Density [facility] Work Phone: Radiology Comment on above: Medicare annual well ness visit, subsequent [Z00.00] Start: 04-17-2023 Telephone encounter Omar Holt MD Work Phone: [facility] [place] Comment on above: Results Start: 04-15-2023 End: 04-15-2023 ambulatory NISA HOLT Facility:[facility] Start: 04-15-2023 End: 04-15-2023 ambulatory NISA HOLT Facility:[facility] Start: 04-15-2023 End: 04-15-2023 Patient encounter procedure Nisa Holt MD Work Phone: [facility] [place] Comment on above: Medicare annual well ness visit, subsequent (Primary Dx); Gastroesophageal reflux disease without esophagitis; Closed fracture of right hip with routine healing, subsequent encounter; ASHD (arteriosclerotic heart disease); S/P PTCA (percutaneous transluminal coronary angioplasty); Paroxysmal atrial fibrillation (HCC); Essential hypertension, benign; Age-related osteoporosis without current pathological fracture; Polymyalgia rheumatica (HCC); Stage 3a chronic kidney disease (HCC); Encounter for screening for osteoporosis Start: 02-16-2023 Refill Nisa Holt MD Work Phone: [facility] [place] Comment on above: Refill Request Start: 01-30-2023 Refill Nisa Holt MD Work Phone: [facility] Comment on above: Refill Request Start: 10-14-2022 Refill Margie Gonzales APRN.CNP Work Phone: [facility] Comment on above: Refill Request iferex / mirtazapine Results Start: 10-09-2022 Telephone encounter Omar Holt MD Work Phone: [facility] [place] Comment on above: Appointment Start: 10-07-2022 Telephone encounter Omar Holt MD Work Phone: [facility] [place] Comment on above: Medication Problem Start: 10-03-2022 Patient Outreach Nisa Holt MD Work Phone: [facility] [place] Comment on above: Transition Of Care Start: 10-02-2022 Telephone encounter Omar Holt MD Work Phone: [facility] [place] Comment on above: HHC Orders Start: 09-25-2022 Refill Nisa Holt MD Work Phone: [facility] [place] Comment on above: Refill Request Start: 05-04-2022 Refill Margie Gonzales APRN.POWER ENGINEER Work Phone: [facility] Comment on above: Refill Request Start: 02-12-2022 End: 02-12-2022 Patient encounter procedure Nisa Holt MD Work Phone: [facility] [place] Comment on above: Paroxysmal atrial fi brillation (HCC) (Primary Dx); ASHD (arteriosclerotic heart disease); History of coronary artery stent placement; Essential hypertension, benign; Stage 3a chronic kidney disease (HCC); Gastroesophageal reflux disease without esophagitis; Skin lesion; Advance directive discussed with patient; Polymyalgia rheumatica (HCC) Start: 02-06-2022 Refill Clayton LUNA RN.POWER ENGINEER, DNP Work Phone: [facility] Comment on above: Refill Request Start: 01-23-2022 ambulatory Erin Moody MA [facility] [place] Comment on above: Population Health Na vigation Outreach ([facility] ) Procedures Date Procedure Procedure Detail Performing Clinician Start: 04-22-2023 BD DXA TRABECULAR VERNON NE SCORE (TBS) Nisa Holt MD Work Phone: Start: 04-22-2023 Dxa bone density kevin dy 1/> sites axial skel Nisa Holt MD Work Phone: Start: 12-23-2013 History of placement of stent for coronary artery disease History of coronary artery stent placement Erin Moody MA History of placement of stent for coronary artery disease History of coronary artery stent placement Nisa Holt MD Work Phone: Plan of Treatment Date Care Activity Detail Author Start: 10-18-2028 Urine microalbumin profile [facility] Start: 04-15-2026 Diabetes Screening Diabetes Screenhuey g [facility] Start: 10-10-2025 DIABETES SCREEN DIABETES SCREEN [facility] Start: 10-10-2025 Diabetes Screening Diabetes Screenin g [facility] Start: 08-14-2024 Hepatitis B surface antibody level LDL Cholesterol [facility] Start: 04-21-2024 End: 04-21-2024 Patient encounter procedure 04/21/2024 1:00 PM EST Office Visit Family [facility] [address] [place], [place] [id number] Nisa Holt MD [address] [place] [address] 6 month follow up Family [facility] Comment on above: 6 month follow up Start: 04-15-2024 Covid-19 Vaccine () Covid-19 Vaccine () [facility] Comment on above: Postponed from 12/05 (Declined at this time) Start: 04-15-2024 RSV Vaccine (1 - 1-d ose 60+ series) RSV Vaccine (1 - 1-dose 60+ series) [facility] Comment on above: Postponed from 03/26 (Declined at this time) Start: 04-15-2024 Shingrix Vaccine (1 of 2) Shingrix Vaccine (1 of 2) [facility] Comment on above: Postponed from 03/26 (Declined at this time) Start: 11-08-2023 Covid-19 Vaccine () Covid-19 Vaccine () [facility] Start: 11-08-2023 Influenza vaccination C [facility] Start: 10-20-2023 End: 01-19-2024 Comprehensive metabolic 2000 panel - Serum or Plasma COMPREHENSIVE METABOLIC PANEL Lab Routine Stage 3 chronic kidney disease, unspecified whether stage 3a or 3b CKD (HCC) Expected: 10/20/2023, Expires: 01/19/2024 [facility] Work Phone: Comment on above: Expected: 10/20/2023 , Expires: 01/19/2024 Start: 10-20-2023 End: 10-20-2023 Patient encounter procedure 10/20/2023 1:40 PM EDT Office Visit [facility] [place] [address] [place] [address] Nisa Holt MD [address] [place] [address] 6 mo check up [facility] [place] Comment on above: 6 mo check up Start: 10-11-2023 Hepatitis B surface antibody level LDL CHOLESTEROL [facility] Start: 09-06-2023 Influenza vaccination Influenza Vacc ine (#1) [facility] Comment on above: Postponed from 11/07 (Declined at this time) Start: 07-16-2023 End: 10-15-2023 25-hydroxyvitamin D3 [Mass/volume] in Serum or Plasma VITAMIN D 25 HYDROXY Lab Routine Vitamin D deficiency Expected: 07/16/2023, Expires: 10/15/2023 [facility] Work Phone: Comment on above: Expected: 07/16/2023 , Expires: 10/15/2023 Start: 03-09-2023 Behavioral Health Screening Behavioral Health Screening [facility] Start: 02-12-2023 SHINGRIX VACCINE (1 of 2) SHINGRIX VACCINE (1 of 2) [facility] Comment on above: Postponed from 03/26 (Declined at this time) Start: 12-05-2022 Covid-19 Vaccine ( season) Covid-19 Vaccine ( season) [facility] Start: 11-07-2022 Influenza vaccination C [facility] Start: 09-26-2022 DIABETES SCREEN DIABETES SCREEN [facility] Start: 09-05-2022 Influenza vaccination INFLUENZA (#1) [facility] Comment on above: Postponed from 11/07 (Declined at this time) Start: 05-06-2022 COVID-19 VACCINE (5 - Pfizer series) COVID-19 VACCINE (5 - Pfizer series) [facility] Start: 03-09-2022 ADVANCE DIRECTIVE DISCUSSION ADVANCE DIRECTIVE DISCUSSION [facility] Start: 03-09-2022 DEPRESSION ASSESSMENT DEPRESSION ASS ESSMENT [facility] Start: 02-12-2022 End: 04-14-2022 CBC W Auto Differential panel - Blood CBC + DIFF Lab Routine ASHD (arteriosclerotic heart disease) Expected: 02/12/2022, Expires: 04/14/2022 [facility] Work Phone: Comment on above: Expected: 02/12/2022 , Expires: 04/14/2022 Start: 02-12-2022 End: 04-14-2022 Comprehensive metabolic 2000 panel - Serum or Plasma COMP METABOLIC PANEL Lab Routine Stage 3a chronic kidney disease (HCC) Expected: 02/12/2022, Expires: 04/14/2022 [facility] Work Phone: Comment on above: Expected: 02/12/2022 , Expires: 04/14/2022 Start: 11-07-2021 Influenza vaccination INFLUENZA (#1) [facility] Start: 03-09-2021 ADVANCE DIRECTIVE DISCUSSION ADVANCE DIRECTIVE DISCUSSION [facility] Start: 03-09-2021 DEPRESSION ASSESSMENT DEPRESSION ASS ESSMENT [facility] Start: 09-27-2020 FECAL OCCULT BLOOD FECAL OCCULT BLOO D [facility] Start: 09-15-2020 Hepatitis B surface antibody level LDL CHOLESTEROL [facility] Start: 1999 RSV Vaccine (1 - 1-d ose 60+ series) RSV Vaccine (1 - 1-dose 60+ series) [facility] Start: 1989 SHINGRIX VACCINE (1 of 2) SHINGRIX VACCINE (1 of 2) [facility] Start: 1957 Anxiety Screening Anxiety Screening [facility] Start: 1957 Depression Screening Depression Scre ening [facility] End: 05-14-2024 BD DXA TRABECULAR BONE SCORE (TBS) BD DXA TRABECULAR BONE SCORE (TBS) Radiology Routine Medicare annual wellness visit, subsequent Closed fracture of right hip with routine healing, subsequent encounter 1 Occurrences starting 04/15/2023 until 05/14/2024 [facility] Work Phone: Comment on above: 1 Occurrences starti ng 04/15/2023 until 05/14/2024 End: 05-14-2024 DXA Skeletal system.axial Views for bone density DXA-AXIAL SKELETON Radiology Routine Medicare annual wellness visit, subsequent Closed fracture of right hip with routine healing, subsequent encounter Age-related osteoporosis without current pathological fracture 1 Occurrences starting 04/15/2023 until 05/14/2024 [facility] Work Phone: Comment on above: 1 Occurrences starti ng 04/15/2023 until 05/14/2024 [facility] Immunizations Immunization Date Immunization Notes Care Provider Fa rui 10-10-2022 COVID-19 vaccine, ag e 12+ yr, bivalent (PFIZER-BIONTECH) Margie Bartlettlogboby HARVEST WORKER [employer].POWER ENGINEER Work Phone: [facility] 01-05-2022 COVID-19 booster vaccine, age 12+ yr, bivalent (PFIZER-BIONTECH) Erin Moody [facility] 07-17-2021 COVID-19 original vaccine, age 12+ yr, monovalent (PFIZER-BIONTECH - PEDERSEN TOP) Margie Bartlettlogboby HARVEST WORKER FR[employer].POWER ENGINEER Work Phone: [facility] Work Phone: 07-17-2021 COVID-19 original vaccine, age 12+ yr, monovalent (PFIZER-BIONTECH - PURPLE TOP) Erin Moody [facility] 12-29-2020 COVID-19 original vaccine, age 12+ yr, monovalent (PFIZER-BIONTECH - PURPLE TOP) Erin Moody [facility] 12-06-2020 COVID-19 original vaccine, age 12+ yr, monovalent (PFIZER-BIONTECH - PURPLE TOP) Erin Moody [facility] 11-19-2020 influenza, high dose seasonal, preservative-free Erin Moody [facility] 11-19-2020 influenza virus vaccine, unspecified formulation Nisa Holt MD Work Phone: [facility] 12-07-2018 influenza virus vaccine, unspecified formulation Margie Gonzales HARVEST WORKER [employer].POWER ENGINEER Work Phone: [facility] Work Phone: 10-18-2018 pneumococcal conjuga te vaccine, 13 valent [facility] 10-18-2018 tetanus toxoid, redu james diphtheria toxoid, and acellular pertussis vaccine, adsorbed Eringregorio Moody [facility] 12-21-2017 influenza, high dose seasonal, preservative-free Eringregorio Moody [facility] 12-08-2012 influenza, seasonal, injectable, preservative free Amrgie Podlogar HARVEST WORKER [employer]POWER ENGINEER Work Phone: [facility] Work Phone: 01-07-2012 pneumococcal polysaccharide vaccine, 23 valent Margie Podlogar HARVEST WORKER [employer]POWER ENGINEER Work Phone: [facility] Work Phone: 01-07-2012 pneumococcal vaccine , unspecified formulation Mragie Podlogar HARVEST WORKER [employer].POWER ENGINEER Work Phone: [facility] Work Phone: 12-20-2009 influenza virus vaccine, unspecified formulation Eringregorio Moody [facility] 06-17-2007 pneumococcal polysaccharide vaccine, 23 valent Erin [facility] Work Phone: Payers Date Payer Category Payer Private Health Insurance HU[employer]NA HU[employer]NA MEDICARE SUPPLEMENT [id number] 2016-Present [phone] [address] [address] [place] [address] Indemnity [id number] 2016 Medicare [id number] 2004 Medicare MEDICARE MEDICAR E A AND B [id number] 2004-Present [phone] [address] [address] [place] [address] Medicare [id number] 2004 Medicare [id number] Social History Date Type Detail Facility Start: 01-06-2013 End: 02-12-2022 Tobacco smoking status NHIS Never smoked tobacco [facility] History of tobacco use Cigar Smoker [facility] Start: 01-06-2013 End: 02-12-2022 Tobacco use and exposure Smokeless tobacco non-user [facility] Start: 11-30-2020 End: 04-17-2023 Alcohol intake Current non-drinker of alcohol (finding) [facility] Start: 08-25-2019 End: 11-29-2020 History SDOH Alcohol Frequency 2 [facility] Start: 08-25-2019 History SDOH Alcohol Std Drinks 98 [facility] Start: 11-29-2020 History SDOH Alcohol Binge 1 [facility] Start: 11-29-2020 History SDOH Social Connections Phone 4 [facility] Start: 11-29-2020 History SDOH Social Connections Living 3 [facility] Start: 11-29-2020 History SDOH Physica l Activity DPW 0 [facility] Start: 08-25-2019 History SDOH Financial 5 [facility] Start: 08-25-2019 Education 12 [facility] Start: 12-24-2009 End: 02-12-2022 Tobacco Comment chews cigars, doesn't light them [facility] Start: 1940 Sex Assigned At Male C [facility] Start: 02-12-2022 End: 10-10-2022 History of Social function [facility] Work Phone: Start: 02-12-2022 End: 10-10-2022 Tobacco use panel [facility] Work Phone: Adult Depression Screening Assessment 0 [facility] Work Phone: Start: 11-29-2020 Gender identity Identifies as male gender (finding) [facility] Are you now , , , , never or living with a partner? [facility] How often do you hav e 6 or more drinks on 1 occasion? Never [facility] Do you feel stress - tense, restless, nervous, or anxious, or unable to sleep at night because your mind is troubled all the time - these days [OSQ] Only a little [facility] (I/We) worried wheth er (my/our) food would run out before (I/we) got money to buy more. Never true [facility] In the past 12 month s, was there a time when you were not able to pay the mortgage or rent on time? No [facility] Clinical Notes 01-06-2013 to 11-16-2023 Telephone Encounter - Homa Garcia MA - 11/16/2023 10:15 AM EDTTelephone Encounter - Homa Garcia MA - 11/16/2023 10:15 AM Nisa Jarvis MD - 10/20/2023 1:51 PM EDT Note Date & Type Note Facility 11-16-2023 Telephone encounter Note Prescription Refill Information The patient has been identified by name and date of : Yes Caregiver verified no other encounters exist for this prescription request: Yes Caregiver confirmed with patient/requestor that no other refills are due, in the near future, with this provider at this time: No The last office visit in the department: 10/20/23 Does the patient have a future office visit with this provider/department: Yes Requested Prescriptions Pending Prescriptions Disp Refills Mirtazapine (REMERON) 7.5 mg tablet 90 tablet 1 Sig: Take 1 tablet by mouth daily at bedtime. pantoprazole DR (PROTONIX) 20 mg tablet 90 tablet 1 Sig: Take 1 tablet by mouth once daily. Homa Garcia MA November 16, 2023 10:15 AM [facility] 11-16-2023 Miscellaneous Notes Prescription Refill Information The patient has been identified by name and date of : Yes Caregiver verified no other encounters exist for this prescription request: Yes Caregiver confirmed with patient/requestor that no other refills are due, in the near future, with this provider at this time: No The last office visit in the department: 10/20/23 Does the patient have a future office visit with this provider/department: Yes Requested Prescriptions Pending Prescriptions Disp Refills Mirtazapine (REMERON) 7.5 mg tablet 90 tablet 1 Sig: Take 1 tablet by mouth daily at bedtime. pantoprazole DR (PROTONIX) 20 mg tablet 90 tablet 1 Sig: Take 1 tablet by mouth once daily. Homa Garcia MA November 16, 2023 10:15 AM documented in this encounter [facility] 10-20-2023 Note HNO ID: [id number] Author: NISA HOLT MD Service: ? Author Type: Physician Type: Progress Notes Filed: 10/24/2023 16:24 Note Text: Chief Complaint Patient presents with: Follow Up: 6 month HPI Shawna Suh is a 83 year old male who presents here today for Above Complaints. Patient has been in good health without recent hospitalizations, ER visits, or falls. No concerns today. ASHD and a fib managed by [facility] cardiology with last OV in June. Asymptomatic on medical management. Patient states that he did stop his ASA at their recommendation due to petechiae. Denies bleeding or bruising on Eliquis. BP controlled today and readings at home are usually 110-120/60-70's. Denies hypotension symptoms on current regimen. PMR controlled on low dose prednisone. GERD: controlled on protonix. Using cane for ambulation and feels steady on his feet without recent falls. Past medical history, appointments, medications, allergies reviewed. Previous Medical History PAST MEDICAL HISTORY 12/23/2013: ASHD (arteriosclerotic heart disease) Comment: [facility] No date: At high risk for falls 05/20/2016: CKD (chronic kidney disease) stage 3, GFR 30-59 ml/min ([facility]) No date: Diverticulosis of colon (without mention of hemorrhage) 12/23/2013: Essential hypertension, benign 12/23/2013: GERD (gastroesophageal reflux disease) 09/20/2022: Hip fracture, right ([facility]) 12/23/2013: History of coronary artery stent placement No date: Internal hemorrhoids without mention of complication 09/14/2015: Multiple lung nodules No date: Other and unspecified hyperlipidemia No date: Paroxysmal atrial fibrillation ([facility]) Comment: Dr. Doherty No date: Periodontal disease Comment: Dr. Castro, on doxycycline 11/19/2017: Polymyalgia rheumatica ([facility]) 12/23/2013: S/P PTCA (percutaneous transluminal coronary angioplasty) No date: Vitamin D deficiency Previous Surgical History PAST SURGICAL HISTORY 08/25/2006: COLONOSCOPY FLX DX W/COLLJ SPEC WHEN PFRMD Comment: done at [facility] 12/07/2013: LEFT HEART CATH Comment: done at [place] - see scanned documents 09/21/2022: PAST SURGICAL HISTORY OF Comment: right hip cephalo-medullary nail Family History FAMILY HISTORY Problem Relation Age of Onset Heart Mother renal failure Stroke Father 80 Heart Sister Arthritis Sister Kidney Disease Sister Diabetes Paternal Grandmother Diabetes Paternal Grandfather Patient Allergies ALLERGIES Allergen Reactions Penicillins Rash Current Medications Current Outpatient Medications on File Prior to Visit Medication Sig calcium carbonate-vitamin D3 500 mg-15 mcg (600 unit) tab Take 2 tablets by mouth once daily. predniSONE (DELTASONE) 5 mg tablet Take 1 tablet by mouth once daily. alendronate (FOSAMAX) 70 mg tablet Take 1 tablet by mouth one time a week. Take with a full glass of water, on an empty stomach; do NOT lie down for 30minutes. apixaban (ELIQUIS) 2.5 mg tab(s) Take 2.5 mg by mouth twice daily. amLODIPine (NORVASC) 10 mg tablet Take 0.5 tablets by mouth once daily. nitroglycerin sublingual (NITROSTAT) 0.4 mg SL tablet Dissolve 1 tablet under the tongue every 5 minutes as needed for chest pain. metoprolol succinate ER (TOPROL XL) 25 mg 24 hr tablet Take 1 tablet by mouth once daily. atorvastatin (LIPITOR) 40 mg tablet Take 40 mg by mouth once daily. Doxycycline Hyclate 20 mg ORAL tablet Take one(1) tablet two(2) times daily. MULTI-VITAMIN ORAL TAB Take by mouth. cholecalciferol, Vitamin D3, (VITAMIN D3) 1,250 mcg (50,000 unit) cap capsule Take 1 capsule by mouth one time a week. Mirtazapine (REMERON) 7.5 mg tablet Take 1 tablet by mouth daily at bedtime. pantoprazole DR (PROTONIX) 20 mg tablet Take 1 tablet by mouth once daily. Iron Polysacch [id number] (FERREX 150 FORTE) 150-25-1 mg-mcg-mg cap Take 1 capsule by mouth once daily. prednisoLONE acetate, PF, 1 % drps Use 1 Drop in eyes every 8 hours. Left eye cyanocobalamin (VITAMIN B-12) 500 mcg tablet Take 1 tablet by mouth once daily. (Patient not taking: Reported on 10/20/2023) acetaminophen (TYLENOL) 500 mg tablet Take 1,000 mg by mouth every 8 hours as needed for pain. (Patient not taking: Reported on 10/20/2023) Ascorbic Acid 500 mg chew Take 500 mg by mouth once daily. oxyCODONE ir (OXYIR) 5 mg capsule Take 5 mg by mouth every 4 hours as needed for pain. Docusate Sodium 100 mg tab Take 1 tablet by mouth twice daily as needed for constipation. aspirin 81 mg chewable tablet Take 81 mg by mouth once daily. No current facility-administered medications on file prior to visit. Social History Social History Tobacco Use Smoking status: Never Smokeless tobacco: Never Tobacco comments: chews cigars, doesn't light them Vaping Use Vaping Use: Never used Substance Use Topics Alcohol use: No Drug use: No Review of Symptoms REVIEW OF SYSTEMS GENERAL: No weight loss, malaise or fevers RESPIRATORY: Ne (more content not included)... [facility] 10-20-2023 History of Presen t illness Narrative Chief Complaint Patient presents with: Follow Up: 6 month HPI Shawna Suh is a 83 year old male who presents here today for Above Complaints. Patient has been in good health without recent hospitalizations, ER visits, or falls. No concerns today. ASHD and a fib managed by [facility] cardiology with last OV in June. Asymptomatic on medical management. Patient states that he did stop his ASA at their recommendation due to petechiae. Denies bleeding or bruising on Eliquis. BP controlled today and readings at home are usually 110-120/60-70's. Denies hypotension symptoms on current regimen. PMR controlled on low dose prednisone. GERD: controlled on protonix. Using cane for ambulation and feels steady on his feet without recent falls. Past medical history, appointments, medications, allergies reviewed. Previous Medical History PAST MEDICAL HISTORY 12/23/2013: ASHD (arteriosclerotic heart disease) Comment: [facility] No date: At high risk for falls 05/20/2016: CKD (chronic kidney disease) stage 3, GFR 30-59 ml/min ([facility]) No date: Diverticulosis of colon (without mention of hemorrhage) 12/23/2013: Essential hypertension, benign 12/23/2013: GERD (gastroesophageal reflux disease) 09/20/2022: Hip fracture, right ([facility]) 12/23/2013: History of coronary artery stent placement No date: Internal hemorrhoids without mention of complication 09/14/2015: Multiple lung nodules No date: Other and unspecified hyperlipidemia No date: Paroxysmal atrial fibrillation ([facility]) Comment: Dr. Doherty No date: Periodontal disease Comment: Dr. Castro, on doxycycline 11/19/2017: Polymyalgia rheumatica (HCC) 12/23/2013: S/P PTCA (percutaneous transluminal coronary angioplasty) No date: Vitamin D deficiency Previous Surgical History PAST SURGICAL HISTORY 08/25/2006: COLONOSCOPY FLX DX W/COLLJ SPEC WHEN PFRMD Comment: done at [facility] 12/07/2013: LEFT HEART CATH Comment: done at [place] - see scanned documents 09/21/2022: PAST SURGICAL HISTORY OF Comment: right hip cephalo-medullary nail Family History FAMILY HISTORY Problem Relation Age of Onset Heart Mother renal failure Stroke Father 80 Heart Sister Arthritis Sister Kidney Disease Sister Diabetes Paternal Grandmother Diabetes Paternal Grandfather Patient Allergies ALLERGIES Allergen Reactions Penicillins Rash Current Medications Current Outpatient Medications on File Prior to Visit Medication Sig calcium carbonate-vitamin D3 500 mg-15 mcg (600 unit) tab Take 2 tablets by mouth once daily. predniSONE (DELTASONE) 5 mg tablet Take 1 tablet by mouth once daily. alendronate (FOSAMAX) 70 mg tablet Take 1 tablet by mouth one time a week. Take with a full glass of water, on an empty stomach; do NOT lie down for 30minutes. apixaban (ELIQUIS) 2.5 mg tab(s) Take 2.5 mg by mouth twice daily. amLODIPine (NORVASC) 10 mg tablet Take 0.5 tablets by mouth once daily. nitroglycerin sublingual (NITROSTAT) 0.4 mg SL tablet Dissolve 1 tablet under the tongue every 5 minutes as needed for chest pain. metoprolol succinate ER (TOPROL XL) 25 mg 24 hr tablet Take 1 tablet by mouth once daily. atorvastatin (LIPITOR) 40 mg tablet Take 40 mg by mouth once daily. Doxycycline Hyclate 20 mg ORAL tablet Take one(1) tablet two(2) times daily. MULTI-VITAMIN ORAL TAB Take by mouth. cholecalciferol, Vitamin D3, (VITAMIN D3) 1,250 mcg (50,000 unit) cap capsule Take 1 capsule by mouth one time a week. Mirtazapine (REMERON) 7.5 mg tablet Take 1 tablet by mouth daily at bedtime. pantoprazole DR (PROTONIX) 20 mg tablet Take 1 tablet by mouth once daily. Iron Polysacch Ixduhyr-Z60-RI (FERREX 150 FORTE) 150-25-1 mg-mcg-mg cap Take 1 capsule by mouth once daily. prednisoLONE acetate, PF, 1 % drps Use 1 Drop in eyes every 8 hours. Left eye cyanocobalamin (VITAMIN B-12) 500 mcg tablet Take 1 tablet by mouth once daily. (Patient not taking: Reported on 10/20/2023) acetaminophen (TYLENOL) 500 mg tablet Take 1,000 mg by mouth every 8 hours as needed for pain. (Patient not taking: Reported on 10/20/2023) Ascorbic Acid 500 mg chew Take 500 mg by mouth once daily. oxyCODONE ir (OXYIR) 5 mg capsule Take 5 mg by mouth every 4 hours as needed for pain. Docusate Sodium 100 mg tab Take 1 tablet by mouth twice daily as needed for constipation. aspirin 81 mg chewable tablet Take 81 mg by mouth once daily. No current facility-administered medications on file prior to visit. Social History Social History Tobacco Use Smoking status: Never Smokeless tobacco: Never Tobacco comments: chews cigars, doesn't light them Vaping Use Vaping Use: Never used Substance Use Topics Alcohol use: No Drug use: No Review of Symptoms REVIEW OF SYSTEMS GENERAL: No weight loss, malaise or fevers RESPIRATORY: Negative for cough, hemoptysis, wheezing, COPD, dyspnea or shortness of breath CARDIOVASCULAR: Negative for chest pain, leg swelling, hypertension, CHF or palpitations GI: No nausea, vomiting, or diarrhea : No history of dysuria, frequency or incontinence, No difficulty urinating, nocturia > 1 time per night or hematuria SKIN: Negative for lesions, rash, and itching EXAM: BP 110/56 Pulse 83 Resp 16 Wt 72.2 kg (159 lb 2.8 oz) SpO2 95% BMI 21.59 kg/m General Appearance: Well appearing, alert, in no acute distress, well-hydrated, well nourished.. Skin: Skin color, texture, turgor normal, no suspicious rashes or lesions. Lungs: Lungs clear to auscultation. No wheezing, rhonchi, rales.. Heart: RRR without murmur, gallop, or rubs. No ectopy. Abdomen: Normal abdominal exam, Abdomen soft, non-tender. Bowel sounds normal. No masses, organomegaly. Extremities: No deformities, edema, skin discoloration, clubbing or cyanosis. Good capillary refill. . Health Maintenance List Depression Screening Never done Anxiety Screening Never done LDL Cholesterol due on 10/11/2023 RSV Vaccine(1 - 1-dose 60+ series) due on 04/15/2024 Shingrix Vaccine(1 of 2) due on 04/15/2024 Covid-19 Vaccine(2022- season) due on 04/15/2024 Influenza Vaccine(1) due on 11/08/2023 Diabetes Screening due on 04/15/2026 DTaP,Tdap,Td Vaccine(2 - Td or Tdap) due on 10/18/2028 Advance Directive Discussion Completed Pneumococcal Vaccine: 65+ Completed Fecal Occult Blood Discontinued Data reviewed Latest Ref Rng 04/15/2023 WBC 3.70 - 11.00 k/uL 13.38 (H) RBC 4.20 - 6.00 m/uL 4.55 Hemoglobin 13.0 - 17.0 g/dL 14.2 Hematocrit 39.0 - 51.0 % 44.4 MCV 80.0 - 100.0 fL 97.6 MCH 26.0 - 34.0 pg 31.2 MCHC 30.5 - 36.0 g/dL 32.0 RDW-CV 11.5 - 15.0 % 13.1 Platelet Count 150 - 400 k/uL 223 MPV 9.0 - 12.7 fL 12.0 Neut% % 78.0 Abs Neut (ANC) 1.45 - 7.50 k/uL 10.44 (H) Lymph% % 14.0 Abs Lymph 1.00 - 4.00 k/uL 1.87 [place]% % 5.2 Abs [place] <0.87 k/uL 0.69 Eosin% % 1.8 Abs Eosin <0.46 k/uL 0.24 Baso% % 0.3 Abs Baso <0.11 k/uL 0.04 Immature Gran % % 0.7 IMMATURE GRANS (ABS) <0.10 k/uL 0.10 (H) NRBC /100 WBC 0.0 Absolute nRBC <0.01 k/uL <0.01 DTYPE Auto Protein, Total 6.3 - 8.0 g/dL 6.6 Albumin 3.9 - 4.9 g/dL 4.3 Calcium 8.5 - 10.2 mg/dL 9.6 Bilirubin, Total 0.2 - 1.3 mg/dL 0.5 Alkaline Phosphatase 38 - 113 U/L 107 AST 14 - 40 U/L 23 ALT 10 - 54 U/L 19 Glucose 74 - 99 mg/dL 113 (H) BUN 9 - 24 mg/dL 33 (H) Creatinine 0.73 - 1.22 mg/dL 1.51 (H) Sodium 136 - 144 mmol/L 144 Potassium 3.7 - 5.1 mmol/L 4.9 Chloride 97 - 105 mmol/L 109 (H) CO2 22 - 30 mmol/L 22 Anion Gap 9 - 18 mmol/L 13 eGFR >=60 mL/min/1.73m 45 (L) Vitamin D 25 Hydroxy 31.0 - 80.0 ng/mL 11.8 (L) Legend: (H) High (L) Low ASSESSMENT/PLAN: 1. Essential hypertension, benign - ICD9: 401.1, ICD10: I10 (primary diagnosis) - Controlled - Continue current medications - Recommend home blood pressure monitoring, to bring results to next visit - Encouraged sodium restriction, DASH or Mediterranean diet - Recommend regular aerobic exercise 2. ASHD (arteriosclerotic heart disease) - ICD9: 414.00, ICD10: I25.10 Asymptomatic on medical management. Continue current regimen and follow up with cardiology recommendations. 3. Paroxysmal atrial fibrillation (HCC) - ICD9: 427.31, ICD10: I48.0 Asymptomatic on medical management. Rate controlled. Continue current regimen and follow up with cardiology recommendations. 4. Polymyalgia rheumatica (HCC) - ICD9: 725, ICD10: M35.3 Improved with low dose prednisone daily. 5. Stage 3 chronic kidney disease, unspecified whether stage 3a or 3b CKD (HCC) - ICD9: 585.3, ICD10: N18.30 Recheck CMP. - Counseled on avoiding NSAIDs, adequate hydration - Counseled on low sodium diet - COMPREHENSIVE METABOLIC PANEL 6. Gastroesophageal reflux disease, unspecified whether esophagitis present - ICD9: 530.81, ICD10: K21.9 - Continue treatment with Protonix 7. At high risk for falls - ICD9: V15.88, ICD10: Z91.81 Continue use of cane for ambulation. Not interested in referral to PT. Discussed fall risk prevention. Nisa Holt MD documented in this encounter [facility] 08-18-2023 Telephone encounter Note Prescription Refill Information The patient has been identified by name and date of : Yes Caregiver verified no other encounters exist for this prescription request: Yes Caregiver confirmed with patient/requestor that no other refills are due, in the near future, with this provider at this time: Yes The last office visit in the department: 04/15/23 Does the patient have a future office visit with this provider/department: Yes, 10/20/23 Requested Prescriptions Pending Prescriptions Disp Refills predniSONE (DELTASONE) 5 mg tablet 90 tablet 1 Sig: Take 1 tablet by mouth once daily. Jakob Murillo LPN August 18, 2023 11:54 AM [facility] 08-18-2023 Miscellaneous Notes Prescription Refill Information The patient has been identified by name and date of : Yes Caregiver verified no other encounters exist for this prescription request: Yes Caregiver confirmed with patient/requestor that no other refills are due, in the near future, with this provider at this time: Yes The last office visit in the department: 04/15/23 Does the patient have a future office visit with this provider/department: Yes, 10/20/23 Requested Prescriptions Pending Prescriptions Disp Refills predniSONE (DELTASONE) 5 mg tablet 90 tablet 1 Sig: Take 1 tablet by mouth once daily. Jakob Murillo LPN August 18, 2023 11:54 AM documented in this encounter [facility] 07-13-2023 Miscellaneous Notes Order has been faxed, pt notified via [employer] by PCP's Nurse. Judy Nice MA documented in this encounter [facility] 07-13-2023 Telephone encounter Note Order has been faxed, pt notified via [employer] by PCP's Nurse. Judy Nice MA [facility] 06-02-2023 Telephone encounter Note Message left for patient to return call to schedule 1 week ER follow up appointment with PCP. Patient seen 06/01/23 at [facility] ER records sent to scanning. [facility] 06-02-2023 Miscellaneous Notes Message left for patient to return call to schedule 1 week ER follow up appointment with PCP. Patient seen 06/01/23 at [facility] ER records sent to scanning. documented in this encounter [facility] 04-23-2023 Telephone encounter Note TC to pt. Left a detailed message on a secure line with updates. Kristen Vale LPN [facility] 04-23-2023 Miscellaneous Notes TC to pt. Left a detailed message on a secure line with updates. Kristen Vale LPN Rx sent. Spouse returns call and provider message reviewed. Spouse requests Fosamax prescription be sent to [facility]. Pended. Kita Damico RN Message left for patient to return call to review results and recommendations. ----- Message from Nisa Holt MD sent at 04/22/2023 4:26 PM EST ----- DXA scan shows osteoporosis. Recommend treatment with Fosamax weekly with weight bearing exercise as able and 1,200 mg of calcium daily. Repeat testing in 2 years. Fosamax will help to improve bone density and reduce risk for fractures. Will send rx to pharmacy if patient agreeable. documented in this encounter [facility] 04-23-2023 Telephone encounter Note Rx sent. [facility] 04-23-2023 Telephone encounter Note Spouse returns call and provider message reviewed. Spouse requests Fosamax prescription be sent to [facility]. Pended. Kita Damico RN [facility] 04-23-2023 Telephone encounter Note Message left for patient to return call to review results and recommendations. [facility] 04-23-2023 Telephone encounter Note ----- Message from Nisa Holt MD sent at 04/22/2023 4:26 PM EST ----- DXA scan shows osteoporosis. Recommend treatment with Fosamax weekly with weight bearing exercise as able and 1,200 mg of calcium daily. Repeat testing in 2 years. Fosamax will help to improve bone density and reduce risk for fractures. Will send rx to pharmacy if patient agreeable. [facility] 04-22-2023 History of Presen t illness Narrative Radiology Service Progress Note PATIENT NAME: Shawna Suh DATE OF SERVICE: April 22, 2023 TIME: 2:43 PM PATIENT IDENTITY VERIFICATION COMPLETED USING TWO (2) IDENTIFIERS: Name and Date of confirmed by patient verbally. FALL SCREENING: Has the patient had 2 falls in the last year or 1 fall with injury or currently using an Ambulatory Assistive Device (Walker, Cane, Wheelchair, Crutches, etc.)? Yes, Patient High Risk for Falls What interventions were put in place to prevent falls during this visit? Increased Observations by Caregivers PATIENT GENDER DATA: Male PATIENT RELEVANT IMPLANT DATA REVIEWED: Not Applicable PATIENT PRESENTS WITH AN IMPLANTABLE OR ATTACHED INSPECTOR PACKAGER: No RADIOLOGY DEPARTMENT: Bone Density PERIPHERAL IV DATA: Not applicable SIGNED BY: RT Nanda(R) April 22, 2023 2:43 PM documented in this encounter [facility] 04-22-2023 Note HNO ID: [id number] Author: KALI DARDEN RT(Radha) Service: ? Author Type: Technologist Type: Progress Notes Filed: 04/22/2023 14:55 Note Text: Radiology Service Progress Note PATIENT NAME: Shawna Suh DATE OF SERVICE: April 22, 2023 TIME: 2:43 PM PATIENT IDENTITY VERIFICATION COMPLETED USING TWO (2) IDENTIFIERS: Name and Date of confirmed by patient verbally. FALL SCREENING: Has the patient had 2 falls in the last year or 1 fall with injury or currently using an Ambulatory Assistive Device (Walker, Cane, Wheelchair, Crutches, etc.)? Yes, Patient High Risk for Falls What interventions were put in place to prevent falls during this visit? Increased Observations by Caregivers PATIENT GENDER DATA: Male PATIENT RELEVANT IMPLANT DATA REVIEWED: Not Applicable PATIENT PRESENTS WITH AN IMPLANTABLE OR ATTACHED INSPECTOR PACKAGER: No RADIOLOGY DEPARTMENT: Bone Density PERIPHERAL IV DATA: Not applicable SIGNED BY: RT Nanda(R) April 22, 2023 2:43 PM [facility] 04-17-2023 Miscellaneous Notes Pt and called and notified of providers results and instructions. They voice understanding. Leidy Juan, RN Vitamin D level severely low. Recommend 50,000 units of vitamin D weekly x 12 weeks and recheck in 3 months. Anemia has resolved. WBC and absolute neutrophils are high which are likely due to his daily steroid. Call with symptoms of new infection. Kidney function stable in CKD stage III range. Recommend low sodium diet <2,000 mg per day, avoidance of NSAIDs, and increased water intake. documented in this encounter [facility] 04-15-2023 Instructions Nisa Holt MD - 04/15/2023 1:30 PM EST Screening schedule The following prevention plan is recommended: Shingrix Vaccine(1 of 2) Never done RSV Vaccine(1 - 1-dose 60+ series) Never done Influenza Vaccine(1) due on 11/07/2022 Covid-19 Vaccine(2022- season) due on 12/05/2022 Advance Directive Discussion due on 03/09/2023 Depression Assessment due on 03/09/2023 WHAT YOU CAN DO TO PREVENT FALLS Many falls can be prevented. By making some changes, you can lower your chances of falling. Four things YOU can do to prevent falls for you* and your caregiver 1. Begin a regular exercise program Exercise is one of the most important ways to lower your chances of falling. It makes you stronger and helps you feel better. Exercises that improve balance and coordination (like Marques Chi) are the most helpful. Lack of exercise leads to weakness and increases your chances of falling. Ask your doctor or health care provider about the best type of exercise program for you. 2. Have your health care provider review your medicines Have your doctor or pharmacist review all the medicines you take, even [id number] medicines. As you get older, the way medicines work in your body can change. Some medicines, or combinations of medicines, can make you sleepy or dizzy and can cause you to fall. 3. Have your vision checked Have your eyes checked by an eye doctor at least once a year. You may be wearing the wrong glasses or have a condition like glaucoma or cataracts that limits your vision. Poor vision can increase your chances of falling. 4. Make your home safer About half of all falls happen at home. To make your home safer: Remove things you can trip over (like papers, books, clothes, and shoes) from stairs and places where you walk. Remove small throw rugs or use double-sided tape to keep the rugs from slipping. Keep items you use often in cabinets you can reach easily without using a step stool. Have grab bars put in next to your toilet and in the tub or shower. Use non-slip mats in the bathtub and on shower floors. Improve the lighting in your home. As you get older, you need brighter lights to see well. Hang light-weight curtains or shades to reduce glare. Have handrails and lights put in on all staircases. Wear shoes both inside and outside the house. Avoid going barefoot or wearing slippers. For more information, contact: Centers for Disease Control and Prevention www.cdc.gov/injury * This information may not apply if you have certain medical conditions. BONE MINERAL DENSITY PATIENT INSTRUCTIONS ========= Bone mineral density testing measures the amount of calcium in certain parts of your bones. This information determines how strong your bones are. The test is used to detect osteoporosis, a disease in which the bone's mineral content and density are low, increasing a person's risk of fractures. The lumbar spine (lower back) and the hip are the skeletal sites usually examined. For the test, remember that: 1. You cannot take this test if you are . 2. Eat a normal diet on the day of the test. 3. Take your medications as you normally would. 4. DO NOT take calcium supplements (such as Tums) for 24 hours before the test. 5. On the day of the test, leave valuables (jewelry or credit cards) at home. 6. The test should be performed prior to oral, rectal or IV contrast studies, or at least 7 days after any of these studies. For the test, you may be asked to wear a hospital gown. You will lie on your back, on a padded table, in a comfortable position. Generally, you can resume your usual activities immediately. documented in this encounter [facility] 04-15-2023 Note HNO ID: [id number] Author: NISA HOLT MD Service: ? Author Type: Physician Type: Progress Notes Filed: 04/20/2023 10:24 Note Text: Shawna Suh is a 83 year old male here for a Medicare wellness visit. Accompanied today by his . Patient has been in good health without hospitalizations, ER visits or falls since October with Hip fracture. No new concerns today. Medicare Health Risk Assessment General Health Good Exercise: Minutes/Day 150+ min Exercise: Days/Week 3 days Alcohol: Daily Use Never Alcohol: Drinks/Day Patient does not drink Alcohol: 6 or more drinks Never Feel off balance Yes (Doing home PT for recent fall with right hip fracture) Concerns: Teeth/Dentures No Concerns: Sexual function No Troubled by feelings None of the above Frequency: Eating healthy diet More than half the days ADLs requiring help Driving Safety precautions in home/vehicle Yes Smoke, vape, chews tobacco No Difficulty hearing No Difficulty seeing No Current Providers Specialists: I have reviewed specialist-related care of the patient in the medical record. Current care team: Patient Care Team: Nisa Holt MD as PCP - General (Family Medicine) Outside specialists seen: Dr. Doherty-Cardiology, Dr. Castro-dentist, Dr. Fishman-Optho Medical/Family history review Reviewed and updated problem list, medical/surgical/family/social history, medications, and allergies. Opioid use review Opioid Medications (last 90 days) Some values may be hidden. Unless noted otherwise, only the newest values recorded on each date are displayed. Opioid Medications oxyCODONE ir (OXYIR) 5 mg capsule Dose: 5 mg EVERY 4 HOURS NEEDED Starting date: (active) Prescribed No opioid use on file in the last 90 days Does patient have risk factors for opioid abuse? No Pain overview Current pain concerns and treatment plan reviewed. Patient not currently experiencing pain. Depression screening Depression Screening PHQ-2 Score 04/15/2023 0 Depression screening tool completed and reviewed. Based on score and interview, patient is not at risk for depression. Screening tool discussed with patient, and I recommended no further intervention at this time. Cognitive screening Mini Cog Score: 5 Cognitive screening reviewed and no further action needed (score 3-5) Functional Observation Was the patient's Timed Up AND Go test unsteady or ? 12 seconds? No Advance Care Planning Surrogate decision maker and/or advance care plan documented Measurements BP 116/64 Pulse 71 Resp 16 Ht 6' 0 (1.83m) Wt 164 lb 6.4 oz (74.6kg) BMI 22.29 kg/(m2). Additional screenings: No results found. Patient refusing vision exam today. Component Latest Ref Rng AND Units 10/10/2022 WBC 3.70 - 11.00 k/uL 10.11 RBC 4.20 - 6.00 m/uL 3.39 (L) Hemoglobin 13.0 - 17.0 g/dL 10.7 (L) Hematocrit 39.0 - 51.0 % 34.8 (L) MCV 80.0 - 100.0 fL 102.7 (H) MCH 26.0 - 34.0 pg 31.6 MCHC 30.5 - 36.0 g/dL 30.7 RDW-CV 11.5 - 15.0 % 16.3 (H) Platelet Count 150 - 400 k/uL 312 MPV 9.0 - 12.7 fL 11.4 Neut% % 68.8 Abs Neut (ANC) 1.45 - 7.50 k/uL 6.96 Lymph% % 17.7 Abs Lymph 1.00 - 4.00 k/uL 1.79 [place]% % 8.6 Abs [place] <0.87 k/uL 0.87 (H) Eosin% % 3.7 Abs Eosin <0.46 k/uL 0.37 Baso% % 0.4 Abs Baso <0.11 k/uL 0.04 Immature Gran % % 0.8 IMMATURE GRANS (ABS) <0.10 k/uL 0.08 NRBC /100 WBC 0.0 Absolute nRBC <0.01 k/uL <0.01 DTYPE Auto Protein, Total 6.3 - 8.0 g/dL 6.1 (L) Albumin 3.9 - 4.9 g/dL 3.8 (L) Calcium 8.5 - 10.2 mg/dL 9.3 Bilirubin, Total 0.2 - 1.3 mg/dL 0.6 Alkaline Phosphatase 38 - 113 U/L 186 (H) AST 14 - 40 U/L 33 ALT 10 - 54 U/L 46 Glucose 74 - 99 mg/dL 95 BUN 9 - 24 mg/dL 32 (H) Creatinine 0.73 - 1.22 mg/dL 1.30 (H) Sodium 136 - 144 mmol/L 139 Potassium 3.7 - 5.1 mmol/L 4.7 Chloride 97 - 105 mmol/L 107 (H) CO2 22 - 30 mmol/L 22 Anion Gap 9 - 18 mmol/L 10 eGFR >=60 mL/min/1.73mA? 55 (L) Cholesterol, Total <200 mg/dL 180 Triglyceride <150 mg/dL 157 (H) HDL Cholesterol >39 mg/dL 63 Non HDL Cholesterol <130 mg/dL 117 Fasting Time hrs 13 VLDL Cholesterol <30 mg/dL 31 (H) TC:HDL Ratio <5.10 2.86 LDL Cholesterol <100 mg/dL 86 LDL:HDL Ratio <2.54 1.37 Iron 41 - 186 ug/dL 105 TIBC 232 - 386 ug/dL 316 Transferrin Saturation 15.0 - 57.0 % 33.2 Ferritin 30.3 - 565.7 ng/mL 275.0 ASSESSMENT/PLAN: 1. Medicare annual wellness visit, subsequent - ICD9: V70.0, ICD10: Z00.00 (primary diagnosis) - Counseled on healthy diet and regular exercise - Counseled on limiting alcohol intake to 2 drinks per day - Depression screening tool completed and reviewed with patient. Based on score and interview, patient is not at risk for depression and recommended no further intervention at this time. - Follow up for annual exam in one year - DXA-AXIAL SKELETON - BD DXA TRABECULAR BONE SCORE (TBS) - ADVANCE CARE PLAN DISCUSSION - DEPRESSION SCREENING/ASSESSMENT - CB (more content not included)... [facility] 04-15-2023 History of Presen t illness Narrative Shawna Suh is a 83 year old male here for a Medicare wellness visit. Accompanied today by his . Patient has been in good health without hospitalizations, ER visits or falls since October with Hip fracture. No new concerns today. Medicare Health Risk Assessment General Health Good Exercise: Minutes/Day 150+ min Exercise: Days/Week 3 days Alcohol: Daily Use Never Alcohol: Drinks/Day Patient does not drink Alcohol: 6 or more drinks Never Feel off balance Yes (Doing home PT for recent fall with right hip fracture) Concerns: Teeth/Dentures No Concerns: Sexual function No Troubled by feelings None of the above Frequency: Eating healthy diet More than half the days ADLs requiring help Driving Safety precautions in home/vehicle Yes Smoke, vape, chews tobacco No Difficulty hearing No Difficulty seeing No Current Providers Specialists: I have reviewed specialist-related care of the patient in the medical record. Current care team: Patient Care Team: Nisa Holt MD as PCP - General (Family Medicine) Outside specialists seen: Dr. Doherty-Cardiology, Dr. Castro-dentist, Dr. Fishman-Optho Medical/Family history review Reviewed and updated problem list, medical/surgical/family/social history, medications, and allergies. Opioid use review Opioid Medications (last 90 days) Some values may be hidden. Unless noted otherwise, only the newest values recorded on each date are displayed. Opioid Medications oxyCODONE ir (OXYIR) 5 mg capsule Dose: 5 mg EVERY 4 HOURS NEEDED Starting date: (active) Prescribed No opioid use on file in the last 90 days Does patient have risk factors for opioid abuse? No Pain overview Current pain concerns and treatment plan reviewed. Patient not currently experiencing pain. Depression screening Depression Screening PHQ-2 Score 04/15/2023 0 Depression screening tool completed and reviewed. Based on score and interview, patient is not at risk for depression. Screening tool discussed with patient, and I recommended no further intervention at this time. Cognitive screening Mini Cog Score: 5 Cognitive screening reviewed and no further action needed (score 3-5) Functional Observation Was the patient's Timed Up & Go test unsteady or ? 12 seconds? No Advance Care Planning Surrogate decision maker and/or advance care plan documented Measurements BP 116/64 Pulse 71 Resp 16 Ht 6' 0 (1.83m) Wt 164 lb 6.4 oz (74.6kg) BMI 22.29 kg/(m^2). Additional screenings: No results found. Patient refusing vision exam today. Component Latest Ref Rng & Units 10/10/2022 WBC 3.70 - 11.00 k/uL 10.11 RBC 4.20 - 6.00 m/uL 3.39 (L) Hemoglobin 13.0 - 17.0 g/dL 10.7 (L) Hematocrit 39.0 - 51.0 % 34.8 (L) MCV 80.0 - 100.0 fL 102.7 (H) MCH 26.0 - 34.0 pg 31.6 MCHC 30.5 - 36.0 g/dL 30.7 RDW-CV 11.5 - 15.0 % 16.3 (H) Platelet Count 150 - 400 k/uL 312 MPV 9.0 - 12.7 fL 11.4 Neut% % 68.8 Abs Neut (ANC) 1.45 - 7.50 k/uL 6.96 Lymph% % 17.7 Abs Lymph 1.00 - 4.00 k/uL 1.79 [place]% % 8.6 Abs [place] <0.87 k/uL 0.87 (H) Eosin% % 3.7 Abs Eosin <0.46 k/uL 0.37 Baso% % 0.4 Abs Baso <0.11 k/uL 0.04 Immature Gran % % 0.8 IMMATURE GRANS (ABS) <0.10 k/uL 0.08 NRBC /100 WBC 0.0 Absolute nRBC <0.01 k/uL <0.01 DTYPE Auto Protein, Total 6.3 - 8.0 g/dL 6.1 (L) Albumin 3.9 - 4.9 g/dL 3.8 (L) Calcium 8.5 - 10.2 mg/dL 9.3 Bilirubin, Total 0.2 - 1.3 mg/dL 0.6 Alkaline Phosphatase 38 - 113 U/L 186 (H) AST 14 - 40 U/L 33 ALT 10 - 54 U/L 46 Glucose 74 - 99 mg/dL 95 BUN 9 - 24 mg/dL 32 (H) Creatinine 0.73 - 1.22 mg/dL 1.30 (H) Sodium 136 - 144 mmol/L 139 Potassium 3.7 - 5.1 mmol/L 4.7 Chloride 97 - 105 mmol/L 107 (H) CO2 22 - 30 mmol/L 22 Anion Gap 9 - 18 mmol/L 10 eGFR >=60 mL/min/1.73m 55 (L) Cholesterol, Total <200 mg/dL 180 Triglyceride <150 mg/dL 157 (H) HDL Cholesterol >39 mg/dL 63 Non HDL Cholesterol <130 mg/dL 117 Fasting Time hrs 13 VLDL Cholesterol <30 mg/dL 31 (H) TC:HDL Ratio <5.10 2.86 LDL Cholesterol <100 mg/dL 86 LDL:HDL Ratio <2.54 1.37 Iron 41 - 186 ug/dL 105 TIBC 232 - 386 ug/dL 316 Transferrin Saturation 15.0 - 57.0 % 33.2 Ferritin 30.3 - 565.7 ng/mL 275.0 ASSESSMENT/PLAN: 1. Medicare annual wellness visit, subsequent - ICD9: V70.0, ICD10: Z00.00 (primary diagnosis) - Counseled on healthy diet and regular exercise - Counseled on limiting alcohol intake to 2 drinks per day - Depression screening tool completed and reviewed with patient. Based on score and interview, patient is not at risk for depression and recommended no further intervention at this time. - Follow up for annual exam in one year - DXA-AXIAL SKELETON - BD DXA TRABECULAR BONE SCORE (TBS) - ADVANCE CARE PLAN DISCUSSION - DEPRESSION SCREENING/ASSESSMENT - CBC + DIFF - COMP METABOLIC PANEL - VITAMIN D 25 HYDROXY 2. Gastroesophageal reflux disease without esophagitis - ICD9: 530.81, ICD10: K21.9 - Continue treatment with Protonix QD - PANTOPRAZOLE 20 MG TABLET,DELAYED RELEASE 3. Closed fracture of right hip with routine healing, subsequent encounter - ICD9: V54.13, ICD10: S72.001D Healing well without pain. Patient with recent fall with fracture and takes chronic steroid for PMR. Will obtain DXA and check vitamin D for possible osteoporosis. - DXA-AXIAL SKELETON - BD DXA TRABECULAR BONE SCORE (TBS) - VITAMIN D 25 HYDROXY 4. ASHD (arteriosclerotic heart disease) - ICD9: 414.00, ICD10: I25.10 Asymptomatic on medical management. F/u recommendations per [facility] cardiology. 5. S/P PTCA (percutaneous transluminal coronary angioplasty) - ICD9: V45.82, ICD10: Z98.61 Asymptomatic on medical management. F/u recommendations per [facility] cardiology. 6. Paroxysmal atrial fibrillation (HCC) - ICD9: 427.31, ICD10: I48.0 Rate controlled. Asymptomatic on medical management. F/u recommendations per [facility] cardiology. 7. Essential hypertension, benign - ICD9: 401.1, ICD10: I10 - Controlled - Continue current medications - Recommend home blood pressure monitoring, to bring results to next visit - Encouraged sodium restriction, DASH or Mediterranean diet - Recommend regular aerobic exercise 8. Age-related osteoporosis without current pathological fracture - ICD9: 733.01, ICD10: M81.0 Patient with recent fall with fracture and takes chronic steroid for PMR. Will obtain DXA and check vitamin D for possible osteoporosis. - DXA-AXIAL SKELETON - VITAMIN D 25 HYDROXY 9. Polymyalgia rheumatica (HCC) - ICD9: 725, ICD10: M35.3 Improved with prednisone daily. 10. Stage 3a chronic kidney disease (HCC) - ICD9: 585.3, ICD10: N18.31 Recheck CMP. - Counseled on avoiding NSAIDs, adequate hydration 11. Encounter for screening for osteoporosis - ICD9: V82.81, ICD10: Z13.820 Nisa Holt MD documented in this encounter [facility] 02-16-2023 Miscellaneous Notes DARA-10/10/22 Labs-10/10/22 NOV-04/15/23 Kristen Vale LPN documented in this encounter [facility] 01-30-2023 Miscellaneous Notes DARA: 10/10/22 with PCP NOV: 02/16/23 with Annual Wellness Exam Last refill: 10/14/22 With 90 and 0 refills Lilibeth Jackson MA documented in this encounter [facility] 10-14-2022 Miscellaneous Notes Pts called and is notified of providers message and instructions. Pt voices understanding. Leidy Juan RN Rx sent. Patient needing refill for Iferex. Please send to [facility] pharmacy. Marie Mendes LPN Yes continue current regimen as stated in my original message since he still has anemia. Called and spoke with . Made aware of mirtazapin prescription sent. asking if patient should continue the Iferex that he was prescribed in the hospital by Dr. Grajeda. Marie Mendes LPN 90 day refill of Mirtazepine sent to pharmacy since this is helping with appetite. Phoned patient and reviewed results with him and his . They voiced understanding. reports BP today 115/50, yesterday 143/67 and the day prior to that 137/60. Asked her if she is obtaining at the same time daily? She reported they were at various times of the day. Advised her to obtain in the morning after patient uses the bathroom and has been at rest for approx 30 min without any stressful activities or any caffeine. Check the same daily and then call with those results. She voiced understanding. She stated Dr Farrell had ordered mirtazapine for patient for 30 days to help with appetite and it has been helpful. She sent a [employer] message regarding this that was forwarded to you. ----- Message from Nisa Holt MD sent at 10/14/2022 3:17 PM EDT ----- Kidney function stable in CKD stage IIIa range. Anemia improving since hospital discharge. Cholesterol in good range with LDL <100. Iron levels normal. Noted alk phos level is high with other LFTs normal. This may be related to recent surgery and would recheck at f/u appointment. Continue current regimen and follow up with ortho and cardiology as recommended. documented in this encounter [facility] 10-14-2022 Miscellaneous Notes See TE 10/14/2022. Marie Mendes LPN documented in this encounter [facility] 10-14-2022 Miscellaneous Notes Patient has been identified by name and date of : Yes Patient phones for refill(s): Requested Prescriptions Pending Prescriptions Disp Refills pantoprazole DR (PROTONIX) 20 mg tablet 90 tablet 0 Sig: Take 1 tablet by mouth once daily. Date of last office visit in primary care:10/10/2022 Next appointment scheduled 02/16/2023 Please advise. Thank you. Anastacia Bejarano LPN documented in this encounter [facility] 10-09-2022 Miscellaneous Notes Spoke with patient's and she confirms they plan on arriving by 9a. Patient scheduled for 920a for TCM visit 10/10/22. PCP requesting 40 Min. Left message for patient that had changed his appt to 9a to allow more time with provider. Request call to please advise if unable to arrive by 9am. documented in this encounter [facility] 10-07-2022 Miscellaneous Notes Call to Leilani and notified her of message below from Provider, she verbalized understanding. Judy Nice Ma Home health care will need to contact that provider and see if this is something he should continue or not. Margie Gonzales APRN.CNP Margie, per med reconciliation this is the Provider who's prescribing the Doxycycline SUHAIL WELLINGTON. Judy Nice Ma He may take the stool softener. Yes will need to find out from patient who is prescribing the doxycycline since we have not been prescribing. Margie Gonzales APRN.CNP Leilani- [facility]- reports patient has 2 medications on his list, that he is taking, but was not on pcp list: Docusate sodium 100 mg bid for constipation- not on current med list. Doxycycline hyclate 20 mg bid for infection prevention. Listed on current med list that was updated by Dr. Eve Villafuerte in 2009, but never prescribed here. Asking if pcp is ok with patient taking these? Please advise Leilani. Leilani will call patient to find out who has been prescribing the doxycycline and let pcp know. documented in this encounter [facility] 10-06-2022 History of Presen t illness Narrative Reviewed. Keep f/u as scheduled. TRANSITION CARE MANAGEMENT (TCM) INITIAL CONTACT Public Information Officer Outreach Provider Action/FYI: Spoke with pt and his .Pt fell after syncopal episode and broke his right femur 09/20 and had repair on 09/21. Open reduction and fixation. Pt's states when they put him in the squad, he was in a fib. Pt discharged from [facility] transitional care unit on Tuesday 10/03. Pt discharged home with 10/03/22, [facility] PT/OT Initial contact with patient post discharge, spoke to spouse Vi. Patient identified by name and . TRANSITION CARE MANAGEMENT INITIAL OUTREACH DOCUMENTATION: Date of Outreach: 10/03/2022 Outreach Attempt 1: Contact Made Date of Discharge 10/02/2022 Some recent data might be hidden SUMMARY: -Pt discharged from [facility] on 10/03/22. -Admitted for: syncopal episode, broken right femur Do you have a hospital follow up appointment with your PCP? Appointment on 10/[address] Holt. Yes. Remind patient of appointment date, time, and location. If not within 14 calendar days of discharge - please reschedule accordingly. MEDICATIONS: Many patients have questions or concerns about their medications once they are home. Were you prescribed any new medications? If yes, what are those medications? Eliquis 2.5 mg BID Ferrex 150 mg daily Oxycodone 5 mg every 4 hr prn pain level 6-10 Mirtazapine 15 mg 1/2 tab at bedtime OTC stool softener Were you told to hold any medications? If yes, what are those medications? ASA 81 mg Were any of your medications discontinued? No Do you have any questions about getting or taking your medications? No Your discharge instructions/After visit Summary (AVS) are important in guiding you through the recovery process. Is there anything I might help you understand? Yes, no discharge instructions/AVS provided in patient's record. Follow site specific process for handoff to RN/LEGAL EXECUTIVE ASSISTANT, or ELLE. Do you have all the necessary equipment and supplies at home? Yes Medical records from recent hospitalization: Placed for provider to review TRANSITION CARE MANAGEMENT (TCM) INITIAL CONTACT Public Information Officer Outreach Provider Action/FYI: 14 day TCM Pt discharged home with 10/03/22, [facility] 10/06/22-Message left for pt to call back. Initial contact with patient post discharge, spoke to remarks: 10/06/22: message left to call back. Patient identified by name and . TRANSITION CARE MANAGEMENT INITIAL OUTREACH DOCUMENTATION: Date of Outreach: 10/03/2022 Outreach Attempt 1: Contact Made Date of Discharge 10/02/2022 Some recent data might be hidden SUMMARY: -Pt discharged from [facility] on 10/02/22. -Admitted for: Debility Closed fracture of right hip Post operative anemia Paroxysmal a-fib HTN CAD Hyperlipidemia Do you have a hospital follow up appointment with your PCP? Appointment on 10/10/[address] Holt. Yes. Remind patient of appointment date, time, and location. If not within 14 calendar days of discharge - please reschedule accordingly. MEDICATIONS: Many patients have questions or concerns about their medications once they are home. Were you prescribed any new medications? If yes, what are those medications? Eliquis 2.5 mg BID Ferrex 150 mg daily Oxycodone 5 mg every 4 hr prn pain level 6-10 Mirtazapine 15 mg 1/2 tab at bedtime OTC stool softener Were you told to hold any medications? No Were any of your medications discontinued? If yes, what are those medications? ASA 81 mg Do you have any questions about getting or taking your medications? Your discharge instructions/After visit Summary (AVS) are important in guiding you through the recovery process. Is there anything I might help you understand? Do you have all the necessary equipment and supplies at home? Medical records from recent hospitalization: Placed for provider to review documented in this encounter [facility] 10-02-2022 Miscellaneous Notes Detailed message left on Teodora's identified and confidential VM. Homa Garcia Ma Will follow Teodora with [facility] calling and states patient will be discharging from [facility] TCU Unit on 10/03/22. Diagnosis right femur fracture with repair by Dr. Jc. States Dr. Jc will be following patient for Ortho. Asking if Dr. Holt will follow pt for Home Health PT and OT, which will start 10/06/22? Call Teodora at [phone]. Thank you. documented in this encounter [facility] 09-25-2022 Miscellaneous Notes The following approved medication requests have been transmitted electronically. Requested Prescriptions Pending Prescriptions Disp Refills nitroglycerin sublingual (NITROSTAT) 0.4 mg SL tablet 25 tablet 0 Sig: Dissolve 1 tablet under the tongue every 5 minutes as needed for chest pain. Mikhail Strange APRN.POWER ENGINEER Patient has been identified by name and date of : Yes Requested Prescriptions Pending Prescriptions Disp Refills nitroglycerin sublingual (NITROSTAT) 0.4 mg SL tablet 25 tablet 0 Sig: Dissolve 1 tablet under the tongue every 5 minutes as needed for chest pain. RX INSTRUCTIONS: Patient aware RX will be sent to pharmacy. No need to notify patient. Connie Church MA [facility] 02/2022Jan 1802/2023 Last refill; 03/2022 documented in this encounter [facility] 05-05-2022 Miscellaneous Notes Patient phones requesting refills as follows: Requested Prescriptions Pending Prescriptions Disp Refills pantoprazole DR (PROTONIX) 20 mg tablet 90 tablet 0 Sig: Take 1 tablet by mouth once daily. DARA 02/12/2022 NOV 02/16/2023 Please review and advise. Marie Mendes LPN documented in this encounter [facility] 02-12-2022 History of Presen t illness Narrative Chief Complaint Patient presents with: Follow Up HPI Shawna Suh is a 81 year old male who presents here today for Above Complaints.. Accompanied today by . No complaints today. Following up with cardiology Dr. Doherty for ASHD and paroxysmal a fib. No change to regimen in December. Ok with cholesterol with LDL of 82. Not needing anticoagulation as he has not had a fib episode for years. Just on ASA without Plavix now due to bruising. Asymptomatic on medical management. Needs refill on nitro. Has not needed in years. BP well controlled on current regimen without side effects. GERD controlled on Protonix. Scheduled for cataract removal on the right on 03/[address] Fishman. Will have left done on 03/17. PHQ-2 / Depression screen He in the past two weeks denies having felt down, depressed, hopeless or with little interest or pleasure in doing things. Pain from PMR controlled on 5 mg prednisone daily. States that they did try to get him off of the prednisone in the past and pain returned. Patient did bring in living will and DPOA for our records. FULL CODE. Already has his flu shot this year. Past medical history, appointments, medications, allergies reviewed. Previous Medical History PAST MEDICAL HISTORY Diagnosis Date ASHD (arteriosclerotic heart disease) 12/23/2013 [facility] CKD (chronic kidney disease) stage 3, GFR 30-59 ml/min (HCC) 05/20/2016 Diverticulosis of colon (without mention of hemorrhage) Essential hypertension, benign 12/23/2013 GERD (gastroesophageal reflux disease) 12/23/2013 History of coronary artery stent placement 12/23/2013 Internal hemorrhoids without mention of complication Multiple lung nodules 09/14/2015 Other and unspecified hyperlipidemia Paroxysmal atrial fibrillation (HCC) Dr. Doherty Periodontal disease Dr. Castro, on doxycycline Polymyalgia rheumatica (HCC) 11/19/2017 S/P PTCA (percutaneous transluminal coronary angioplasty) 12/23/2013 Previous Surgical History PAST SURGICAL HISTORY Procedure Laterality Date COLONOSCOPY FLX DX W/COLLJ SPEC WHEN PFRMD 08/25/06 done at [facility] LEFT HEART CATH 12/2013 done at [place] - see scanned documents Family History FAMILY HISTORY Problem Relation Age of Onset Heart Mother renal failure Stroke Father 80 Arthritis Sister Diabetes Paternal Grandmother Diabetes Paternal Grandfather Patient Allergies ALLERGIES Allergen Reactions Penicillins Rash Current Medications Current Outpatient Medications on File Prior to Visit Medication Sig pantoprazole DR (PROTONIX) 20 mg tablet Take 1 tablet by mouth once daily. predniSONE (DELTASONE) 5 mg tablet Take 1 tablet by mouth once daily. amLODIPine (NORVASC) 10 mg tablet Take 1 tablet by mouth once daily. nitroglycerin sublingual (NITROSTAT) 0.4 mg SL tablet Dissolve 1 tablet under the tongue every 5 minutes as needed for chest pain. metoprolol succinate ER (TOPROL XL) 25 mg 24 hr tablet Take 1 tablet by mouth once daily. atorvastatin (LIPITOR) 40 mg tablet Take 40 mg by mouth once daily. aspirin 81 mg chewable tablet Take 81 mg by mouth once daily. Doxycycline Hyclate 20 mg ORAL tablet Take one(1) tablet two(2) times daily. MULTI-VITAMIN ORAL TAB Take one(1) tablet daily. clopidogrel (PLAVIX) 75 mg tablet Take 1 tablet by mouth once daily. (Patient not taking: Reported on 02/12/2022) No current facility-administered medications on file prior to visit. Social History Social History Tobacco Use Smoking status: Never Smokeless tobacco: Never Tobacco comments: chews cigars, doesn't light them Substance Use Topics Alcohol use: No Drug use: No Review of Symptoms REVIEW OF SYSTEMS GENERAL: No weight loss, malaise or fevers RESPIRATORY: Negative for cough, hemoptysis, wheezing, COPD, dyspnea or shortness of breath CARDIOVASCULAR: Negative for chest pain, leg swelling, hypertension, CHF or palpitations GI: No nausea, vomiting, or diarrhea SKIN: See HPI EXAM: BP 112/60 Pulse 73 Resp 16 Ht 179.5 cm (5' 10.67 ) Wt 71.8 kg (158 lb 3.2 oz) SpO2 97% BMI 22.27 kg/m General Appearance: Well appearing, alert, in no acute distress, well-hydrated, well nourished.. Skin: 0.5 cm raised lesion on dorsum of left wrist. Erythematous base with central crusting. Lungs: Lungs clear to auscultation. No wheezing, rhonchi, rales.. Heart: RRR without murmur, gallop, or rubs. No ectopy. Abdomen: Normal abdominal exam, Abdomen soft, non-tender. Bowel sounds normal. No masses, organomegaly. Extremities: No deformities, edema, skin discoloration, clubbing or cyanosis. Good capillary refill. . Health Maintenance List SHINGRIX VACCINE(1 of 2) Never done LDL CHOLESTEROL due on 09/15/2020 FECAL OCCULT BLOOD due on 09/27/2020 ADVANCE DIRECTIVE DISCUSSION Never done DEPRESSION ASSESSMENT Never done INFLUENZA(1) due on 11/07/2021 DIABETES SCREEN due on 09/26/2022 DTAP,TDAP,TD(2 - Td or Tdap) due on 10/18/2028 COVID-19 VACCINE Completed PNEUMOCOCCAL: 65+ Completed Data reviewed [place]/5 ASSESSMENT/PLAN: 1. Paroxysmal atrial fibrillation (HCC) - ICD9: 427.31, ICD10: I48.0 (primary diagnosis) Rate controlled on beta alicia. No recent palpitations. Continue ASA as prescribed. F/u with cardiology. 2. ASHD (arteriosclerotic heart disease) - ICD9: 414.00, ICD10: I25.10 Asymptomatic on medical management. F/u with cardiology as scheduled. Red flags for re-assessment reviewed with patient in detail. - CBC + DIFF 3. History of coronary artery stent placement - ICD9: V45.82, ICD10: Z95.5 4. Essential hypertension, benign - ICD9: 401.1, ICD10: I10 - good control - Continue current medication(s) - Encouraged dietary sodium restriction/DASH diet - Recommended regular aerobic exercise. - Reviewed risks of HTN and principles of treatment - Goal of BP <130/80 5. Stage 3a chronic kidney disease (HCC) - ICD9: 585.3, ICD10: N18.31 Check CMP - Counseled on avoiding regular use of NSAIDs, adequate hydration, potential risk of IV dye - Recommend maintaining A1c < 7% - Recommend maintaining blood pressure under 130/80 - Counseled on renal diet (low sodium/low potassium/low phosphorus) - COMP METABOLIC PANEL 6. Gastroesophageal reflux disease without esophagitis - ICD9: 530.81, ICD10: K21.9 - Continue treatment with Protonix 7. Skin lesion - ICD9: 709.9, ICD10: L98.9 Possible SCC. Refer to dermatology for excision. - CONSULT TO DERMATOLOGY 8. Advance directive discussed with patient - ICD9: V65.49, ICD10: Z71.89 Up to date. FULL CODE. Will scan in his documents. 9. Polymyalgia rheumatica (HCC) - ICD9: 725, ICD10: M35.3 Pain controlled on low dose prednisone. Will continue and monitor. Nisa Holt MD documented in this encounter [facility] 02-07-2022 Miscellaneous Notes Patient has been identified by name and date of : Yes Requested Prescriptions Pending Prescriptions Disp Refills pantoprazole DR (PROTONIX) 20 mg tablet 90 tablet 1 Sig: Take 1 tablet by mouth once daily. DARA 11/30/20 NOV 02/12/22 RX INSTRUCTIONS: Patient aware RX will be sent to pharmacy. No need to notify patient. Dee Aguero Ma' documented in this encounter [facility] 01-23-2022 History of Presen t illness Narrative POPULATION HEALTH NAVIGATION OUTREACH Action/January 23, 2022 12:28 PM Patient is on HCC Gap list for the following: HCC Gaps M35.3 - Polymyalgia rheumatica (HCC) - [id number] Last Billed 08/25/2019 I48.0 - Paroxysmal atrial fibrillation (HCC) DARA with Nisa Holt MD was 9..2020 Outcome: LM for patient to return call My chart message also sent Pt identified by name and : NO Outreach Outcome/Action Unable to reach patient: Left message MyChart message sent Did you use a PCP flex slot to schedule this appointment? N/A Reason for Outreach HCC or suspected condition Payer: Payor: MEDICARE / Plan: MEDICARE A AND B / Product Type: Medicare / Care Gap Reviewed:: Annual Wellness visit Flu vaccine Reminder: Reminder note to check Health Maintenance for items below Health Maintenance items due: SHINGRIX VACCINE(1 of 2) Never done LDL CHOLESTEROL due on 09/15/2020 FECAL OCCULT BLOOD due on 09/27/2020 ADVANCE DIRECTIVE DISCUSSION Never done DEPRESSION ASSESSMENT Never done INFLUENZA(1) due on 11/07/2021 Message Sent to Practice: No Navigation Signature: Erin Moody MA January 23, 2022 12:27 PM documented in this encounter [facility] 01-06-2013 History of Past i llness Narrative Problem Noted Date Diagnosed Date Resolved Date Tobacco abuse 01/06/2013 04/20/2023 documented as of this encounter (statuses as of 04/20/2023) [facility] History of Past illness Narrative* Problem Noted Date Diagnosed Date Resolved Date Tobacco abuse 01/06/2013 04/20/2023 documented as of this encounter (statuses as of 04/23/2023) [facility] note* Diagnosis Gastroesophageal reflux disease without esophagitis Esophageal reflux [facility]* Diagnosis Paroxysmal atrial fibrillation (HCC)- Primary Atrial fibrillation ASHD (arteriosclerotic heart disease) Coronary atherosclerosis of unspecified type of vessel, quileute or graft History of coronary artery stent placement Postsurgical percutaneous transluminal coronary angioplasty status Essential hypertension, benign Stage 3a chronic kidney disease (HCC) Gastroesophageal reflux disease without esophagitis Esophageal reflux Skin lesion Unspecified disorder of skin and subcutaneous tissue Advance directive discussed with patient Other specified counseling Polymyalgia rheumatica (HCC) Polymyalgia rheumatica documented in this encounter [facility]* Diagnosis Gastroesophageal reflux disease without esophagitis Esophageal reflux documented in this encounter [facility]* Diagnosis Gastroesophageal reflux disease without esophagitis Esophageal reflux documented in this encounter [facility] note* Diagnosis Gastroesophageal reflux disease without esophagitis Esophageal reflux documented in this encounter [facility]* Diagnosis Gastroesophageal reflux disease without esophagitis Esophageal reflux documented in this encounter [facility]* Diagnosis Polymyalgia rheumatica (HCC) Polymyalgia rheumatica [facility] Diagnosis Vitamin D deficiency- Primary Unspecified vitamin D deficiency [facility] Diagnosis Medicare annual wellness visit, subsequent- Primary Routine general medical examination at a health care facility Gastroesophageal reflux disease without esophagitis Esophageal reflux Closed fracture of right hip with routine healing, subsequent encounter ASHD (arteriosclerotic heart disease) Coronary atherosclerosis of unspecified type of vessel, quileute or graft S/P PTCA (percutaneous transluminal coronary angioplasty) Postsurgical percutaneous transluminal coronary angioplasty status Paroxysmal atrial fibrillation (HCC) Atrial fibrillation Essential hypertension, benign Age-related osteoporosis without current pathological fracture Senile osteoporosis Polymyalgia rheumatica (HCC) Polymyalgia rheumatica Stage 3a chronic kidney disease (HCC) Encounter for screening for osteoporosis Special screening for osteoporosis documented in this encounter [facility] note* Diagnosis Medicare annual wellness visit, subsequent Routine general medical examination at a health care facility Closed fracture of right hip with routine healing, subsequent encounter Age-related osteoporosis without current pathological fracture Senile osteoporosis documented in this encounter [facility] note* Diagnosis Polymyalgia rheumatica (HCC) Polymyalgia rheumatica documented in this encounter [facility] note* Diagnosis Essential hypertension, benign- Primary ASHD (arteriosclerotic heart disease) Coronary atherosclerosis of unspecified type of vessel, quileute or graft Paroxysmal atrial fibrillation (HCC) Atrial fibrillation Polymyalgia rheumatica (HCC) Polymyalgia rheumatica Stage 3 chronic kidney disease, unspecified whether stage 3a or 3b CKD (HCC) Gastroesophageal reflux disease, unspecified whether esophagitis present At high risk for falls Personal history of fall documented in this encounter [facility] note* Diagnosis Gastroesophageal reflux disease without esophagitis Esophageal reflux documented in this encounter [facility] Reason for Referral Specialty Diagnoses / Procedures Referred By Jumana cardona Referred To Contact Dermatology Diagnoses Skin lesion Procedures CONSULT TO DERMATOLOGY Nisa Holt MD [address] [place] [address] Referral ID Status Reason Start Date Expiration Date Visits Requested Visits Authorized [id number] Ref Not Required PCP Requested Referral 02/12/2022 02/12/2023 1 1 Advance Directives Documents on File Type Date Recorded Patient Electoral Officer Expl anation Advance Directive(s) 02/17/2022 8:23 AM Summary Purpose Family History No Family History Records Found Additional Source Comments Source Comments (unrecognize d section and content) In the event this informatio n is protected by the Federal Confidentiality of Alcohol and Drug Abuse Patient Records regulations: The Federal rules restrict any use of the information to criminally investigate or prosecute any alcohol or drug abuse patient.[facility] the event this information is protected by the Federal Confidentiality of Alcohol and Drug Abuse Patient Records regulations: The Federal rules restrict any use of the information to criminally investigate or prosecute any alcohol or drug abuse patient.[facility] the event this information is protected by the Federal Confidentiality of Alcohol and Drug Abuse Patient Records regulations: The Federal rules restrict any use of the information to criminally investigate or prosecute any alcohol or drug abuse patient.[facility] the event this information is protected by the Federal Confidentiality of Alcohol and Drug Abuse Patient Records regulations: The Federal rules restrict any use of the information to criminally investigate or prosecute any alcohol or drug abuse patient.[facility] the event this information is protected by the Federal Confidentiality of Alcohol and Drug Abuse Patient Records regulations: The Federal rules restrict any use of the information to criminally investigate or prosecute any alcohol or drug abuse patient.[facility] the event this information is protected by the Federal Confidentiality of Alcohol and Drug Abuse Patient Records regulations: The Federal rules restrict any use of the information to criminally investigate or prosecute any alcohol or drug abuse patient.[facility] the event this information is protected by the Federal Confidentiality of Alcohol and Drug Abuse Patient Records regulations: The Federal rules restrict any use of the information to criminally investigate or prosecute any alcohol or drug abuse patient.[facility] the event this information is protected by the Federal Confidentiality of Alcohol and Drug Abuse Patient Records regulations: The Federal rules restrict any use of the information to criminally investigate or prosecute any alcohol or drug abuse patient.[facility] event this information is protected by the Federal Confidentiality of Alcohol and Drug Abuse Patient Records regulations: The Federal rules restrict any use of the information to criminally investigate or prosecute any alcohol or drug abuse patient.[facility] Center[facility] the event this information is protected by the Federal Confidentiality of Alcohol and Drug Abuse Patient Records regulations: The Federal rules restrict any use of the information to criminally investigate or prosecute any alcohol or drug abuse patient.[facility] Center[facility] the event this information is protected by the Federal Confidentiality of Alcohol and Drug Abuse Patient Records regulations: The Federal rules restrict any use of the information to criminally investigate or prosecute any alcohol or drug abuse patient.[facility] Center[facility] the event this information is protected by the Federal Confidentiality of Alcohol and Drug Abuse Patient Records regulations: The Federal rules restrict any use of the information to criminally investigate or prosecute any alcohol or drug abuse patient.[facility] Center[facility] the event this information is protected by the Federal Confidentiality of Alcohol and Drug Abuse Patient Records regulations: The Federal rules restrict any use of the information to criminally investigate or prosecute any alcohol or drug abuse patient.[facility] Center[facility] the event this information is protected by the Federal Confidentiality of Alcohol and Drug Abuse Patient Records regulations: The Federal rules restrict any use of the information to criminally investigate or prosecute any alcohol or drug abuse patient.[facility] Center[facility] the event this information is protected by the Federal Confidentiality of Alcohol and Drug Abuse Patient Records regulations: The Federal rules restrict any use of the information to criminally investigate or prosecute any alcohol or drug abuse patient.[facility] CenterIn the event this information is protected by the Federal Confidentiality of Alcohol and Drug Abuse Patient Records regulations: The Federal rules restrict any use of the information to criminally investigate or prosecute any alcohol or drug abuse patient.[facility] CenterIn the event this information is protected by the Federal Confidentiality of Alcohol and Drug Abuse Patient Records regulations: The Federal rules restrict any use of the information to criminally investigate or prosecute any alcohol or drug abuse patient.[facility] Center[facility] the event this information is protected by the Federal Confidentiality of Alcohol and Drug Abuse Patient Records regulations: The Federal rules restrict any use of the information to criminally investigate or prosecute any alcohol or drug abuse patient.[facility] CenterIn the event this information is protected by the Federal Confidentiality of Alcohol and Drug Abuse Patient Records regulations: The Federal rules restrict any use of the information to criminally investigate or prosecute any alcohol or drug abuse patient.[facility] CenterIn the event this information is protected by the Federal Confidentiality of Alcohol and Drug Abuse Patient Records regulations: The Federal rules restrict any use of the information to criminally investigate or prosecute any alcohol or drug abuse patient.[facility] CenterIn the event this information is protected by the Federal Confidentiality of Alcohol and Drug Abuse Patient Records regulations: The Federal rules restrict any use of the information to criminally investigate or prosecute any alcohol or drug abuse patient.[facility] CenterIn the event this information is protected by the Federal Confidentiality of Alcohol and Drug Abuse Patient Records regulations: The Federal rules restrict any use of the information to criminally investigate or prosecute any alcohol or drug abuse patient.[facility] CenterIn the event this information is protected by the Federal Confidentiality of Alcohol and Drug Abuse Patient Records regulations: The Federal rules restrict any use of the information to criminally investigate or prosecute any alcohol or drug abuse patient.[facility] CenterIn the event this information is protected by the Federal Confidentiality of Alcohol and Drug Abuse Patient Records regulations: The Federal rules restrict any use of the information to criminally investigate or prosecute any alcohol or drug abuse patient.[facility] Reason for Visit (unrecogniz ed section and content) Reason Onset Date Comments Population Health Navigation Outreach 01/23/2022 HCC Gap Outreach Reason Onset Date Comments Refill Request 02/06/2022 Reason Comments Follow Up Reason Onset Date Comments Refill Request 05/04/2022 Reason Onset Date Comments Refill Request 09/25/2022 Reason Comments HHC Orders Reason Onset Date Comments Transition Of Care 10/03/2022 Reason Comments Medication Problem Reason Comments Appointment Reason Onset Date Comments Refill Request 10/14/2022 Reason Comments Results Reason Onset Date Comments Refill Request 01/30/2023 Reason Onset Date Comments Refill Request 02/16/2023 Reason Comments Medicare Wellness Exam Reason Onset Date Comments Refill Request 08/18/2023 Reason Comments Follow Up 6 month Reason Onset Date Comments Refill Request 11/13/2023 Care Teams (unrecognized sec tion and content) King Maker Relationship Specialty Start Date End Date Nisa Holt MD [address] [place], [place] [id number] PCP - General Family Medicine 12/03/20 King Maker Relationship Specialty Start Date End Date Nisa Holt MD [address] [place], [place] [address] PCP - General Family Medicine 12/03/20 King Maker Relationship Specialty Start Date End Date Nisa Holt MD [address] [place], [place] [id number] PCP - General Family Medicine 12/03/20 King Maker Relationship Specialty Start Date End Date Nisa Holt MD [address] [place] [address] PCP - General Family Medicine 12/03/20 King Maker Relationship Specialty Start Date End Date Nisa Holt MD [address] [place] [address] PCP - General Family Medicine 12/03/20 King Maker Relationship Specialty Start Date End Date Nisa Holt MD [address] [facility] [place] [address] PCP - General Family Medicine 12/03/20 King Maker Relationship Specialty Start Date End Date Nisa Holt MD [address] [facility] [place] [address] PCP - General Family Medicine 12/03/20 King Maker Relationship Specialty Start Date End Date Nisa Holt MD [address] [place] [address] PCP - General Family Medicine 12/03/20 King Maker Relationship Specialty Start Date End Date Nisa Holt MD [address] [place] [address] PCP - General Family Medicine 12/03/20 King Maker Relationship Specialty Start Date End Date Nisa Holt MD [address] [facility] [place] [address] PCP - General Family Medicine 12/03/20 King Maker Relationship Specialty Start Date End Date Nisa Holt MD [address] [facility] [place] [address] PCP - General Family Medicine 12/03/20 King Maker Relationship Specialty Start Date End Date Nisa Holt MD [address] [facility] [place] [address] PCP - General Family Medicine 12/03/20 King Maker Relationship Specialty Start Date End Date Nisa Holt MD [address] [facility] [place] [address] PCP - General Family Medicine 12/03/20 King Maker Relationship Specialty Start Date End Date Nisa Holt MD [address] [facility] [place] [address] PCP - General Family Medicine 12/03/20 King Maker Relationship Specialty Start Date End Date Nisa Holt MD [address] [facility] [place] [address] PCP - General Family Medicine 12/03/20 King Maker Relationship Specialty Start Date End Date Nisa Holt MD [address] [facility] [place] [address] PCP - General Family Medicine 12/03/20 King Maker Relationship Specialty Start Date End Date Nisa Holt MD [address] [facility] [place] [address] PCP - General Family Medicine 12/03/20 King Maker Relationship Specialty Start Date End Date Nisa Holt MD [address] [facility] [place] [address] PCP - General Family Medicine 12/03/20 King Maker Relationship Specialty Start Date End Date Nisa Holt MD [address] [facility] [place] [address] PCP - General Family Medicine 12/03/20 King Maker Relationship Specialty Start Date End Date Nisa Holt MD [address] [facility] [place] [address] PCP - General Family Medicine 12/03/20 (unrecognized sect ion and content) No Status Records Found INFORMATION SOURCE (unrecogn ized section and content) DATE CREATED AUTHOR 10/25/2023 [facility] FOR RECORDS PERTAINING TO PATIENTS WHO ARE OR HAVE BEEN ENROLLED IN A CHEMICAL DEPENDENCY/SUBSTANCEABUSE PROGRAM, SOME INFORMATION MAY BE OMITTED. This clinical summary was aggregated from multiple sources. Caution should be exercised in using it in the provision of clinical care. This summary normalizes information from multiple sources, and as a consequence, information in this document may materially change the coding, format and clinical context of patient data. In addition, data may be omitted in some cases. CLINICAL DECISIONS SHOULD BE BASED ON THE PRIMARY CLINICAL RECORDS. [employer] [facility]. provides no warranty or guarantee of the accuracy or completeness of information in this document.
[2023-12-15] MEDS: Acetaminophen 325 MG Tablet 650 MG PO (20:04)
[2023-12-15] MEDS: Ondansetron 4 MG/2 ML Vial IV (20:04)
[2023-12-15] MEDS: oxyCODONE 5 MG Tablet PO (20:04)
[2023-12-15] MEDS: Atorvastatin Calcium 40 MG Tablet PO (21:10)
[2023-12-15] MEDS: Mirtazapine 15 MG Tablet 7.5 MG PO (21:10)
[2023-12-15] MEDS: 0.9% Normal Saline (1000mL) 1,000 ML 75 ML IV (21:10)
[2023-12-15] MEDS: Pantoprazole Sodium 20 MG Tablet PO (21:11)
--- NOTE | 2023-12-15 23:18 | HP.PCM.HOS_ITS ---
HPI - General General Date of Admission: 12/15/23 Date of Service: 12/15/23 Chief Complaint: Fall HPI Narrative SHAWNA DELEON, is a 83 M with a significant history of polymyalgia rheumatica now weaned off steroids ; CKD; CAD status post stents atrial fibrillation on Eliquis who presented to the emergency department with a fall. Reportedly patient was walking towards the shower in his home. He turned fast, lost his balance and fell on his right hip and had excruciating pain in the right hip. He laid on the floor until his came home. At baseline he has bilateral knee pain with right worse than left. He walks with a cane. In the past he has had ORIF of the right hip Last time he took his Eliquis was in the morning of the day of presentation. ED physician discussed the case with orthopedic surgeon, Dr. Kevin Castano who will follow up [facility] Medical History Intertrochanteric fracture of right femur Kidney disease Contusion of rib on left side Essential (primary) hypertension Atrial fibrillation with RVR (04/2018) Polymyalgia rheumatica Atherosclerosis of coronary artery of [place] heart without angina pectoris GERD (gastroesophageal reflux disease) Hyperlipidemia Home Medications ?Medication ?Instructions ?Recorded ?Last Taken ?Type pantoprazole 20 mg tablet,delayed 20 mg PO QPM GERD 03/14/17 12/14/23 21:33 History release nitroglycerin 0.4 mg sublingual 0.4 mg sublingual TID PRN PRN 04/28/18 04/28/18 01:00 History tablet Angina alendronate 70 mg tablet 70 mg PO AVERY 06/22/23 12/13/23 History calcium 600 mg (as 2 cap PO DAILY 06/22/23 12/14/23 History carbonate)-vitamin D3 25 mcg (1,000 unit) capsule doxycycline hyclate 20 mg tablet 20 mg PO BID peidontal disease 06/22/23 12/14/23 21:32 History mirtazapine 7.5 mg tablet 7.5 mg PO QHS sleep 06/22/23 12/14/23 21:00 History metoprolol succinate 25 mg 25 mg PO DAILY BP #90 tabs 07/03/23 12/14/23 21:33 Rx tablet,extended release 24 hr apixaban 5 mg tablet 2.5 mg (1/2 x 5 mg) PO BID 30 days 12/11/23 12/14/23 21:00 Rx #30 tabs amlodipine 5 mg tablet 5 mg PO QPM BP 12/15/23 12/14/23 History atorvastatin 40 mg tablet 40 mg PO QPM Cholesterol 12/15/23 12/14/23 21:32 History geriatric multivitamin-min tab dietary supplement 12/15/23 12/14/23 09:33 History dvhxuvhs-ok-hwxba 300 mcg-K 60 1 tab PO DAILY dietary supplement 12/15/23 12/14/23 21:33 History mcg-lycop 600 mcg-lutein 300 mcg tablet (Men 50 Plus Multivitamin) Allergy/AdvReac Type Severity Reaction Status Date / Time Penicillins Allergy Hives Verified 12/15/23 13:46 Family History Father CVA (cerebral vascular accident) Mother Kidney disease Surgical History Hx of cataract removal with insertion of prosthetic lens (~02/2022) History of left heart catheterization (04/29/18) History of coronary artery stent placement (12/08/13) Social History household members: spouse service: Yes current occupation: retired Smoking Status: Former smoker alcohol intake: never substance use type: does not use ROS ROS Narrative Pertinent positives and pertinent negatives as noted in HPI. All other systems were reviewed and are negative Vital Signs Vital Signs Vital Signs: 12/15/23 13:47 12/15/23 13:53 12/15/23 15:30 Temperature 97.9 F Temperature Source Temporal Pulse Rate 107 H 113 H Respiratory Rate 16 12 Respiratory Effort Normal Non-Labored Respiratory Depth Normal Blood Pressure 91/51 L 93/47 L Blood Pressure Mean 64 59 Pulse Ox 100 Oxygen Delivery Method Room Air Room Air 12/15/23 15:37 12/15/23 16:15 12/15/23 16:30 Temperature 98.2 F Temperature Source Pulse Rate 113 H 110 H 109 H Respiratory Rate 16 16 18 Respiratory Effort Respiratory Depth Blood Pressure 85/49 L 94/53 L 94/49 L Blood Pressure Mean 61 66 63 Pulse Ox 94 Oxygen Delivery Method 12/15/23 16:45 12/15/23 17:00 12/15/23 17:05 Temperature Temperature Source Pulse Rate 111 H 111 H 113 H Respiratory Rate 10 L 12 20 H Respiratory Effort Respiratory Depth Blood Pressure 82/62 L 101/61 95/66 Blood Pressure Mean 68 75 77 Pulse Ox Oxygen Delivery Method 12/15/23 17:15 12/15/23 17:31 12/15/23 18:00 Temperature Temperature Source Pulse Rate 109 H 108 H 108 H Respiratory Rate 11 L 12 12 Respiratory Effort Respiratory Depth Blood Pressure 112/67 118/57 L 120/59 L Blood Pressure Mean 78 72 78 Pulse Ox Oxygen Delivery Method 12/15/23 18:30 12/15/23 18:45 12/15/23 19:00 Temperature Temperature Source Pulse Rate 108 H 109 H 113 H Respiratory Rate 16 14 17 Respiratory Effort Respiratory Depth Blood Pressure 111/79 93/67 113/77 Blood Pressure Mean 90 76 90 Pulse Ox Oxygen Delivery Method 12/15/23 20:19 Temperature Temperature Source Pulse Rate Respiratory Rate Respiratory Effort Respiratory Depth Blood Pressure Blood Pressure Mean Pulse Ox 94 Oxygen Delivery Method Room Air Weight Weight: 71.214 kg Body Mass Index (BMI) 21.9 Physical Exam Narrative Physical exam: General: Well-nourished, well-developed. Head: Normocephalic, atraumatic, no tenderness Eyes: Vision is grossly intact. EOMI ENT, no trauma, dry mucous membranes, no rhinorrhea Neck: Nontender, No thyromegaly. CVS: Regular rate and rhythm. S1-S2 present. No murmur, gallop or rub. Respiratory : clear to auscultation bilaterally, chest wall nontender Abdomen: Soft, nontender, nondistended, normal bowel sounds, no masses : Deferred Back: Nontender, no CVA tenderness, no midline spinal tenderness, deformities, step-offs Extremities: Swelling of left hip and external rotation of left lower extremity. Tender left hip. Nontender right hip. Skin: Ecchymosis to bilateral hands Neuro: Alert, oriented, cranial nerves II through XII grossly intact. Psychiatry: Normal mood. Normal affect. Not depressed. Not anxious. Results Lab / Micro Data 12/15/23 14:15 12/15/23 14:15 Labs: Laboratory Results - last 24 hr 12/15/23 14:15: WBC 17.7 H, RBC 3.28 L, Hgb 10.2 L, Hct 32.5 L, MCV 99.1 H, MCH 31.1, MCHC 31.4 L, RDW Std Deviation 48.3 H, RDW Coeff of Anselmo 13.4, Plt Count 240, MPV 10.3, Immature Gran % (Auto) 0.700, Neut % (Auto) 84.3 H, Lymph % (Auto) 7.3 L, [place] % (Auto) 7.2, Eos % (Auto) 0.2, Baso % (Auto) 0.3, Absolute Neuts (auto) 14.9 H, Absolute Lymphs (auto) 1.29, Nucleated RBC % 0, Sodium 144, Potassium 4.9, Chloride 116 H, Carbon Dioxide 19.0 L, Anion Gap 10, BUN 25 H, C reatinine 1.99 H, Estim Creat Clear Calc 29.43, Est GFR (MDRD) Af Amer 41 L, Est GFR (MDRD) Non-Af 34 L, BUN/Creatinine Ratio 12.6, Glucose 127 H, Calcium 8.8, Total Creatine Kinase 106, Troponin I High Sens 7 Imaging Radiology Impression Brain CT 12/15/23 14:07 IMPRESSION: Chronic involutional changes of the brain. Electronically Signed: Franck Tovar MD at 14:51 EDT , Cervical Spine CT 12/15/23 14:07 IMPRESSION: Multilevel degenerative changes, as described above. Electronically Signed: Franck Tovar MD at 14:54 EDT , Hip/Pelvis X-Ray 12/15/23 14:07 IMPRESSION: Nondisplaced left intertrochanteric fracture. Electronically Signed: Franck Tovar MD at 14:56 EDT , Chest X-Ray 12/15/23 14:35 IMPRESSION: Findings suggestive of a progressive chronic interstitial fibrosis. Electronically Signed: Franck Tovar MD at 14:58 EDT Reading Location ID and State: [address] [place] [address] , Service support , Assessment & Plan Assessment/Plan (1) History of atrial fibrillation: (2) Fracture of hip, left, closed: QUALIFIERS: Encounter type: initial encounter Qualified Code(s): S72.002A - Fracture of unspecified part of neck of left femur, initial encounter for closed fracture (3) Fall: QUALIFIERS: Encounter type: initial encounter Qualified Code(s): W19.XXXA - Unspecified fall, initial encounter (4) Acute kidney injury superimposed on stage 3b chronic kidney disease: PLAN: Plan Lab work and imaging reviewed. Hold home [facility]. Imaging reviewed included hip and pelvis x-ray with results nondisplaced left intertrochanteric fracture Vitamin D level ordered. Pain control with as needed oxycodone. Bowel protocol in place. Antiemetic protocol in place Gentle IV hydration. Trend BMP Orthopedic consult. Advance care planning: Discussed with patient and family advanced directives as well as CODE STATUS. Explained various CODE STATUS: FULL CODE, DNR CCA, DNR CCA with no intubation, and DNR CC- and what each meant. Patient elected to be a full code with CPR and intubation if warranted. Patient's is surrogate decision maker. Order was placed. Time spent on discussion 16 minutes. Time spent in the patient's overall evaluation,decision-making process, review of diagnostic data, adjustment of management, discussion with other providers, nursing and ancillary staff involved in patient's care documentation, 75 minutes. Charges/Coding Visit Charges Inpatient E&M: 61160 Init Hosp L3 Procedures Hospitalists Procedures: 34918 Advncd Care Plan 30 Min
[2023-12-16] MEDS: oxyCODONE 5 MG Tablet PO ×3 (00:12→12:26)
[2023-12-16 03:00] VITALS: BP 123/71; PULSE 111; RESP 18; TEMP 37.1; O2SAT 94
[2023-12-16 05:38] LABS: Absolute Lymphocyte Count 1.51 X10^3/uL (0.83-4.51); Absolute Neutrophil Count 7.8 X10^3/uL (2.0-7.7); Basophil# 0.03 X10^3/uL; Basophil% 0.3 % (0-1); Eosinophils% 0.9 % (0-5); Hematocrit 28.8 % (40-54); Hemoglobin 9.1 g/dL (13.0-16.5); Lymphocyte # 1.51 X10^3/ul (0.83-4.51); Lymphocyte % 14.3 % (19-41); Mean Corp Hgb Conc 31.6 g/dL (32-36); Mean Corpuscular Hgb 31.2 pg (27.0-32.0); Mean Corpuscular Volume 98.6 fL (80-94); Mean Platelet Vol. 10.2 fl (6.2-12.0); Monocyte# 1.07 X10^3/uL; Monocyte% 10.1 % (0-10); NRBC Flagged by Analyzer 0 % (0-5); Neutrophil # 7.81 X10^3/uL (2.7-7.7); Platelet Count 169 K/mm3 (150-450); RBC Distribution Width CV 13.6 % (11.6-14.6); RBC Distribution Width SD 49.1 fl (35.1-43.9); Red Blood Count 2.92 M/mm3 (4.6-6.2); White Blood Count 10.6 K/mm3 (4.4-11.0)
[2023-12-16] MEDS: Acetaminophen 325 MG Tablet 650 MG PO ×3 (05:47→21:28)
--- NOTE | 2023-12-16 05:55 | EKG12_ITS ---
Test Reason : AM EKG Blood Pressure : / mmHG Vent. Rate : 111 BPM Atrial Rate : 111 BPM P-R Int : 176 ms QRS Dur : 078 ms QT Int : 316 ms P-R-T Axes : 089 006 057 degrees QTc Int : 429 ms Sinus tachycardia Otherwise normal ECG Confirmed by DASHA DELCID, RIZWAN ([id number]), newspaper editor LEIDY MINOR ([id number]) on 12/16/2023 9:37:14 AM Referred By: BILL Confirmed By:RIZWAN LOU MD
[2023-12-16 06:24] LABS: Anion Gap 2 (5-15); BUN 34 mg/dL (7-18); BUN/Creat Ratio 15.2 RATIO (10-20); Calcium,Total 8.2 mg/dL (8.5-10.1); Chloride 115 mmol/L (98-107); Creatinine, Serum 2.23 mg/dL (0.70-1.30); EST Glomerular Filtration Rate 30 mL/min (>60); Est Glom Filt Rate - Afr Amer 36 mL/min (>60); Estimated Creatinine Clearance 24.84 ml/min; Glucose 130 mg/dL (74-106); Potassium 5.4 mmol/L (3.5-5.1); Sodium Level 140 mmol/L (136-145)
[2023-12-16 08:12] LABS: Vitamin D,25 Hydroxy 53.4 ng/mL
[2023-12-16 09:00] VITALS: BP 113/48; PULSE 109; RESP 18; TEMP 38.2; O2SAT 94
[2023-12-16 09:15] VITALS: PULSE 109
[2023-12-16] MEDS: Metoprolol(XL)Succ 25 MG Tablet PO (09:15)
--- NOTE | 2023-12-16 09:15 | CASEMGMT ---
RAJINDER MCLEAN Face to Face with patient for initial transition planning/care coordination assessment. RAJINDER MCLEAN introduced self and role at [facility]. Patient lying in bed, alert and oriented. Patient willing to participate in assessment and is able to answer all questions appropriately. Care providers, pharmacy, and demographics verified. Strata: 2 PCP: Jonathon Specialists: Bessy, healthcare management consultant; Paresh chef german Preferred Pharmacy: [facility] Insurance: [facility], [employer] Prescription Benefit: yes Living Will/HPOA: yes, Vi Alburtis LNOK: Living Arrangements: Patient lives with in a single story home with 3 steps and railing to enter the home. Transportation: DME/HHC: Patient has shower chair, cane, walker, grab bars at home. Patient has been to TCU in the past. Patient has had [facility] in the past. Patient and wish to discharge to TCU for additional therapy. RN CARIDAD explained that TCU may not have bed available and that a SNF list would be provided for additional preferences, patient and voiced understanding. Patient and state they have no further needs or concerns at this time. CM to follow for discharge planning needs that may arise. Disposition Plan: TBD, anticipate SNF pending surgery and progress with therapy Uzma BOWLES, RN, CM
--- NOTE | 2023-12-16 09:38 | PN.HOSP_ITS ---
Subjective Subjective Doing well, no issues overnight. Pain is controlled Objective Data Objective Data Vital Signs: Vital Signs Temp Pulse Resp BP Pulse Ox O2 Del Method 100.8 F H 109 H 18 113/48 L 94 Room Air 12/16/23 09:00 12/16/23 09:15 12/16/23 09:00 12/16/23 09:00 12/16/23 09:00 12/16/23 09:00 Oxygen Delivery Method Room Air Weight: 157 lb Body Mass Index (BMI) 21.9 Intake & Output: Intake and Output for Last 24 Hours 12/15/23 12/16/23 12/17/23 03:59 03:59 03:59 Intake Total 1700 / 1700 0 / 0 Balance 1700 / 1700 0 / 0 Lab / Micro Data 12/16/23 05:20 12/16/23 05:20 Labs: Laboratory Results - last 24 hr 12/15/23 14:15: WBC 17.7 H, RBC 3.28 L, Hgb 10.2 L, Hct 32.5 L, MCV 99.1 H, MCH 31.1, MCHC 31.4 L, RDW Std Deviation 48.3 H, RDW Coeff of [place] 13.4, Plt Count 240, MPV 10.3, Immature Gran % (Auto) 0.700, Neut % (Auto) 84.3 H, Lymph % (Auto) 7.3 L, [place] % (Auto) 7.2, Eos % (Auto) 0.2, Baso % (Auto) 0.3, Absolute Neuts (auto) 14.9 H, Absolute Lymphs (auto) 1.29, Nucleated RBC % 0, Sodium 144, Potassium 4.9, Chloride 116 H, Carbon Dioxide 19.0 L, Anion Gap 10, BUN 25 H, C reatinine 1.99 H, Estim Creat Clear Calc 29.43, Est GFR (MDRD) Af Amer 41 L, Est GFR (MDRD) Non-Af 34 L, BUN/Creatinine Ratio 12.6, Glucose 127 H, Calcium 8.8, Total Creatine Kinase 106, Troponin I High Sens 7 12/16/23 05:20: WBC 10.6, RBC 2.92 L, Hgb 9.1 L, Hct 28.8 L, MCV 98.6 H, MCH 31.2, MCHC 31.6 L, RDW Std Deviation 49.1 H, RDW Coeff of [place] 13.6, Plt Count 169, MPV 10.2, Immature Gran % (Auto) 0.400, Neut % (Auto) 74.0 H, Lymph % (Auto) 14.3 L, [place] % (Auto) 10.1 H, Eos % (Auto) 0.9, Baso % (Auto) 0.3, A bsolute Neuts (auto) 7.8 H, Absolute Lymphs (auto) 1.51, Nucleated RBC % 0, Sodium 140, Potassium 5.4 H, Chloride 115 H, Carbon Dioxide 23.0, Anion Gap 2 L, BUN 34 H, Creatinine 2.23 H, Estim Creat Clear Calc 24.84, Est GFR (MDRD) Af Amer 36 L, Est GFR (MDRD) Non-Af 30 L, BUN/Creatinine Ratio 15.2, Glucose 130 H, Calcium 8.2 L, Vitamin D 25-Hydroxy 53.4, Blood Type A POSITIVE, Antibody Screen NEGATIVE Radiography Diagnostic Testing: Radiology Impression Brain CT 12/15/23 14:07 IMPRESSION: Chronic involutional changes of the brain. Electronically Signed: Franck Tovar MD at 14:51 EDT , Cervical Spine CT 12/15/23 14:07 IMPRESSION: Multilevel degenerative changes, as described above. Electronically Signed: Franck Tovar MD at 14:54 EDT , Hip/Pelvis X-Ray 12/15/23 14:07 IMPRESSION: Nondisplaced left intertrochanteric fracture. Electronically Signed: Franck Tovar MD at 14:56 EDT , Chest X-Ray 12/15/23 14:35 IMPRESSION: Findings suggestive of a progressive chronic interstitial fibrosis. Electronically Signed: Franck Tovar MD at 14:58 EDT , Physical Exam Narrative General: Alert, Oriented x3, Cooperative, No apparent distress HEENT: Atraumatic, PERRLA, EOMI, Normocephalic Oral: Moist Mucosa Neck: Supple, No JVD Lungs: Diminished, Normal air movement, No rhonchi, No wheeze, No rales Cardiovascular: Regular rate, Regular Rhythm, Normal S1, Normal S2, No murmurs Abdomen: Soft, Non Tender, Non-Distended, No Hepato-splenomegaly Extremities: No edema, Capillary Refill Less than 3 Seconds Skin: No rashes, No breakdown Musculoskeletal: Mild tenderness of the left hip Neurological: No focal neurological deficits, Motor Exam 5/5 strength throughout, Sensory exam intact to light touch and pain Psych/Mental Status: Normal Affect, Appropriate Assessment & Plan Assessment/Plan (1) History of atrial fibrillation: (2) Fracture of hip, left, closed: QUALIFIERS: Encounter type: initial encounter Qualified Code(s): S72.002A - Fracture of unspecified part of neck of left femur, initial encounter for closed fracture (3) Fall: QUALIFIERS: Encounter type: initial encounter Qualified Code(s): W19.XXXA - Unspecified fall, initial encounter (4) Acute kidney injury superimposed on stage 3b chronic kidney disease: PLAN: Plan 1. Left nondisplaced intertrochanteric fracture pending repair ? Last dose of Eliquis was Thursday night we will hold ? Continue with pain management ? Consult Ortho for repair ? PT/OT 2. CAD status post stent/A-fib/essential HTN/HLD ? Continue with his home blood pressure medications ? Will hold his Eliquis ? Continue with Lipitor ? Will monitor and make adjustments as necessary 3. GERD ? Stable ? Continue with PPI DVT: SCDs Charges/Coding Visit Charges Inpatient E&M: 84178 Subs Hosp L2
--- NOTE | 2023-12-16 09:50 | RAD_ITS ---
STUDY: X-RAY - LEFT FEMUR REASON FOR STUDY: Male, 83 years old. fracture surgery planning TECHNIQUE: 2 view(s) of the femur. COMPARISON: None. FINDINGS: Acute impacted oblique fracture of the intertrochanteric left femur. Normal visualized soft tissue structure. RAD/Femur Min 2 Views IMPRESSION: Acute impacted oblique fracture of the intertrochanteric left femur. Electronically Signed: Cecil Deluca MD at 11:42 EDT ,
--- NOTE | 2023-12-16 11:06 | CASEMGMT ---
Discharge Planning A list of?SNF providers including quality and resource use data and consistent with the patient's preferred geographic region, medical needs, and insurance network was created in [facility] Guide.? This list was provided to the SW. Agueda Champagne Discharge Planning Asst.
--- NOTE | 2023-12-16 12:58 | CON.PCM_ITS ---
Assessment & Plan Assessment/Plan (1) Intertrochanteric fracture of left hip: QUALIFIERS: Encounter type: initial encounter Fracture type: c losed Fracture alignment: displaced Qualified Code(s): S72.142A - Displaced intertrochanteric fracture of left femur, initial encounter for closed fracture PLAN: Plan I did take a x-ray of his left femur today for preoperative planning and his intertrochanteric fracture has displaced further. There is comminution. Thorough discussion was had with the patient and his in regards to his fracture and treatment plan. I recommend cephalomedullary fixation of his left femur. I will order 7 pounds of Gaspar's traction he will be n.p.o. for surgery tomorrow morning 9:30 AM December 17, 2023. 2 g of Ancef ordered on-call to the OR and 1 g of trans exam and casted informed consent signed and placed on the chart hold all anticoagulants until after surgery. HPI Consult Data Date of Consult: 12/16/23 HPI Narrative HPI Narrative: SHAWNA DELEON, is a 83 M who presents after ground-level fall in his home after his knee gave out injuring his left hip. At this point he complains of left hip pain no other complaints of pain or concern he does have confusion his is at bedside. [facility] Medical History Intertrochanteric fracture of right femur Kidney disease Contusion of rib on left side Essential (primary) hypertension Atrial fibrillation with RVR (04/2018) Polymyalgia rheumatica Atherosclerosis of coronary artery of [place] heart without angina pectoris GERD (gastroesophageal reflux disease) Hyperlipidemia Home Medications ?Medication ?Instructions ?Recorded ?Last Taken ?Type pantoprazole 20 mg tablet,delayed 20 mg PO QPM GERD 03/14/17 12/14/23 21:33 History release nitroglycerin 0.4 mg sublingual 0.4 mg sublingual TID PRN PRN 04/28/18 04/28/18 01:00 History tablet Angina alendronate 70 mg tablet 70 mg PO AVERY 06/22/23 12/13/23 History calcium 600 mg (as 2 cap PO DAILY 06/22/23 12/14/23 History carbonate)-vitamin D3 25 mcg (1,000 unit) capsule doxycycline hyclate 20 mg tablet 20 mg PO BID peidontal disease 06/22/23 12/14/23 21:32 History mirtazapine 7.5 mg tablet 7.5 mg PO QHS sleep 06/22/23 12/14/23 21:00 History metoprolol succinate 25 mg 25 mg PO DAILY BP #90 tabs 07/03/23 12/14/23 21:33 Rx tablet,extended release 24 hr apixaban 5 mg tablet 2.5 mg (1/2 x 5 mg) PO BID 30 days 12/11/23 12/14/23 21:00 Rx #30 tabs amlodipine 5 mg tablet 5 mg PO QPM BP 12/15/23 12/14/23 History atorvastatin 40 mg tablet 40 mg PO QPM Cholesterol 12/15/23 12/14/23 21:32 History geriatric multivitamin-min tab dietary supplement 12/15/23 12/14/23 09:33 History iyzjmvrd-[id number]-arkrx 300 mcg-K 60 1 tab PO DAILY dietary supplement 12/15/23 12/14/23 21:33 History mcg-lycop 600 mcg-lutein 300 mcg tablet (Men 50 Plus Multivitamin) Allergy/AdvReac Type Severity Reaction Status Date / Time Penicillins Allergy Hives Verified 12/15/23 13:46 Family History Father CVA (cerebral vascular accident) Mother Kidney disease Surgical History Hx of cataract removal with insertion of prosthetic lens (~02/2022) History of left heart catheterization (04/29/18) History of coronary artery stent placement (12/08/13) Social History household members: spouse service: Yes current occupation: retired Smoking Status: Former smoker alcohol intake: never substance use type: does not use Physical Exam Const no apparent distress General Appearance: cooperative and comfortable Extremity Extremity Narrative: Positive logroll. He is nontender around his knee or ankle he is able to plantarflex and dorsiflex his ankle there is no open wounds around the hip. Lab / Micro Data 12/16/23 05:20 12/16/23 05:20 Labs: Laboratory Results - last 24 hr 12/15/23 14:15: WBC 17.7 H, RBC 3.28 L, Hgb 10.2 L, Hct 32.5 L, MCV 99.1 H, MCH 31.1, MCHC 31.4 L, RDW Std Deviation 48.3 H, RDW Coeff of [place]selmo 13.4, Plt Count 240, MPV 10.3, Immature Gran % (Auto) 0.700, Neut % (Auto) 84.3 H, Lymph % (Auto) 7.3 L, [place] % (Auto) 7.2, Eos % (Auto) 0.2, Baso % (Auto) 0.3, Absolute Neuts (auto) 14.9 H, Absolute Lymphs (auto) 1.29, Nucleated RBC % 0, Sodium 144, Potassium 4.9, Chloride 116 H, Carbon Dioxide 19.0 L, Anion Gap 10, BUN 25 H, C reatinine 1.99 H, Estim Creat Clear Calc 29.43, Est GFR (MDRD) Af Amer 41 L, Est GFR (MDRD) Non-Af 34 L, BUN/Creatinine Ratio 12.6, Glucose 127 H, Calcium 8.8, Total Creatine Kinase 106, Troponin I High Sens 7 12/16/23 05:20: WBC 10.6, RBC 2.92 L, Hgb 9.1 L, Hct 28.8 L, MCV 98.6 H, MCH 31.2, MCHC 31.6 L, RDW Std Deviation 49.1 H, RDW Coeff of [place]sel[place] 13.6, Plt Count 169, MPV 10.2, Immature Gran % (Auto) 0.400, Neut % (Auto) 74.0 H, Lymph % (Auto) 14.3 L, [place] % (Auto) 10.1 H, Eos % (Auto) 0.9, Baso % (Auto) 0.3, A bsolute Neuts (auto) 7.8 H, Absolute Lymphs (auto) 1.51, Nucleated RBC % 0, Sodium 140, Potassium 5.4 H, Chloride 115 H, Carbon Dioxide 23.0, Anion Gap 2 L, BUN 34 H, Creatinine 2.23 H, Estim Creat Clear Calc 24.84, Est GFR (MDRD) Af Amer 36 L, Est GFR (MDRD) Non-Af 30 L, BUN/Creatinine Ratio 15.2, Glucose 130 H, Calcium 8.2 L, Vitamin D 25-Hydroxy 53.4, Blood Type A POSITIVE, Antibody Screen NEGATIVE Imaging Radiology Impression Brain CT 12/15/23 14:07 IMPRESSION: Chronic involutional changes of the brain. Electronically Signed: Franck Tovar MD at 14:51 EDT , Cervical Spine CT 12/15/23 14:07 IMPRESSION: Multilevel degenerative changes, as described above. Electronically Signed: Franck Tovar MD at 14:54 EDT , Hip/Pelvis X-Ray 12/15/23 14:07 IMPRESSION: Nondisplaced left intertrochanteric fracture. Electronically Signed: Franck Tovar MD at 14:56 EDT , Chest X-Ray 12/15/23 14:35 IMPRESSION: Findings suggestive of a progressive chronic interstitial fibrosis. Electronically Signed: Franck Tovar MD at 14:58 EDT , Femur X-Ray 12/16/23 09:50 IMPRESSION: Acute impacted oblique fracture of the intertrochanteric left femur. Electronically Signed: Cecil Deluca MD at 11:42 EDT ,
[2023-12-16] MEDS: Calcium Carb/Vitamin D 1 TABLET Tablet 2 TABLET PO (13:27)
[2023-12-16] MEDS: Multivitamins,Ther W-Minerals Tablet 1 TABLET PO (13:27)
[2023-12-16 15:00] VITALS: BP 96/56; PULSE 97; RESP 18; TEMP 37.1; O2SAT 100
--- NOTE | 2023-12-16 16:17 | CASEMGMT ---
TCU is able to take patient. SW notified patient's . Plan: d/c to [facility] TCU Jasmin JARRETT
[2023-12-16 21:20] VITALS: BP 111/60; PULSE 109; RESP 20; TEMP 37.3; O2SAT 98
[2023-12-16] MEDS: Atorvastatin Calcium 40 MG Tablet PO (21:24)
[2023-12-16] MEDS: Mirtazapine 15 MG Tablet 7.5 MG PO (21:24)
[2023-12-16] MEDS: Pantoprazole Sodium 20 MG Tablet PO (21:24)
[2023-12-16] MEDS: amLODIPine 5 MG Tablet PO (21:25)
[2023-12-17] VITALS (20 sets, daily range): BP systolic 76–178; BP diastolic 44–161; PULSE 89–120; RESP 16–20; TEMP 36.1–38.3; O2SAT 87–100; BMI 21.9
[2023-12-17] MEDS: Acetaminophen 325 MG Tablet 650 MG PO ×2 (03:53→23:17)
[2023-12-17] MEDS: oxyCODONE 5 MG Tablet PO ×2 (03:53→23:18)
[2023-12-17 06:03] LABS: Absolute Lymphocyte Count 1.25 X10^3/uL (0.83-4.51); Absolute Neutrophil Count 7.5 X10^3/uL (2.0-7.7); Basophil# 0.04 X10^3/uL; Basophil% 0.4 % (0-1); Eosinophil# 0.35 X10^3/uL; Eosinophils% 3.4 % (0-5); Hemoglobin 7.5 g/dL (13.0-16.5); Lymphocyte # 1.25 X10^3/ul (0.83-4.51); Lymphocyte % 12.3 % (19-41); Mean Corp Hgb Conc 32.6 g/dL (32-36); Mean Corpuscular Hgb 31.9 pg (27.0-32.0); Mean Corpuscular Volume 97.9 fL (80-94); Mean Platelet Vol. 10.5 fl (6.2-12.0); Monocyte# 0.95 X10^3/uL; Monocyte% 9.3 % (0-10); NRBC Flagged by Analyzer 0 % (0-5); Neutrophil # 7.53 X10^3/uL (2.7-7.7); Platelet Count 148 K/mm3 (150-450); RBC Distribution Width CV 13.5 % (11.6-14.6); RBC Distribution Width SD 48.3 fl (35.1-43.9); Red Blood Count 2.35 M/mm3 (4.6-6.2); White Blood Count 10.2 K/mm3 (4.4-11.0)
[2023-12-17 06:30] LABS: Anion Gap 5 (5-15); BUN 45 mg/dL (7-18); BUN/Creat Ratio 16.5 RATIO (10-20); Calcium,Total 8.4 mg/dL (8.5-10.1); Chloride 112 mmol/L (98-107); Creatinine, Serum 2.72 mg/dL (0.70-1.30); EST Glomerular Filtration Rate 24 mL/min (>60); Est Glom Filt Rate - Afr Amer 29 mL/min (>60); Estimated Creatinine Clearance 20.36 ml/min; Glucose 116 mg/dL (74-106); Potassium 5.7 mmol/L (3.5-5.1); Sodium Level 137 mmol/L (136-145)
[2023-12-17] MEDS: Metoprolol(XL)Succ 25 MG Tablet PO (07:48)
[2023-12-17] MEDS: 0.9% Normal Saline (1000mL) 1,000 ML 100 ML IV (08:42)
[2023-12-17] MEDS: 0.9% Saline Lock 10 ML Syringe IV (08:42)
--- NOTE | 2023-12-17 08:48 | PCM.PRE.AN2 ---
ASA Classification* ASA Classification ASA Classification: 3 Assessment & Plan Anesthesia* Anesthesia Assessment Anesthesia Assessment: Discussed sedation and/or anesthesia options, risks, benefits, and alternatives with patient/parents/legal guardian/POA. Questions invited. The patient/parents/legal guardian/POA seems to understand and agrees to proceed with anesthesia plan. Reviewed the physical assessment, medical history, allergy history and patient home medications list prior to surgery/procedure/anesthetic and documented any changes. Performed airway and anesthesia risk assessments. Anesthesia Type Anesthesia Type: General Anesthesia Focused Assessment* Temperature: 99.3 F Pulse Rate: 104 Blood Pressure: 112/57 Respiratory Rate: 16 Pulse Ox: 99 Airway Assessment Mouth opens: >3 cm Mallampati Score: II Focused Labs Anesthesia Preop lab: CBC WBC 10.2 K/mm3 (4.4-11.0) 12/17/23 05:13 RBC 2.35 M/mm3 (4.6-6.2) L 12/17/23 05:13 Hgb 7.5 g/dL (13.0-16.5) L 12/17/23 05:13 Hct 23.0 % (40-54) L 12/17/23 05:13 Plt Count 148 K/mm3 (150-450) L 12/17/23 05:13 CHEMISTRY Potassium 5.7 mmol/L (3.5-5.1) H 12/17/23 05:13 Sodium 137 mmol/L (136-145) 12/17/23 05:13 Magnesium 2.4 mg/dL (1.6-2.6) 04/28/18 04:40 BUN 45 mg/dL (7-18) H 12/17/23 05:13 Creatinine 2.72 mg/dL (0.70-1.30) H 12/17/23 05:13 Glucose 116 mg/dL (74-106) H 12/17/23 05:13 TSH 2.53 uIU/mL (0.358-3.74) 09/21/22 09:00 COAG PT 14.3 SECONDS (11.7-14.9) 09/23/22 07:50 Pre-Assessment Diagnosis/Proposed Procedure Planned Operative Procedure(s): Hip Fracture Nail insertion left Anesthesia History Anesthesia History - agency service representative: Anesthesia History - agency service representative Hx Hospitalization No 05/30/21 11:15 Any Problems With Anesthesia No 12/17/23 08:07 Cholinesterase deficiency No 12/17/23 08:07 You/Your Family Experience No 12/17/23 08:07 fever (hyperthermia) with Relationship Recent Exposure to Contagious No 12/17/23 08:07 Disease Does patient have nerve No 12/17/23 08:07 stimulator Patient instructed to have No 12/17/23 08:07 device shut off --Does patient have Pacemaker No 12/17/23 04:55 or ICD? When Was Last Pacemaker Check QUESTION #4 FULL TEXT: You/Your Family Experience fever (hyperthermia) with Anesthesia Last Oral Intake Last Oral intake: Last Oral Intake NPO since 00:00 12/17/23 07:45 Meds taken in AM with sips of Yes 12/17/23 07:45 water? Meds patient instructed to Metoprolol 12/17/23 07:45 take am of surgery PONV PONV - agency service representative: PONV - agency service representative Female HX of Motion Sickness HX of N/V After Surgery Non-Smoker Duration of Surgery greater than 60 minutes Number of Risk Factors PONV Score Height & Weight Height & Weight: Anesthesia: Height & Weight Height 5 ft 11 in 12/17/23 04:55 Weight: 71.214 kg 12/17/23 07:45 Body Mass Index (BMI) 21.9 12/17/23 04:55 Respiratory Assessment Respiratory Assessment - agency service representative: Respiratory Tract Infection Hx - agency service representative Hx Respiratory Tract Infection No 12/17/23 08:07 STOP Sleep Apnea STOP Sleep Apnea - agency service representative: STOP Sleep Apnea - agency service representative Hx Hypertension Yes 12/15/23 20:15 Hx Sleep Apnea No 12/15/23 20:15 CPAP No 09/21/22 12:28 BIPAP No 05/30/21 11:15 Do you snore loudly (louder No 12/15/23 20:15 than talking or can be heard Do you often feel tired/ No 12/15/23 20:15 fatigued/ sleepy during daytime? Has anyone observed you stop No 12/15/23 20:15 breathing during sleep? STOP Results Negative 12/15/23 20:15 QUESTION #5 FULL TEXT : Do you snore loudly (louder than talking or can be heard through closed doors)? Tobacco Use History Tobacco Use History - agency service representative: Tobacco Use History - agency service representative Tobacco Use Smoking Status Former smoker 12/15/23 20:15 Hx Tobacco Use No 12/15/23 20:15 Years Smoking Packs Smoked per Day Smoking Cessation Date was No - quit smoking greater 12/15/23 20:15 within the last 15 years than 15 years ago Hx Smoking Cessation Date Hx Smoking Cessation Counseling Hematologic Medial History Hematologic Hx - agency service representative: Hematologic Medical Hx - destination imagination coordinator Hx of Blood Transfusion Yes 12/15/23 20:15 Hx of Transfusion in last 3 No 12/15/23 20:15 Months Date of Last Transfusion (if within last 3 months) Ever experience any problems No 12/15/23 20:15 with transfusion(s)? Specify any problems Hx of Preganancy in last 3 N/A 12/15/23 20:15 Months Nurse Filling Out Transfusion AREAD 12/15/23 20:15 & Questions: Date: 12/15/23 12/15/23 20:15 Time: 20:22 12/15/23 20:15 Patient unable to answer at this time (ie. confused, unrespo /Reproduction History /Reproductive History - agency service representative: /Reproductive Hx- agency service representative Hx Now No 12/17/23 08:07 Gestational Age (in weeks): EDC: Hx Hx Para Hx Section SAB No 12/17/23 08:07 Active Medications Active Medications: Current Medications Generic Name Dose Route Start Last Admin Trade Name Freq PRN Reason Stop Dose Admin Acetaminophen 650 mg 12/15/23 19:37 12/17/23 03:53 Acetaminophen 325 Mg Tablet PO 650 mg Q6H PRN PRN Administration Pain 1-10 Or Fever>100.7 Alendronate Sodium 70 mg 12/20/23 06:00 Alendronate Sodium 70 Mg Tablet PO AVERY LATRICE Amlodipine Besylate 5 mg 12/15/23 21:00 12/16/23 21:25 Amlodipine 5 Mg Tablet PO 5 mg QPM LATRICE Administration Protocol Atorvastatin Calcium 40 mg 12/15/23 22:00 12/16/23 21:24 Atorvastatin Calcium 40 Mg Tablet PO 40 mg QHS LATRICE Administration Calcium/Vitamin D 2 tablet 12/16/23 08:00 12/17/23 08:38 Calcium Carb/Vitamin D 1 Tablet Tablet PO Not Given DAILYCM LATRICE Sodium Chloride 100 mls @ 15 mls/hr 12/15/23 20:36 IV .Q6H40M PRN Saline Flush Sodium Chloride 100 mls @ 15 mls/hr 12/15/23 20:36 IV .Q6H40M PRN Additional IVPB Infusion Tranexamic Acid 1,000 mg/ 110 mls @ 440 mls/hr 12/17/23 09:30 Sodium Chloride IV 12/17/23 09:44 PREOP ONE Cefazolin Sodium 2 gm/ N/A 20 mls @ 400 mls/hr 12/17/23 09:30 IV 12/17/23 09:32 SEND TO OR W/PATIENT ONE Sodium Chloride 1,000 mls @ 100 mls/hr 12/17/23 08:30 12/17/23 08:42 IV 12/17/23 18:29 100 mls/hr .Q10H LATRICE Administration Protocol Metoprolol Succinate 25 mg 12/16/23 10:00 12/17/23 07:48 Metoprolol(Xl)Succ 25 Mg Tablet PO 25 mg DAILY LATRICE Administration Protocol Mirtazapine 7.5 mg 12/15/23 22:00 12/16/23 21:24 Mirtazapine 15 Mg Tablet PO 7.5 mg QHS LATRICE Administration Multivitamins/Minerals 1 tablet 12/16/23 08:00 12/17/23 08:38 Multivitamins,Ther W-Minerals Tablet PO Not Given DAILYCM LATRICE Ondansetron HCl 4 mg 12/15/23 19:37 12/15/23 20:04 Ondansetron 4 Mg/2 Ml Vial IV 4 mg Q8H PRN PRN Administration NAUSEA/VOMITING Oxycodone HCl 5 mg 12/15/23 19:37 12/17/23 03:53 Oxycodone 5 Mg Tablet PO 5 mg Q4H PRN PRN Administration Pain Score 4-10 Pantoprazole Sodium 20 mg 12/15/23 22:00 12/16/23 21:24 Pantoprazole Sodium 20 Mg Tablet PO 20 mg QHS LATRICE Administration Senna/Docusate Sodium 2 tablet 12/15/23 19:37 Senna/Docusate Sodium 1 Tablet PO BID PRN PRN Constipation Sodium Chloride 10 - 40 ml 12/15/23 20:36 12/17/23 08:42 0.9% Saline Lock 10 Ml Syringe IV 10 ml UD PRN Administration SALINE FLUSH [facility] Medical History Intertrochanteric fracture of right femur Kidney disease Contusion of rib on left side Essential (primary) hypertension Atrial fibrillation with RVR (04/2018) Polymyalgia rheumatica Atherosclerosis of coronary artery of [place] heart without angina pectoris GERD (gastroesophageal reflux disease) Hyperlipidemia Home Medications ?Medication ?Instructions ?Recorded ?Last Taken ?Type pantoprazole 20 mg tablet,delayed 20 mg PO QPM GERD 03/14/17 12/14/23 21:33 History release nitroglycerin 0.4 mg sublingual 0.4 mg sublingual TID PRN PRN 04/28/18 04/28/18 01:00 History tablet Angina alendronate 70 mg tablet 70 mg PO AVERY 06/22/23 12/13/23 History calcium 600 mg (as 2 cap PO DAILY 06/22/23 12/14/23 History carbonate)-vitamin D3 25 mcg (1,000 unit) capsule doxycycline hyclate 20 mg tablet 20 mg PO BID peidontal disease 06/22/23 12/14/23 21:32 History mirtazapine 7.5 mg tablet 7.5 mg PO QHS sleep 06/22/23 12/14/23 21:00 History metoprolol succinate 25 mg 25 mg PO DAILY BP #90 tabs 07/03/23 12/14/23 21:33 Rx tablet,extended release 24 hr apixaban 5 mg tablet 2.5 mg (1/2 x 5 mg) PO BID 30 days 12/11/23 12/14/23 21:00 Rx #30 tabs amlodipine 5 mg tablet 5 mg PO QPM BP 12/15/23 12/14/23 History atorvastatin 40 mg tablet 40 mg PO QPM Cholesterol 12/15/23 12/14/23 21:32 History geriatric multivitamin-min tab dietary supplement 12/15/23 12/14/23 09:33 History xyfmhcun-qy-sdewn 300 mcg-K 60 1 tab PO DAILY dietary supplement 12/15/23 12/14/23 21:33 History mcg-lycop 600 mcg-lutein 300 mcg tablet (Men 50 Plus Multivitamin) Allergy/AdvReac Type Severity Reaction Status Date / Time Penicillins Allergy Hives Verified 12/15/23 13:46 Family History Father CVA (cerebral vascular accident) Mother Kidney disease Surgical History Hx of cataract removal with insertion of prosthetic lens (~02/2022) History of left heart catheterization (04/29/18) History of coronary artery stent placement (12/08/13) Social History household members: spouse service: Yes current occupation: retired Smoking Status: Former smoker alcohol intake: never substance use type: does not use Review of Systems (Anesthesia) ROS Narrative System reviewed and no additional complaints, except as documented.
--- NOTE | 2023-12-17 09:37 | RAD_ITS ---
INDICATION: FX EXAMINATION/TECHNIQUE: X-RAY - XR Hip Unilateral with Pelvis when performed; 1 View COMPARISON: Prior study dated: 12/16/2023 FINDINGS: Views of the left hip and femur were obtained intraoperatively for left hip pinning for intertrochanteric fracture of the left hip. Images were obtained for documentation. Fluoroscopy time: 86 seconds. Number of fluoroscopic images: 4. Radiation dose: 30.04 mGy. RAD/Hip 1 view with Pelvis IMPRESSION: Intraoperative operative exam as described above. Electronically Signed: Jonathan Noe MD at 13:04 EDT ,
[2023-12-17] MEDS: Cefazolin 2 GM in Syringe IV (10:10)
[2023-12-17] MEDS: TRANEXAMIC ACID 1,000 MG in 0.9% Normal Saline (100mL Bag) 100 ML 440 MG IV (10:20)
--- NOTE | 2023-12-17 10:34 | CCN.REFER ---
CCN REFERRAL RECEIVED. PATIENT NOW GOING TO TCU UPON DISCHARGE PER CM NOTES. [facility]N REFERRAL PLACED ON HOLD.
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
[2023-12-17] MEDS: Bupiv/Epi 0.5% Mpf 30 ML Vial INFILT (11:00)
--- NOTE | 2023-12-17 11:39 | PCM.OP.BLANK ---
Operative Report Date of Procedure: 12/17/23 Preoperative diagnosis: Left hip intertrochanteric femur fracture Postoperative diagnosis: Same Procedure: Cephalo-medullary fixation left femur Implants: Synthes long nail [id number] , 105 mm helical blade, 50 mm screw Anesthesia: General EBL: 50 Complications: None Condition: Stable to PACU Indication for procedure: 83-year-old male status post ground-level fall sustaining injury to his left hip. fracture demonstrated initially nondisplaced intertrochanteric femur fracture however repeat x-ray the following day demonstrated displaced fracture with comminution, risk benefits and alternatives were reviewed including risk of bleeding infection nerve, artery, bone, tissue damage, blood clot, RSD need for further surgery and continued pain. Procedure: Patient met in the preoperative holding area once again the operative extremity was identified by both patient and physician and was marked. Patient was met by anesthesia and IV was started she was brought back to the to the operating room anesthesia was started. She was then positioned on the fracture table all bony prominences were well-padded. She was then positioned with adduction internal rotation and traction and fluoroscopy was brought in to ensure that an adequate reduction could be performed. Patient was then prepped and draped in usual sterile fashion and timeout was called to ensure the proper patient procedure and extremity were being contemplated. Fluoroscopy was used to oziel the tip of the greater trochanter and a 3 fingerbreadth incision was made 2 finger breaths proximal to the tip of the greater trochanter. Was carried carried down through the skin and subcutaneous tissue as well as the gluteal fascia. A guide pin was then inserted through the tip of the greater trochanter directed towards the level of lesser trochanter this was checked in both AP and lateral projections. An opening reamer was performed. A guide pin was bent and placed down the femoral canal to the level of the superior patella then measured this and placed the corresponding length nail after flexible reamers were used to achieve cortical chatter and achieving 1.5 mm greater than the nail was chosen . following this was the insertion of the nail the appropriate height jig was used and a triple trocar sleeve was advanced to the skin and a stab incision was made at the trocar was inserted to the level of the bone and a guidepin was placed into the femoral neck and head checked on both AP and lateral projections. This was then measured and appropriately sized helical blade was inserted the nail was locked proximally to allow dynamic compression, the fracture was compressed and a locking screw was placed distally using perfect upper skagit technique. This was then drilled and measured under fluoroscopy and the appropriate size screw was inserted. Final AP and lateral projections were saved to the PACS system of the entire construct. the wounds were thoroughly irrigated the fascia was closed with #1 [id number] Vicryls followed by 2-0 Vicryl in the subcutaneous tissues followed by yoanna in the skin. 0.5% Marcaine with epinephrine was injected into the subcutaneous tissues dressing was applied form of Xeroform 4 x 4 ABD and Ioban tape. Patient tolerated procedure well there is no intraoperative complications she was brought back to the PACU in stable condition.
--- NOTE | 2023-12-17 11:42 | PCM.POST.ANE ---
Anesthesia: Postop Eval I Current Vital Signs Temperature: 98 F Pulse Rate: 120 Blood Pressure: 134/46 Respiratory Rate: 18 Pulse Ox: 95 Oxygen Delivery Method: Room Air Oxygen Flow Rate (L/min): 2 Assessment Airway patent: Yes Spontaneous unlabored respirations: Yes Mental status: Awake and Calm nausea: No Vomiting: No Anesthesia Complication: No Fluid Hydration Crystalloid volume administer (ml): 700 Blood Product volume administered (ml): 300 Total IV fluid infused: 1,000 Progress Note Anesthesia document: Postop Eval 1 completed: Yes
--- NOTE | 2023-12-17 12:13 | POSTOPAN2_ITS ---
Anesthesia Postop Eval I Sum Postop Eval Completion status Anesthesia document: Postop Eval 1 completed: Yes Anesthesia Postop Eval I Summary Anesthesia Postop Eval I Summary: Anesthesia Postop Eval I: Assessment Summary Airway patent Yes 12/17/23 11:43 [email or web address] Spontaneous unlabored Yes 12/17/23 11:43 [email or web address] respirations Mental status Awake,Calm 12/17/23 11:43 [email or web address] nausea No 12/17/23 11:43 [email or web address] Vomiting No 12/17/23 11:43 [email or web address] Anesthesia Postop Eval I: Fluid Summary Crystalloid volume administer 700 12/17/23 11:43 [email or web address] (ml) Colloids volume administered ( ml) Blood Product volume 300 12/17/23 11:43 [email or web address] administered (ml) Total IV fluid infused 1,000 12/17/23 11:43 [email or web address] Anesthesia Postop Eval I: Summary Notes Anesthesia Complication No 12/17/23 11:43 [email or web address] Anesthesia Complication Comment: Post-operative progress note Anesthesia: Postop Eval II Evaluation Mental status: Awake Pain Level: 0 nausea: No Vomiting: No
--- NOTE | 2023-12-17 12:13 | PCM.POSTANE2 ---
Anesthesia Postop Eval I Sum Postop Eval Completion status Anesthesia document: Postop Eval 1 completed: Yes Anesthesia Postop Eval I Summary Anesthesia Postop Eval I Summary: Anesthesia Postop Eval I: Assessment Summary Airway patent Yes 12/17/23 11:43 [email or web address] Spontaneous unlabored Yes 12/17/23 11:43 [email or web address] [email or web address] respirations Mental status Awake,Calm 12/17/23 11:43 [email or web address] [email or web address] nausea No 12/17/23 11:43 [email or web address] Vomiting No 12/17/23 11:43 [email or web address] Anesthesia Postop Eval I: Fluid Summary Crystalloid volume administer 700 12/17/23 11:43 [email or web address] (ml) Colloids volume administered ( ml) Blood Product volume 300 12/17/23 11:43 [email or web address] administered (ml) Total IV fluid infused 1,000 12/17/23 11:43 [email or web address] Anesthesia Postop Eval I: Summary Notes Anesthesia Complication No 12/17/23 11:43 [email or web address] Anesthesia Complication Comment: Post-operative progress note Anesthesia: Postop Eval II Evaluation Mental status: Awake Pain Level: 0 nausea: No Vomiting: No
--- NOTE | 2023-12-17 12:29 | SUR.PHASEI ---
Pt confused, combative, will not leave O2 on, trying to hit staff. Lorazepam given. Bilat wrist restraints applied.
[2023-12-17 13:07] LABS: Hematocrit 26.6 % (40-54); Hemoglobin 8.7 g/dL (13.0-16.5); Mean Corp Hgb Conc 32.7 g/dL (32-36); Mean Corpuscular Hgb 30.9 pg (27.0-32.0); Mean Corpuscular Volume 94.3 fL (80-94); Mean Platelet Vol. 10.1 fl (6.2-12.0); Platelet Count 133 K/mm3 (150-450); RBC Distribution Width CV 14.3 % (11.6-14.6); RBC Distribution Width SD 49.1 fl (35.1-43.9); Red Blood Count 2.82 M/mm3 (4.6-6.2); White Blood Count 10.6 K/mm3 (4.4-11.0)
[2023-12-17 13:30] LABS: Anion Gap 7 (5-15); BUN 42 mg/dL (7-18); BUN/Creat Ratio 16.7 RATIO (10-20); Calcium,Total 8.3 mg/dL (8.5-10.1); Chloride 112 mmol/L (98-107); Creatinine, Serum 2.51 mg/dL (0.70-1.30); EST Glomerular Filtration Rate 26 mL/min (>60); Est Glom Filt Rate - Afr Amer 32 mL/min (>60); Estimated Creatinine Clearance 22.07 ml/min; Glucose 131 mg/dL (74-106); Magnesium 2.1 mg/dL (1.6-2.6); Potassium 5.3 mmol/L (3.5-5.1); Sodium Level 138 mmol/L (136-145)
--- NOTE | 2023-12-17 13:30 | SUR.PHASEI ---
Pt remains confused, at bedside in PACU. Pt oriented to self and to , he is communicating with about wanting restraints off and O2 off. Pt becomes irritable with staff. Attempted to take one wrist out of restraints, pt immediately pulled O2 off and was trying to pull out IV. Decision made to continue with wrist restraints. Dr Kelly at bedside, reviewed labs.
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
[2023-12-17] MEDS: Pantoprazole Sodium 20 MG Tablet PO (22:45)
[2023-12-17] MEDS: Mirtazapine 15 MG Tablet 7.5 MG PO (22:45)
[2023-12-17] MEDS: Atorvastatin Calcium 40 MG Tablet PO (22:45)
[2023-12-17] MEDS: amLODIPine 5 MG Tablet PO (22:46)
[2023-12-18] VITALS (9 sets, daily range): BP systolic 95–122; BP diastolic 51–76; PULSE 79–97; RESP 14–18; TEMP 36.4–37.2; O2SAT 94–96
[2023-12-18 08:32] LABS: Absolute Lymphocyte Count 0.77 X10^3/uL (0.83-4.51); Absolute Neutrophil Count 9.2 X10^3/uL (2.0-7.7); Basophil# 0.01 X10^3/uL; Basophil% 0.1 % (0-1); Eosinophil# 0.02 X10^3/uL; Eosinophils% 0.2 % (0-5); Hematocrit 26.1 % (40-54); Hemoglobin 8.5 g/dL (13.0-16.5); Lymphocyte # 0.77 X10^3/ul (0.83-4.51); Lymphocyte % 7.1 % (19-41); Mean Corp Hgb Conc 32.6 g/dL (32-36); Mean Corpuscular Hgb 30.5 pg (27.0-32.0); Mean Corpuscular Volume 93.5 fL (80-94); Mean Platelet Vol. 10.2 fl (6.2-12.0); Monocyte# 0.84 X10^3/uL; Monocyte% 7.7 % (0-10); NRBC Flagged by Analyzer 0 % (0-5); Neutrophil # 9.18 X10^3/uL (2.7-7.7); Neutrophil % 84.3 % (47-70); Platelet Count 137 K/mm3 (150-450); RBC Distribution Width CV 14.1 % (11.6-14.6); RBC Distribution Width SD 47.8 fl (35.1-43.9); Red Blood Count 2.79 M/mm3 (4.6-6.2); White Blood Count 10.9 K/mm3 (4.4-11.0)
--- NOTE | 2023-12-18 08:40 | PN.ORTHO_ITS ---
Subjective Subjective Seen and examined. Pain controlled no nausea vomiting shortness of breath or chest pain. No concerns. at bedside Objective Data Objective Data Vital Signs: Vital Signs Temp Pulse Resp BP Pulse Ox O2 Del Method O2 Flow Rate 97.9 F 79 16 112/74 96 Nasal Cannula 2 12/18/23 05:56 12/18/23 05:56 12/18/23 05:56 12/18/23 05:56 12/18/23 05:56 12/18/23 05:56 12/18/23 05:56 Oxygen Flow Rate (L/min) 2 Oxygen Delivery Method Nasal Cannula Weight: 157 lb Body Mass Index (BMI) 21.9 Intake & Output: Intake and Output for Last 24 Hours 12/16/23 12/17/23 12/18/23 23:59 23:59 23:59 Intake Total 1166.25 / 1416.25 1680 / 1680 Output Total 800 / 800 300 / 300 Balance 1166.25 / 1416.25 880 / 880 -300 / -300 Lab / Micro Data 12/18/23 08:13 12/17/23 12:53 Labs: Laboratory Results - last 24 hr 12/16/23 05:20: Crossmatch See Detail 12/17/23 12:53: WBC 10.6, RBC 2.82 L, Hgb 8.7 L, Hct 26.6 L, MCV 94.3 H, MCH 30.9, MCHC 32.7, RDW Std Deviation 49.1 H, RDW Coeff of Anselmo 14.3, Plt Count 133 L, MPV 10.1, Sodium 138, Potassium 5.3 H, Chloride 112 H, Carbon Dioxide 19.0 L, Anion Gap 7, BUN 42 H, Creatinine 2.51 H, Estim Creat Clear Calc 22.07, Est GFR (MDRD) Af Amer 32 L, Est GFR (MDRD) Non-Af 26 L, BUN/Creatinine Ratio 16.7, G lucose 131 H, Calcium 8.3 L, Magnesium 2.1 12/18/23 08:13: WBC 10.9, RBC 2.79 L, Hgb 8.5 L, Hct 26.1 L, MCV 93.5, MCH 30.5, MCHC 32.6, RDW Std Deviation 47.8 H, RDW Coeff of Anselmo 14.1, Plt Count 137 L, MPV 10.2, Immature Gran % (Auto) 0.600, Neut % (Auto) 84.3 H, Lymph % (Auto) 7.1 L, [place] % (Auto) 7.7, Eos % (Auto) 0.2, Baso % (Auto) 0.1, Absolute Neuts (auto) 9.2 H, Absolute Lymphs (auto) 0.77 L, Nucleated RBC % 0 Radiography Diagnostic Testing: Radiology Impression Hip/Pelvis X-Ray 12/17/23 09:37 IMPRESSION: Intraoperative operative exam as described above. Electronically Signed: Jonathan Noe MD at 13:04 EDT , Physical Exam Const alert and no apparent distress General Appearance: cooperative Extremity Extremity Narrative: Left hip dressing clean dry intact compartments soft neurovascular intact EHL tibialis anterior gastrocsoleus intact and station light touch Assessment & Plan Assessment/Plan (1) Intertrochanteric fracture of left hip: QUALIFIERS: Encounter type: initial encounter Fracture type: c losed Fracture alignment: displaced Qualified Code(s): S72.142A - Displaced intertrochanteric fracture of left femur, initial encounter for closed fracture PLAN: Plan Postop day #1 left hip intertrochanteric femur fracture status post cephalomedullary fixation PT OT weightbearing as tolerated Dressing to be undisturbed for 72 hours postop then may be removed and he may begin showering daily at this point if not showering daily at this point incision should be washed daily with antibacterial soap and warm water and replace with dry dressing daily until no drainage for 2 consecutive days. Patient is likely going to be discharged to the transitional care unit. If he is there at his 2 weeks postop I am happy to see him there if notified otherwise he can follow-up in the office for wound check and staple removal He may resume his preoperative 2.5 mg Eliquis twice daily
[2023-12-18 08:55] LABS: Anion Gap 6 (5-15); BUN 46 mg/dL (7-18); BUN/Creat Ratio 20.4 RATIO (10-20); Calcium,Total 8.2 mg/dL (8.5-10.1); Chloride 115 mmol/L (98-107); Creatinine, Serum 2.25 mg/dL (0.70-1.30); EST Glomerular Filtration Rate 30 mL/min (>60); Est Glom Filt Rate - Afr Amer 36 mL/min (>60); Estimated Creatinine Clearance 24.62 ml/min; Glucose 147 mg/dL (74-106); Potassium 5.2 mmol/L (3.5-5.1); Sodium Level 141 mmol/L (136-145)
[2023-12-18] MEDS: Calcium Carb/Vitamin D 1 TABLET Tablet 2 TABLET PO (10:12)
[2023-12-18] MEDS: Multivitamins,Ther W-Minerals Tablet 1 TABLET PO (10:12)
[2023-12-18] MEDS: Metoprolol(XL)Succ 25 MG Tablet PO (10:12)
--- NOTE | 2023-12-18 10:20 | PN.HOSP_ITS ---
Subjective Subjective Doing well, no issues overnight. Renal functions improving hemoglobin is stable Objective Data Objective Data Vital Signs: Vital Signs Temp Pulse Resp BP Pulse Ox O2 Del Method O2 Flow Rate 98.3 F 93 18 95/54 L 94 Room Air 2 12/18/23 10:09 12/18/23 10:09 12/18/23 10:09 12/18/23 10:09 12/18/23 10:09 12/18/23 10:09 12/18/23 05:56 Oxygen Flow Rate (L/min) 2 Oxygen Delivery Method Room Air Weight: 157 lb Body Mass Index (BMI) 21.9 Intake & Output: Intake and Output for Last 24 Hours 12/17/23 12/18/23 12/19/23 03:59 03:59 03:59 Intake Total 1216.25 / 1216.25 1430 / 1430 Output Total 800 / 800 300 / 300 Balance 1216.25 / 1216.25 630 / 630 -300 / -300 Lab / Micro Data 12/18/23 08:13 12/18/23 08:13 Labs: Laboratory Results - last 24 hr 12/17/23 12:53: WBC 10.6, RBC 2.82 L, Hgb 8.7 L, Hct 26.6 L, MCV 94.3 H, MCH 30.9, MCHC 32.7, RDW Std Deviation 49.1 H, RDW Coeff of Anselmo 14.3, Plt Count 133 L, MPV 10.1, Sodium 138, Potassium 5.3 H, Chloride 112 H, Carbon Dioxide 19.0 L, Anion Gap 7, BUN 42 H, Creatinine 2.51 H, Estim Creat Clear Calc 22.07, Est GFR (MDRD) Af Amer 32 L, Est GFR (MDRD) Non-Af 26 L, BUN/Creatinine Ratio 16.7, G lucose 131 H, Calcium 8.3 L, Magnesium 2.1 12/18/23 08:13: WBC 10.9, RBC 2.79 L, Hgb 8.5 L, Hct 26.1 L, MCV 93.5, MCH 30.5, MCHC 32.6, RDW Std Deviation 47.8 H, RDW Coeff of Anselmo 14.1, Plt Count 137 L, MPV 10.2, Immature Gran % (Auto) 0.600, Neut % (Auto) 84.3 H, Lymph % (Auto) 7.1 L, [place] % (Auto) 7.7, Eos % (Auto) 0.2, Baso % (Auto) 0.1, Absolute Neuts (auto) 9.2 H, Absolute Lymphs (auto) 0.77 L, Nucleated RBC % 0, Sodium 141, Potassium 5.2 H, Chloride 115 H, Carbon Dioxide 20.0 L, Anion Gap 6, BUN 46 H, Creatinine 2.25 H, Estim Creat Clear Calc 24.62, Est GFR (MDRD) Af Amer 36 L, Est GFR (MDRD) Non-Af 30 L, BUN/Creatinine Ratio 20.4 H, Glucose 147 H, Calcium 8.2 L Radiography Diagnostic Testing: Radiology Impression Hip/Pelvis X-Ray 12/17/23 09:37 IMPRESSION: Intraoperative operative exam as described above. Electronically Signed: Jonathan Noe MD at 13:04 EDT , Physical Exam Narrative General: Alert, Oriented x3, Cooperative, No apparent distress HEENT: Atraumatic, PERRLA, EOMI, Normocephalic Oral: Moist Mucosa Neck: Supple, No JVD Lungs: Diminished, Normal air movement, No rhonchi, No wheeze, No rales Cardiovascular: Regular rate, Regular Rhythm, Normal S1, Normal S2, No murmurs Abdomen: Soft, Non Tender, Non-Distended, No Hepato-splenomegaly Extremities: No edema, Capillary Refill Less than 3 Seconds Skin: No rashes, No breakdown Musculoskeletal: Mild tenderness of the left hip Neurological: No focal neurological deficits, Motor Exam 5/5 strength throughout, Sensory exam intact to light touch and pain Psych/Mental Status: Normal Affect, Appropriate Assessment & Plan Assessment/Plan (1) History of atrial fibrillation: (2) Fracture of hip, left, closed: QUALIFIERS: Encounter type: initial encounter Qualified Code(s): S72.002A - Fracture of unspecified part of neck of left femur, initial encounter for closed fracture (3) Fall: QUALIFIERS: Encounter type: initial encounter Qualified Code(s): W19.XXXA - Unspecified fall, initial encounter (4) Acute kidney injury superimposed on stage 3b chronic kidney disease: PLAN: Plan 1. Left nondisplaced intertrochanteric fracture status post repair 12/17/2023 ? Last dose of Eliquis was Thursday we will hold ? Continue with pain management ? Appreciate Ortho's assistance ? PT/OT ? Plan for SNF placement on discharge 2. CAD status post stent/A-fib/essential HTN/HLD ? Continue with his home blood pressure medications ? Will hold his Eliquis ? Continue with Lipitor ? Will monitor and make adjustments as necessary 3. GERD ? Stable ? Continue with PPI 4. KEYLA on CKD 3 with anemia of chronic disease ? Received 1 unit of blood prior to surgery secondary to a slightly low hemoglobin though near baseline ? Renal function is much improved today will monitor and encourage p.o. intake DVT: SCDs Charges/Coding Visit Charges Inpatient E&M: 76953 Subs Hosp L2
[2023-12-18] MEDS: Senna/Docusate Sodium 1 Tablet 2 TABLET PO ×2 (11:15→21:31)
[2023-12-18] MEDS: Acetaminophen 325 MG Tablet 650 MG PO (11:43)
[2023-12-18] MEDS: oxyCODONE 5 MG Tablet PO (19:00)
[2023-12-18] MEDS: amLODIPine 5 MG Tablet PO (21:20)
[2023-12-18] MEDS: APIXABAN 2.5 MG TABLET (WCH) PO (21:20)
[2023-12-18] MEDS: Mirtazapine 15 MG Tablet 7.5 MG PO (21:20)
[2023-12-18] MEDS: Atorvastatin Calcium 40 MG Tablet PO (21:20)
[2023-12-18] MEDS: Pantoprazole Sodium 20 MG Tablet PO (21:20)
[2023-12-19] VITALS (8 sets, daily range): BP systolic 104–141; BP diastolic 50–74; PULSE 78–100; RESP 16–20; TEMP 36.3–37.2; O2SAT 93–98
[2023-12-19 07:07] LABS: Absolute Lymphocyte Count 1.77 X10^3/uL (0.83-4.51); Absolute Neutrophil Count 6.2 X10^3/uL (2.0-7.7); Basophil# 0.02 X10^3/uL; Basophil% 0.2 % (0-1); Eosinophil# 0.66 X10^3/uL; Eosinophils% 6.9 % (0-5); Hematocrit 25.1 % (40-54); Lymphocyte # 1.77 X10^3/ul (0.83-4.51); Lymphocyte % 18.6 % (19-41); Mean Corp Hgb Conc 31.9 g/dL (32-36); Mean Corpuscular Hgb 30.5 pg (27.0-32.0); Mean Corpuscular Volume 95.8 fL (80-94); Mean Platelet Vol. 10.3 fl (6.2-12.0); Monocyte% 8.4 % (0-10); NRBC Flagged by Analyzer 0.2 % (0-5); Neutrophil # 6.19 X10^3/uL (2.7-7.7); Neutrophil % 65.1 % (47-70); Platelet Count 162 K/mm3 (150-450); RBC Distribution Width CV 14.2 % (11.6-14.6); RBC Distribution Width SD 49.4 fl (35.1-43.9); Red Blood Count 2.62 M/mm3 (4.6-6.2); White Blood Count 9.5 K/mm3 (4.4-11.0)
[2023-12-19 08:05] LABS: Anion Gap 4 (5-15); BUN 53 mg/dL (7-18); BUN/Creat Ratio 26.4 RATIO (10-20); Calcium,Total 8.1 mg/dL (8.5-10.1); Chloride 115 mmol/L (98-107); Creatinine, Serum 2.01 mg/dL (0.70-1.30); EST Glomerular Filtration Rate 34 mL/min (>60); Est Glom Filt Rate - Afr Amer 41 mL/min (>60); Estimated Creatinine Clearance 27.56 ml/min; Glucose 111 mg/dL (74-106); Potassium 5.2 mmol/L (3.5-5.1); Sodium Level 141 mmol/L (136-145)
[2023-12-19] MEDS: Multivitamins,Ther W-Minerals Tablet 1 TABLET PO (09:40)
[2023-12-19] MEDS: Calcium Carb/Vitamin D 1 TABLET Tablet 2 TABLET PO (09:41)
[2023-12-19] MEDS: oxyCODONE 5 MG Tablet PO ×2 (09:42→16:28)
[2023-12-19] MEDS: APIXABAN 2.5 MG TABLET (WCH) PO ×2 (09:42→21:08)
[2023-12-19] MEDS: Acetaminophen 325 MG Tablet 650 MG PO ×2 (09:42→16:29)
[2023-12-19] MEDS: Metoprolol(XL)Succ 25 MG Tablet PO (09:42)
--- NOTE | 2023-12-19 11:27 | PN.HOSP_ITS ---
Subjective Subjective No issues overnight, no agitation, been stable for over 48 hours Objective Data Objective Data Vital Signs: Vital Signs Temp Pulse Resp BP Pulse Ox O2 Del Method O2 Flow Rate 97.5 F L 100 20 H 133/63 H 96 Room Air 2 12/19/23 06:31 12/19/23 09:42 12/19/23 06:31 12/19/23 09:42 12/19/23 06:31 12/19/23 09:00 12/18/23 05:56 Oxygen Flow Rate (L/min) 2 Oxygen Delivery Method Room Air Weight: 157 lb Body Mass Index (BMI) 21.9 Intake & Output: Intake and Output for Last 24 Hours 12/18/23 12/19/23 12/20/23 03:59 03:59 03:59 Intake Total 1430 / 1430 920 / 920 Output Total 800 / 800 900 / 900 800 / 800 Balance 630 / 630 -800 / -800 Lab / Micro Data 12/19/23 06:10 12/19/23 06:10 Labs: Laboratory Results - last 24 hr 12/19/23 06:10: WBC 9.5, RBC 2.62 L, Hgb 8.0 L, Hct 25.1 L, MCV 95.8 H, MCH 30.5, MCHC 31.9 L, RDW Std Deviation 49.4 H, RDW Coeff of Anselmo 14.2, Plt Count 162, MPV 10.3, Immature Gran % (Auto) 0.800, Neut % (Auto) 65.1, Lymph % (Auto) 18.6 L, [place] % (Auto) 8.4, Eos % (Auto) 6.9 H, Baso % (Auto) 0.2, Absolute Neuts (auto) 6.2, Absolute Lymphs (auto) 1.77, Nucleated RBC % 0.2, Sodium 141, P otassium 5.2 H, Chloride 115 H, Carbon Dioxide 22.0, Anion Gap 4 L, BUN 53 H, C reatinine 2.01 H, Estim Creat Clear Calc 27.56, Est GFR (MDRD) Af Amer 41 L, Est GFR (MDRD) Non-Af 34 L, BUN/Creatinine Ratio 26.4 H, Glucose 111 H, Calcium 8.1 L Physical Exam Narrative General: Alert, Oriented x3, Cooperative, No apparent distress HEENT: Atraumatic, PERRLA, EOMI, Normocephalic Oral: Moist Mucosa Neck: Supple, No JVD Lungs: Diminished, Normal air movement, No rhonchi, No wheeze, No rales Cardiovascular: Regular rate, Regular Rhythm, Normal S1, Normal S2, No murmurs Abdomen: Soft, Non Tender, Non-Distended, No Hepato-splenomegaly Extremities: No edema, Capillary Refill Less than 3 Seconds Skin: Incision CDI Musculoskeletal: Mild tenderness of the left hip Neurological: No focal neurological deficits, Motor Exam 5/5 strength throughout, Sensory exam intact to light touch and pain Psych/Mental Status: Normal Affect, Appropriate Assessment & Plan Assessment/Plan (1) History of atrial fibrillation: (2) Fracture of hip, left, closed: QUALIFIERS: Encounter type: initial encounter Qualified Code(s): S72.002A - Fracture of unspecified part of neck of left femur, initial encounter for closed fracture (3) Fall: QUALIFIERS: Encounter type: initial encounter Qualified Code(s): W19.XXXA - Unspecified fall, initial encounter (4) Acute kidney injury superimposed on stage 3b chronic kidney disease: PLAN: Plan 1. Left nondisplaced intertrochanteric fracture status post repair 12/17/2023 ?Can resume Eliquis and monitor his hemoglobin as he did have to have a transfusion ? Continue with pain management ? Appreciate Ortho's assistance ? PT/OT ? Plan for SNF placement on discharge, he had agitation immediately postanesthesia which resolved within hours and he has been stable for 48 hours however SNF would like to wait through the weekend until Thursday 2. CAD status post stent/A-fib/essential HTN/HLD ? Continue with his home blood pressure medications ?Resume Eliquis ? Continue with Lipitor ? Will monitor and make adjustments as necessary 3. GERD ? Stable ? Continue with PPI 4. KEYLA on CKD 3 with anemia of chronic disease ? Received 1 unit of blood prior to surgery secondary to a slightly low hemoglobin though near baseline ? Renal function is much improved today will monitor and encourage p.o. intake ? Will check iron studies DVT: SCDs Charges/Coding Visit Charges Inpatient E&M: 09531 Subs Hosp L2
[2023-12-19 13:15] LABS: Ferritin 377 ng/mL (26-388); Iron 32 ug/dL (65-175); Iron Binding Capacity,Total 176 ug/dL (250-450); PERCENT IRON SATURATION 18.2 % (15.0-55.0)
[2023-12-19] MEDS: Polyethylene Glycol 3350 17 GM PACKET PO (14:47)
[2023-12-19] MEDS: Pantoprazole Sodium 20 MG Tablet PO (21:09)
[2023-12-19] MEDS: Atorvastatin Calcium 40 MG Tablet PO (21:09)
[2023-12-19] MEDS: Mirtazapine 15 MG Tablet 7.5 MG PO (21:09)
[2023-12-20] VITALS (9 sets, daily range): BP systolic 102–124; BP diastolic 52–93; PULSE 80–99; RESP 16–18; TEMP 36.4–36.9; O2SAT 92–98
[2023-12-20] MEDS: oxyCODONE 5 MG Tablet PO ×3 (00:29→18:40)
[2023-12-20] MEDS: Acetaminophen 325 MG Tablet 650 MG PO ×2 (00:29→15:57)
[2023-12-20] MEDS: Alendronate Sodium 70 MG Tablet PO (05:14)
[2023-12-20] MEDS: APIXABAN 2.5 MG TABLET (WCH) PO ×2 (07:48→21:29)
[2023-12-20] MEDS: Multivitamins,Ther W-Minerals Tablet 1 TABLET PO (07:48)
[2023-12-20] MEDS: Calcium Carb/Vitamin D 1 TABLET Tablet 2 TABLET PO (07:48)
[2023-12-20] MEDS: Metoprolol(XL)Succ 25 MG Tablet PO (07:49)
[2023-12-20] MEDS: Polyethylene Glycol 3350 17 GM PACKET PO (07:52)
--- NOTE | 2023-12-20 08:53 | PCM.PN.HOSP ---
Subjective Subjective No issues overnight, still feels pretty weak awaiting transfer to SNF tomorrow Objective Data Objective Data Vital Signs: Vital Signs Temp Pulse Resp BP Pulse Ox O2 Del Method O2 Flow Rate 98.5 F 85 16 115/66 92 Room Air 2 12/20/23 07:56 12/20/23 07:59 12/20/23 07:56 12/20/23 07:56 12/20/23 07:56 12/20/23 07:56 12/18/23 05:56 Oxygen Flow Rate (L/min) 2 Oxygen Delivery Method Room Air Weight: 157 lb Body Mass Index (BMI) 21.9 Intake & Output: Intake and Output for Last 24 Hours 12/19/23 12/20/23 12/21/23 03:59 03:59 03:59 Intake Total 920 / 920 300 / 300 250 / 250 Output Total 900 / 900 800 / 800 Balance -500 / -500 250 / 250 Lab / Micro Data 12/19/23 06:10 12/19/23 06:10 Labs: Laboratory Results - last 24 hr 12/19/23 06:10: Iron 32 L, TIBC 176 L, Iron Saturation 18.2, Ferritin 377 Physical Exam Narrative General: Alert, Oriented x3, Cooperative, No apparent distress HEENT: Atraumatic, PERRLA, EOMI, Normocephalic Oral: Moist Mucosa Neck: Supple, No JVD Lungs: Diminished, Normal air movement, No rhonchi, No wheeze, No rales Cardiovascular: Regular rate, Regular Rhythm, Normal S1, Normal S2, No murmurs Abdomen: Soft, Non Tender, Non-Distended, No Hepato-splenomegaly Extremities: No edema, Capillary Refill Less than 3 Seconds Skin: Incision CDI Musculoskeletal: Mild tenderness of the left hip Neurological: No focal neurological deficits, Motor Exam 5/5 strength throughout, Sensory exam intact to light touch and pain Psych/Mental Status: Normal Affect, Appropriate Assessment & Plan Assessment/Plan (1) History of atrial fibrillation: (2) Fracture of hip, left, closed: QUALIFIERS: Encounter type: initial encounter Qualified Code(s): S72.002A - Fracture of unspecified part of neck of left femur, initial encounter for closed fracture (3) Fall: QUALIFIERS: Encounter type: initial encounter Qualified Code(s): W19.XXXA - Unspecified fall, initial encounter (4) Acute kidney injury superimposed on stage 3b chronic kidney disease: PLAN: Plan 1. Left nondisplaced intertrochanteric fracture status post repair 12/17/2023 ?Can resume Eliquis and monitor his hemoglobin as he did have to have a transfusion ? Continue with pain management ? Appreciate Ortho's assistance ? PT/OT ? Plan for SNF placement on discharge, he had agitation immediately postanesthesia which resolved within hours and he has been stable for 48 hours however SNF would like to wait through the weekend until Thursday 2. CAD status post stent/A-fib/essential HTN/HLD ? Continue with his home blood pressure medications ?Resume Eliquis ? Continue with Lipitor ? Will monitor and make adjustments as necessary 3. GERD ? Stable ? Continue with PPI 4. KEYLA on CKD 3 with anemia of chronic disease ? Received 1 unit of blood prior to surgery secondary to a slightly low hemoglobin though near baseline ? Renal function is much improved today will monitor and encourage p.o. intake DVT: Eliwilma Charges/Coding Visit Charges Inpatient E&M: 60529 Subs Hosp L2
[2023-12-20] MEDS: amLODIPine 5 MG Tablet PO (21:29)
[2023-12-20] MEDS: Atorvastatin Calcium 40 MG Tablet PO (21:29)
[2023-12-20] MEDS: Mirtazapine 15 MG Tablet 7.5 MG PO (21:29)
[2023-12-20] MEDS: Pantoprazole Sodium 20 MG Tablet PO (21:29)
[2023-12-21] MEDS: oxyCODONE 5 MG Tablet PO ×2 (02:52→10:04)
[2023-12-21] MEDS: Acetaminophen 325 MG Tablet 650 MG PO ×2 (02:52→10:04)
[2023-12-21 03:00] VITALS: BP 123/85; PULSE 95; RESP 18; TEMP 36.6; O2SAT 95
[2023-12-21 06:47] LABS: Absolute Lymphocyte Count 1.49 X10^3/uL (0.83-4.51); Absolute Neutrophil Count 5.4 X10^3/uL (2.0-7.7); Basophil# 0.02 X10^3/uL; Basophil% 0.2 % (0-1); Eosinophil# 0.74 X10^3/uL; Eosinophils% 8.9 % (0-5); Hematocrit 25.2 % (40-54); Hemoglobin 8.1 g/dL (13.0-16.5); Lymphocyte # 1.49 X10^3/ul (0.83-4.51); Lymphocyte % 17.9 % (19-41); Mean Corp Hgb Conc 32.1 g/dL (32-36); Mean Corpuscular Hgb 31.2 pg (27.0-32.0); Mean Corpuscular Volume 96.9 fL (80-94); Mean Platelet Vol. 10.3 fl (6.2-12.0); Monocyte# 0.61 X10^3/uL; Monocyte% 7.3 % (0-10); NRBC Flagged by Analyzer 0 % (0-5); Neutrophil # 5.38 X10^3/uL (2.7-7.7); Neutrophil % 64.7 % (47-70); Platelet Count 211 K/mm3 (150-450); RBC Distribution Width CV 14.7 % (11.6-14.6); RBC Distribution Width SD 49.9 fl (35.1-43.9); White Blood Count 8.3 K/mm3 (4.4-11.0)
[2023-12-21 07:48] LABS: Anion Gap 7 (5-15); BUN 44 mg/dL (7-18); BUN/Creat Ratio 27.8 RATIO (10-20); Calcium,Total 8.7 mg/dL (8.5-10.1); Chloride 112 mmol/L (98-107); Creatinine, Serum 1.58 mg/dL (0.70-1.30); EST Glomerular Filtration Rate 45 mL/min (>60); Est Glom Filt Rate - Afr Amer 54 mL/min (>60); Estimated Creatinine Clearance 35.06 ml/min; Glucose 101 mg/dL (74-106); Potassium 5.1 mmol/L (3.5-5.1); Sodium Level 140 mmol/L (136-145)
[2023-12-21 09:39] VITALS: BP 125/68; PULSE 96; RESP 16; TEMP 37.1; O2SAT 96
[2023-12-21 09:44] VITALS: BP 125/68; PULSE 96
[2023-12-21] MEDS: Multivitamins,Ther W-Minerals Tablet 1 TABLET PO (09:44)
[2023-12-21] MEDS: Metoprolol(XL)Succ 25 MG Tablet PO (09:44)
[2023-12-21] MEDS: APIXABAN 2.5 MG TABLET (WCH) PO (09:44)
[2023-12-21] MEDS: Calcium Carb/Vitamin D 1 TABLET Tablet 2 TABLET PO (09:44)
--- NOTE | 2023-12-21 14:44 | TREXTCAR_ITS ---
Diet Diet Order/Speech Therapy: 12/18/23 07:59 Diet: Cardiac - Heart Healthy Routine Orders/Code Status Routine Lab Work: CBC (in one week) Code Status: Full Code Wound(s) LEFT HIP: Wound Type: Surgical Incision (wash daily with antibacterial soap snd replace dressing with dry dressing daily until no drainage for two days) LEFT THIGH: Wound Type: Surgical Incision Therapies Weight Bearing: Weight bearing as tolerated Physical Therapy: Eval and Treat Occupational Therapy: Eval and Treat Problem/Diagnosis (1) History of atrial fibrillation: Status: Acute Code(s): Z86.79 - Personal history of other diseases of the circulatory system (2) Fracture of hip, left, closed: Status: Acute Code(s): S72.002A - Fracture of unspecified part of neck of left femur, initial encounter for closed fracture (3) Fall: Status: Acute Code(s): W19.XXXA - Unspecified fall, initial encounter (4) Acute kidney injury superimposed on stage 3b chronic kidney disease: Status: Acute Code(s): N17.9 - Acute kidney failure, unspecified; N18.32 - Chronic kidney disease, stage 3b (5) Anemia: Status: Chronic Code(s): D64.9 - Anemia, unspecified Comment: due to chronic kidney disease (6) Intertrochanteric fracture of left hip: Status: Acute Code(s): S72.142A - Displaced intertrochanteric fracture of left femur, initial encounter for closed fracture Allergies/Procedures Done in Hospital Allergies Penicillins Allergy (Verified 12/15/23 13:46) Hives Procedures: - (Cephalo-medullary fixation left femur 12/17/23) Type of Care/Length of Stay Estimated LOS: Convalescent Care Less Than 30 days Type of Care Needed: Skilled Rehab Potential: Good Prognosis: Good Additional Orders/Day of Discharge Day of Discharge: 12/21/23 Dietary and Speech Recommendations Dietitian Recommendations/Changes: Continue Cardiac diet to manage medical conditions. Discharge Plan Admission Admit Date/Time: 12/15/23 15:18 Primary Reason for Your Visit: left hip fracture-intertrochanteric Attending Provider: Judah Potter Primary Care Provider: Omar Holt Consulting Providers: Kevin Castano; Kevin Lopez; Martin Berry Discharge Orders/Prescriptions Prescriptions: New acetaminophen 325 mg Tablet 650 mg PO Q6H PRN PRN (Reason: Pain 1-10 Or Fever>100.7) Qty: 0 0RF oxycodone 5 mg Tablet 5 mg PO Q4H PRN PRN (Reason: Pain Score 4-10) 2 Days Qty: 6 0RF Therapeutic-M 9 mg iron-400 mcg Tablet 1 tab PO DAILYCM Qty: 0 0RF sennosides-docusate sodium [Stimulant Laxative Plus] 8.6-50 mg Tablet 2 tab PO BID PRN PRN (Reason: Constipation) Qty: 0 0RF Continued pantoprazole 20 mg tablet,delayed release (DR/EC) 20 mg PO QPM calcium carbonate-vitamin D3 600 mg-25 mcg (1,000 unit) capsule 2 cap PO DAILY mirtazapine 7.5 mg tablet 7.5 mg PO QHS alendronate 70 mg tablet 70 mg PO AVERY atorvastatin 40 mg tablet 40 mg PO QPM amlodipine 5 mg tablet 5 mg PO QPM metoprolol succinate 25 mg tablet extended release 24 hr 25 mg PO DAILY Qty: 90 3RF apixaban 5 mg tablet 2.5 mg PO BID 30 Days Qty: 30 12RF Discontinued doxycycline hyclate 20 mg tablet 20 mg PO BID nitroglycerin 0.4 MG tablet, sublingual 0.4 mg sublingual TID PRN PRN (Reason: Angina) geriatric multivitamin-min Tablet 1 tab PO DAILY Men 50 Plus Multivitamin [id number] mcg tablet 1 tab PO DAILY Referrals / Follow Up: Omar Holt MD [Primary Care Provider] - Kevin Castano DO [Med Staff - Active Staff] - See Referral Note (in two weeks) Disposition Disposition (needs filled in before D/C Order can be placed): Retirement Fa cility (2) Fracture of hip, left, closed Qualifiers: Encounter type: initial encounter Qualified Code(s): S72.002A - Fracture of unspecified part of neck of left femur, initial encounter for closed fracture (3) Fall Qualifiers: Encounter type: initial encounter Qualified Code(s): W19.XXXA - Unspecified fall, initial encounter (6) Intertrochanteric fracture of left hip Qualifiers: Encounter type: initial encounter Fracture type: closed Fracture alignment: displaced Qualified Code(s): S72.142A - Displaced intertrochanteric fracture of left femur, initial encounter for closed fracture
--- NOTE | 2023-12-21 15:01 | PCM.DC.SUM ---
Providers Date of Admission: 12/15/23 Date of Discharge: 12/21/23 Primary Care Physician: Dr. Omar Holt MD Consultations 12/15/23 19:37 Consult: Orthopedics Routine Consulting Provider: Kevin Castano Reason for Consult: Nondisplaced left intertrochanteric fracture EMERGENT Consult: No MD Notified: Yes Date Notified: 12/15/23 Time Notified: 15:25 Method of Notification: ED Physician Initiated Reason For Visit: NONDISPLACED LEFT INTERTROCHANTERIC FRACTURE Diagnosis Discharge Diagnosis (1) History of atrial fibrillation: Status: Acute Code(s): Z86.79 - Personal history of other diseases of the circulatory system (2) Fracture of hip, left, closed: Status: Acute Code(s): S72.002A - Fracture of unspecified part of neck of left femur, initial encounter for closed fracture Qualifiers: Encounter type: initial encounter Qualified Code(s): S72.002A - Fracture of unspecified part of neck of left femur, initial encounter for closed fracture (3) Fall: Status: Acute Code(s): W19.XXXA - Unspecified fall, initial encounter Qualifiers: Encounter type: initial encounter Qualified Code(s): W19.XXXA - Unspecified fall, initial encounter (4) Acute kidney injury superimposed on stage 3b chronic kidney disease: Status: Acute Code(s): N17.9 - Acute kidney failure, unspecified; N18.32 - Chronic kidney disease, stage 3b (5) Anemia: Status: Chronic Code(s): D64.9 - Anemia, unspecified (6) Intertrochanteric fracture of left hip: Status: Acute Code(s): S72.142A - Displaced intertrochanteric fracture of left femur, initial encounter for closed fracture Qualifiers: Encounter type: initial encounter Fracture alignment: displaced Fracture type: closed Qualified Code(s): S72.142A - Displaced intertrochanteric fracture of left femur, initial encounter for closed fracture Plan 1. Left nondisplaced intertrochanteric hip fracture #2 coronary artery disease #3 acute kidney injury on a backdrop of chronic kidney disease stage III #4 acute blood loss anemia secondary to left nondisplaced intertrochanteric hip fracture #5 paroxysmal atrial fibrillation Medications at Discharge Home Medications pantoprazole 20 mg tablet,delayed release 20 mg PO QPM GERD 03/14/17 alendronate 70 mg tablet 70 mg PO AVERY bone 06/22/23 calcium 600 mg (as carbonate)-vitamin D3 25 mcg (1,000 unit) capsule 2 cap PO DAILY bones 06/22/23 mirtazapine 7.5 mg tablet 7.5 mg PO QHS sleep 06/22/23 metoprolol succinate 25 mg tablet,extended release 24 hr 25 mg PO DAILY BP #90 tabs 07/03/23 apixaban 5 mg tablet 2.5 mg (1/2 x 5 mg) PO BID blood thinne 30 days #30 tabs 12/11/23 amlodipine 5 mg tablet 5 mg PO QPM BP 12/15/23 atorvastatin 40 mg tablet 40 mg PO QPM Cholesterol 12/15/23 acetaminophen 325 mg tablet 650 mg (2 x 325 mg) PO Q6H PRN PRN Pain 1-10 Or Fever>100.7 #0 tabs 12/21/23 multivitamin-iron 9 mg-folic acid 400 mcg-calcium and minerals tablet (Therapeutic-M) 1 tab PO DAILYCM vitamin #0 tabs 12/21/23 oxycodone 5 mg tablet 5 mg PO Q4H PRN PRN Pain Score 4-10 2 days #6 tabs 12/21/23 sennosides 8.6 mg-docusate sodium 50 mg tablet (Stimulant Laxative Plus) 2 tab PO BID PRN PRN Constipation #0 tabs 12/21/23 Hospital Course Operations - (Cephalic medullary fixation left femur-12/17/2023) Procedures Blood transfusion Summary of Care Provided Minutes Spent on Discharge: 31 Hospital Course: This 83-year-old white male was seen in the emergency room at [facility] after sustaining a fall landing on his left hip area, he was unable to ambulate after the fall. Workup in the ER included a CBC which showed an elevated white blood cell count at 17.7, hemoglobin was 10.2, x-ray of the left hip showed a nondisplaced left intertrochanteric fracture, and chemistry profile showed elevated creatinine at 1.99 and a BUN of 25. Patient was admitted to PCU, surgical repair of his hip was delayed due to his usage of Eliquis as an outpatient, orthopedic surgery was consulted, repeat CBC on 12/17/2023 showed a low hemoglobin at 7.5 and the patient was given 1 unit of packed red blood cells. Patient underwent insertion of cephalo medullary nail in the left hip and there were no complications. On 12/21/2023, patient was seen and examined: On examination he appeared in good health and spirits. Vital signs as documented. Skin warm and dry and without overt rashes. Neck without JVD, neck was supple, trachea midline, thyroid was normal. Lungs clear bilaterally, normal air movement was noted. Heart exam notable for regular rhythm, normal sounds and absence of murmurs, rubs or gallops. Abdomen unremarkable and without evidence of organomegaly, masses, or abdominal aortic enlargement. Bowel sounds are present, abdomen is not distended. Extremities nonedematous, no cyanosis was noted, no clubbing was noted. Neuro: Cranial nerves II through XII are grossly intact, no focal motor deficits were noted, sensation to light touch and pinprick intact, motor exam 5/5 throughout. Psych: Patient is alert and oriented x3, he does not appear anxious or depressed, he does not appear agitated. Patient appeared stable for transfer to TCU for short-term inpatient rehab services on 12/21/2023. Weight / BMI Weight Weight: 71.214 kg Body Mass Index (BMI) 21.9 ABG / Lab / Microbiology Data 12/21/23 06:17 12/21/23 06:17 Laboratory: Laboratory Results - last 24 hr 12/16/23 05:20: Crossmatch See Detail 12/21/23 06:17: WBC 8.3, RBC 2.60 L, Hgb 8.1 L, Hct 25.2 L, MCV 96.9 H, MCH 31.2, MCHC 32.1, RDW Std Deviation 49.9 H, RDW Coeff of Anselmo 14.7 H, Plt Count 211, MPV 10.3, Immature Gran % (Auto) 1.000 H, Neut % (Auto) 64.7, Lymph % (Auto) 17.9 L, [place] % (Auto) 7.3, Eos % (Auto) 8.9 H, Baso % (Auto) 0.2, Absolute Neuts (auto) 5.4, Absolute Lymphs (auto) 1.49, Nucleated RBC % 0, Sodium 140, Potassium 5.1, Chloride 112 H, Carbon Dioxide 21.0, Anion Gap 7, BUN 44 H, Creatinine 1.58 H, Estim Creat Clear Calc 35.06, Est GFR (MDRD) Af Amer 54 L, Est GFR (MDRD) Non-Af 45 L, BUN/Creatinine Ratio 27.8 H, Glucose 101, Calcium 8.7 Meaningful Use Info Meaningful Use Meaningful Use Diagnoses (Choose all that apply): None applicable Ischemic Stroke Statin Dosing Therapy Reference: STATIN DOSE THERAPY REFERENCE: * Patients > 75 years receive moderate or high dose statin therapy. * Patients 75 years or YOUNGER should receive HIGH intensity statin dose unless contraindicated. You will be required to document reason for non-treatment if statin daily dose does not meet guidelines. HIGH DOSE STATIN THERAPY DAILY Atorvastatin > than or = to 40 mg Rosuvastatin > than or = to 20 mg Amlodipine + Atorvastatin > than or = to 2.5/40 mg Ezetimibe + Simvastatin 10/80 mg Simvastatin 80mg Discharge Plan Admission Admit Date/Time: 12/15/23 15:18 Primary Reason for Your Visit: left hip fracture-intertrochanteric Attending Provider: Judah Potter Primary Care Provider: Omar Holt Consulting Providers: Kevin Castano; Kevin Lopez; Martin Berry Discharge Orders/Prescriptions Prescriptions: New acetaminophen 325 mg Tablet 650 mg PO Q6H PRN PRN (Reason: Pain 1-10 Or Fever>100.7) Qty: 0 0RF oxycodone 5 mg Tablet 5 mg PO Q4H PRN PRN (Reason: Pain Score 4-10) 2 Days Qty: 6 0RF Therapeutic-M 9 mg iron-400 mcg Tablet 1 tab PO DAILYCM Qty: 0 0RF sennosides-docusate sodium [Stimulant Laxative Plus] 8.6-50 mg Tablet 2 tab PO BID PRN PRN (Reason: Constipation) Qty: 0 0RF Continued pantoprazole 20 mg tablet,delayed release (DR/EC) 20 mg PO QPM calcium carbonate-vitamin D3 600 mg-25 mcg (1,000 unit) capsule 2 cap PO DAILY mirtazapine 7.5 mg tablet 7.5 mg PO QHS alendronate 70 mg tablet 70 mg PO AVERY atorvastatin 40 mg tablet 40 mg PO QPM amlodipine 5 mg tablet 5 mg PO QPM metoprolol succinate 25 mg tablet extended release 24 hr 25 mg PO DAILY Qty: 90 3RF apixaban 5 mg tablet 2.5 mg PO BID 30 Days Qty: 30 12RF Discontinued doxycycline hyclate 20 mg tablet 20 mg PO BID nitroglycerin 0.4 MG tablet, sublingual 0.4 mg sublingual TID PRN PRN (Reason: Angina) geriatric multivitamin-min Tablet 1 tab PO DAILY Men 50 Plus Multivitamin [id number] mcg tablet 1 tab PO DAILY Referrals / Follow Up: Omar Holt MD [Primary Care Provider] - Kevin Castano DO [Med Staff - Active Staff] - See Referral Note (in two weeks) Disposition Disposition (needs filled in before D/C Order can be placed): Snf Facility Charges/Coding Visit Charges Inpatient E&M: 57212 Disch Hosp >30min
[2023-12-21 15:14] VITALS: BP 108/59; PULSE 87; RESP 16; TEMP 36.8; O2SAT 95
--- NOTE | 2023-12-21 15:49 | NURSING ---
report called to sanket on tcu
== END 2023-12-21 15:50 | disposition skilled nursing facility (03) | DRG 481 ==
LOC: ED 15:56 → PCU 18:37
PROVIDERS: Anesthesiology; Family Medicine; Orthopaedic Surgery; Admitting Provider Hospitalist; Emergency Provider Emergency Medicine; PCP Family Medicine; Visit Provider Internal Medicine
PROC: 0QS706Z Reposition Left Upper Femur with Intramedullary Internal Fixation Device, Open Approach (ICD-10-PCS; principal; 2023-12-17 09:00)
DX: M80.052A Age-related osteoporosis with current pathological fracture, left femur, initial encounter for fracture (principal); N17.9 Acute kidney failure, unspecified; D63.1 Anemia in chronic kidney disease; N18.32 Chronic kidney disease, stage 3b; I12.9 Hypertensive chronic kidney disease with stage 1 through stage 4 chronic kidney disease, or unspecified chronic kidney disease; I48.0 Paroxysmal atrial fibrillation; I25.10 Atherosclerotic heart disease of native coronary artery without angina pectoris; E78.5 Hyperlipidemia, unspecified; K21.9 Gastro-esophageal reflux disease without esophagitis; W18.39XA Other fall on same level, initial encounter; Z95.5 Presence of coronary angioplasty implant and graft; Z79.01 Long term (current) use of anticoagulants; Z79.83 Long term (current) use of bisphosphonates; Z79.899 Other long term (current) drug therapy; Z87.891 Personal history of nicotine dependence
CPT/HCPCS: 36415; 70450; 71045; 72125; 73501; 73502; 73552; 76000; 80048; 82306; 82550; 82728; 83540; 83550; 83735; 84484; 85025; 85027; 86850; 86900; 86901; 86920; 93005; 97110; 97162; 97166; 97530; 97535; 99284; C1713; J7030; J7040; P9016; A4216; J2405

== ENCOUNTER 2023-12-21 16:01 | Inpatient (IN) | payer MEDICARE, OTHER, SELFPAY ==
[2023-12-21 16:17] VITALS: BP 129/62; PULSE 91; RESP 16; TEMP 36.6; O2SAT 98; BMI 22.7
[2023-12-21 16:55] VITALS: BMI 22.7
[2023-12-21] MEDS: oxyCODONE 5 MG Tablet PO (17:38)
--- NOTE | 2023-12-21 19:25 | HP.PCM_ITS ---
HPI - General General Date of Admission: 12/21/23 Date of Service: 12/21/23 Chief Complaint: Here for rehabilitation. HPI Narrative 12/15/2023 SHAWNA DELEON, is a 83 Male who presents to [facility] ED with fall, left hip injury. Knee gave out, going to bathroom, fell, hurt left hip, unable to get up. Blood pressure low, morphine 4mg given, vomited x 1. X-ray showed left hip fracture. 12/15/[address] [facility]. Hold Eliquis, prepare for surgery. 12/16/2023 Doing well, pain controlled. PT/OT, Hold Eliquis for left hip fracture. Transfuse 1 unit PRBC for anemia. 12/17/2023 Dr. Castano performed left femur cephalo-medullary nail fixation. 12/18/2023 Doing well, renal function improving. Hemoglobin stable. PT/OT for SNF. 12/19/2023 Stable for 48 hours. Agitated post anesthesia, resolved. 12/20/2023 Weak, await transfer to SNF. 12/21/2023 Admit to TCU with debility, here for rehabilitation, strengthening, prior to discharge home with . [facility] Medical History Intertrochanteric fracture of right femur Kidney disease Contusion of rib on left side Essential (primary) hypertension Atrial fibrillation with RVR (04/2018) Polymyalgia rheumatica Atherosclerosis of coronary artery of [place] heart without angina pectoris GERD (gastroesophageal reflux disease) Hyperlipidemia Home Medications ?Medication ?Instructions ?Recorded ?Last Taken ?Type pantoprazole 20 mg tablet,delayed 20 mg PO QPM GERD 03/14/17 12/14/23 21:33 History release alendronate 70 mg tablet 70 mg PO AVERY bone 06/22/23 12/13/23 History calcium 600 mg (as 2 cap PO DAILY bones 06/22/23 12/14/23 History carbonate)-vitamin D3 25 mcg (1,000 unit) capsule mirtazapine 7.5 mg tablet 7.5 mg PO QHS sleep 06/22/23 12/14/23 21:00 History metoprolol succinate 25 mg 25 mg PO DAILY BP #90 tabs 07/03/23 12/14/23 21:33 Rx tablet,extended release 24 hr apixaban 5 mg tablet 2.5 mg (1/2 x 5 mg) PO BID blood 12/11/23 12/14/23 21:00 Rx thinne 30 days #30 tabs amlodipine 5 mg tablet 5 mg PO QPM BP 12/15/23 12/14/23 History atorvastatin 40 mg tablet 40 mg PO QPM Cholesterol 12/15/23 12/14/23 21:32 History acetaminophen 325 mg tablet 650 mg (2 x 325 mg) PO Q6H PRN PRN 12/21/23 Unknown Rx Pain 1-10 Or Fever>100.7 #0 tabs multivitamin-iron 9 mg-folic acid 1 tab PO DAILYCM vitamin #0 tabs 12/21/23 Unknown Rx 400 mcg-calcium and minerals tablet (Therapeutic-M) oxycodone 5 mg tablet 5 mg PO Q4H PRN PRN Pain Score 12/21/23 Unknown Rx 4-10 2 days #6 tabs sennosides 8.6 mg-docusate sodium 2 tab PO BID PRN PRN Constipation 12/21/23 Unknown Rx 50 mg tablet (Stimulant Laxative #0 tabs Plus) Allergy/AdvReac Type Severity Reaction Status Date / Time Penicillins Allergy Hives Verified 12/15/23 13:46 Family History Father CVA (cerebral vascular accident) Mother Kidney disease Surgical History Hx of cataract removal with insertion of prosthetic lens (~02/2022) History of left heart catheterization (04/29/18) History of coronary artery stent placement (12/08/13) Social History household members: spouse current occupation: retired Smoking Status: Former smoker alcohol intake: never substance use type: does not use ROS Constitutional Constitutional: Reports weakness; Denies chills, fever(s) or weight gain ENT HEENT: Denies headache(s), nasal congestion or nasal discharge Cardiovascular Cardiovascular: Denies chest pain or palpitations Respiratory/Chest Respiratory/Chest: Denies cough, excessive phlegm production or shortness of breath with exertion Gastrointestinal Gastrointestinal: Denies abdominal pain, nausea or vomiting Genitourinary Genitourinary: Denies dysuria Musculoskeletal Musculoskeletal: Denies joint pain or joint swelling Integumentary Integumentary: Denies rash or wounds Neurologic Neurologic: Denies focal weakness, numbness or tingling Psychiatric Psychiatric: Denies anxiety, auditory hallucinations, depression, homicidal ideation or suicidal ideation Vital Signs Vital Signs Vital Signs: 12/21/23 16:17 12/21/23 16:17 Temperature 97.8 F Temperature Source Temporal Pulse Rate 91 Pulse Rhythm Regular Pulse Strength Normal (2+) Respiratory Rate 16 16 Respiratory Effort Normal Non-Labored Respiratory Depth Normal Respiratory Pattern Normal Blood Pressure 129/62 H Blood Pressure Mean 84 Blood Pressure Source Monitor Blood Pressure Position Semi-Fowlers Blood Pressure Location Left Arm Pulse Ox 98 Oxygen Delivery Method Room Air Room Air Weight Weight: 73.936 kg Body Mass Index (BMI) 22.7 Physical Exam Const alert General Appearance: cooperative HEENT normocephalic Eyes PERRL and EOMs intact bilaterally Neck supple, no JVD and no carotid bruits Resp normal respiratory effort, normal air movement and clear to auscultation bilaterally Cardio regular rate and regular rhythm GI normal to inspection, nondistended, normoactive bowel sounds, non-tender and non-distended Extremity normal capillary refill General Extremity: Negative for edema Skin no rashes or lesions noted General Skin Exam: no breakdown Psych affect normal Appearance: appropriate Assessment & Plan Assessment/Plan (1) Debility: (2) Fracture of hip, left, closed: QUALIFIERS: Encounter type: initial encounter Qualified Code(s): S72.002A - Fracture of unspecified part of neck of left femur, initial encounter for closed fracture (3) Acute kidney injury: (4) Acute anemia: (5) Agitation: (6) Atrial fibrillation: QUALIFIERS: Atrial fibrillation type: paroxysmal Qualified Code(s): I48.0 - Paroxysmal atrial fibrillation (7) Polymyalgia rheumatica: (8) GERD (gastroesophageal reflux disease): (9) Coronary artery disease: (10) Osteoporosis: (11) Depression: (12) Essential (primary) hypertension: (13) Hyperlipidemia: QUALIFIERS: Hyperlipidemia type: pure hypercholesterolemia Qualified Code(s): E78.00 - Pure hypercholesterolemia, unspecified; E78.0 - Pure hypercholesterolemia PLAN: Plan 83 year old male with below past medical history hospitalized for left hip fracture, underwent left femur cephalo-medullary nail fixation 12/17/[address] Castano, complicated by acute kidney injury, acute anemia, agitation, admitted to TCU with debility, here for rehabilitation, strengthening, prior to discharge home with . * Debility - PT/OT. * Pain - Tylenol 1000mg q6 prn pain (1-3), Oxycodone 5mg q4 prn pain (4-10). * Bowel - senna/colace 2 tablets bid, Magnesium citrate 300ml po daily prn. * Adult immunization - Administer pneumonia vaccine, covid vaccine, flu vaccine as appropriate. * DVT prophylaxis - on Eliquis. * Osteoporosis - Alendronate 70mg qweek. * Hypertension - Metoprolol succinate 25mg daily, Amlodipine 5mg daily. * Atrial fibrillation - Metoprolol succinate 25mg daily, Eliquis 2.5mg bid. * Hyperlipidemia - Atorvastatin 40mg qpm. * Calcium deficiency - Calcium D 2 tablets daily. * Skin irritation - Calmoseptine topical bid. 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 * Nutrition - MVI 1 tablet daily. * GERD - Pantoprazole 20mg daily.
[2023-12-21 20:51] VITALS: BP 129/65; PULSE 99
[2023-12-21] MEDS: Atorvastatin Calcium 40 MG Tablet PO (20:52)
[2023-12-21] MEDS: APIXABAN 2.5 MG TABLET (WCH) PO (20:52)
[2023-12-21] MEDS: amLODIPine 5 MG Tablet PO (20:52)
[2023-12-21] MEDS: Pantoprazole Sodium 20 MG Tablet PO (20:53)
[2023-12-21] MEDS: Mirtazapine 15 MG Tablet 7.5 MG PO (20:53)
[2023-12-21] MEDS: Menthol/Lanolin/Calamine/Znox 113 GM Tube 1 APPLIC TOPICAL (20:58)
[2023-12-22] MEDS: Acetaminophen 500 MG Tablet 1000 MG PO ×2 (03:30→22:21)
[2023-12-22] MEDS: oxyCODONE 5 MG Tablet PO ×3 (03:30→22:22)
[2023-12-22] MEDS: 0.9% Saline Lock 10 ML Syringe IV ×2 (03:32→08:51)
[2023-12-22 05:42] LABS: Absolute Lymphocyte Count 1.71 X10^3/uL (0.83-4.51); Absolute Neutrophil Count 4.9 X10^3/uL (2.0-7.7); Basophil# 0.03 X10^3/uL; Basophil% 0.4 % (0-1); Eosinophil# 0.84 X10^3/uL; Eosinophils% 10.1 % (0-5); Hematocrit 25.1 % (40-54); Lymphocyte # 1.71 X10^3/ul (0.83-4.51); Lymphocyte % 20.7 % (19-41); Mean Corp Hgb Conc 31.9 g/dL (32-36); Mean Corpuscular Hgb 30.9 pg (27.0-32.0); Mean Corpuscular Volume 96.9 fL (80-94); Mean Platelet Vol. 10.3 fl (6.2-12.0); Monocyte# 0.75 X10^3/uL; Monocyte% 9.1 % (0-10); NRBC Flagged by Analyzer 0 % (0-5); Neutrophil # 4.87 X10^3/uL (2.7-7.7); Neutrophil % 58.7 % (47-70); Platelet Count 242 K/mm3 (150-450); RBC Distribution Width CV 14.8 % (11.6-14.6); RBC Distribution Width SD 50.2 fl (35.1-43.9); Red Blood Count 2.59 M/mm3 (4.6-6.2); White Blood Count 8.3 K/mm3 (4.4-11.0)
[2023-12-22 06:03] LABS: Anion Gap 5 (5-15); BUN 42 mg/dL (7-18); BUN/Creat Ratio 27.6 RATIO (10-20); Chloride 113 mmol/L (98-107); Creatinine, Serum 1.52 mg/dL (0.70-1.30); EST Glomerular Filtration Rate 47 mL/min (>60); Est Glom Filt Rate - Afr Amer 56 mL/min (>60); Estimated Creatinine Clearance 37.83 ml/min; Glucose 113 mg/dL (74-106); Potassium 4.8 mmol/L (3.5-5.1); Sodium Level 139 mmol/L (136-145)
--- NOTE | 2023-12-22 07:35 | PHA.CONS_ITS ---
Documented by User: Leslye Amezcua 12/22/23 07:50 TCU RX Drug Regimen Review Subjective/Objective Subjective/Objective: Subjective: TCU Admission. 83 YOM presented to the ER with a fall and left hip injury. Hospitalized for left hip fracture, underwent left femur cephalo-m edullary nail fixation 12/17/[address] Castano, complicated by acute kidney injury, acute anemia, agitation. Admitted to TCU with debility for strengthening and rehabilitation. Objective: Allergies Penicillins Allergy (Verified 12/15/23 13:46) Hives Current Medications Generic Name Dose Route Start Last Admin Trade Name Freq PRN Reason Stop Dose Admin Acetaminophen 1,000 mg 12/21/23 19:38 12/22/23 03:30 Acetaminophen 500 Mg Tablet PO 1,000 mg Q6H PRN PRN Administration Pain Score 1-3 Alendronate Sodium 70 mg 12/27/23 06:00 Alendronate Sodium 70 Mg Tablet PO [id number] [facility] Amlodipine Besylate 5 mg 12/21/23 21:00 12/21/23 20:52 Amlodipine 5 Mg Tablet PO 5 mg QPM LATRICE Administration Protocol Apixaban 2.5 mg 12/21/23 22:00 12/21/23 20:52 Apixaban 2.5 Mg Tablet ([facility]) PO 2.5 mg BID LATRICE Administration Atorvastatin Calcium 40 mg 12/21/23 21:00 12/21/23 20:52 Atorvastatin Calcium 40 Mg Tablet PO 40 mg QPM LATRICE Administration Calamine/Phenol 1 applic 12/21/23 22:00 12/21/23 20:58 Menthol/Lanolin/Calamine/Znox 113 Gm Tube TOPICAL 1 applic BID LATRICE Administration Protocol Calcium/Vitamin D 2 tablet 12/22/23 10:00 Calcium Carb/Vitamin D 1 Tablet Tablet PO DAILY [facility] Magnesium Citrate 300 ml 12/21/23 19:37 Magnesium Citrate 300 Ml PO DAILY PRN Constipation Metoprolol Succinate 25 mg 12/22/23 10:00 Metoprolol(Xl)Succ 25 Mg Tablet PO DAILY [facility] Protocol Mirtazapine 7.5 mg 12/21/23 22:00 12/21/23 20:53 Mirtazapine 15 Mg Tablet PO 7.5 mg QHS LATRICE Administration Multivitamins/Minerals 1 tablet 12/22/23 08:00 Multivitamins,Ther W-Minerals Tablet PO DAILYCM [facility] Oxycodone HCl 5 mg 12/21/23 16:12 12/22/23 03:30 Oxycodone 5 Mg Tablet PO 5 mg Q4H PRN PRN Administration Pain Score 4-10 Pantoprazole Sodium 20 mg 12/21/23 21:00 12/21/23 20:53 Pantoprazole Sodium 20 Mg Tablet PO 20 mg QPM LATRICE Administration Senna/Docusate Sodium 2 tablet 12/21/23 22:00 12/21/23 20:55 Senna/Docusate Sodium 1 Tablet PO Not Given BID LATRICE Sodium Chloride 10 - 40 ml 12/21/23 16:24 12/22/23 03:32 0.9% Saline Lock 10 Ml Syringe IV 10 ml UD PRN Administration SALINE FLUSH Tuberculin PPD 0.1 ml 12/22/23 10:00 Tuberculin,Purif.Prot.Deriv. 50 Tu/Ml Vial ID 12/22/23 10:01 X1 ONE Tuberculin PPD 0.1 ml 12/29/23 10:00 Tuberculin,Purif.Prot.Deriv. 50 Tu/Ml Vial ID 12/29/23 10:01 X1 ONE Problem List Essential (primary) hypertension (Acute) Depression (Acute) Osteoporosis (Acute) Coronary artery disease (Acute) Agitation (Acute) Acute anemia (Acute) Acute kidney injury (Acute) Fracture of hip, left, closed (Acute) Polymyalgia rheumatica (Acute) GERD (gastroesophageal reflux disease) (Acute) Debility (Acute) Atrial fibrillation (Acute) Hyperlipidemia (Chronic) Vital Signs Temp Pulse Resp BP Pulse Ox O2 Del Method 97.8 F 99 16 129/65 H 98 Room Air 12/21/23 16:17 12/21/23 20:51 12/21/23 16:17 12/21/23 20:51 12/21/23 16:17 12/21/23 16:17 Oxygen Delivery Method Room Air Weight: 73.936 kg Body Mass Index (BMI) 22.7 Sodium 139 mmol/L (136-145) 12/22/23 05:20 Potassium 4.8 mmol/L (3.5-5.1) 12/22/23 05:20 Chloride 113 mmol/L (98-107) H 12/22/23 05:20 Carbon Dioxide 22.0 mmol/L (21.0-32.0) 12/22/23 05:20 Anion Gap 5 (5-15) 12/22/23 05:20 BUN 42 mg/dL (7-18) H 12/22/23 05:20 Creatinine 1.52 mg/dL (0.70-1.30) H 12/22/23 05:20 Est GFR (MDRD) Af Amer 56 mL/min (>60) L 12/22/23 05:20 Est GFR (MDRD) Non-Af 47 mL/min (>60) L 12/22/23 05:20 BUN/Creatinine Ratio 27.6 RATIO (10-20) H 12/22/23 05:20 Glucose 113 mg/dL (74-106) H 12/22/23 05:20 Assessment/Plan: 1. Pain: acetaminophen 1000mg PO Q6H PRN pain 1-3 and oxycodone 5mg PO Q4H PRN pain 4-10. Resident has had 1 dose of acetaminophen (pain score of 3) and 2 doses of oxycodone (pain scores of 4 and 9 in the hip/other). Please continue to monitor for increased pain, PRN usage, constipation and respiratory depression. 2. Bowel: senna/docusate 2T PO BID and magnesium citrate 300mL PO daily PRN constipation. Resident had not had any PRN doses. Please continue to monitor for constipation and PRN usage. Last documented bowel movement was 12/19. 3. Hypertension/atrial fibrillation: metoprolol succinate 25mg PO daily, amlodipine 5mg PO QPM and apixaban 2.5mg PO BID (dose appropriate as age is >80 and SCr >1.5mg/dL). Please continue to monitor for S/S of bleeding, hemoglobin (last 8g/dL), HR (last 99), BP (last 129/65), and swelling. 4. Osteoporosis: alendronate 70mg PO weekly. Please continue to monitor for jaw pain, GI side effects, vision changes, BMD. Please administer first thing in the morning on an empty stomach with a full glass of water and remain upright for 30 minutes following dose. 5. Hyperlipidemia: atorvastatin 40mg PO QPM. Please continue to monitor lipid panel (last 08/15/23), LFTs (last 08/15/23) and muscle pain. 6. GERD: pantoprazole 20mg PO daily. Please continue to monitor for S/S of GERD, diarrhea (BEERs medication) and magnesium (last 2.1mg/dL). 7. Calcium deficiency/nutrition: calcium/vitamin D 2T PO daily and multivitamin with minerals 1T PO daily. Please continue to monitor calcium (last 9mg/dL) and vitamin D (last 12/16/23). 8. Skin irritation: Calmoseptine topical bid. Assessment/Plan for indications treated with psychotropic medications: 1. Depression/insomnia/appetite loss: mirtazapine 7.5mg PO QHS. Please see physician note regarding GDR. Please continue to monitor for suicidal ideation (black box warning), sodium (last 139mmol/L), excessive drowsiness and improvement in appetite. Medical chart and medication regimen reviewed. The following medication irregularities or issues were identified: None Date Date of Note:: 12/22/23 Documented by User: Dr. Marques Grajeda MD 12/22/23 07:51 TCU RX Drug Regimen Review Provider Comments Provider responsibility Provider Comments to Recommendations by Pharmacy: Agree
[2023-12-22 08:42] VITALS: BP 105/48; PULSE 103; RESP 16; TEMP 36.1; O2SAT 95
[2023-12-22 08:44] VITALS: PULSE 100
[2023-12-22] MEDS: Metoprolol(XL)Succ 25 MG Tablet PO (08:44)
[2023-12-22] MEDS: Multivitamins,Ther W-Minerals Tablet 1 TABLET PO (08:45)
[2023-12-22] MEDS: Menthol/Lanolin/Calamine/Znox 113 GM Tube 1 APPLIC TOPICAL ×2 (08:45→22:22)
[2023-12-22] MEDS: APIXABAN 2.5 MG TABLET (WCH) PO ×2 (08:45→22:23)
[2023-12-22] MEDS: Calcium Carb/Vitamin D 1 TABLET Tablet 2 TABLET PO (08:45)
[2023-12-22] MEDS: Senna/Docusate Sodium 1 Tablet 2 TABLET PO (08:45)
[2023-12-22] MEDS: Tuberculin,Purif.prot.deriv. 50 TU/ML Vial 0.1 ML ID (08:57)
[2023-12-22 11:13] VITALS: RESP 18
--- NOTE | 2023-12-22 11:36 | CASEMGMT ---
Addendum entered by Sisi Tijerina 12/22/23 11:40: Pt also noted the strain of cost for Danika. SW provided pt with two coupon cards. presented to room and inquired about DME coverage from insurance such as rollator, platform walker attachments and BSC. SW to assist with DME coordination at DC, per therapy recommendations and pt needs. appreciative. Original Note: Social Work SW met with patient to complete initial assessment. pt known to this worker from previous stay. Verified contacts. Pt confirmed code status as full code. Educated to Medicare benefit and copay coverage. 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 Pt shared recently they moved his MIL and RUDOLPH to [facility] - first at [place] then at [facility]. SW and pt discussed pt's mood. See assessment for details. Pt agreed to adjustment with antidepressant. SW will continue to follow for support and DC planning. Sisi Tijerina, SILVESTRE PRESSLEYW
[2023-12-22 16:14] VITALS: BMI 23.1
[2023-12-22 22:20] VITALS: BP 110/57; PULSE 95
[2023-12-22] MEDS: amLODIPine 5 MG Tablet PO (22:21)
[2023-12-22] MEDS: Mirtazapine 15 MG Tablet PO (22:22)
[2023-12-22] MEDS: Atorvastatin Calcium 40 MG Tablet PO (22:22)
[2023-12-22] MEDS: Pantoprazole Sodium 20 MG Tablet PO (22:23)
[2023-12-23] MEDS: oxyCODONE 5 MG Tablet PO ×2 (07:02→21:22)
[2023-12-23] MEDS: Acetaminophen 500 MG Tablet 1000 MG PO (07:03)
--- NOTE | 2023-12-23 07:06 | NURSING ---
Patient with moderate amount of serosang drainage to left hip dressing, area cleansed with chlorohex, rinsed, patted dry, ABD's applied.
[2023-12-23] MEDS: Multivitamins,Ther W-Minerals Tablet 1 TABLET PO (10:02)
[2023-12-23] MEDS: APIXABAN 2.5 MG TABLET (WCH) PO ×2 (10:02→21:19)
[2023-12-23] MEDS: Senna/Docusate Sodium 1 Tablet 2 TABLET PO (10:03)
[2023-12-23] MEDS: Calcium Carb/Vitamin D 1 TABLET Tablet 2 TABLET PO (10:03)
--- NOTE | 2023-12-23 11:28 | NURSING ---
Fabrication Welder Note; Activity Asset: Cristobal Lowe has been a resident in the past and has returned for skilled therapy. He has a smart phone he uses for games, internet and talking w/family and friends. He is independent in his choice of daily activities. He would like the newspaper, welcomes visits from the city comptroller and therapy dog when available. Family will be in daily for room visits and was informed they could take him off the unit for strolls and outside as well. Staff will remind him of weekly activities and respect his right to say no.
[2023-12-23 11:51] VITALS: BP 99/49; PULSE 91
[2023-12-23] MEDS: 0.9% Saline Lock 10 ML Syringe IV (14:34)
[2023-12-23] MEDS: Menthol/Lanolin/Calamine/Znox 113 GM Tube 1 APPLIC TOPICAL (14:40)
[2023-12-23 15:20] VITALS: BP 115/61; PULSE 95; RESP 16; TEMP 36.9; O2SAT 93
--- NOTE | 2023-12-23 16:56 | NURSING ---
Per pt's chart pt has not had Bowel movement since 12/20/23. Pt offered prune juice to help relieve constipation. Per Pt had bowel movement on 12/21/23. Educated pt on importance of having a bowel movement. Pt state I have gas and I don't really feel like I need to go and would like to wait. Will continue to monitor. Call light within reach.
[2023-12-23] MEDS: Atorvastatin Calcium 40 MG Tablet PO (21:19)
[2023-12-23] MEDS: amLODIPine 5 MG Tablet PO (21:19)
[2023-12-23] MEDS: Pantoprazole Sodium 20 MG Tablet PO (21:19)
[2023-12-23] MEDS: Mirtazapine 15 MG Tablet PO (21:19)
[2023-12-23 22:00] VITALS: PULSE 100; RESP 16; O2SAT 93
[2023-12-24] MEDS: Multivitamins,Ther W-Minerals Tablet 1 TABLET PO (09:43)
[2023-12-24] MEDS: Senna/Docusate Sodium 1 Tablet 2 TABLET PO ×2 (09:43→20:32)
[2023-12-24] MEDS: Calcium Carb/Vitamin D 1 TABLET Tablet 2 TABLET PO (09:43)
[2023-12-24] MEDS: APIXABAN 2.5 MG TABLET (WCH) PO ×2 (09:43→20:32)
[2023-12-24] MEDS: oxyCODONE 5 MG Tablet PO ×2 (09:44→15:45)
[2023-12-24] MEDS: Menthol/Lanolin/Calamine/Znox 113 GM Tube 1 APPLIC TOPICAL ×2 (09:46→20:33)
[2023-12-24 10:00] VITALS: PULSE 98
[2023-12-24 11:11] VITALS: BP 94/46; PULSE 98
[2023-12-24] MEDS: 0.9% Saline Lock 10 ML Syringe IV (15:49)
[2023-12-24 16:00] VITALS: BP 122/65; PULSE 100; RESP 16; TEMP 37.1; O2SAT 94
[2023-12-24] MEDS: Atorvastatin Calcium 40 MG Tablet PO (20:32)
[2023-12-24] MEDS: Mirtazapine 15 MG Tablet PO (20:32)
[2023-12-24] MEDS: amLODIPine 5 MG Tablet PO (20:33)
[2023-12-24] MEDS: Pantoprazole Sodium 20 MG Tablet PO (20:33)
[2023-12-25 08:53] VITALS: BP 106/54; PULSE 100; RESP 17; TEMP 37; O2SAT 97
[2023-12-25] MEDS: oxyCODONE 5 MG Tablet PO (08:57)
[2023-12-25] MEDS: Multivitamins,Ther W-Minerals Tablet 1 TABLET PO (08:57)
[2023-12-25] MEDS: Acetaminophen 500 MG Tablet 1000 MG PO (08:57)
[2023-12-25 08:58] VITALS: PULSE 100
[2023-12-25] MEDS: Metoprolol(XL)Succ 25 MG Tablet PO (08:58)
[2023-12-25] MEDS: Senna/Docusate Sodium 1 Tablet 2 TABLET PO ×2 (08:58→21:56)
[2023-12-25] MEDS: APIXABAN 2.5 MG TABLET (WCH) PO ×2 (08:58→21:58)
[2023-12-25] MEDS: Calcium Carb/Vitamin D 1 TABLET Tablet 2 TABLET PO (08:58)
[2023-12-25] MEDS: Menthol/Lanolin/Calamine/Znox 113 GM Tube 1 APPLIC TOPICAL ×2 (11:42→21:58)
[2023-12-25 21:54] VITALS: BP 112/60; PULSE 87
[2023-12-25] MEDS: Mirtazapine 15 MG Tablet PO (21:56)
[2023-12-25] MEDS: Atorvastatin Calcium 40 MG Tablet PO (21:56)
[2023-12-25] MEDS: Pantoprazole Sodium 20 MG Tablet PO (21:56)
[2023-12-25] MEDS: amLODIPine 5 MG Tablet PO (22:00)
[2023-12-26 08:26] VITALS: BP 113/62; PULSE 95; RESP 16; TEMP 36.9; O2SAT 99
[2023-12-26] MEDS: Multivitamins,Ther W-Minerals Tablet 1 TABLET PO (08:29)
[2023-12-26] MEDS: Calcium Carb/Vitamin D 1 TABLET Tablet 2 TABLET PO (08:29)
[2023-12-26] MEDS: APIXABAN 2.5 MG TABLET (WCH) PO ×2 (08:29→22:33)
[2023-12-26 08:30] VITALS: PULSE 95
[2023-12-26] MEDS: Metoprolol(XL)Succ 25 MG Tablet PO (08:30)
[2023-12-26] MEDS: Senna/Docusate Sodium 1 Tablet 2 TABLET PO ×2 (08:30→22:33)
[2023-12-26] MEDS: Menthol/Lanolin/Calamine/Znox 113 GM Tube 1 APPLIC TOPICAL ×2 (08:31→22:36)
[2023-12-26] MEDS: oxyCODONE 5 MG Tablet PO ×2 (08:34→16:25)
[2023-12-26 16:30] VITALS: PULSE 97; RESP 16; O2SAT 96
[2023-12-26 22:00] VITALS: BP 124/59; PULSE 88
[2023-12-26] MEDS: Mirtazapine 15 MG Tablet PO (22:33)
[2023-12-26] MEDS: Atorvastatin Calcium 40 MG Tablet PO (22:34)
[2023-12-26] MEDS: amLODIPine 5 MG Tablet PO (22:34)
[2023-12-26] MEDS: Pantoprazole Sodium 20 MG Tablet PO (22:34)
[2023-12-26] MEDS: Acetaminophen 500 MG Tablet 1000 MG PO (22:35)
[2023-12-27] MEDS: Alendronate Sodium 70 MG Tablet PO (06:35)
[2023-12-27 09:46] VITALS: BP 92/55; PULSE 91; RESP 16; TEMP 36.7; O2SAT 93
[2023-12-27] MEDS: Multivitamins,Ther W-Minerals Tablet 1 TABLET PO (09:52)
[2023-12-27] MEDS: Calcium Carb/Vitamin D 1 TABLET Tablet 2 TABLET PO (09:52)
[2023-12-27] MEDS: APIXABAN 2.5 MG TABLET (WCH) PO ×2 (09:52→21:10)
[2023-12-27 09:53] VITALS: PULSE 91
[2023-12-27] MEDS: Senna/Docusate Sodium 1 Tablet 2 TABLET PO (09:53)
[2023-12-27] MEDS: Metoprolol(XL)Succ 25 MG Tablet PO (09:53)
[2023-12-27] MEDS: Menthol/Lanolin/Calamine/Znox 113 GM Tube 1 APPLIC TOPICAL ×2 (09:54→21:10)
[2023-12-27] MEDS: oxyCODONE 5 MG Tablet PO (10:00)
[2023-12-27 14:06] VITALS: PULSE 91; RESP 16; O2SAT 93
[2023-12-27 20:59] VITALS: BP 111/53; PULSE 84; O2SAT 97
[2023-12-27] MEDS: Atorvastatin Calcium 40 MG Tablet PO (21:10)
[2023-12-27] MEDS: Pantoprazole Sodium 20 MG Tablet PO (21:10)
[2023-12-27] MEDS: Mirtazapine 15 MG Tablet PO (21:10)
[2023-12-27] MEDS: amLODIPine 5 MG Tablet PO (21:10)
--- NOTE | 2023-12-27 23:07 | NURSING ---
Addendum entered by Uzma Escalante 12/27/23 23:15: Estrada, from pharmacy, spoke with this nurse regarding doxycycline order. Only available dose is 100mg capsule. Written communication left for Dr. Grajeda. Original Note: Patient requesting doxycycline 20mg 1 Tablet BID prophylactically for peridontal disease. Patient states he has been on this medication for about 2-3 years and it was prescribed by his dentist. brought in home med. Consulted Dr. Grajeda via telephone, new order for doxycycline 50mg daily. Telephone order read back and verified.
[2023-12-28] MEDS: oxyCODONE 5 MG Tablet PO ×2 (01:15→12:49)
[2023-12-28] MEDS: Multivitamins,Ther W-Minerals Tablet 1 TABLET PO (08:31)
--- NOTE | 2023-12-28 08:38 | NURSING ---
Pipe Processor Note; MDS for 12/28/2023 Complete
[2023-12-28 11:17] VITALS: PULSE 85
[2023-12-28] MEDS: Senna/Docusate Sodium 1 Tablet 2 TABLET PO ×2 (11:17→23:01)
[2023-12-28] MEDS: Metoprolol(XL)Succ 25 MG Tablet PO (11:17)
[2023-12-28] MEDS: APIXABAN 2.5 MG TABLET (WCH) PO ×2 (11:17→23:01)
[2023-12-28] MEDS: Doxycycline 100 MG CAPSULE PO (11:17)
[2023-12-28] MEDS: Calcium Carb/Vitamin D 1 TABLET Tablet 2 TABLET PO (11:17)
[2023-12-28] MEDS: Menthol/Lanolin/Calamine/Znox 113 GM Tube 1 APPLIC TOPICAL ×2 (11:20→23:20)
--- NOTE | 2023-12-28 11:28 | CASEMGMT ---
Social Work BIMS (01/21) and PHQ-2 () completed for MDS assessment. Sisi Tijerina MSW RACING SECRETARY AND HANDICAPPER
[2023-12-28 15:18] VITALS: BP 106/46; PULSE 86; RESP 16; TEMP 36.3; O2SAT 93
[2023-12-28] MEDS: Atorvastatin Calcium 40 MG Tablet PO (22:59)
[2023-12-28] MEDS: Mirtazapine 15 MG Tablet PO (23:00)
[2023-12-28] MEDS: Pantoprazole Sodium 20 MG Tablet PO (23:00)
[2023-12-28] MEDS: amLODIPine 5 MG Tablet PO (23:00)
[2023-12-28 23:03] VITALS: BP 126/61; PULSE 91
[2023-12-29 05:52] LABS: Absolute Lymphocyte Count 1.44 X10^3/uL (0.83-4.51); Absolute Neutrophil Count 4.2 X10^3/uL (2.0-7.7); Basophil# 0.03 X10^3/uL; Basophil% 0.4 % (0-1); Eosinophil# 0.69 X10^3/uL; Eosinophils% 9.8 % (0-5); Hematocrit 26.7 % (40-54); Hemoglobin 8.4 g/dL (13.0-16.5); Lymphocyte # 1.44 X10^3/ul (0.83-4.51); Lymphocyte % 20.4 % (19-41); Mean Corp Hgb Conc 31.5 g/dL (32-36); Mean Corpuscular Hgb 31.1 pg (27.0-32.0); Mean Corpuscular Volume 98.9 fL (80-94); Mean Platelet Vol. 10.3 fl (6.2-12.0); Monocyte# 0.62 X10^3/uL; Monocyte% 8.8 % (0-10); NRBC Flagged by Analyzer 0 % (0-5); Neutrophil # 4.24 X10^3/uL (2.7-7.7); Neutrophil % 59.9 % (47-70); Platelet Count 372 K/mm3 (150-450); RBC Distribution Width CV 15.1 % (11.6-14.6); White Blood Count 7.1 K/mm3 (4.4-11.0)
[2023-12-29 06:19] LABS: Anion Gap 4 (5-15); BUN 44 mg/dL (7-18); BUN/Creat Ratio 23.3 RATIO (10-20); Calcium,Total 9.1 mg/dL (8.5-10.1); Chloride 115 mmol/L (98-107); Creatinine, Serum 1.89 mg/dL (0.70-1.30); EST Glomerular Filtration Rate 36 mL/min (>60); Est Glom Filt Rate - Afr Amer 44 mL/min (>60); Estimated Creatinine Clearance 30.99 ml/min; Glucose 102 mg/dL (74-106); Potassium 4.6 mmol/L (3.5-5.1); Sodium Level 141 mmol/L (136-145)
[2023-12-29] MEDS: APIXABAN 2.5 MG TABLET (WCH) PO ×2 (08:56→20:01)
[2023-12-29] MEDS: Senna/Docusate Sodium 1 Tablet 2 TABLET PO (08:56)
[2023-12-29] MEDS: Calcium Carb/Vitamin D 1 TABLET Tablet 2 TABLET PO (08:56)
[2023-12-29] MEDS: Menthol/Lanolin/Calamine/Znox 113 GM Tube 1 APPLIC TOPICAL ×2 (08:56→20:02)
[2023-12-29] MEDS: Multivitamins,Ther W-Minerals Tablet 1 TABLET PO (08:56)
[2023-12-29] MEDS: oxyCODONE 5 MG Tablet PO (08:56)
[2023-12-29] MEDS: Doxycycline 100 MG CAPSULE PO (08:56)
[2023-12-29 09:04] VITALS: BP 107/50; PULSE 70
[2023-12-29] MEDS: Metoprolol(XL)Succ 25 MG Tablet PO (09:04)
[2023-12-29 09:53] VITALS: BMI 22.4
[2023-12-29] MEDS: Tuberculin,Purif.prot.deriv. 50 TU/ML Vial 0.1 ML ID (11:46)
[2023-12-29 14:25] VITALS: BP 112/52; PULSE 89; RESP 16; TEMP 36.3; O2SAT 96
[2023-12-29] MEDS: COVID VAC 24-25 (12UP)(MODERNA)/PF 50 MCG/0.5 ML SYRINGE IM (16:06)
--- NOTE | 2023-12-29 16:58 | NURSING ---
Per Dr. Rios would like pt to follow up with Dr. Jh Montemayor. Call and make appt.
[2023-12-29 20:00] VITALS: BP 123/60; PULSE 88
[2023-12-29] MEDS: amLODIPine 5 MG Tablet PO (20:02)
[2023-12-29] MEDS: Atorvastatin Calcium 40 MG Tablet PO (20:02)
[2023-12-29] MEDS: Pantoprazole Sodium 20 MG Tablet PO (20:02)
[2023-12-29] MEDS: Mirtazapine 15 MG Tablet PO (20:02)
[2023-12-30 08:13] VITALS: BP 126/60; PULSE 95; RESP 16; TEMP 36.6; O2SAT 95
[2023-12-30] MEDS: Multivitamins,Ther W-Minerals Tablet 1 TABLET PO (08:19)
[2023-12-30] MEDS: APIXABAN 2.5 MG TABLET (WCH) PO ×2 (08:20→20:01)
[2023-12-30] MEDS: Doxycycline 100 MG CAPSULE PO (08:20)
[2023-12-30] MEDS: Calcium Carb/Vitamin D 1 TABLET Tablet 2 TABLET PO (08:20)
[2023-12-30 08:21] VITALS: PULSE 95
[2023-12-30] MEDS: Senna/Docusate Sodium 1 Tablet 2 TABLET PO ×2 (08:21→20:01)
[2023-12-30] MEDS: Metoprolol(XL)Succ 25 MG Tablet PO (08:21)
[2023-12-30] MEDS: Menthol/Lanolin/Calamine/Znox 113 GM Tube 1 APPLIC TOPICAL ×2 (08:23→20:02)
[2023-12-30] MEDS: oxyCODONE 5 MG Tablet PO ×2 (10:38→15:08)
--- NOTE | 2023-12-30 13:06 | CASEMGMT ---
Social Work IDT met with patient and for care plan meeting. Discussed patient's progress in PT/OT/SN. Educated to Medicare benefit. Provided with written communication on insurance process and copay coverage during stay. Pt's goal is to return home with at [facility]. Pt to improve further on steps. Pt requesting BSC and [facility] at ID. to coordinate all needs. Will continue to follow. Sisi Tijerina, INDUSTRIAL ANALYST CARE MANAGER CNA
--- NOTE | 2023-12-30 18:46 | NURSING ---
Dr. Castano in to see patient today. Ok to remove yoanna tomorrow, 12/31/23. Patient to follow up with him in 4 weeks.
[2023-12-30] MEDS: Pantoprazole Sodium 20 MG Tablet PO (20:00)
[2023-12-30] MEDS: amLODIPine 5 MG Tablet PO (20:00)
[2023-12-30] MEDS: Atorvastatin Calcium 40 MG Tablet PO (20:00)
[2023-12-30] MEDS: Mirtazapine 15 MG Tablet PO (20:01)
[2023-12-31] MEDS: oxyCODONE 5 MG Tablet PO ×2 (03:32→08:53)
--- NOTE | 2023-12-31 06:14 | NURSING ---
17 yoanna removed from left hip surgical incision per order. Patient tolerated fair. Incisions are well-approximated, steri-strip applied following removal.
[2023-12-31 06:32] LABS: Anion Gap 4 (5-15); BUN 40 mg/dL (7-18); BUN/Creat Ratio 22.5 RATIO (10-20); Calcium,Total 8.5 mg/dL (8.5-10.1); Chloride 114 mmol/L (98-107); Creatinine, Serum 1.78 mg/dL (0.70-1.30); EST Glomerular Filtration Rate 39 mL/min (>60); Est Glom Filt Rate - Afr Amer 47 mL/min (>60); Estimated Creatinine Clearance 31.95 ml/min; Glucose 101 mg/dL (74-106); Potassium 4.8 mmol/L (3.5-5.1); Sodium Level 140 mmol/L (136-145)
--- NOTE | 2023-12-31 07:27 | MDS.RN ---
Information for the MDS was obtained from review of the clinical record, interview of resident, staff, and direct observation of resident?s care.
[2023-12-31] MEDS: Doxycycline 100 MG CAPSULE PO (08:09)
[2023-12-31] MEDS: Multivitamins,Ther W-Minerals Tablet 1 TABLET PO (08:09)
[2023-12-31 08:10] VITALS: BP 126/59; PULSE 98
[2023-12-31] MEDS: Calcium Carb/Vitamin D 1 TABLET Tablet 2 TABLET PO (08:10)
[2023-12-31] MEDS: Metoprolol(XL)Succ 25 MG Tablet PO (08:10)
[2023-12-31] MEDS: APIXABAN 2.5 MG TABLET (WCH) PO ×2 (08:10→21:03)
[2023-12-31] MEDS: Menthol/Lanolin/Calamine/Znox 113 GM Tube 1 APPLIC TOPICAL ×2 (08:15→21:01)
[2023-12-31 08:18] VITALS: BP 126/59; PULSE 98; RESP 16; TEMP 36.6; O2SAT 94
[2023-12-31] MEDS: Acetaminophen 500 MG Tablet 1000 MG PO ×2 (13:22→21:03)
--- NOTE | 2023-12-31 18:02 | NURSING ---
New orders received for scheduled Tylenol, Ferrex and Vitamin C. Doxycycline discontinued at this time. Patient updated.
[2023-12-31 21:00] VITALS: BP 128/64; PULSE 76; O2SAT 96
[2023-12-31] MEDS: Mirtazapine 15 MG Tablet PO (21:03)
[2023-12-31] MEDS: Pantoprazole Sodium 20 MG Tablet PO (21:03)
[2023-12-31] MEDS: amLODIPine 5 MG Tablet PO (21:03)
[2023-12-31] MEDS: Senna/Docusate Sodium 1 Tablet 2 TABLET PO (21:03)
[2023-12-31] MEDS: Atorvastatin Calcium 40 MG Tablet PO (21:03)
[2024-01-01] MEDS: Acetaminophen 500 MG Tablet 1000 MG PO ×3 (06:25→20:59)
[2024-01-01 08:05] VITALS: BP 139/70; PULSE 91; RESP 18; TEMP 37; O2SAT 96
[2024-01-01] MEDS: Iron Polysaccharide Complex 150 MG CAPSULE PO (08:11)
[2024-01-01] MEDS: oxyCODONE 5 MG Tablet PO ×2 (08:11→21:00)
[2024-01-01 08:12] VITALS: PULSE 91
[2024-01-01] MEDS: Senna/Docusate Sodium 1 Tablet 2 TABLET PO ×2 (08:12→20:59)
[2024-01-01] MEDS: Calcium Carb/Vitamin D 1 TABLET Tablet 2 TABLET PO (08:12)
[2024-01-01] MEDS: Metoprolol(XL)Succ 25 MG Tablet PO (08:12)
[2024-01-01] MEDS: APIXABAN 2.5 MG TABLET (WCH) PO ×2 (08:12→20:59)
[2024-01-01] MEDS: Ascorbic Acid 500 MG Tablet PO (08:12)
[2024-01-01] MEDS: Multivitamins,Ther W-Minerals Tablet 1 TABLET PO (08:13)
[2024-01-01] MEDS: Menthol/Lanolin/Calamine/Znox 113 GM Tube 1 APPLIC TOPICAL ×2 (08:13→20:59)
--- NOTE | 2024-01-01 09:59 | NURSING ---
removed 2 yoanna from LT lateral knee, the others were removed yesterday morning. incision well approx. proximal incision slightly pink/warm to touch. will monitor. 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
[2024-01-01] MEDS: amLODIPine 5 MG Tablet PO (20:59)
[2024-01-01] MEDS: Pantoprazole Sodium 20 MG Tablet PO (20:59)
[2024-01-01] MEDS: Mirtazapine 15 MG Tablet PO (20:59)
[2024-01-01] MEDS: Atorvastatin Calcium 40 MG Tablet PO (20:59)
[2024-01-01 21:00] VITALS: PULSE 86; O2SAT 97
[2024-01-02] MEDS: Acetaminophen 500 MG Tablet 1000 MG PO ×3 (05:54→20:36)
[2024-01-02 06:30] VITALS: PULSE 90; O2SAT 97
[2024-01-02 10:27] VITALS: BP 112/53; PULSE 90
[2024-01-02] MEDS: Metoprolol(XL)Succ 25 MG Tablet PO (10:27)
[2024-01-02] MEDS: Calcium Carb/Vitamin D 1 TABLET Tablet 2 TABLET PO (10:27)
[2024-01-02] MEDS: Ascorbic Acid 500 MG Tablet PO (10:27)
[2024-01-02] MEDS: Senna/Docusate Sodium 1 Tablet 2 TABLET PO (10:27)
[2024-01-02] MEDS: Menthol/Lanolin/Calamine/Znox 113 GM Tube 1 APPLIC TOPICAL ×2 (10:28→20:37)
[2024-01-02] MEDS: Multivitamins,Ther W-Minerals Tablet 1 TABLET PO (10:28)
[2024-01-02] MEDS: APIXABAN 2.5 MG TABLET (WCH) PO ×2 (10:28→20:37)
[2024-01-02] MEDS: Iron Polysaccharide Complex 150 MG CAPSULE PO (10:28)
[2024-01-02 16:00] VITALS: BP 114/65; PULSE 89; RESP 18; TEMP 36.5; O2SAT 97
[2024-01-02] MEDS: Atorvastatin Calcium 40 MG Tablet PO (20:37)
[2024-01-02] MEDS: amLODIPine 5 MG Tablet PO (20:37)
[2024-01-02] MEDS: Pantoprazole Sodium 20 MG Tablet PO (20:37)
[2024-01-02] MEDS: Mirtazapine 15 MG Tablet PO (20:38)
[2024-01-03] MEDS: Alendronate Sodium 70 MG Tablet PO (06:23)
[2024-01-03] MEDS: Acetaminophen 500 MG Tablet 1000 MG PO ×3 (06:26→22:01)
[2024-01-03] MEDS: Calcium Carb/Vitamin D 1 TABLET Tablet 2 TABLET PO (10:38)
[2024-01-03] MEDS: Multivitamins,Ther W-Minerals Tablet 1 TABLET PO (10:38)
[2024-01-03] MEDS: Iron Polysaccharide Complex 150 MG CAPSULE PO (10:38)
[2024-01-03] MEDS: APIXABAN 2.5 MG TABLET (WCH) PO ×2 (10:38→21:59)
[2024-01-03] MEDS: Ascorbic Acid 500 MG Tablet PO (10:38)
[2024-01-03] MEDS: Senna/Docusate Sodium 1 Tablet 2 TABLET PO (10:39)
[2024-01-03] MEDS: Menthol/Lanolin/Calamine/Znox 113 GM Tube 1 APPLIC TOPICAL ×2 (10:40→22:02)
[2024-01-03 10:44] VITALS: BP 92/49; PULSE 90
[2024-01-03 11:13] VITALS: BP 137/78; PULSE 66
--- NOTE | 2024-01-03 13:14 | NURSING ---
Pt's own home med of Doxy sent home with pt's .
[2024-01-03 16:00] VITALS: BP 121/57; PULSE 90; RESP 18; TEMP 36.7; O2SAT 97
[2024-01-03] MEDS: Pantoprazole Sodium 20 MG Tablet PO (21:57)
[2024-01-03] MEDS: Mirtazapine 15 MG Tablet PO (21:58)
[2024-01-03] MEDS: amLODIPine 5 MG Tablet PO (21:58)
[2024-01-03] MEDS: Atorvastatin Calcium 40 MG Tablet PO (21:58)
[2024-01-03 22:03] VITALS: BP 132/67; PULSE 89
[2024-01-04] MEDS: Acetaminophen 500 MG Tablet 1000 MG PO ×3 (06:17→20:56)
[2024-01-04 08:42] VITALS: BP 138/72; PULSE 98; RESP 16; TEMP 36.7; O2SAT 97
[2024-01-04] MEDS: Multivitamins,Ther W-Minerals Tablet 1 TABLET PO (08:45)
[2024-01-04] MEDS: Calcium Carb/Vitamin D 1 TABLET Tablet 2 TABLET PO (08:45)
[2024-01-04] MEDS: APIXABAN 2.5 MG TABLET (WCH) PO ×2 (08:45→20:56)
[2024-01-04] MEDS: Iron Polysaccharide Complex 150 MG CAPSULE PO (08:45)
[2024-01-04 08:46] VITALS: PULSE 98
[2024-01-04] MEDS: Metoprolol(XL)Succ 25 MG Tablet PO (08:46)
[2024-01-04] MEDS: Ascorbic Acid 500 MG Tablet PO (08:46)
[2024-01-04] MEDS: Senna/Docusate Sodium 1 Tablet 2 TABLET PO ×2 (08:46→20:56)
[2024-01-04] MEDS: Menthol/Lanolin/Calamine/Znox 113 GM Tube 1 APPLIC TOPICAL ×2 (08:46→20:58)
[2024-01-04 08:59] VITALS: PULSE 78; RESP 16; O2SAT 97
--- NOTE | 2024-01-04 10:15 | CASEMGMT ---
Addendum entered by Sisi Tijerina 01/04/24 16:10: SW spoke with therapy on pt's request. Both are recommending 24/ care at home as pt does need assist with tasks. was present for therapy sessions and agrees for pt to continue with therapy to improve independence. SW followed up with pt. Pt bummed with news; really wanting to go home. SW provided emotional support. Encouraged pt to reflect on the progress made since admission, and remain hopeful for the continued progress. Empathized with pt not being at home. Pt acknowledged his stupidity got him into this situation and agrees he does not want that to happen again. pt acknowledged is not able to be home 29/09 and does want pt to improve further. Pt expressed the loss of being able to do his hobbies such as bowling and golf. SW thought of pt possibly doing Wii Bowling, but will defer to the therapists. Pt agreeable if that is an option. SW offered for this worker to follow up with pt and progress at the end of the week and ongoing, as needed. Pt agreed. SW notified treating BARAK/SENIOR CAPITAL MARKETS SPECIALIST. Will continue to follow. Original Note: Social Work Pt and requesting to speak with this worker on DC. SW met with pt at bedside. Pt expressed readiness for DC. SW inquired about pt's abilities for different tasks and pt stated he can do them. SW refuted as pt is Harpreet for ambulation and tx, per therapy notes. Pt stated his will be present for therapy sessions today and both will talk with therapists. SW to follow up afterward. SW returned call to to discuss DC. SW noted the need for assistance at home. Explained Medicare is continuing to cover pt's stay and IDT has not discussed a DC yet. stated, Oh okay, I didn't know if the insurance was saying he needed to leave. SW denied. Suggested pt continue with therapy to improve on independence level. Encouraged and pt to discuss with BARAK and SENIOR CAPITAL MARKETS SPECIALIST at session today on readiness, rate of improvement and timeframe. SW explained if pt and do opt for DC, the earliest could be 01/05 to coordinate BSC and HHC. expressed understanding and will continue to follow. SW updated SWIFT TENDER/SENIOR CAPITAL MARKETS SPECIALIST. Sisi Tijerina, INTERNAL COMBUSTION ENGINE ASSEMBLER ELECTRICIAN MACHINE SHOP
[2024-01-04] MEDS: oxyCODONE 5 MG Tablet PO (11:43)
[2024-01-04] MEDS: Mirtazapine 15 MG Tablet PO (20:56)
[2024-01-04] MEDS: Arthritis Pain Compound 60 CLICK TUBE TOPICAL (20:56)
[2024-01-04] MEDS: Atorvastatin Calcium 40 MG Tablet PO (20:56)
[2024-01-04] MEDS: amLODIPine 5 MG Tablet PO (20:56)
[2024-01-04] MEDS: Pantoprazole Sodium 20 MG Tablet PO (20:56)
[2024-01-04 20:59] VITALS: BP 109/53; PULSE 81
[2024-01-05 05:51] LABS: Absolute Lymphocyte Count 1.76 X10^3/uL (0.83-4.51); Basophil# 0.02 X10^3/uL; Basophil% 0.4 % (0-1); Eosinophil# 0.82 X10^3/uL; Eosinophils% 16.1 % (0-5); Hematocrit 28.1 % (40-54); Hemoglobin 8.8 g/dL (13.0-16.5); Lymphocyte # 1.76 X10^3/ul (0.83-4.51); Lymphocyte % 34.6 % (19-41); Mean Corp Hgb Conc 31.3 g/dL (32-36); Mean Corpuscular Hgb 30.9 pg (27.0-32.0); Mean Corpuscular Volume 98.6 fL (80-94); Mean Platelet Vol. 10.7 fl (6.2-12.0); Monocyte# 0.51 X10^3/uL; NRBC Flagged by Analyzer 0 % (0-5); Neutrophil # 1.97 X10^3/uL (2.7-7.7); Neutrophil % 38.7 % (47-70); Platelet Count 252 K/mm3 (150-450); RBC Distribution Width CV 15.2 % (11.6-14.6); Red Blood Count 2.85 M/mm3 (4.6-6.2); White Blood Count 5.1 K/mm3 (4.4-11.0)
[2024-01-05] MEDS: Acetaminophen 500 MG Tablet 1000 MG PO ×3 (06:08→21:17)
[2024-01-05 06:22] LABS: Anion Gap 5 (5-15); BUN 29 mg/dL (7-18); BUN/Creat Ratio 20.4 RATIO (10-20); Calcium,Total 8.4 mg/dL (8.5-10.1); Chloride 115 mmol/L (98-107); Creatinine, Serum 1.42 mg/dL (0.70-1.30); EST Glomerular Filtration Rate 50 mL/min (>60); Est Glom Filt Rate - Afr Amer 61 mL/min (>60); Estimated Creatinine Clearance 40.05 ml/min; Glucose 98 mg/dL (74-106); Potassium 4.3 mmol/L (3.5-5.1); Sodium Level 141 mmol/L (136-145)
[2024-01-05] MEDS: oxyCODONE 5 MG Tablet PO ×2 (09:44→21:19)
[2024-01-05] MEDS: Arthritis Pain Compound 60 CLICK TUBE TOPICAL ×2 (09:44→21:19)
[2024-01-05] MEDS: Multivitamins,Ther W-Minerals Tablet 1 TABLET PO (09:45)
[2024-01-05] MEDS: APIXABAN 2.5 MG TABLET (WCH) PO ×2 (09:45→21:18)
[2024-01-05] MEDS: Iron Polysaccharide Complex 150 MG CAPSULE PO (09:45)
[2024-01-05 09:46] VITALS: BP 106/63; PULSE 81
[2024-01-05] MEDS: Metoprolol(XL)Succ 25 MG Tablet PO (09:46)
[2024-01-05] MEDS: Senna/Docusate Sodium 1 Tablet 2 TABLET PO ×2 (09:46→21:18)
[2024-01-05] MEDS: Calcium Carb/Vitamin D 1 TABLET Tablet 2 TABLET PO (09:46)
[2024-01-05] MEDS: Ascorbic Acid 500 MG Tablet PO (09:47)
[2024-01-05] MEDS: Menthol/Lanolin/Calamine/Znox 113 GM Tube 1 APPLIC TOPICAL ×2 (09:51→21:19)
[2024-01-05 11:00] VITALS: BMI 22.3
--- NOTE | 2024-01-05 13:59 | CASEMGMT ---
Social Work IDT discussed pt's progress in UR and has pt progressed to CGA from Harpreet for tx. took pt to the bathroom this morning (cleared by IDT) and pt managed own hygiene. Pt remaining adamant about setting a DC date. SW spoke with pt at bedside while was present. Discussed pt's improvements and recognized ongoing request from pt to DC. SW offered to set DC date for 01/07, to allow the rest of the week to work with therapy. Pt and both agreeable. can transport. SW confirmed DC needs as BSC and HHC. Pt requests [facility], whom he used prior. SW to coordinate needs. SW phoned referral to [facility] [place] [facility] [place] [facility] [place]. Plan: DC home with 01/07, [facility] PT/OT, BSC Sisi Tijerina, SILVESTRE JOE
[2024-01-05 15:25] VITALS: BP 106/63; PULSE 81; RESP 16; TEMP 36.6; O2SAT 97
[2024-01-05 15:31] VITALS: PULSE 81; RESP 16; O2SAT 97
--- NOTE | 2024-01-05 18:56 | PCM.DC.SUM ---
Providers Date of Admission: 12/21/23 Primary Care Physician: Dr. Omar Holt MD Reason For Visit: NON DISPLACED LEFT HIP FIXED Diagnosis Discharge Diagnosis (1) Debility: Status: Acute Code(s): R53.81 - Other malaise (2) Fracture of hip, left, closed: Status: Inactive Code(s): S72.002A - Fracture of unspecified part of neck of left femur, initial encounter for closed fracture Qualifiers: Encounter type: initial encounter Qualified Code(s): S72.002A - Fracture of unspecified part of neck of left femur, initial encounter for closed fracture (3) Acute kidney injury: Status: Acute Code(s): N17.9 - Acute kidney failure, unspecified (4) Acute anemia: Status: Acute Code(s): D64.9 - Anemia, unspecified (5) Agitation: Status: Acute Code(s): R45.1 - Restlessness and agitation (6) Atrial fibrillation: Status: Acute Code(s): I48.91 - Unspecified atrial fibrillation Qualifiers: Atrial fibrillation type: paroxysmal Qualified Code(s): I48.0 - Paroxysmal atrial fibrillation (7) Polymyalgia rheumatica: Status: Acute Code(s): M35.3 - Polymyalgia rheumatica (8) GERD (gastroesophageal reflux disease): Status: Acute Code(s): K21.9 - Gastro-esophageal reflux disease without esophagitis (9) Coronary artery disease: Status: Acute Code(s): I25.10 - Atherosclerotic heart disease of [place] coronary artery without angina pectoris (10) Osteoporosis: Status: Acute Code(s): M81.0 - Age-related osteoporosis without current pathological fracture (11) Depression: Status: Acute Code(s): F32.A - Depression, unspecified (12) Essential (primary) hypertension: Status: Acute Code(s): I10 - Essential (primary) hypertension (13) Hyperlipidemia: Status: Chronic Code(s): E78.5 - Hyperlipidemia, unspecified Qualifiers: Hyperlipidemia type: pure hypercholesterolemia Qualified Code(s): E78.00 - Pure hypercholesterolemia, unspecified; E78.0 - Pure hypercholesterolemia Plan 83 year old male with below past medical history hospitalized for left hip fracture, underwent left femur cephalo-medullary nail fixation 12/17/[address] Borruso, complicated by acute kidney injury, acute anemia, agitation, admitted to TCU with debility, here for rehabilitation, strengthening, prior to discharge home with . Debility - PT/OT. Pain - Tylenol 1000mg q6 prn pain (1-3), Oxycodone 5mg q4 prn pain (4-10). Bowel - senna/colace 2 tablets bid, Magnesium citrate 300ml po daily prn. Adult immunization - Administer pneumonia vaccine, covid vaccine, flu vaccine as appropriate. DVT prophylaxis - on Eliquis. Osteoporosis - Alendronate 70mg qweek. Hypertension - Metoprolol succinate 25mg daily, Amlodipine 5mg daily. Atrial fibrillation - Metoprolol succinate 25mg daily, Eliquis 2.5mg bid. Hyperlipidemia - Atorvastatin 40mg qpm. Calcium deficiency - Calcium D 2 tablets daily. Skin irritation - Calmoseptine topical bid. Depression/insomnia/appetite loss - Mirtazapine 7.5mg qhs, stable chronic prison use, GDR not recommended. Nutrition - MVI 1 tablet daily. GERD - Pantoprazole 20mg daily. Medications at Discharge Home Medications pantoprazole 20 mg tablet,delayed release 20 mg PO QPM GERD 03/14/17 alendronate 70 mg tablet 70 mg PO AVERY bone 06/22/23 calcium 600 mg (as carbonate)-vitamin D3 25 mcg (1,000 unit) capsule 2 cap PO DAILY bones 06/22/23 metoprolol succinate 25 mg tablet,extended release 24 hr 25 mg PO DAILY BP #90 tabs 07/03/23 apixaban 5 mg tablet 2.5 mg (1/2 x 5 mg) PO BID blood thinne 30 days #30 tabs 12/11/23 amlodipine 5 mg tablet 5 mg PO QPM BP 12/15/23 atorvastatin 40 mg tablet 40 mg PO QPM Cholesterol 12/15/23 multivitamin-iron 9 mg-folic acid 400 mcg-calcium and minerals tablet (Therapeutic-M) 1 tab PO DAILYCM vitamin #0 tabs 12/21/23 acetaminophen 500 mg tablet 1,000 mg (2 x 500 mg) PO Q8 #0 tabs 01/05/24 mirtazapine 15 mg tablet 15 mg PO QHS 30 days #30 tabs 01/05/24 oxycodone 5 mg tablet 5 mg PO Q4H PRN PRN Pain Score 4-10 7 days #42 tabs 01/05/24 sennosides 8.6 mg-docusate sodium 50 mg tablet (Stimulant Laxative Plus) 2 tab PO BID 30 days #120 tabs 01/05/24 Hospital Course Operations - (See below.) Procedures None Summary of Care Provided Minutes Spent on Discharge: 35 Hospital Course: 83 year old male with below past medical history hospitalized for left hip fracture, underwent left femur cephalo-medullary nail fixation 12/17/[address] Castano, complicated by acute kidney injury, acute anemia, agitation, admitted to TCU with debility, here for rehabilitation, strengthening, prior to discharge home with . Discharge home with 01/08/2024, [facility] PT/OT, BSC. BSC: Patient is confined to a single room with no toilet. Patient is confined to one level of the home environment and there is no toilet on that level. Patient is confined to the home and there is no toilet in the home. Physical Exam Const alert General Appearance: cooperative HEENT normocephalic Eyes PERRL and EOMs intact bilaterally Neck supple, no JVD and no carotid bruits Resp normal respiratory effort, normal air movement and clear to auscultation bilaterally Cardio regular rate and regular rhythm GI normal to inspection, nondistended, normoactive bowel sounds, non-tender and non-distended Extremity normal capillary refill General Extremity: Negative for edema Skin no rashes or lesions noted General Skin Exam: no breakdown Psych affect normal Appearance: appropriate Medical Records Data Medical Nutrition Assessment Dietitian: Malnutrition Criteria Met Start: 12/30/23 13:29 Freq: Status: Active Protocol: Document 12/30/23 13:30 [facility] (Rec: 12/30/23 13:30 [facility] [id number]) Nutrition Malnutrition Evidence of Malnutrition Exists Yes Malnutrition (severe): Acute Illness/Injury Evidenced By Suboptimal Energy Intake ( Severe),Weight Loss (Severe) Intake Problem Inadequate Oral Intake Status Inactive Problem Clinical Problem Acute Disease or Injury Related Malnutrition Etiology related to inadequate energy intake Signs/Symptoms as evidenced by 3% unintended wt loss and po intake meeting < 50% of est nutritional needs x 5 days Status Active Problem Recommendation Dietitian Recommendations/Changes Will liberalize diet to Regular d/t signs and symptoms of malnutrition Will discontinue waller ensure clear tid w/ meals d/t res request Will order magic cup w/ lunch and dinner for increased aleisha/ pro if consumed Rec continue Remeron to help encourage increased appetite. Weight / BMI Weight Weight: 72.575 kg Body Mass Index (BMI) 22.3 ABG / Lab / Microbiology Data 01/05/24 05:12 01/05/24 05:12 Laboratory: Laboratory Results - last 24 hr 01/05/24 05:12: WBC 5.1, RBC 2.85 L, Hgb 8.8 L, Hct 28.1 L, MCV 98.6 H, MCH 30.9, MCHC 31.3 L, RDW Std Deviation 55.0 H, RDW Coeff of Anselmo 15.2 H, Plt Count 252, MPV 10.7, Immature Gran % (Auto) 0.200, Neut % (Auto) 38.7 L, Lymph % (Auto) 34.6, Buchanan % (Auto) 10.0, Eos % (Auto) 16.1 H, Baso % (Auto) 0.4, Absolute Neuts (auto) 2.0, Absolute Lymphs (auto) 1.76, Nucleated RBC % 0, Sodium 141, Potassium 4.3, Chloride 115 H, Carbon Dioxide 21.0, Anion Gap 5, BUN 29 H, Creatinine 1.42 H, Estim Creat Clear Calc 40.05, Est GFR (MDRD) Af Amer 61, Est GFR (MDRD) Non-Af 50 L, BUN/Creatinine Ratio 20.4 H, Glucose 98, Calcium 8.4 L Microbiology: Microbiology 12/22/23 05:20 Nasal Secretion SARS-CoV-2 Antigen (Rapid) - Final D/C Instructions Discharge Diet: No restrictions Discharge Activity: Return to Normal Activity, May Shower and Use Walker Weight Bearing Status: Weight bearing as tolerated Call your doctor if you observe: Fever of 101 or Higher, Inability to urinate, Inability to have a bowel movement, Shortness of breath, Dizziness, Fainting spells, Swelling in the ankles, Chest pain and Uncontrolled pain Additional Instructions: Discharge home with 01/08/2024, [facility] PT/OT, BSC. BSC: Patient is confined to a single room with no toilet. Patient is confined to one level of the home environment and there is no toilet on that level. Patient is confined to the home and there is no toilet in the home. Please Follow Up With: Kevin Castano DO When: As scheduled. Meaningful Use Info Meaningful Use Meaningful Use Diagnoses (Choose all that apply): None applicable Ischemic Stroke Statin Dosing Therapy Reference: STATIN DOSE THERAPY REFERENCE: * Patients > 75 years receive moderate or high dose statin therapy. * Patients 75 years or YOUNGER should receive HIGH intensity statin dose unless contraindicated. You will be required to document reason for non-treatment if statin daily dose does not meet guidelines. HIGH DOSE STATIN THERAPY DAILY Atorvastatin > than or = to 40 mg Rosuvastatin > than or = to 20 mg Amlodipine + Atorvastatin > than or = to 2.5/40 mg Ezetimibe + Simvastatin 10/80 mg Simvastatin 80mg Discharge Plan Admission Admit Date/Time: 12/21/23 16:01 Primary Reason for Your Visit: Debility. Attending Provider: Marques Grajeda Chi Primary Care Provider: Omar Holt Instructions Additional Instructions / Restrictions: Discharge home with 01/08/2024, [facility] PT/OT, BSC. BSC: Patient is confined to a single room with no toilet. Patient is confined to one level of the home environment and there is no toilet on that level. Patient is confined to the home and there is no toilet in the home. Discharge Orders/Prescriptions Prescriptions: New acetaminophen 500 mg Tablet 1,000 mg PO Q8 Qty: 0 0RF sennosides-docusate sodium [Stimulant Laxative Plus] 8.6-50 mg Tablet 2 tab PO BID 30 Days Qty: 120 0RF mirtazapine 15 mg Tablet 15 mg PO QHS 30 Days Qty: 30 0RF oxycodone 5 mg Tablet 5 mg PO Q4H PRN PRN (Reason: Pain Score 4-10) 7 Days Qty: 42 0RF Continued pantoprazole 20 mg tablet,delayed release (DR/EC) 20 mg PO QPM calcium carbonate-vitamin D3 600 mg-25 mcg (1,000 unit) capsule 2 cap PO DAILY alendronate 70 mg tablet 70 mg PO AVERY atorvastatin 40 mg tablet 40 mg PO QPM amlodipine 5 mg tablet 5 mg PO QPM Therapeutic-M 9 mg iron-400 mcg Tablet 1 tab PO DAILYCM Qty: 0 0RF metoprolol succinate 25 mg tablet extended release 24 hr 25 mg PO DAILY Qty: 90 3RF apixaban 5 mg tablet 2.5 mg PO BID 30 Days Qty: 30 12RF Discontinued mirtazapine 7.5 mg tablet 7.5 mg PO QHS acetaminophen 325 mg Tablet 650 mg PO Q6H PRN PRN (Reason: Pain 1-10 Or Fever>100.7) Qty: 0 0RF oxycodone 5 mg Tablet 5 mg PO Q4H PRN PRN (Reason: Pain Score 4-10) 2 Days Qty: 6 0RF sennosides-docusate sodium [Stimulant Laxative Plus] 8.6-50 mg Tablet 2 tab PO BID PRN PRN (Reason: Constipation) Qty: 0 0RF Referrals / Follow Up: Omar Holt MD [Primary Care Provider] - 01/21/24 12:20 pm () Disposition Disposition (needs filled in before D/C Order can be placed): Home Health Service
[2024-01-05] MEDS: Pantoprazole Sodium 20 MG Tablet PO (21:18)
[2024-01-05] MEDS: Atorvastatin Calcium 40 MG Tablet PO (21:18)
[2024-01-05] MEDS: Mirtazapine 15 MG Tablet PO (21:18)
[2024-01-05] MEDS: amLODIPine 5 MG Tablet PO (21:18)
[2024-01-06] MEDS: Acetaminophen 500 MG Tablet 1000 MG PO ×3 (06:38→20:08)
[2024-01-06] MEDS: Arthritis Pain Compound 60 CLICK TUBE TOPICAL ×2 (08:32→20:00)
[2024-01-06] MEDS: oxyCODONE 5 MG Tablet PO (08:32)
[2024-01-06] MEDS: Iron Polysaccharide Complex 150 MG CAPSULE PO (08:38)
[2024-01-06] MEDS: Senna/Docusate Sodium 1 Tablet 2 TABLET PO ×2 (08:38→20:01)
[2024-01-06] MEDS: Calcium Carb/Vitamin D 1 TABLET Tablet 2 TABLET PO (08:38)
[2024-01-06] MEDS: Ascorbic Acid 500 MG Tablet PO (08:38)
[2024-01-06 08:39] VITALS: BP 138/69; PULSE 89
[2024-01-06] MEDS: APIXABAN 2.5 MG TABLET (WCH) PO ×2 (08:39→20:01)
[2024-01-06] MEDS: Menthol/Lanolin/Calamine/Znox 113 GM Tube 1 APPLIC TOPICAL (08:39)
[2024-01-06] MEDS: Multivitamins,Ther W-Minerals Tablet 1 TABLET PO (08:39)
[2024-01-06] MEDS: Metoprolol(XL)Succ 25 MG Tablet PO (08:39)
[2024-01-06 08:45] VITALS: BP 138/69; PULSE 89; RESP 16; TEMP 36.9; O2SAT 95
[2024-01-06] MEDS: Atorvastatin Calcium 40 MG Tablet PO (20:00)
[2024-01-06] MEDS: Mirtazapine 15 MG Tablet PO (20:01)
[2024-01-06] MEDS: Pantoprazole Sodium 20 MG Tablet PO (20:01)
[2024-01-06] MEDS: amLODIPine 5 MG Tablet PO (20:02)
[2024-01-07] MEDS: Acetaminophen 500 MG Tablet 1000 MG PO ×3 (05:57→21:53)
[2024-01-07] MEDS: Arthritis Pain Compound 60 CLICK TUBE TOPICAL ×2 (08:51→21:49)
[2024-01-07] MEDS: Calcium Carb/Vitamin D 1 TABLET Tablet 2 TABLET PO (08:51)
[2024-01-07 08:52] VITALS: BP 100/52; PULSE 101
[2024-01-07] MEDS: Ascorbic Acid 500 MG Tablet PO (08:52)
[2024-01-07] MEDS: Menthol/Lanolin/Calamine/Znox 113 GM Tube 1 APPLIC TOPICAL (08:52)
[2024-01-07] MEDS: Iron Polysaccharide Complex 150 MG CAPSULE PO (08:52)
[2024-01-07] MEDS: Senna/Docusate Sodium 1 Tablet 2 TABLET PO (08:52)
[2024-01-07] MEDS: Metoprolol(XL)Succ 25 MG Tablet PO (08:52)
[2024-01-07] MEDS: APIXABAN 2.5 MG TABLET (WCH) PO ×2 (08:52→21:50)
[2024-01-07] MEDS: Multivitamins,Ther W-Minerals Tablet 1 TABLET PO (08:53)
[2024-01-07 10:54] VITALS: BP 100/52; PULSE 101; RESP 16; TEMP 36.3; O2SAT 96
--- NOTE | 2024-01-07 12:14 | MDS.RN ---
Pain interview for MDS complete.
--- NOTE | 2024-01-07 16:00 | CASEMGMT ---
BIMS (02/20) and PHQ9 (9) interviews completed on this date for MDS. Pt attributes feelings of depression to need for SNF and decline in health. Pt is scheduled for discharge home tomorrow and is confident he will be feeling better once he is in his own environment. Pt denies further needs at this time. HEATH Harris
[2024-01-07] MEDS: Atorvastatin Calcium 40 MG Tablet PO (21:51)
[2024-01-07] MEDS: Mirtazapine 15 MG Tablet PO (21:51)
[2024-01-07] MEDS: amLODIPine 5 MG Tablet PO (21:51)
[2024-01-07] MEDS: Pantoprazole Sodium 20 MG Tablet PO (21:52)
[2024-01-07 21:59] VITALS: BP 134/71; PULSE 91
[2024-01-08] MEDS: Acetaminophen 500 MG Tablet 1000 MG PO (05:32)
[2024-01-08 09:25] VITALS: BP 115/63; PULSE 100; RESP 16; TEMP 36.4; O2SAT 94
[2024-01-08] MEDS: oxyCODONE 5 MG Tablet PO (09:28)
[2024-01-08] MEDS: Calcium Carb/Vitamin D 1 TABLET Tablet 2 TABLET PO (09:29)
[2024-01-08] MEDS: APIXABAN 2.5 MG TABLET (WCH) PO (09:29)
[2024-01-08] MEDS: Multivitamins,Ther W-Minerals Tablet 1 TABLET PO (09:29)
[2024-01-08] MEDS: Iron Polysaccharide Complex 150 MG CAPSULE PO (09:29)
[2024-01-08 09:30] VITALS: PULSE 100
[2024-01-08] MEDS: Ascorbic Acid 500 MG Tablet PO (09:30)
[2024-01-08] MEDS: Arthritis Pain Compound 60 CLICK TUBE TOPICAL (09:30)
[2024-01-08] MEDS: Menthol/Lanolin/Calamine/Znox 113 GM Tube 1 APPLIC TOPICAL (09:30)
[2024-01-08] MEDS: Metoprolol(XL)Succ 25 MG Tablet PO (09:30)
[2024-01-08] MEDS: Senna/Docusate Sodium 1 Tablet 2 TABLET PO (09:30)
== END 2024-01-08 09:41 | disposition home health service (06) | DRG 560 ==
PROVIDERS: Admitting Provider Family Medicine Geriatric Medicine; PCP Family Medicine; Visit Provider Family Medicine Geriatric Medicine
DX: M80.052D Age-related osteoporosis with current pathological fracture, left femur, subsequent encounter for fracture with routine healing (principal); E44.1 Mild protein-calorie malnutrition; I10 Essential (primary) hypertension; F32.A Depression, unspecified; M35.3 Polymyalgia rheumatica; I48.0 Paroxysmal atrial fibrillation; E78.00 Pure hypercholesterolemia, unspecified; K21.9 Gastro-esophageal reflux disease without esophagitis; I25.10 Atherosclerotic heart disease of native coronary artery without angina pectoris; W19.XXXD Unspecified fall, subsequent encounter; Z87.891 Personal history of nicotine dependence; G47.00 Insomnia, unspecified; Z79.891 Long term (current) use of opiate analgesic; Z79.01 Long term (current) use of anticoagulants; Z79.83 Long term (current) use of bisphosphonates; Z95.5 Presence of coronary angioplasty implant and graft; Z79.899 Other long term (current) drug therapy; Z23 Encounter for immunization; Z68.22 Body mass index [BMI] 22.0-22.9, adult
CPT/HCPCS: 36415; 80048; 85025; 87811; 90480; 91322; 97110; 97116; 97162; 97166; 97530; 97535; 97803; A4216

== ENCOUNTER → 2024-02-17 | Outpatient (CLI) | payer MEDICARE, OTHER, SELFPAY ==
--- NOTE | 2024-02-17 11:02 | VDUE_ITS ---
Reason For Study: Left arm edema Left Proximal Left jugular vein is spontaneous, widely patent, phasic, with no intraluminal echogenicity noted. Left subclavian vein is spontaneous, widely patent, phasic, with no intraluminal echogenicity noted. Left Arm Left axillary vein is spontaneous, patent, phasic, competent, compressible and demonstrates augmentation. Left brachial vein is compressible. Left cephalic vein is compressible. Left basilic vein is compressible. Left Lower Arm Left radial vein is compressible. Left ulnar vein is compressible. Patient Safety Preliminary report given to Dr. Holt. VL/Venous Duplex US, Unilateral Interpretation Summary Deep veins of the left upper extremity are patent and compressible segmentally. There is no evidence of deep vein thrombosis. The superficial veins of the left upper extremity, the basilic and cephalic veins, are patent and compressible. There is no evidence of left upper extremit y superficial thrombophlebitis involving the veins imaged. Ordering Physician: Omar Holt Referring Physician: Omar Holt Performed By: Uzma Franklin RVT ???
== END | disposition home or self-care (01) ==
LOC: CVS 11:01
PROVIDERS: PCP Family Medicine; Referring Provider Family Medicine; Visit Provider Family Medicine
DX: R60.0 Localized edema (principal)
CPT/HCPCS: 93971

== ENCOUNTER 2024-06-23 14:00 | Outpatient (RCR) | payer MEDICARE, OTHER, SELFPAY ==
--- NOTE | 2024-02-10 14:24 | HP.PTEVAL ---
Patient's Visit Information Visit Information Visit Information: SHAWNA DELEON is a 83 year old M referred to Physical Therapy by Dr. Kevin Castano DO with a diagnosis of UNILATERAL PRIMARY OSTEOARTHRITIS ,LEFT KNEE. Date of Evaluation: 02/10/24 Physical Therapist: Ranjit Huitron, PT, Cert MDT, OCS Visit Plan Frequency: 2x /Week Duration: 6 Weeks Plan: s/p s/p Cephalo-medullary fixation left femur on 12/17/23 PT INTERVENTIONS ROM HIP/KNEE ,STRENGTHENING QUADS/HAMS HIP ,GAIT TRAINING ,BALANCE TRAINING ,AND FUNCTIONAL STRENGTHENING Subjective Subjective: This 83 y/o male presents to physical therapy with s/p Cephalo-medullary fixation left femur on 12/17/[address] Castano at [facility] . Patient fell at home Dec 14 using cane sustained left displaced intertrochanteric fracture of left femur. Patient was transferred TCU 12/20 . Patient was WBAT LLE with FWW. Patient was in TCU for Rehab 3 weeks Jan 07 . Patient seen DR 2 weeks recommended PT. Patient had x-rays knee DJD and has weakness . Patient currently uses walker at home. Patient [facility] PT for 3 weeks . Patient has left knee pain. Denies paresthesia/tingling-. No pain medication stopped prednisone. Patient lives 1 story home 3 steps with with rails. Tub/shower grab bars and tub seat.Patient has cane walker. Patient sleeping better, Patient has h/o fracture hip right s/p ORIF 2 years ago. Patient condition affects QOL and function. Patient goals to get stronger . SOCIAL: VOCATION: retired Pain Left Knee: Pain Intensity (Out of 10): 5 Pain Intensity Range: 10 Objective Objective: POSTURE: mild forward posture NEURO: denies paresthesia/tingling GAIT: ambulates with fww WBAT LLE slight stance time LLE forward posture slow rogelio BALANCE: fair with FWW AROM: supine knee flexion left 5-115 degrees ,hip flexion 90 degrees ,hip abduction 30 degrees MMT: ( peak force) left quads 25.1 ,right 36.3 ,hip flexion lrft 11.8 ,right 23.9 ,hip abd right 17 1 ,left 0 ,hamstrings left 14 .9 ,right 23.9 STAIRS: one step at time with rails Balance/Special Test Scores Lower Extremity Functional Score: 23 Goals Goal 1:: Patient to be I with HEP for hip/knee Goal Time Frame: 4-6 Weeks Goal 2:: Patient to ambulate with fww with improved gait pattern community distances Goal Time Frame: 4-6 Weeks Goal 3:: Patient to demonstrate 50% improvement with increase function with gaiot Goal Time Frame: 4-6 Weeks Goal 4:: Patient to improve peak force quads/hams/hip LLE by 5-10 # to improve function with gait Goal Time Frame: 4-6 Weeks Goal 5:: Patient to improve LFES score by 5 points to improve function Goal Time Frame: 4-6 Weeks Rehabilitation Potential Physical Therapy Diagnosis: This s/p Cephalo-medullary fixation left femur on 12/17/23 with pain ,decrease ROM ,weakness quads/hams /hip left impairs gait and balance thus benefit from skilled PT Rehabilitation Potential: Good Anticipated Interventions Patient/Client Instruction: Educate patient on: Condition and Plan of Care For the Purpose of:: To decrease pain, To increase ROM, To improve muscle performance and motor function, To improve ability to perform ADL's, To increase tolerance to activity/condition/position, To improve ability of physical actions for home/community/work/leisure, To improve health of tissue, To decrease soft tissue restriction and To increase flexibility/ROM Therapeutic Exercise to Include: Strength training, Endurance training, Balance training, Flexibilty training, Gait and locomotor training and Active ROM Comment: QUADS/HAMS/HIP For the Purpose of:: To decrease pain, To increase ROM, To improve muscle performance and motor function, To improve ability to perform ADL's, To increase tolerance to activity/condition/position, To improve ability of physical actions for home/community/work/leisure, To improve health of tissue, To decrease soft tissue restriction, To increase flexibility/ROM and To improve tolerance to ADL's Text: Thank you for the opportunity to evaluate your patient. For Medicare and Medicare HMO plans, please review the plan of care and approve it. It will need to be FAXED BACK to us at [phone] for Medicare purposes. For Medicare only, by signing this I certify the plan of care. Please let me know if there are questions or concerns regarding this plan of care. Physician Signature: Date:
--- NOTE | 2024-02-24 16:24 | HP.OTEVAL ---
Patient's Visit Information Visit Information Visit Information: SHAWNA DELEON is a 83 year old M, referred to Occupational Therapy by Dr. Kevin Castano DO, with a diagnosis of Edema of Left Upper Extremity R60.0. Date of Evaluation: 02/24/24 Occupational Therapist: Diane Head Subjective Subjective: This 83 year old male arrives with dx of RUE edema. pt with swelling of L hand that goes from digits to wrist starting 4 weeks ago. Pt swelling worse in the morning better towards the evening. cannot think of anything that may have lead to swelling. Pt is R hand dominant. No swelling anywhere else. Pt is retired at this time. only has pain in the morning or when wrapping it. Pt with increased difficulty completing clothing management due to swelling of hand. Pt did have a fall in December resulting in hip fracture which he has been seeing PT for. Pt is on blood thinner at this time. Objective Objective/Observation: pt arrives with swelling in L hand from digit to wrist and into lower portion of forearm. pt hand and lower arm is slightly red and does have discoloration possibly from blood thinner on hand and into forearm. ROM ROM Comments: able to complete ROM at this time however difficulty for pt and feels tight when completing due to swelling of hand and wrist Lymphedema (Circumferential Measure) MCP: L 21 cm R 20.5 cm Wrist: L 19 cm R 17 cm Lower forearm: L 19 cm R 16 cm Largest forearm: L 23.5 cm R 22 cm Elbow: L 25 cm R 24.5 cm Largest humerus: L 27 cm R 27 cm Axcillary: L 42 cm R 41 cm Sensation Sensation Comments: denies Goals Goal: Patient will demonstrate a 20% reduction in edema by discharge: Yes Goal: Patient will demonstrate adequate knowledge of self-massage by the end of the second week.: Yes Goal: Patient will demonstrate adequate knowledge of skin care and precautions by the end of the first week.: Yes Goal: Patient will demonstrate adequate knowledge of therapeutic exercises by discharge.: Yes Goal: Patient will select an appropriate compression garment and demonstrate adequate knowledge of correct donning technique, care and wearing schedule by discharge.: Yes Goal: Patient will voice understanding of need to replace compression garment every four to six months by discharge.: Yes Goal: Patient will demonstrate ROM WFL by discharge.: Yes Rehabilitation General Assessment: This 83 year old male arrives with dx of R UE edema. Pt presents with swelling of L digits hand wrist and lower forearm. Pt now limited in self care abilities as as result of swelling in UE. increased feeling of tightness/ stiffness of UE. pt would benefit from 3 sessions of OT within 3 month period in order to assure carryover of UE exercise, lymph massage, skin care, and compression garments. Rehabilitation Potential: Good Anticipated Interventions Anticipated Interventions: A/AAROM/PROM, Edema Control, Education re Diagnosis, Manual Lymph Drainage, Education re Skin Care and Precautions, Education re Self Massage Techniques, Education re Correct Donning Tech,Care&Wearing Sched Comp Garments, Caregiver Training and Home Program Visit Plan Frequency: 3 sessions Duration: 3 Months General Plan: AROM/AAROM/PROM UE exercise lymph massage compression garments TEXT: Thank you for the opportunity to evaluate your patient. For Medicare and Medicare HMO plans, please review the plan of care and approve it. It will need to be FAXED BACK to us at [phone] for Medicare purposes. Please let me know if there are questions or concerns regarding this plan of care. Physician Signature: Date:
--- NOTE | 2024-03-14 15:24 | HP.PTREVAL_ITS ---
Re-Evaluation Intro: Dr. Kevin Castano, DO, It has been my pleasure to treat SHAWNA DELEON over the last 9 visits for UNILATERAL PRIMARY OSTEOARTHRITIS ,LEFT KNEE. Please see the progress note below for an update on the physical therapy plan of care! Subjective Subjective: Left knee knee still frank ,, no falls needs to continue with PT Able to participate in ADLS ,dress I Objective Objective/Function: POSTURE: mild forward posture NEURO: denies paresthesia/tingling GAIT: ambulates with fww WBAT LLE slight stance time LLE forward posture slow rogelio BALANCE: fair +with FWW AROM: supine knee flexion left 0-120 degrees ,hip flexion 90 degrees ,hip abduction 30 degrees MMT: ( peak force) left quads 36.1 ,right 38.4 ,hip flexion left 28.8 ,right 28.9 ,hip abd right 19 1 ,left 5.0 ,hamstrings left 23 .9 ,right 29..9 STAIRS: one step at time with rails Plan Plan Plan: s/p s/p Cephalo-medullary fixation left femur on 12/17/23 PROGRESS TO GYM BASED AND MACHINES PT INTERVENTIONS ROM HIP/KNEE ,STRENGTHENING QUADS/HAMS HIP ,GAIT TRAINING ,BALANCE TRAINING ,AND FUNCTIONAL STRENGTHENING Balance/Gait/Functional tests Balance/Special Test Scores Lower Extremity Functional Score: 23 Goals Goals Goal 1:: Patient to be I with HEP for hip/knee Goal Time Frame: 4-6 Weeks Goal Progress: Progressing Goal 2:: Patient to ambulate with fww with improved gait pattern community distances Goal Time Frame: 4-6 Weeks Goal Progress: Progressing Goal 3:: Patient to demonstrate 50% improvement with increase function with gait( New goal) Goal Time Frame: 4-6 Weeks Goal 4:: Patient to improve peak force quads/hams/hip LLE by 5-10 # to improve function with gait Goal Time Frame: 4-6 Weeks Goal Progress: Progressing Goal 5:: Patient to improve LFES score by 5 points to improve function Goal Time Frame: 4-6 Weeks Goal Progress: Progressing Anticipated Interventions Anticipated Interventions Patient/Client Instruction: Educate patient on: Condition and Plan of Care For the Purpose of:: To decrease pain, To increase ROM, To improve muscle performance and motor function, To improve ability to perform ADL's, To increase tolerance to activity/condition/position, To improve ability of physical actions for home/community/work/leisure, To improve health of tissue, To decrease soft tissue restriction and To increase flexibility/ROM Therapeutic Exercise to Include: Strength training, Endurance training, Balance training, Flexibilty training, Gait and locomotor training and Active ROM Comment: QUADS/HAMS/HIP For the Purpose of:: To decrease pain, To increase ROM, To improve muscle performance and motor function, To improve ability to perform ADL's, To increase tolerance to activity/condition/position, To improve ability of physical actions for home/community/work/leisure, To improve health of tissue, To decrease soft tissue restriction, To increase flexibility/ROM and To improve tolerance to ADL's Re-Evaluation Ending Re-evaluation ending: Please do not hesitate to contact me at [phone] by phone or Fax: if you have questions or concerns regarding this new plan of care! Sincerely, Ranjit Huitron, PT, Cert MDT, OCS
--- NOTE | 2024-04-01 17:01 | HP.PTEVAL2_ITS ---
Patient's Visit Information Visit Information Visit Information: SHAWNA DELEON is a 84 year old M referred to Physical Therapy by Dr. Devan Holt MD with a diagnosis of CHRONIC LEFT SHOULDER PAIN. Date of Evaluation: 04/01/24 Physical Therapist: Ranjit Huitron, PT, Cert MDT, OCS Visit Plan Frequency: 2x /Week Duration: 4 Weeks Plan: POSSIBLE RTC TEAR PT INTERVENTIONS GRADED RTC /SCAPULAR STRENGTHENING ,POSTURAL EX'S ,ROM AND MODALITIES Subjective Subjective: This 84 y/o male presents to physical therapy with left shoulder pain. Patient has had left shoulder pain ~ 3 months and past 3 weeks symptoms worse. Seen x-rays mild OA . Recommended PT . Patient started with pushing hard on fww which has worsen. Patient global described as ache and occasional sharp pain. Patient aggravating raising arm ,OH activities affects ADLS . Moving arm to side is worse. Alleviating factors heat. Denies paresthesia/tingling - Patient pain affects sleeping unable to sleep on side. Symptoms worse putting weight on walker. Patient has no injury and trauma . Patient is able dress self and self hygiene but painful. Patient has had fell left side Dec 12. Patient condition affects QOL and function affects ADLS. SOCIAL: VOCATION: retired Pain Left Shoulder: Intensity: 9 Pain Intensity Range: 10 Objective Objective: POSTURE:mild forward posture GAIT: ambulates with FWW PALAPTION: unremarkable NEURO: denies parestehesia/tingling AROM: shoulder flexion 90 degrees pain,abduction 90 degrees pain with substitution ,IR L1 CAPSULAR : mild tight SCPULAR -HUMERAL : <1:1 ratio PROM:shoulder flexion 150 abduction pain ,abduction in scaption 155 degrees pain MMT: infraspinatus 6.4,supraspinatus 4.3 pain deltoid 0 , Special Tests External Rotation Lag Test - RC Tear: Positive Drop Sign - IS Test: Negative Empty Can - SS: Positive Belly Press - SupScap: Negative Neer - Impingement: Positive Hickey Damon - Impingement: Positive Speeds Test - Labrum/Biceps: Positive Goals Goal 1:: Patient to be I with HEP for shoulder Goal Time Frame: 4-6 Weeks Goal 2:: Patient to improve AROM shoulder ROM by 130 degrees with flexion/abduction for ADL and reaching behind back to put on coat Goal Time Frame: 4-6 Weeks Goal 3:: Patient to improve peak force RTC and deltoid by 5-10 # to improve function Goal Time Frame: 4-6 Weeks Goal 4:: Patient to improve quick dash by 5 points to improve QOL and function Goal Time Frame: 4-6 Weeks Goal 5:: Patient to demonstrate 40% improvement with less pain and improve function Goal Time Frame: 4-6 Weeks Rehabilitation Potential Physical Therapy Diagnosis: This patient patient possible RTC tear with pain and weakness poor ROM and weak RTC thus impairs ADL and activities above 90 degrees thus benefit from skilled PT Rehabilitation Potential: Fair Anticipated Interventions Patient/Client Instruction: Educate patient on: Condition and Plan of Care For the Purpose of:: To decrease pain, To increase ROM, To improve muscle p erformance and motor function, To improve ability to perform ADL's, To increase tolerance to activity/condition/position, To improve ability of physical actions for home/community/work/leisure, To improve health of tissue, To decrease soft tissue restriction, To increase flexibility/ROM, To reduce risk of recurrence and To improve tolerance to ADL's Therapeutic Exercise to Include: Strength training, Postural training, Flexibilty training, Passive ROM, Active ROM and Scapular Strength/Stabilization For the Purpose of:: To decrease pain, To increase ROM, To improve muscle performance and motor function, To improve ability to perform ADL's, To increase tolerance to activity/condition/position, To improve ability of physical actions for home/community/work/leisure, To improve health of tissue, To decrease soft tissue restriction, To increase flexibility/ROM, To reduce risk of recurrence, To prevent re-injury and To improve tolerance to ADL's TENS: Yes IF ES: Yes Cryotherapy (ice pack, ice massage): Yes Thermo therapy (hot pack): Yes Ultrasound (thermal/non thermal): Yes For the Purpose of:: To decrease pain, To increase ROM, To improve ability of physical actions for home/community/work/leisure, To improve health of tissue and To decrease soft tissue restriction text: Thank you for the opportunity to evaluate your patient. For Medicare and Medicare HMO plans, please review the plan of care and approve it. It will need to be FAXED BACK to us at [phone] for Medicare purposes. For Medicare only, by signing this I certify the plan of care. Please let me know if there are questions or concerns regarding this plan of care. Physician Signature: Date:
--- NOTE | 2024-04-29 14:55 | HP.PTREVAL ---
Re-Evaluation Intro: Dr. Kevin Castano, DO, It has been my pleasure to treat SHAWNA DELEON over the last 19 visits for UNILATERAL PRIMARY OSTEOARTHRITIS ,LEFT KNEE. Please see the progress note below for an update on the physical therapy plan of care! Subjective Subjective: Patient doing better feeling stronger Objective Objective/Function: *Patient will continue with wellness assistant to improve strength and gait thus goals are appropriate* POSTURE: mild forward posture NEURO: denies paresthesia/tingling GAIT: ambulates with fww WBAT LLE slight stance time LLE forward posture slow rogelio BALANCE: fair +with FWW AROM: supine knee flexion left 0-125 degrees ,hip flexion 100 degrees ,hip abduction 30 degrees MMT: ( peak force) left quads 42.1 ,right 40.9. ,hip flexion left 27.8 ,right 28.9 ,hip abd right 19 1 ,left 7.2 ,hamstrings left 33 .9 ,right 34..9 STAIRS: one step at time with rails Plan Plan Plan: s/p s/p Cephalo-medullary fixation left femur on 12/17/23 PROGRESS TO GYM BASED AND MACHINES PT INTERVENTIONS ROM HIP/KNEE ,STRENGTHENING QUADS/HAMS HIP ,GAIT TRAINING ,BALANCE TRAINING ,AND FUNCTIONAL STRENGTHENING Balance/Gait/Functional tests Balance/Special Test Scores Lower Extremity Functional Score: 23 Quick DASH Score: 67.5000 Goals Goals Goal 1:: Patient to be I with HEP for hip/knee Goal Time Frame: 4-6 Weeks Goal Progress: Progressing Goal 2:: Patient to ambulate with fww with improved gait pattern community distances Goal Time Frame: 4-6 Weeks Goal Progress: Progressing Goal 3:: Patient to demonstrate 50% improvement with increase function with gait( New goal) Goal Time Frame: 4-6 Weeks Goal 4:: Patient to improve peak force quads/hams/hip LLE by 5-10 # to improve function with gait Goal Time Frame: 4-6 Weeks Goal Progress: Progressing Goal 5:: Patient to improve LFES score by 5 points to improve function Goal Time Frame: 4-6 Weeks Goal Progress: Progressing Anticipated Interventions Anticipated Interventions Patient/Client Instruction: Educate patient on: Condition and Plan of Care For the Purpose of:: To decrease pain, To increase ROM, To improve muscle performance and motor function, To improve ability to perform ADL's, To increase tolerance to activity/condition/position, To improve ability of physical actions for home/community/work/leisure, To improve health of tissue, To decrease soft tissue restriction and To increase flexibility/ROM Therapeutic Exercise to Include: Strength training, Endurance training, Balance training, Flexibilty training, Gait and locomotor training and Active ROM Comment: QUADS/HAMS/HIP For the Purpose of:: To decrease pain, To increase ROM, To improve muscle performance and motor function, To improve ability to perform ADL's, To increase tolerance to activity/condition/position, To improve ability of physical actions for home/community/work/leisure, To improve health of tissue, To decrease soft tissue restriction, To increase flexibility/ROM and To improve tolerance to ADL's Re-Evaluation Ending Re-evaluation ending: Please do not hesitate to contact me at [phone] by phone or if you have questions or concerns regarding this new plan of care! Sincerely, Ranjit Huitron, PT, Cert MDT, OCS
--- NOTE | 2024-04-29 15:32 | HP.PTRE(2)_ITS ---
Re-Evaluation Intro: Dr. Kevin Castano, DO, It has been my pleasure to treat SHAWNA DELEON over the last 8 visits for CHRONIC LEFT SHOULDER PAIN. Please see the progress note below for an update on the physical therapy plan of care! Subjective Subjective: Doing better with ROM wiTh improved with ADL Objective Objective/Function/Assessment: *Patient making progress with ROM and strength of left shoulder thus benefit from skilled PT with goals appropriate* POSTURE:mild forward posture GAIT: ambulates with FWW PALAPTION: unremarkable NEURO: denies parestehesia/tingling AROM: shoulder flexion 110 degrees pain,abduction 100 degrees with less pain ,IR L1 CAPSULAR : mild tight SCPULAR -HUMERAL : <1:1 ratio PROM:shoulder flexion 150 abduction pain ,abduction in scaption 155 degrees pain MMT: infraspinatus 9.8 ,supraspinatus 9.4 pain deltoid 11.4,subscapuaris 13.9 Plan Plan Plan: POSSIBLE RTC TEAR PT INTERVENTIONS GRADED RTC /SCAPULAR STRENGTHENING ,POSTURAL EX'S ,ROM AND MODALITIES Goals Goals Goal 1:: Patient to be I with HEP for shoulder Goal Time Frame: 4-6 Weeks Goal Progress: Progressing Goal 2:: Patient to improve AROM shoulder ROM by 130 degrees with f lexion/abduction for ADL and reaching behind back to put on coat Goal Time Frame: 4-6 Weeks Goal Progress: Progressing Goal 3:: Patient to improve peak force RTC and deltoid by 5-10 # to improve function Goal Time Frame: 4-6 Weeks Goal Progress: Progressing Goal 4:: Patient to improve quick dash by 5 points to improve QOL and function Goal Time Frame: 4-6 Weeks Goal Progress: Progressing Goal 5:: Patient to demonstrate 40% improvement with less pain and improve function Goal Time Frame: 4-6 Weeks Goal Progress: Progressing Anticipated Interventions Anticipated Interventions Patient/Client Instruction: Educate patient on: Condition and Plan of Care For the Purpose of:: To decrease pain, To increase ROM, To improve muscle performance and motor function, To improve ability to perform ADL's, To increase tolerance to activity/condition/position, To improve ability of physical actions for home/community/work/leisure, To improve health of tissue, To decrease soft tissue restriction, To increase flexibility/ROM, To reduce risk of recurrence and To improve tolerance to ADL's Therapeutic Exercise to Include: Strength training, Postural training, Flexibilty training, Passive ROM, Active ROM and Scapular Strength/Stabilization For the Purpose of:: To decrease pain, To increase ROM, To improve muscle performance and motor function, To improve ability to perform ADL's, To increase tolerance to activity/condition/position, To improve ability of physical actions for home/community/work/leisure, To improve health of tissue, To decrease soft tissue restriction, To increase flexibility/ROM, To reduce risk of recurrence, To prevent re-injury and To improve tolerance to ADL's TENS: Yes IF ES: Yes Cryotherapy (ice pack, ice massage): Yes Thermo therapy (hot pack): Yes Ultrasound (thermal/non thermal): Yes For the Purpose of:: To decrease pain, To increase ROM, To improve ability of physical actions for home/community/work/leisure, To improve health of tissue and To decrease soft tissue restriction Re-Evaluation Ending Re-evaluation ending: Please do not hesitate to contact me at [phone] by phone or if you have questions or concerns regarding this new plan of care! Sincerely, Ranjit Huitron, PT, Cert MDT, OCS
--- NOTE | 2024-05-26 11:47 | HP.PTREVAL ---
Re-Evaluation Intro: Dr. Kevin Castano, DO, It has been my pleasure to treat SHAWNA DELEON over the last 27 visits for UNILATERAL PRIMARY OSTEOARTHRITIS ,LEFT KNEE. Please see the progress note below for an update on the physical therapy plan of care! Subjective Subjective: Patient doing some better improved ,had problem with getting of house 3 steps no rails Patient I with FWW at home Objective Objective/Function: *Patient will continue with tooling engineering tech to improve strength as indicated to improve gait gait thus goals are adjusted new goals and are appropriate* POSTURE: mild forward posture NEURO: denies paresthesia/tingling GAIT: ambulates with fww WBAT LLE slight stance time LLE forward posture slow rogelio BALANCE: fair +with FWW AROM: supine knee flexion left 0-125 degrees ,hip flexion 105 degrees ,hip abduction 30 degrees MMT: ( peak force) left quads 50.1 ,right 50.9. ,hip flexion left 34.4 ,right 25.9 ,hip abd right 19 9 ,left 10.2 ,hamstrings left 38 .9 ,right 39..9 STAIRS: one step at time with rails Plan Plan Plan: s/p s/p Cephalo-medullary fixation left femur on 12/17/23 PROGRESS TO GYM BASED AND MACHINES PT INTERVENTIONS ROM HIP/KNEE ,STRENGTHENING QUADS/HAMS HIP ,GAIT TRAINING ,BALANCE TRAINING ,AND FUNCTIONAL STRENGTHENING Balance/Gait/Functional tests Balance/Special Test Scores Lower Extremity Functional Score: 26 Quick DASH Score: 67.5000 Goals Goals Goal 1:: Patient to be I with HEP for hip/knee Goal Time Frame: 4-6 Weeks Goal Progress: Progressing Goal 2:: Patient to ambulate with fww with improved gait pattern community distances Goal Time Frame: 4-6 Weeks Goal Progress: Progressing Goal 3:: Patient to demonstrate 75% improvement with increase function with gait( New goal) Goal Time Frame: 4-6 Weeks Goal 4:: Patient to improve peak force quads/hams/hip LLE by 5-10 # to improve function with gait Goal Time Frame: 4-6 Weeks Goal Progress: Progressing Goal 5:: Patient to improve LFES score by 5 points to improve function(new goal) Goal Time Frame: 4-6 Weeks Goal Progress: Progressing Anticipated Interventions Anticipated Interventions Patient/Client Instruction: Educate patient on: Condition and Plan of Care For the Purpose of:: To decrease pain, To increase ROM, To improve muscle performance and motor function, To improve ability to perform ADL's, To increase tolerance to activity/condition/position, To improve ability of physical actions for home/community/work/leisure, To improve health of tissue, To decrease soft tissue restriction and To increase flexibility/ROM Therapeutic Exercise to Include: Strength training, Endurance training, Balance training, Flexibilty training, Gait and locomotor training and Active ROM Comment: QUADS/HAMS/HIP For the Purpose of:: To decrease pain, To increase ROM, To improve muscle performance and motor function, To improve ability to perform ADL's, To increase tolerance to activity/condition/position, To improve ability of physical actions for home/community/work/leisure, To improve health of tissue, To decrease soft tissue restriction, To increase flexibility/ROM and To improve tolerance to ADL's Re-Evaluation Ending Re-evaluation ending: Please do not hesitate to contact me at [phone] by phone or if you have questions or concerns regarding this new plan of care! Sincerely, Ranjit Huitron, PT, Cert MDT, OCS
--- NOTE | 2024-05-26 12:36 | HP.PTRE(2) ---
Re-Evaluation Intro: Dr. Kevin Castano, DO, It has been my pleasure to treat SHAWNA DELEON over the last 16 visits for CHRONIC LEFT SHOULDER PAIN. Please see the progress note below for an update on the physical therapy plan of care! Subjective Subjective: Shoulder pain is aggravating using walker Pain with lifting Objective Objective/Function/Assessment: Patient making progress with ROM and of left shoulder thus benefit from skilled PT with goals adjusted appropriate* Discussed with patient using triceps with FWW POSTURE:mild forward posture GAIT: ambulates with FWW PALAPTION: unremarkable NEURO: denies parestehesia/tingling AROM: shoulder flexion 130 degrees pain,abduction 140 degrees with less pain ,IR L1 CAPSULAR : mild tight SCPULAR -HUMERAL : <1:1 ratio PROM:shoulder flexion 150 abduction pain ,abduction in scaption 155 degrees pain MMT: infraspinatus 10.8 ,supraspinatus 9.4 pain deltoid 10.4,subscapuaris 13.9 Plan Plan Plan: POSSIBLE RTC TEAR PT INTERVENTIONS GRADED RTC /SCAPULAR STRENGTHENING ,POSTURAL EX'S ,ROM AND MODALITIES Goals Goals Goal 1:: Patient to be I with HEP for shoulder Goal Time Frame: 4-6 Weeks Goal Progress: Progressing Goal 2:: Patient to improve AROM shoulder ROM by 145 degrees with flexion/abduction for ADL and reaching behind back to put on coat( NEW GOAL) Goal Time Frame: 4-6 Weeks Goal Progress: Progressing Goal 3:: Patient to improve peak force RTC and deltoid by 5-10 # to improve function Goal Time Frame: 4-6 Weeks Goal Progress: Progressing Goal 4:: Patient to improve quick dash by 5 points to improve QOL and function Goal Time Frame: 4-6 Weeks Goal Progress: Progressing Goal 5:: Patient to demonstrate 40% improvement with less pain and improve function Goal Time Frame: 4-6 Weeks Goal Progress: Progressing Anticipated Interventions Anticipated Interventions Patient/Client Instruction: Educate patient on: Condition and Plan of Care For the Purpose of:: To decrease pain, To increase ROM, To improve muscle performance and motor function, To improve ability to perform ADL's, To increase tolerance to activity/condition/position, To improve ability of physical actions for home/community/work/leisure, To improve health of tissue, To decrease soft tissue restriction, To increase flexibility/ROM, To reduce risk of recurrence and To improve tolerance to ADL's Therapeutic Exercise to Include: Strength training, Postural training, Flexibilty training, Passive ROM, Active ROM and Scapular Strength/Stabilization For the Purpose of:: To decrease pain, To increase ROM, To improve muscle performance and motor function, To improve ability to perform ADL's, To increase tolerance to activity/condition/position, To improve ability of physical actions for home/community/work/leisure, To improve health of tissue, To decrease soft tissue restriction, To increase flexibility/ROM, To reduce risk of recurrence, To prevent re-injury and To improve tolerance to ADL's TENS: Yes IF ES: Yes Cryotherapy (ice pack, ice massage): Yes Thermo therapy (hot pack): Yes Ultrasound (thermal/non thermal): Yes For the Purpose of:: To decrease pain, To increase ROM, To improve ability of physical actions for home/community/work/leisure, To improve health of tissue and To decrease soft tissue restriction Re-Evaluation Ending Re-evaluation ending: Please do not hesitate to contact me at [phone] by phone or if you have questions or concerns regarding this new plan of care! Sincerely, Ranjit Huitron, PT, Cert MDT, OCS
--- NOTE | 2024-06-23 14:31 | HP.PTDCSUM_ITS ---
Discharge Summary D/C summary: It has been my pleasure to treat SHAWNA DELEON referred by Dr. Kevin Castano DO, with the diagnosis of UNILATERAL PRIMARY OSTEOARTHRITIS ,LEFT KNEE for a total of 35 visit(s). Discharge Date: 06/23/24 Please see the following information for a summary of their discharge status. Subjective Subjective: Plan to do join [employer] Not much change Pain Left Knee: Pain Intensity (Out of 10): 0 Overall Improvement % Improvement: 70 Objective Objective/Function: POSTURE: mild forward posture NEURO: denies paresthesia/tingling GAIT: ambulates with fww WBAT LLE slight stance time LLE forward posture slow rogelio BALANCE: fair +with FWW AROM: supine knee flexion left 0-125 degrees ,hip flexion 105 degrees ,hip abduction 30 degrees MMT: ( peak force) left quads 50.1 ,right 50.9. ,hip flexion left 34.4 ,right 25.9 ,hip abd right 19 9 ,left 10.2 ,hamstrings left 38 .9 ,right 39..9 STAIRS: one step at time with rails Goals Goal 1:: Patient to be I with HEP for hip/knee Goal Progress: Progressing Goal 2:: Patient to ambulate with fww with improved gait pattern community distances Goal Progress: Progressing Goal 3:: Patient to demonstrate 75% improvement with increase function with gait( New goal) Goal 4:: Patient to improve peak force quads/hams/hip LLE by 5-10 # to improve function with gait Goal Progress: Progressing Goal 5:: Patient to improve LFES score by 5 points to improve function(new goal) Goal Progress: Progressing Plan Plan: D/C , D/C Information Discharge Comments: hep and gym d/c sentence: If there are questions or concerns regarding this patient's physical therapy, please feel free to call me at [phone]. Thank you for the referral of this patient. Sincerely, Ranjit Huitron, PT, Cert MDT, OCS Balance/Gait/Functional tests Balance/Special Test Scores Lower Extremity Functional Score: 26 Quick DASH Score: 67.5000 Improvement % Improvement: 70
--- NOTE | 2024-06-23 14:59 | HP.PTDCS(2) ---
Discharge Summary D/C Summary: It has been my pleasure to treat SHAWNA DELEON referred by Dr. Kevin Castano DO, with the diagnosis of CHRONIC LEFT SHOULDER PAIN for a total of 24 visit(s). Discharge Date: Please see the following information for a summary of their discharge status. Subjective Subjective: Shoulder doing better Overall Improvement % Improvement: 60 Objective Objective/Function/Assessment: POSTURE:mild forward posture GAIT: ambulates with FWW PALAPTION: unremarkable NEURO: denies parestehesia/tingling AROM: shoulder flexion 130 degrees pain,abduction 140 degrees with less pain ,IR L1 CAPSULAR : mild tight SCPULAR -HUMERAL : <1:1 ratio PROM:shoulder flexion 150 abduction pain ,abduction in scaption 155 degrees pain MMT: infraspinatus 11.8 ,supraspinatus 104 pain deltoid 12.4,subscapuaris 13.9 Goals Patient Goals: Improve Mobility, Improve Function, Decrease Pain, Alleviate Pain, Walk Normal and Maneuver Steps Goal 1:: Patient to be I with HEP for shoulder Goal Progress: Progressing Goal 2:: Patient to improve AROM shoulder ROM by 145 degrees with flexion/abduction for ADL and reaching behind back to put on coat( NEW GOAL) Goal Progress: Goal Met Goal 3:: Patient to improve peak force RTC and deltoid by 5-10 # to improve function Goal Progress: Goal Met Goal 4:: Patient to improve quick dash by 5 points to improve QOL and function Goal Progress: Goal Met Goal 5:: Patient to demonstrate 40% improvement with less pain and improve function Goal Progress: Goal Met Plan Plan: D/C D/C Information d/c sentence: If there are questions or concerns regarding this patient's physical therapy, please feel free to call me at [phone]. Thank you for the referral of this patient. Sincerely, Ranjit Huitron, PT, Cert MDT, OCS Balance/Special Test Scores Improvement % Improvement: 60
== END 2024-06-23 19:00 | disposition home or self-care (01) ==
LOC: PT 14:00
PROVIDERS: PCP Family Medicine; Referring Provider Orthopaedic Surgery; Visit Provider Orthopaedic Surgery
DX: M17.12 Unilateral primary osteoarthritis, left knee (principal)
CPT/HCPCS: 97110; 97162; 97166; 97530

== ENCOUNTER → 2024-08-11 | Outpatient (CLI) | payer MEDICARE, OTHER, SELFPAY ==
[2024-08-11 15:58] LABS: AST(SGOT) 16 U/L (<=37); Alanine Aminotransfer ALT/SGPT 6 U/L (<=46); Albumin, Serum 3.4 g/dL (3.4-4.8); Alkaline Phosphatase 99 U/L (40-129); Bilirubin, Direct 0.19 mg/dL (0.00-0.30); Cholesterol 166 mg/dL (<=200); Globulin 2.8 g/dL (2.2-4.2); High Density Lipoprotein 44 mg/dL; Low Density Lipoprotein Calc. 100 mg/dL; Protein, Total 6.2 g/dL (5.9-8.4); Total Bilirubin 0.43 mg/dL (0.00-1.30); Triglycerides 113 mg/dL; Very Low Density Lipoprotein 23 mg/dL (5-40); cholesterol:hdl ratio screen 3.82
== END | disposition home or self-care (01) ==
LOC: LAB 14:24
PROVIDERS: PCP Family Medicine; Referring Provider Nurse Practitioner Family; Visit Provider Nurse Practitioner Family
DX: E78.00 Pure hypercholesterolemia, unspecified (principal)
CPT/HCPCS: 36415; 80061; 80076